=== PATIENT | female | born 1980 | race Caucasian/White ===

== ENCOUNTER → 2018-01-15 09:23 | Outpatient (CLI) | payer MEDICAID, SELFPAY ==
--- NOTE | 2018-01-15 09:27 | MM_ITS ---
MM Dig screening mamm BI w/CAD CAD Screening ORDERING PHYSICIAN : Silvio Cintron MD PATIENT AGE: 37 years GENDER: Female COMPARISON:. January 2017 previous mammogram INDICATION: Routine screening. No hormones. No new complaints.. Family history. Paternal aunt TECHNIQUE: Standard CC and MLO images were obtained. R2 CAD reviewed. FINDINGS: Low-density breast with generalized fatty replacement. Very minimal scant residual fibroglandular elements. No malignancy evident radiographically. No dominant mass nor suspicious calcifications. No new areas concern. Bilateral follow-up in one year recommended. . IMPRESSION: ...... Negative stable bilateral mammogram. Bilateral follow-up one year recommended. BI-RADS Category: 1 Negative RECOMMENDED FOLLOW-UP: 1YR - 1 YEAR FOLLOW-UP (A letter has been sent to the patient regarding results of the study.)
[2018-01-15 10:18] LABS: Basophils # 0.1 K/mm3 (0-0.2); Basophils % 1.1 % (0.1-2.0); Eosinophils # 0.2 K/mm3 (0.0-0.4); Eosinophils % 2.5 % (0.1-12.0); Hematocrit 42.4 % (37.0-47.0); Hemoglobin 13.2 g/dL (12.2-16.2); Lymphocytes % 28.1 K/mm3 (10-50); Mean Corpuscular HGB Conc 31.2 g/dL (31.8-35.4); Mean Corpuscular Hemoglobin 26.2 pg (27.0-31.2); Mean Platelet Volume 7.5 fl (7.4-10.4); Monocytes # 0.5 K/mm3 (0.1-1.0); Neutrophils # 4.4 K/mm3 (1.8-7.8); Neutrophils % 61.3 % (37.0-80.0); Platelet Count 309 K/mm3 (142-424); Red Blood Count 5.05 M/mm3 (4.20-5.40); Red Cell Distribution Width 13.2 % (11.5-17.5); White Blood Count 7.2 K/mm3 (4.8-10.8)
[2018-01-15 10:22] LABS: Urine Pregnancy, HCG Qual. Negative (Negative)
[2018-01-15 11:10] LABS: Anion Gap 12.4 mEq/L (5-15); Blood Urea Nitrogen 11 mg/dL (7-18); Carbon Dioxide 27 mmol/L (21.0-32.0); Chloride 108 mmol/L (98-107); Creatinine,Serum 0.69 mg/dL (0.55-1.02); Estimated Glomerular Filt Rate 96 ml/min (>60); GFR (African American) 116 ML/MIN (>60); Glucose 94 mg/dL (74-106); Potassium 4.4 mmoL/L (3.5-5.1); Sodium 143 mmol/L (136-145)
== END ==
PROVIDERS: Family Provider Nurse Practitioner Obstetrics & Gynecology; PCP Nurse Practitioner Family; Visit Provider Nurse Practitioner Obstetrics & Gynecology
DX: Z12.31 Encounter for screening mammogram for malignant neoplasm of breast (principal)
CPT/HCPCS: 36415; 77067; 80048; 81025; 85025

== ENCOUNTER → 2018-01-21 09:58 | Outpatient (CLI) | payer MEDICAID, SELFPAY ==
--- NOTE | 2018-01-21 09:59 | US_ITS ---
US transvaginal HISTORY: ITS.REASON: US T/V- Heavy Bleeding ORDERING PHYSICIAN: Silvio Cintron MD PATIENT AGE: 37 years Comparison: None FINDINGS: The uterus measures 12 x 5 x 7.3 cm. Combined and medial thickness is 1 cm. There are nabothian cysts present measuring up to 17 mm. The right ovary measures 4.5 x 3.4 cm and contains a bilocular cyst at 3.4 x 2.4 cm. The left ovary is 2 x 1.5 cm with an unremarkable appearance. No cul-de-sac fluid is evident. IMPRESSION: 1. Enlarged uterus with nabothian cyst. Endometrial thickness upper limits of normal 2. Bilocular right ovarian cyst at 3.4 x 2.4 cm
== END ==
PROVIDERS: Family Provider Nurse Practitioner Obstetrics & Gynecology; PCP Nurse Practitioner Family; Visit Provider Nurse Practitioner Obstetrics & Gynecology
DX: N92.0 Excessive and frequent menstruation with regular cycle (principal)
CPT/HCPCS: 76830

== ENCOUNTER → 2018-03-08 09:52 | Outpatient (CLI) | payer MEDICAID, SELFPAY ==
[2018-03-08 10:26] LABS: Basophils # 0.1 K/mm3 (0-0.2); Basophils % 0.7 % (0.1-2.0); Eosinophils # 0.3 K/mm3 (0.0-0.4); Hematocrit 39.3 % (37.0-47.0); Hemoglobin 12.9 g/dL (12.2-16.2); Lymphocytes # 1.8 K/mm3 (0.7-4.5); Lymphocytes % 26.5 K/mm3 (10-50); Mean Corpuscular HGB Conc 32.8 g/dL (31.8-35.4); Mean Corpuscular Hemoglobin 26.6 pg (27.0-31.2); Mean Corpuscular Volume 81.2 fl (81-99); Mean Platelet Volume 7.4 fl (7.4-10.4); Monocytes # 0.3 K/mm3 (0.1-1.0); Monocytes % 3.9 % (1.7-9.3); Neutrophils # 4.4 K/mm3 (1.8-7.8); Neutrophils % 64.9 % (37.0-80.0); Platelet Count 301 K/mm3 (142-424); Red Blood Count 4.84 M/mm3 (4.20-5.40); Red Cell Distribution Width 13.4 % (11.5-17.5); White Blood Count 6.8 K/mm3 (4.8-10.8)
[2018-03-08 10:53] LABS: HCG Qualitative, Serum Negative (Negative)
[2018-03-08 11:14] LABS: Anion Gap 10.9 mEq/L (5-15); Blood Urea Nitrogen 11 mg/dL (7-18); Calcium 8.6 mg/dL (8.5-10.1); Carbon Dioxide 24 mmol/L (21.0-32.0); Chloride 108 mmol/L (98-107); Creatinine,Serum 0.63 mg/dL (0.55-1.02); Estimated Glomerular Filt Rate 107 ml/min (>60); GFR (African American) 129 ML/MIN (>60); Glucose 121 mg/dL (74-106); Potassium 3.9 mmoL/L (3.5-5.1); Sodium 139 mmol/L (136-145)
== END ==
PROVIDERS: Visit Provider Nurse Practitioner Obstetrics & Gynecology
DX: Z01.818 Encounter for other preprocedural examination (principal)
CPT/HCPCS: 36415; 80048; 84703; 85025

== ENCOUNTER → 2018-03-26 11:13 | Outpatient (CLI) | payer MEDICAID, SELFPAY ==
[2018-03-27 11:00] LABS: FSH 3.9 mIU/mL (.); LH 5.5 mIU/mL (.)
== END ==
PROVIDERS: Visit Provider Nurse Practitioner Obstetrics & Gynecology
DX: N95.1 Menopausal and female climacteric states (principal)
CPT/HCPCS: 36415; 83001; 83002

== ENCOUNTER → 2019-01-21 09:25 | Outpatient (CLI) | payer MEDICAID, SELFPAY ==
--- NOTE | 2019-01-21 09:27 | MM_ITS ---
MM Dig screening mamm BI w/CAD CAD Screening COMPARISON: Digital mammograms with CAD 01/15/2018 and 01/12/2017 INDICATION: There is a history of breast cancer in patient's paternal aunt TECHNIQUE: Standard CC and MLO images were obtained. R2 CAD reviewed. FINDINGS: Scattered fibroglandular densities are seen throughout both breast in a background of fatty breast parenchyma. There are couple benign-appearing microcalcifications in each breast. There is no suspicious lesion and no suspicious microcalcifications. IMPRESSION: Fibrofatty parenchyma no suspicious lesion seen BI-RADS Category: 2 Benign Finding(s) RECOMMENDED FOLLOW-UP: 1YR - 1 YEAR FOLLOW-UP (A letter has been sent to the patient regarding results of the study.)
== END ==
PROVIDERS: PCP Nurse Practitioner Family; Visit Provider Nurse Practitioner Obstetrics & Gynecology
DX: Z12.31 Encounter for screening mammogram for malignant neoplasm of breast (principal)
CPT/HCPCS: 77067

== ENCOUNTER → 2020-05-12 09:13 | Outpatient (CLI) | payer MEDICAID, SELFPAY ==
--- NOTE | 2020-05-12 09:59 | MM_ITS ---
PROCEDURE: MM DIG SCREENING MAMM BI W/CAD Digital Breast Tomosynthesis Included CLINICAL INDICATION: SCREENING There is a history of breast cancer patient's paternal aunt. COMPARISON: MG DMSB DIG MAMM-SCREEN [facility] W/CAD from 01/12/2017 MG [facility] MM Dig screening mamm BI w/CAD from 01/15/2018 MG DIG MAMM-SCREEN [facility] from 01/21/2019 TECHNIQUE: Standard CC and MLO images and 3D Tomosynthesis was obtained. R2 CAD reviewed. FINDINGS: Scattered diffuse fibroglandular densities are seen throughout both breasts. There are slightly asymmetric glandular elements central portion right breast. However sylvia images are most helpful in decreasing concern of the asymmetric glandular elements. There is no suspicious lesion and no suspicious microcalcifications. IMPRESSION: BI-RAD Category: 1 Negative Fibrofatty parenchyma with no suspicious lesions seen FOLLOW-UP: 1YR 1 Year Follow-up (A letter has been sent to the patient regarding results of the study.) Dictated by: Dr. Shawn Adler MD 05/17/2020 11:53 Dr. Shawn Adler MD in [place] 05/17/2020 11:53
== END ==
PROVIDERS: PCP Nurse Practitioner Family; Visit Provider Nurse Practitioner Obstetrics & Gynecology
DX: Z12.31 Encounter for screening mammogram for malignant neoplasm of breast (principal)
CPT/HCPCS: 77063; 77067

== ENCOUNTER → 2021-06-13 13:53 | Outpatient (CLI) | payer MEDICAID, SELFPAY ==
--- NOTE | 2021-06-13 13:54 | MM_ITS ---
PROCEDURE: MM DIG SCREENING MAMM BI W/CAD Digital Breast Tomosynthesis Included CLINICAL INDICATION: Routine Screening Mammogram There is a history of breast cancer in the patient's paternal aunt. COMPARISON: MG [facility]BI MM Dig screening mamm BI w/CAD from 01/15/2018 MG DIG MAMM-SCREEN [facility] from 01/21/2019 MG MM DIG SCREENING MAMM BI W/CAD from 05/12/2020 TECHNIQUE: Standard CC and MLO images and 3D Tomosynthesis was obtained. R2 CAD reviewed. FINDINGS: Moderate diffuse fibroglandular densities are seen throughout both breast and the findings are bilateral and symmetrical. There are stable asymmetric glandular elements upper-outer quadrant right breast. There is no suspicious lesion and no suspicious microcalcifications. IMPRESSION: Moderate breast density with no suspicious lesions seen BI-RAD Category: 1 Negative FOLLOW-UP: 1YR 1 Year Follow-up (A letter has been sent to the patient regarding results of the study.) Dictated by: Dr. Shawn Adler MD 06/17/2021 08:36 Dr. Shawn Adler MD in [place] 06/17/2021 08:36
== END ==
PROVIDERS: PCP Nurse Practitioner; Visit Provider Nurse Practitioner Obstetrics & Gynecology
DX: Z12.31 Encounter for screening mammogram for malignant neoplasm of breast (principal)
CPT/HCPCS: 77063; 77067

== ENCOUNTER → 2022-06-16 10:56 | Outpatient (CLI) | payer MEDICAID, SELFPAY ==
--- NOTE | 2022-06-16 10:57 | MM_ITS ---
PROCEDURE INFORMATION: Exam: MG Bilateral Screening 3D Mammography Exam date and time: 06/16/2022 10:55 AM Age: 41 years old Clinical indication: Screening. A paternal aunt had breast cancer. TECHNIQUE: Imaging protocol: Bilateral Screening tomosynthesis and 2D mammography including computer-aided detection (CAD) when performed. COMPARISON: 1. MG MM DIG SCREENING MAMM BI W/CAD 06/13/2021 1:56 PM 2. MG MM DIG SCREENING MAMM BI W/CAD 05/12/2020 10:02 AM 3. MG DIG MAMM-SCREEN [facility] 01/21/2019 9:47 AM 4. MG [facility] MM Dig screening mamm BI w/CAD 01/15/2018 9:37 AM FINDINGS: MAMMOGRAPHY: Breast composition: The breasts are almost entirely fatty. Mass: None. Architectural distortion: None. Calcifications: No suspicious calcifications. Asymmetric density: None. Skin thickening: None. Axillary adenopathy: None. IMPRESSION: No mammographic evidence of malignancy. Annual screening is recommended unless otherwise clinically indicated. ASSESSMENT: BI-RADS Category 1: Negative
== END ==
PROVIDERS: PCP Nurse Practitioner Family; Visit Provider Nurse Practitioner Obstetrics & Gynecology
DX: Z12.31 Encounter for screening mammogram for malignant neoplasm of breast (principal)
CPT/HCPCS: 77063; 77067

== ENCOUNTER → 2023-06-26 12:46 | Outpatient (CLI) | payer MEDICAID, SELFPAY ==
--- NOTE | 2023-06-26 12:46 | MM_ITS ---
PROCEDURE INFORMATION: Exam: MG Bilateral Screening 3D Mammography Exam date and time: 06/26/2023 1:00 PM Age: 42 years old Clinical indication: Screening examination TECHNIQUE: Imaging protocol: Bilateral Screening tomosynthesis and 2D mammography including computer-aided detection (CAD) when performed. COMPARISON: 1. MG MM DIG SCREENING MAMM BI W/CAD 06/16/2022 10:55 AM 2. MG MM DIG SCREENING MAMM BI W/CAD 06/13/2021 1:56 PM FINDINGS: MAMMOGRAPHY: Breast composition: The breasts are almost entirely fatty. Mass: None. Architectural distortion: None. Calcifications: No suspicious calcifications. Asymmetric density: None. Skin thickening: None. Axillary adenopathy: None. IMPRESSION: No mammographic evidence of malignancy. Annual screening is recommended unless otherwise clinically indicated. ASSESSMENT: BI-RADS Category 1: Negative
== END ==
PROVIDERS: PCP Nurse Practitioner; Visit Provider Nurse Practitioner Obstetrics & Gynecology
DX: Z12.31 Encounter for screening mammogram for malignant neoplasm of breast (principal)
CPT/HCPCS: 77063; 77067

== ENCOUNTER 2024-02-21 10:41 | Emergency (ER) | payer MEDICAID, SELFPAY ==
[2024-02-21] VITALS (9 sets, daily range): BP systolic 105–146; BP diastolic 64–88; PULSE 50–70; RESP 16–18; TEMP 36.8; O2SAT 94–100; BMI 39.9
--- NOTE | 2024-02-21 10:43 | HMH.EDGENADL ---
Discharge Plan Disposition Patient Disposition: Home, Self-Care Condition: Good Prescriptions Prescriptions: New ketorolac 10 mg tablet 10 mg PO Q8H PRN (Reason: pain) 5 Days Qty: 14 0RF tamsulosin 0.4 mg capsule 0.4 mg PO DAILY 30 Days Qty: 30 0RF No Action multivitamin capsule 1 cap PO DAILY gabapentin 600 mg tablet 600 mg PO TID duloxetine [Cymbalta] 60 mg capsule,delayed release(DR/EC) 60 mg PO DAILY meloxicam 15 mg tablet 15 mg PO DAILY topiramate 50 mg tablet 50 mg PO Patient Comments: TAKE 1 TABLET BY MOUTH TWICE DAILY. zinc sulfate 50 mg zinc (220 mg) capsule 100 mg PO DAILY esomeprazole magnesium 20 mg capsule,delayed release(DR/EC) 20 mg PO DAILY cholecalciferol (vitamin D3) [Vitamin D3] 50 mcg (2,000 unit) tablet 50 mcg PO DAILY albuterol sulfate [Ventolin HFA] 90 mcg/actuation HFA aerosol inhaler 2 puff inhalation PRN omega 8-yfh-was-fish oil [Fish Oil] 300-1,000 mg capsule,delayed release(DR/EC) PO Vraylar 3 mg capsule 3 mg PO DAILY fluconazole 100 mg tablet 100 mg PO DAILY docusate sodium 100 mg capsule PO fluticasone propionate 50 mcg/actuation spray,suspension intranasal Referrals Follow up/Referrals: Nat Riley APRN [Primary Care Provider] - See instructions Activity Restrictions/Add. Instructions Additional Instructions/Restrictions: As we discussed, you have a 4 mm kidney stone on the right side. It is causing some backup in your kidney of urine. Given that your pain is under control, albeit that your urinalysis is difficult to interpret with multiple squamous cells, you are stable for discharge. I have prescribed pain medication and a medication called tamsulosin or Flomax which can help potentially pass a stone. Please follow-up with a urology doctor. Please return with any new or worsening symptoms. Clinical Impressions Clinical Impression: Urolithiasis, Hydronephrosis Instructions Patient Instructions: DI for Low Back Pain Discharge ED Provider: Rohan Bustamante General Adult HPI General Chief complaint: Back Pain/Injury Stated complaint: lower right back pain Time Seen by Provider: 02/21/24 10:43 History of Present Illness HPI narrative: The patient presents with a chief complaint of lower sides and back pain. The pain began when the patient fell ill and has been persistent since then. The patient denies any radiation of the pain and reports no pain during urination. She denies any pain elsewhere. Symptoms were acute in onset, intermittent, stable in course. No fevers or chills. No pain elsewhere. No nausea or vomiting. No sick contacts. No previous therapies. The patient has a medical history of migraines and is currently taking topiramate for migraine management, along with several vitamins. The patient has had a previous surgery. The patient reports normal bowel movements. During a recent urinalysis, blood was detected in the patient's urine. Please note that above description of symptoms, in this electronic medical record under categorization of recalled from ER triage doctor by RN are reflective of an initial nursing assessment, however, is not reflective of my full history and physical exam that was personally taken and clarified. Consequentially, this preceding description of symptoms, which may include the patient's categorized chief complaint in the EMR, do not reflect my personal clinical impression, and the ultimate description of history of present illness and patient stated complaints should be deferred to this section of the note. Unless stated otherwise or congruent with this section of the note, additional signs, symptoms, or incongruence should be interpreted as inaccurate with my clinical impression. Related Data Home Medications Medication Instructions Recorded Confirmed multivitamin 1 cap PO DAILY 03/26/18 02/14/24 gabapentin 600 mg tablet 600 mg PO TID 01/21/19 02/14/24 duloxetine 60 mg capsule,delayed 60 mg PO DAILY 05/12/20 02/14/24 release (Cymbalta) meloxicam 15 mg tablet 15 mg PO DAILY 05/12/20 02/14/24 topiramate 50 mg tablet 50 mg PO 06/13/21 02/14/24 cholecalciferol (vitamin D3) 50 50 mcg PO DAILY 01/04/23 02/14/24 mcg (2,000 unit) tablet (Vitamin D3) esomeprazole magnesium 20 mg 20 mg PO DAILY 01/04/23 02/14/24 capsule,delayed release zinc sulfate 50 mg zinc (220 mg) 100 mg PO DAILY 01/04/23 02/14/24 capsule albuterol sulfate 90 mcg/actuation 2 puff inhalation PRN 08/16/23 02/14/24 aerosol inhaler (Ventolin HFA) cariprazine 3 mg capsule (Vraylar) 3 mg PO DAILY 08/16/23 02/14/24 omega 5-qxx-qiq-fish oil 300 cap PO 08/16/23 02/14/24 mg-1,000 mg capsule,delayed release (Fish Oil) docusate sodium 100 mg capsule mg PO 02/14/24 02/14/24 fluconazole 100 mg tablet 100 mg PO DAILY 02/14/24 02/14/24 fluticasone propionate 50 intranasal 02/14/24 02/14/24 mcg/actuation nasal spray,suspension Previous Rx's Medication Instructions Recorded ketorolac 10 mg tablet 10 mg PO Q8H PRN pain 5 days #14 02/21/24 tabs tamsulosin 0.4 mg capsule 0.4 mg PO DAILY 30 days #30 caps 02/21/24 Allergies Allergy/AdvReac Type Severity Reaction Status Date / Time penicillin G Allergy Mild Hives Verified 02/21/24 11:16 [facility] Disclaimer: The information contained in this section may have been updated after the patient was seen, as this information can be updated by other users. Medical History Bipolar 2 disorder GERD (gastroesophageal reflux disease) Surgical History History of salpingectomy History of endometrial ablation History of gastric surgery History of delivery History of arthroplasty of left knee History of tonsillectomy Family History Other Diabetes Hypertension Social History Smoking Status: Never smoker alcohol intake: never substance use type: denies use current occupational status: employed Travel in the last 8 weeks: None household members: spouse and children housing: house current occupational exposures/hazards: No caffeine: No ROS Obtained: Yes other As per HPI Physical Exam General General appearance: alert and in no apparent distress Head Head exam: atraumatic and normocephalic Eye Eye exam: Present normal appearance Neck Neck exam: Present normal inspection Chest Chest inspection: Present normal inspection and symmetric chest wall rise Respiratory Respiratory exam: Present normal lung sounds bilaterally; Absent respiratory distress Cardiovascular Cardiovascular exam: Present regular rate and normal rhythm Abdominal Exam Abdominal exam: Present soft Neurological Exam Neurological exam: Present alert and oriented X3 Psychiatric Psychiatric exam: Present normal affect and normal mood Skin Skin exam: Present warm and dry Other Other exam information: Right-sided CVA tenderness to percussion Medical Decision Making Medical Records Medical records reviewed: Yes I reviewed the patient's medical records. Jamie Inquiry Pt receiving controlled substance: No Vital Signs: 02/21/24 11:00 02/21/24 11:08 02/21/24 12:35 Temperature 98.2 F Temperature Source Oral Pulse Rate 66 70 Pulse Rate [Left] 57 L Respiratory Rate 16 18 Blood Pressure 126/88 105/64 L Blood Pressure [Right Arm] 146/81 H Blood Pressure Mean 95 77 Blood Pressure Mean [Right Arm] 102 Blood Pressure Source Blood Pressure Source [Right Arm] Automatic Cuff Blood Pressure Position Blood Pressure Position [Right Arm] Sitting 02 Sat by Pulse Oximetry 97 99 100 Oxygen Delivery Method Room Air Room Air 02/21/24 13:00 02/21/24 13:30 02/21/24 14:01 Temperature Temperature Source Pulse Rate 52 L 55 L 50 L Pulse Rate [Left] Respiratory Rate Blood Pressure 119/64 116/68 113/64 Blood Pressure [Right Arm] Blood Pressure Mean 76 84 87 Blood Pressure Mean [Right Arm] Blood Pressure Source Blood Pressure Source [Right Arm] Blood Pressure Position Blood Pressure Position [Right Arm] 02 Sat by Pulse Oximetry 95 95 96 Oxygen Delivery Method 02/21/24 14:31 02/21/24 15:01 02/21/24 15:10 Temperature 98.2 F Temperature Source Oral Pulse Rate 51 L 54 L 60 Pulse Rate [Left] Respiratory Rate 18 Blood Pressure 122/68 105/65 L 115/66 Blood Pressure [Right Arm] Blood Pressure Mean 97 78 Blood Pressure Mean [Right Arm] Blood Pressure Source Automatic Cuff Blood Pressure Source [Right Arm] Blood Pressure Position Sitting Blood Pressure Position [Right Arm] 02 Sat by Pulse Oximetry 95 94 L Oxygen Delivery Method Room Air Lab Data Lab Results 02/21/24 10:46: Urine Color Yellow, Urine Appearance Cloudy, Urine pH 7.0, Ur Specific [place] 1.020, Urine Protein Negative, Urine Glucose (UA) Trace, Urine Ketones Negative, Urine Blood 1+, Urine Nitrate Negative, Urine Bilirubin Negative, Urine Urobilinogen >=8.0, Ur Leukocyte Esterase Negative, Urine RBC 3-5, Urine WBC 5-10, Ur Squamous Epith Cells 20-50, Amorphous Sediment 3+, Urine Bacteria 1+ 02/21/24 11:07: WBC 11.0 H, RBC 4.49, Hgb 13.1, Hct 39.8, MCV 88.8, MCH 29.2, MCHC 32.8, RDW 13.9, Plt Count 250, MPV 7.7, Neut % (Auto) 78.5, Lymph % (Auto) 12.6, [place] % (Auto) 7.1, Eos % (Auto) 1.2, Baso % (Auto) 0.6, Neut # (Auto) 8.6 H, Lymph # (Auto) 1.4, [place] # (Auto) 0.8, Eos # (Auto) 0.1, Baso # (Auto) 0.1, Sodium 139, Potassium 3.5, Chloride 113 H, Carbon Dioxide 23, Anion Gap 6.5, BUN 16, Creatinine 1.00, Estimated Creat Clear 142, Estimated GFR 61, Est GFR ( Amer) 74, Glucose 100, Calcium 8.8, Total Bilirubin 1.1, AST 26, ALT 18, Alkaline Phosphatase 68, Total Protein 6.7, Albumin 3.7, Globulin 3.0, Albumin/Globulin Ratio 1.2, Serum HCG, Qual Negative 02/21/24 11:07 02/21/24 11:07 Orders (Tests/Meds): ED MEDICATIONS Discontinued Medications Generic Name Dose Route Start Last Admin Trade Name Freq PRN Reason Stop Dose Admin Lactated Ringer's 1,000 mls @ 999 mls/hr 02/21/24 11:09 02/21/24 11:17 Lactated Ringer's 1000 Ml Bag IV 02/21/24 12:09 999 mls/hr .Q1H1M ONE Administration Ketorolac Tromethamine 15 mg 02/21/24 11:09 02/21/24 11:17 Ketorolac 30mg/Ml Vial IV 02/21/24 11:10 15 mg ONCE ONE Administration ORDERS Category Date Time Status CT abdomen pelvis wo con Stat Cat Scan 02/21/24 11:09 Completed CBC w/Auto Diff [Complete Blood Count Auto Diff] Stat Lab 02/21/24 11:07 Completed CMP [Comprehensive Metabolic Panel] Stat Lab 02/21/24 11:07 Completed HCG Qualitative, Serum Stat Lab 02/21/24 11:07 Completed Urinalysis and Microscopic Stat Lab 02/21/24 10:46 Completed Urine Culture Stat Micro 02/21/24 10:46 Received Medical Decision Narrative: Patient with history and exam per above presenting for evaluation of right-sided flank pain and abdominal pain Diagnoses considered include , urolithiasis, cystitis, pyelonephritis, hydronephrosis, diverticulitis, among others ED workup and treatment included: ED MEDICATIONS Discontinued Medications Generic Name Dose Route Start Last Admin Trade Name Freq PRN Reason Stop Dose Admin Lactated Ringer's 1,000 mls @ 999 mls/hr 02/21/24 11:09 02/21/24 11:17 Lactated Ringer's 1000 Ml Bag IV 02/21/24 12:09 999 mls/hr .Q1H1M ONE Administration Ketorolac Tromethamine 15 mg 02/21/24 11:09 02/21/24 11:17 Ketorolac 30mg/Ml Vial IV 02/21/24 11:10 15 mg ONCE ONE Administration ORDERS Category Date Time Status CT abdomen pelvis wo con Stat Cat Scan 02/21/24 11:09 Completed CBC w/Auto Diff [Complete Blood Count Auto Diff] Stat Lab 02/21/24 11:07 Completed CMP [Comprehensive Metabolic Panel] Stat Lab 02/21/24 11:07 Completed HCG Qualitative, Serum Stat Lab 02/21/24 11:07 Completed Urinalysis and Microscopic Stat Lab 02/21/24 10:46 Completed Urine Culture Stat Micro 02/21/24 10:46 Received Labs were independently interpreted by me, significant for white blood cell count 11.0, urinalysis with 20 to 50 squamous cells, one plus bacteria, microscopic pyuria, microscopic hematuria Imaging was independently visualized and interpreted by me, significant for 4 millimeter stone on right side with associated hydronephrosis Please refer to radiology report for full details. My clinical impression at this time is most consistent with obstructing urolithiasis. Patient reports improvement of symptoms upon repeat evaluation. She is not in any discomfort. She is able to tolerate PO intake. She is comfortable with discharge at this time with follow-up with urology. Return precautions given. I discussed my clinical impression with patient and answered all questions. At this time, the evidence for any other entities in the differential is insufficient to warrant any further testing or ED observation. This was explained to the patient. The patient was advised that persistent or worsening symptoms require further evaluation. I confirmed the patient's understanding of this discussion. Critical Care Critical Care Time Critical Care Time: No
--- NOTE | 2024-02-21 11:09 | CT_ITS ---
FINAL REPORT TECHNIQUE: Axial images through the abdomen and pelvis were performed without contrast. This study was performed with techniques to keep radiation doses as low as reasonably achievable, (ALARA). Individualized dose reduction techniques using automated exposure control or adjustment of mA and/or kV according to the patient's size were employed. CLINICAL HISTORY: R flank pain, hematuria FINDINGS: ABDOMEN: The lung bases are clear. The heart size is normal. Limited images of the liver are unremarkable. The gallbladder is normal. 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 The spleen is normal. No adrenal mass is identified. The aorta is normal in caliber. There is no significant free fluid or adenopathy. There is right hydronephrosis and hydroureter at the level of an obstructing stone measuring 4 mm in the distal right ureter. There is a nonobstructing tiny left renal stone. Fluid collection is seen in the anterior abdominal wall measuring 8.1 x 8.0 cm, could be seroma or hematoma, abscess is felt unlikely. No small bowel obstruction is identified. PELVIS: The appendix is not identified but there are no secondary signs to suggest appendicitis. The uterus and ovaries are unremarkable for age. The urinary bladder is unremarkable. There is no significant free fluid or adenopathy. There is no acute osseous abnormality. IMPRESSION: Right hydronephrosis and hydroureter secondary to an obstructing 4 mm distal ureteral stone. Fluid collection in the anterior abdominal wall, could be seroma or hematoma. Reviewed, Interpreted and Dictated by Kelly Fagan MD Transcribed by Danielle Carbone Authenticated and [facility]
[2024-02-21] MEDS: LACTATED RINGERS 1000ML 1,000 ML 999 ML IV (11:17)
[2024-02-21] MEDS: KETOROLAC 30MG/ML VIAL 15 MG IV (11:17)
[2024-02-21 11:18] LABS: Basophils # 0.1 K/mm3 (0-0.2); Basophils % 0.6 % (0.1-2.0); Eosinophils # 0.1 K/mm3 (0.0-0.4); Eosinophils % 1.2 % (0.1-12.0); Hematocrit 39.8 % (37.0-47.0); Hemoglobin 13.1 g/dL (12.2-16.2); Lymphocytes # 1.4 K/mm3 (0.7-4.5); Lymphocytes % 12.6 % (10-50); Mean Corpuscular HGB Conc 32.8 g/dL (31.8-35.4); Mean Corpuscular Hemoglobin 29.2 pg (27.0-31.2); Mean Corpuscular Volume 88.8 fl (81-99); Mean Platelet Volume 7.7 fl (7.4-10.4); Monocytes # 0.8 K/mm3 (0.1-1.0); Monocytes % 7.1 % (1.7-9.3); Neutrophils # 8.6 K/mm3 (1.8-7.8); Neutrophils % 78.5 % (37.0-80.0); Platelet Count 250 K/mm3 (142-424); Red Blood Count 4.49 M/mm3 (4.20-5.40); Red Cell Distribution Width 13.9 % (11.5-17.5)
[2024-02-21 11:30] LABS: Chloride 113 mmol/L (98-107); Sodium 139 mmol/L (136-145)
[2024-02-21 11:31] LABS: HCG Qualitative, Serum Negative (Negative); Potassium 3.5 mmoL/L (3.5-5.1)
[2024-02-21 11:33] LABS: Alanine Aminotransferase 18 U/L (12-78); Albumin Level 3.7 g/dl (3.5-5.0); Albumin/Globulin Ratio 1.2 (1.1-1.8); Alkaline Phosphatase 68 U/L (38-126); Anion Gap 6.5 mEq/L (5-15); Aspartate Amino Transferase 26 U/L (14-36); Bilirubin,Total 1.1 mg/dl (0.2-1.3); Blood Urea Nitrogen 16 mg/dl (7-17); Carbon Dioxide 23 mmol/L (22.0-30.0); Creatinine Clearance Estimated 142 mL/min (50-200); Estimated Glomerular Filt Rate 61 ml/min (>60); GFR (African American) 74 ML/MIN (>60); Total Protein,Serum 6.7 g/dl (6.3-8.2)
[2024-02-21 11:34] LABS: Calcium 8.8 mg/dl (8.4-10.2); Glucose 100 mg/dl (74-100)
[2024-02-21 12:01] LABS: Microscopic, Urine URINE MICROSCOPIC (MICROSCOPIC)
[2024-02-21 12:29] LABS: Appearance,Urine CLOUDY (Clear); Bilirubin,Urine Negative (Negative); Blood, Urine 1+ (Negative); Color,Urine YELLOW (Yellow); Glucose,Urine (UA) TRACE (Negative); Ketones,Urine Negative (Negative); Leukocyte Esterase,Urine Negative (Negative); Nitrate,Urine Negative (Negative); Protein,Urine Negative (Negative); Urobilinogen,Urine >=8.0 EU/dl (0.2)
--- NOTE | 2024-02-21 12:33 | PC.NURSE ---
ROUNDED ON PT, UPDATED ON POC. AWAITING CT READS. CALL LIGHT WITHIN REACH. NO NEEDS AT THIS TIME
[2024-02-21 12:53] LABS: Bacteria,Urine 1+ /lpf; Squamous Epithelial Cell,Urine 20-50 #/hpf (0-5)
[2024-02-21 12:54] LABS: Amorphous Sediment,Urine 3+ /lpf
--- NOTE | 2024-02-21 13:02 | PC.NURSE ---
CONTACTED RADIOLOGY TO CHECK ON CT READS
--- NOTE | 2024-02-26 23:39 | PC.NURSE ---
urine culture completed- multiple organisms, suggest contamination. ntd
== END 2024-02-21 15:15 | disposition home or self-care (01) ==
PROVIDERS: Emergency Provider Emergency Medicine; PCP Nurse Practitioner Family
DX: N13.0 Hydronephrosis with ureteropelvic junction obstruction (principal); N13.4 Hydroureter; B96.89 Other specified bacterial agents as the cause of diseases classified elsewhere; R10.30 Lower abdominal pain, unspecified; M54.59 Other low back pain; K21.9 Gastro-esophageal reflux disease without esophagitis
CPT/HCPCS: 74176; 80053; 81001; 84703; 85025; 87086; 96361; 96374; 99284; J1885; J7120

== ENCOUNTER 2024-07-07 09:53 | Outpatient (CLI) | payer MEDICAID, SELFPAY ==
--- OUTSIDE RECORDS SUMMARY | 2024-07-07 09:54 | XMS_ITS | Encounter Summary ---
Author Organization Healthcare Address [address] [place] [address] Care Team Providers Care Partner Manager Name Role Phone Bjorn Salazar MD Primary Care Provider [phone] Encounter Details Date Type Department Care Team (Late st Contact Info) Description 06/02/2022 9:00 AM EDT Office Visit [facility] Plastic Surgery [address] [place] [address] Alexandr Nugent MD [address] [phone] Excessive skin and subcutaneous tissue (Primary Dx) Social History Tobacco Use Types Packs/Day Years Used Date Smoking Tobacco: Never Smokeless Tobacco: Never Tobacco Cessation:Counseling Given: Not Answered Alcohol Use Standard Drinks/Week Comments Yes 0 (1 standard drink = 0.6 oz pur e alcohol) on social occasions Comments No Sex and Gender Information Value Date Recorded Sex Assigned at Not on file Legal Sex Female 7:59 PM EDT Gender Identity Not on file Sexual Orientation Not on file COVID-19 Exposure Response Date Recorded In the last 10 days, have yo u been in contact with someone who was confirmed or suspected to have Coronavirus/COVID-19? No / Unsure 06/02/2022 8:58 AM EDT documented as of this encounter Last Filed Vital Signs Vital Sign Reading Time Taken Comments Blood Pressure 110/73 06/02/2022 9:24 AM EDT Pulse 100 06/02/2022 9:24 AM EDT Temperature 36.7 ??C (98.1 ??F) 06/02/2022 9:24 AM ED T Respiratory Rate - - Oxygen Saturation - - Inhaled Oxygen Concentration - - Weight 103 kg (227 lb 4.7 oz) 06/02/2022 9:24 AM EDT Height 175.3 cm (5' 9 ) 06/02/2022 9:24 AM EDT Body Mass Index 33.57 06/02/2022 9:24 AM EDT documented in this encounter Miscellaneous Notes * Progress Notes - Michelle Mckenzie MD - 06/02/2022 9:00 AM EDT PLASTIC SURGERY CONSULT NOTE Chief Complaint: Excess skin and subcutaneous tissue bilateral upper arms/breasts History of Presenting Illness: Cris Galdamez is a 41 y.o. female with PmHx of massive weight loss s/p gastric sleeve 06/20 who presents today for discussion of removal of excess skin and subcutaneous tissue of the bilateral upper arms. Of note, patient is s/p [id number] abdominoplasty 03/26. Patient healed well following surgeryand is now interested in addressing the excess tissue along her bilateral upper arms. She reports frequent skin breakdown and rashes associated with the increased tissue around her upper arms. She has tried Nystatin creams without improvement. Patient reports her weight has remained stable and she continues with an exercise program. Patient also states that she also experiences skin breakdown and rashes along the inferior aspect of her breasts since her weight loss. Patient reports family history of breast cancer. Patient's lastmammogram was within the year and was benign. Updated mammogram due in June of this year. Review of Systems: Review of Systems Constitutional: Negative. HENT: Negative. Eyes: Negative. Respiratory: Negative. Cardiovascular: Negative. Gastrointestinal: Negative. Endocrine: Negative. Genitourinary: Negative. Musculoskeletal: Negative. Skin: Negative. Allergic/Immunologic: Negative. Neurological: Negative. Hematological: Negative. Psychiatric/Behavioral: Negative. Past Medical History: Past Medical History: Diagnosis Date Arthritis knees Asthma no problems at present Neuropathy Seasonal allergies Surgical History: Past Surgical History: Procedure Laterality Date BARIATRIC SURGERY N/A Bariatric surgery from [facility] SECTION, LOW TRANSVERSE N/A section from [facility] ENDOMETRIAL ABLATION N/A Endometrial ablation from [facility] KNEE SURGERY N/A Knee Surgery from [facility] TONSILLECTOMY N/A Tonsillectomy from [facility] TUBAL LIGATION N/A Tubal Ligation from [facility] Allergy: Allergies Allergen Reactions Penicillins Unknown Latex Unknown Social History: Tobacco: Denies Alcohol: Denies Illicits: Denies Family History: Reviewed and non-contributory Objective: Vitals: 06/02/22 0924 BP: 110/73 Pulse: 100 Temp: 36.7 ??C (98.1 ??F) Physical Examination: Physical Exam Constitutional: Appearance: She is obese. HENT: Mouth/Throat: Mouth: Mucous membranes are moist. Pulmonary: Effort: Pulmonary effort is normal. Abdominal: Palpations: Abdomen is soft. Comments: Fqjmz-oh-jph incision well-healed, small dog-ear along right lateral abdominal incision Musculoskeletal: General: Normal range of motion. Skin: General: Skin is warm. Capillary Refill: Capillary refill takes less than 2 seconds. Comments: Bilateral breasts with grade III ptosis, striae present RIGHT: SN-N-36 cm, N-IMF 11 cm LEFT: SN-N 37 cm, N-IMF 11 cm Bilateral upper arms with excess skin and subcutaneous tissue; skin breakdown along axilla present with rash Neurological: Mental Status: She is alert and oriented to person, place, and time. Psychiatric: Mood and Affect: Mood normal. Imaging: No new imaging accompanies this visit Assessment/Plan: Cris Galdamez is a 41 y.o. female who presents today in consultation for excess skin and subcutaneous tissue of the bilateral upper arms and breast. Patient wishes to proceed with excision of excess tissue from her arms first as this is currently most bothersome. -Plan for brachioplasty bilateral upper extremities -Post-operative expectations including drains, lifting restrictions were discussed with the patient -Surgery scheduling initiated -Plan to address breasts following full recovery from brachioplasty Gato Mckenzie MD Plastic and Reconstructive Surgery Cosigned by Alexandr Nugent MD at 06/02/2022 11:43 AM EDT Associated attestation - Alexandr Nugent MD - 06/02/2022 11:43 AM EDT I saw and evaluated the patient with the resident/fellow. I discussed the case with the resident/fellow and agree with the findings and plan as documented. documented in this encounter Plan of Treatment Not on file documented as of this encounter Visit Diagnoses Diagnosis Excessive skin and subcutaneous tissue- Primary documented in this encounter Additional Health Concerns Assessment Noted Time A fall risk assessment has been complete d for the patient 06/02/2022 9:27 AM EDT documented as of this encounter Care Teams Partner Manager Relationship Specialty Start Date End Date Bjorn Salazar MD [address] [place] [address] PCP - General 03/07/21 documented as of this encounter
--- OUTSIDE RECORDS SUMMARY | 2024-07-07 09:54 | XMS_ITS | Clinical Summary ---
Author Organization [facility] Address [address] [place] [address] Care Team Providers Care Lump Room Supervisor Name Role Phone Bjorn Salazar MD Primary Care Provider [phone] Allergies Active Allergy Reactions Criticality Noted Date Comments Latex Unknown - Patient st ates they do not know rxn details Low 11/19/2020 Penicillins Unknown - Patient st ates they do not know rxn details Medium 11/19/2020 Medications gabapentin (Neurontin) 600 MG tablet Take 600 mg by mouth 3 (three) times a day. 01/18/2021 Active DULoxetine (Cymbalta) [address] capsule Take 60 mg by mouth 1 (one) time each day. 01/14/2021 Active meloxicam (Mobic) 15 MG tablet Take 15 mg by mouth 1 (one) time each day. 02/18/2021 Active topiramate (Topamax) 25 MG tablet Take 50 mg by mouth 2 (two) times a day. Active clonazePAM (KlonoPIN) 1 MG tablet Take by mouth 3 (three) times a day. Active Multiple Vitamins-Minera ls (multivitamin with minerals) tablet Take 1 tablet by mouth 1 (one) time each day. Active loratadine (Claritin) 10 MG tablet Take 10 mg by mouth 1 (one) time each day. Active cyanocobalamin (cyanocobalamin ) 500 MCG tablet Take 500 mcg by mouth 2 (two) times a day. Active methocarbamol (Robaxin) 500 MG tablet Take 500 mg by mouth 2 (two) times a day. Active diclofenac (Voltaren) 75 MG EC tablet Take 75 mg by mouth 2 (two) times a day. Do not crush, chew, or split. Active topiramate 50 MG tablet Take 1 tablet by mouth 2 (two) times a day. 12/29/2020 Active Vraylar 1.5 MG capsule TAKE 1 CAPSULE BY MOUTH AT BEDTIME DIRECTED 05/26/2022 Active esomeprazole (NexIUM) [address] capsule Take 20 mg by mouth 1 (one) time each day. 06/01/2022 Active nystatin (Mycostatin) 869474 UNIT/ML suspension TAKE 5 ML BY MOUTH 4 TIMES DAILY FOR 5 DAYS 06/01/2022 Active traZODone (Desyrel) 50 MG tablet TAKE 1-2 TABLET BY MOUTH AT BEDTIME NEEDED 05/16/2022 Active Active Problems Problem Noted Date Diagnosed Date Abdominal pannus 02/25/2021 Back pain 11/19/2020 Resolved Problems Problem Noted Date Diagnosed Date Resolved Date Excess skin of abdominal wall 03/09/2021 03/10/2021 Family History Medical History Relation Name Comments Cancer Maternal Grandfather Diabetes Maternal Grandmother Heart disease Maternal Grandmother Diabetes Mother Heart disease Mother Relation Name Status Comments Maternal Grandfather Maternal Grandmother Mother Social History Tobacco Use Types Packs/Day Years [...] on file Sexual Orientation Not on file Last Filed Vital Signs Vital Sign Reading Time Taken Comments Blood Pressure 110/73 06/02/2022 9:24 AM EDT Pulse 100 06/02/2022 9:24 AM EDT Temperature 36.7 ??C (98.1 ??F) 06/02/2022 9:24 AM ED T Respiratory Rate 17 03/10/2021 11:23 AM EDT Oxygen Saturation 98% 03/10/2021 11:23 AM EDT Inhaled Oxygen Concentration - - Weight 103 kg (227 lb 4.7 oz) 06/02/2022 9:24 AM EDT Height 175.3 cm (5' 9 ) 06/02/2022 9:24 AM EDT Body Mass Index 33.57 06/02/2022 9:24 AM EDT Plan of Treatment Health Maintenance Due Date Last Done Comments [facility]-Depression Screening 1981 [facility]-Infant/Child/Adol SDOH Screenings 1981 [facility]-Varicella Vaccines (1 of 2 - 13+ 2-dose series) 1994 [facility]- SDOH Screenings 1999 [facility]-Adult SDOH Screenings 1999 [facility]-Pap Smear 2002 [facility]-Cervical Cancer Screening 2011 [facility]-HPV/Cotest 2011 [facility]-Hepatitis B Vaccines (2 of 3 - 19+ 3-dose series) 06/21/2022 05/24/2022 [id number] Vaccine (1 - 2023- season) 2024 [facility]-Influenza Vaccine (#1) 04/06/202405/12, 05/09/2021, 07/08/2020, Additional history exists [facility]-DTaP,Tdap,and Td Vaccines (3 - Td or Tdap) 12/11/2029 12/12/2019, 07/23/2012 [facility]-Zoster Vaccines (1 of 2) 2031 [facility]-RSV Vaccine: 60+ Years or (1 - 1-dose 75+ series) 2056 [facility]-Hepatitis A Vaccines Aged Out 10/24/2018, 04/06 No longer eligible based on patient's age to complete this topic [facility]-HIV Screening Completed 03/09/2021 [facility]-Hepatitis C Screening Completed 03/09/2021 [facility]-Obesity Intervention Completed 06/02/2022 [facility]-HIB Vaccines Aged Out No longer e ligible based on patient's age to complete this topic [facility]-HPV Vaccines Aged Out No longer e ligible based on patient's age to complete this topic [facility]-IPV Vaccines Aged Out No longer e ligible based on patient's age to complete this topic [facility]-Pneumococcal Vaccine: Pediatrics (0 to 5 Years) and At-Risk Patients (6 to 64 Years) Aged Out No longer eligible based on patient's age to complete this topic [facility]-Rotavirus Vaccines Aged Out No lo nger eligible based on patient's age to complete this topic Medical Devices Implanted Type [employer] Supervisor Device Identifier Shelf Expiration Date Model / Serial / Lot Screw Screw Left: Knee Staple Staple N/A: Stomach Procedures Procedure Name Priority Date/Time Associated Diagnosis Comments HEPATITIS C ANTIBODY W/REFLEX TO HCV QUANT PCR Routine 03/09/2021 11:00 AM EDT Encounter for general adult medical examination without abnormal findings HIV 1/2 ANTIBODY/ANTIGEN SCREEN WITH REFLEX TO HIV I/II DIFFERENTIATION Routine 03/09/2021 11:00 AM EDT Encounter for general adult medical examination without abnormal findings from Last 3 Months or Most Recently Relevant to Health Maintenance Results * HIV 1 & 2 Antibody/Antigen Screen (03/09/2021 11:00 AM EDT) Pathologist [facility] HIV 1 & 2 Antibody/Anti gen Screen Nonreactive Nonreactive 03/09/2021 12:56 PM EDT [facility] Blood Venous blood specimen / Unknown 03/09/2021 11:00 AM EDT 03/09/2021 11:35 AM EDT Marciano Reilly MD LAB BLOOD ORDERABLES Rubi l Result Performing Organization Address City/[facility]/ZIP Co de Phone Number [facility]ALTHCARE [facility] [address] [place] [address] * Hepatitis C antibody (03/09/2021 11:00 AM EDT) Pathologist [facility] Hepatitis C Antibody Negative Negative 03/09/2021 12:56 PM EDT [facility] Blood Venous blood specimen / Unknown 03/09/2021 11:00 AM EDT 03/09/2021 11:35 AM EDT Marciano Reilly MD LAB BLOOD ORDERABLES Rubi l Result Performing Organization Address City/[facility] Co de Phone Number [facility] [address] [place] [address] from Last 3 Months or Most Recently Relevant to Health Maintenance Insurance [employer] Advance Directives * Full Code (Latest Code Status on File) Date Activated Date Inactivated Comments 03/09/2021 11:13 AM 03/10/2021 4:47 PM Question Answer Comments Patient has decision-making capacity? Yes Care Teams Lump Room Supervisor Relationship Specialty Start Date End Date Bjorn Salazar MD [address] [place] [address] PCP - General 03/07/21
--- OUTSIDE RECORDS SUMMARY | 2024-07-07 09:54 | XMS_ITS | Encounter Summary ---
Author Organization Healthcare Address [facility] [place] [address] Care Team Providers Care Behavior Clinician Name Role Phone Bjorn Salazar MD Primary Care Provider [phone] Encounter Details Date Type Department Care Team (Latest Contact Info) Description 06/02/2022 Travel Social History Tobacco Use Types Packs/Day Years Used Date Smoking Tobacco: Never Smokeless Tobacco: Never Alcohol Use Standard Drinks/Week Comments Yes 0 [...] AM EDT documented as of this encounter Plan of Treatment Not on file documented as of this encounter Visit Diagnoses Not on filedocumented in this encounter Additional Health Concerns Assessment Noted Time A fall risk assessment has been complete d for the patient 06/02/2022 9:27 AM EDT documented as of this encounter Care Teams Behavior Clinician Relationship Specialty Start Date End Date Bjorn Salazar MD [address] [place] [address] PCP - General 03/07/21 documented as of this encounter
--- OUTSIDE RECORDS SUMMARY | 2024-07-07 09:55 | XMS_ITS | Encounter Summary ---
Author Organization Healthcare Address [facility][note 3] [place] [address] Care Team Providers Care [employer] Supervisor Name Role Phone Unavailable Primary Care Provider Unavailabl e Encounter Details Date Type Department Care Team (Latest Contact Info) Description 02/28/2021 Travel Social History Tobacco Use Types Packs/Day Years Used Date Smoking Tobacco: Never Smokeless Tobacco: Never Alcohol Use Standard Drinks/Week Comments Never 0 (1 standard drink = 0.6 oz pur e alcohol) Comments Unknown Sex and Gender Information Value Date Recorded Sex Assigned at Not on file Legal Sex Female 7:59 PM EDT Gender Identity Not on file Sexual Orientation Not on file COVID-19 Exposure Response Date Recorded In the last month, have you been in contact with someone who was confirmed or suspected to have Coronavirus / COVID-19? No / Unsure 02/28/2021 1:12 PM EDT documented as of this encounter Plan of Treatment Not on file documented as of this encounter Visit Diagnoses Not on filedocumented in this encounter
--- OUTSIDE RECORDS SUMMARY | 2024-07-07 09:55 | XMS_ITS | Encounter Summary ---
Author Organization Healthcare Address [address] [place] [address] Care Team Providers Care Base Manager Name Role Phone Bjorn Salazar MD Primary Care Provider [phone] Encounter Details Date Type Department Care Team (Latest Contact Info) Description 03/08/2021 Travel Social History Tobacco Use Types Packs/Day [...] have Coronavirus / COVID-19? No / Unsure 03/08/2021 12:49 PM EDT documented as of this encounter Plan of Treatment Not on file documented as of this encounter Visit Diagnoses Not on filedocumented in this encounter Care Teams Base Manager Relationship Specialty Start Date End Date Bjorn Salazar MD [address] [place] [address] PCP - General 03/07/21 documented as of this encounter
--- OUTSIDE RECORDS SUMMARY | 2024-07-07 09:55 | XMS_ITS | Encounter Summary ---
Author Organization Healthcare Address [address] [place] [address] Care Team Providers Care Quality Assurance Lead Name Role Phone Bjorn Salazar MD Primary Care Provider [phone] Encounter Details Date Type Department Care Team (Latest Contact Info) Description 06/10/2021 Travel Social History Tobacco Use Types Packs/Day [...] have Coronavirus / COVID-19? No / Unsure 06/10/2021 10:20 AM EDT documented as of this encounter Plan of Treatment Not on file documented as of this encounter Visit Diagnoses Not on filedocumented in this encounter Care Teams Quality Assurance Lead Relationship Specialty Start Date End Date Bjorn Salazar MD [address] [place], [place] [phone] PCP - General 03/07/21 documented as of this encounter
--- OUTSIDE RECORDS SUMMARY | 2024-07-07 09:55 | XMS_ITS | Encounter Summary ---
Author Organization Healthcare Address [address] [place] [address] Care Team Providers Care Ice Handler Name Role Phone Bjorn Salazar MD Primary Care Provider [phone] Encounter Details Date Type Department Care Team (Late st Contact Info) Description 03/09/2021 Lab Requisition [facility] Lab [address] [place] [address] Marciano Reilly MD Encounter for general adult medical examination without abnormal findings Social History Tobacco Use Types Packs/Day Years [...] on file documented as of this encounter Procedures Procedure Name Priority Date/Time Associated Diagnosis Comments HIV 1/2 ANTIBODY/ANTIGEN SCREEN WITH REFLEX TO HIV I/II DIFFERENTIATION Routine 03/09/2021 11:00 AM EDT Encounter for general adult medical examination without abnormal findings HEPATITIS C ANTIBODY W/REFLEX TO HCV QUANT PCR Routine 03/09/2021 11:00 AM EDT Encounter for general adult medical examination without abnormal findings HEPATITIS B SURFACE ANTIGEN Routine 03/09/2021 11:00 AM EDT Encounter for general adult medical examination without abnormal findings documented in this encounter Results * Hepatitis C antibody (03/09/2021 11:00 AM EDT) Hepatitis C Antibody Negative Negative 03/09/2021 12:56 PM EDT [facility] Blood Venous blood specimen / Unknown 03/09/2021 11:00 AM EDT 03/09/2021 11:35 AM EDT us Marciano Reilly MD LAB BLOOD ORDERABLES Rubi l Result [facility] [address] [place] [address] * Hepatitis B surface antigen (03/09/2021 11:00 AM EDT) Pathologist [facility] Hepatitis B Surf Antigen Negative Negative 03/09/2021 12:56 PM EDT [facility] Blood Venous blood specimen / Unknown 03/09/2021 11:00 AM EDT 03/09/2021 11:35 AM EDT us Marciano Reilly MD LAB BLOOD ORDERABLES Rubi l Result Performing Organization Address City/[facility]/ZIP Co de Phone Number [facility]ALTHCARE [facility] [address] [place] [address] * HIV 1 & 2 Antibody/Antigen Screen (03/09/2021 11:00 AM EDT) Pathologist [facility] HIV 1 & 2 Antibody/Anti gen Screen Nonreactive Nonreactive 03/09/2021 12:56 PM EDT [facility] Blood Venous blood specimen / Unknown 03/09/2021 11:00 AM EDT 03/09/2021 11:35 AM EDT us Marciano Reilly MD LAB BLOOD ORDERABLES Rubi l Result [facility] [address] [place] [address] documented in this encounter Visit Diagnoses Diagnosis Encounter for general adult medical examination without abnormal findings documented in this encounter Care Teams Ice Handler Relationship Specialty Start Date End Date Bjorn Salazar MD [address] [place] [address] PCP - General 03/07/21 documented as of this encounter
--- OUTSIDE RECORDS SUMMARY | 2024-07-07 09:55 | XMS_ITS | Encounter Summary ---
Author Organization Healthcare Address [facility] [address] Care Team Providers Care Tissue Technician Name Role Phone Bjorn Salazar MD Primary Care Provider [phone] Encounter Details Date Type Department Care Team (Late st Contact Info) Description 04/14/2021 Orders Only [facility] [address] [place] [phone] Kelsey Niño, TECHNICAL ARTIST [address] [phone] Social History Tobacco Use Types Packs/Day Years [...] have Coronavirus / COVID-19? No / Unsure 03/25/2021 8:00 AM EDT documented as of this encounter Plan of Treatment Not on file documented as of this encounter Visit Diagnoses Not on filedocumented in this encounter Care Teams Tissue Technician Relationship Specialty Start Date End Date Bjorn Salazar MD [address] [place] [address] PCP - General 03/07/21 documented as of this encounter
--- OUTSIDE RECORDS SUMMARY | 2024-07-07 09:55 | XMS_ITS | Encounter Summary ---
Author Organization Healthcare Address [address] [place] [address] Care Team Providers Care Vp [employer] Name Role Phone Bjorn Salazar MD Primary Care Provider [phone] Encounter Details Date Type Department Care Team (Latest Contact Info) Description 04/22/2021 Travel Social History Tobacco Use Types Packs/Day [...] have Coronavirus / COVID-19? No / Unsure 04/22/2021 8:20 AM EDT documented as of this encounter Plan of Treatment Not on file documented as of this encounter Visit Diagnoses Not on filedocumented in this encounter Care Teams Vp [employer] Relationship Specialty Start Date End Date Bjorn Salazar MD [address] [place] [address] PCP - General 03/07/21 documented as of this encounter
--- OUTSIDE RECORDS SUMMARY | 2024-07-07 09:55 | XMS_ITS | Encounter Summary ---
Author Organization [facility] Address [facility] [place] [address] Care Team Providers Care Corrosion Control Technician Name Role Phone Bjorn Salazar MD Primary Care Provider [phone] Reason for Referral * Consultation (Routine) - Closed Specialty Diagnoses / Procedures Referred By Yamilet watts Referred To Contact Plastic Surgery Diagnoses Excess skin of abdominal wall Alexandr Nugent MD [address] [address] Phone: tel: fax: Referral ID Status Reason Start Date Expiration Date V isits Requested Visits Authorized [id number] Closed Specialty Services Required 03/10/2021 09/06/2021 1 1 Scheduling Instructions Follow-up with [facility] 03/14/21 for SARAH drain removal. If output not appropriate patient to cancel. Additional scheduling for follow-up needed with Alexandr Nugent on 03/18/21. This will be canceled if patient appropriate to be seen 03/14/21 Reason for Visit * Auth/Cert Specialty Diagnoses / Procedures Referred By Yamilet watts Referred To Contact Diagnoses Excess Skin Procedures DE EXCISE EXCESS SKIN TISSUE,ABDOMEN DE EXCISE EXCESS SKIN TISSUE,ABDOMEN, ADD-ON Kishore De Lis Panniculectomy with Umbilical Transposition Alexandr Nugent MD [address] [address] Phone: tel: fax: [facility] [address] [place] [phone] Phone: tel: Referral ID Status Reason Start Date Expiration Date Visits Re quested Visits Authorized [id number] 1 1 Encounter Details Date Type Department Care Team (Late st Contact Info) Description 03/09/2021 5:29 AM EDT - 03/10/2021 2:42 PM EDT Hospital Encounter [facility] [address] [place] [address] Alexandr Nugent MD [address] [id number] Excess skin of abdominal wall (Primary Dx); Excess skin Discharge Disposition: Home or Self Care Social History Tobacco Use Types Packs/Day Years [...] PM EDT documented as of this encounter Last Filed Vital Signs Vital Sign Reading Time Taken Comments Blood Pressure 114/72 03/10/2021 11:23 AM EDT Pulse 74 03/10/2021 11:23 AM EDT Temperature 36.8 ??C (98.2 ??F) 03/10/2021 11:23 AM E DT Respiratory Rate 17 03/10/2021 11:23 AM EDT Oxygen Saturation 98% 03/10/2021 11:23 AM EDT Inhaled Oxygen Concentration - - Weight 106 kg (233 lb 11 oz) 03/10/2021 6:12 AM EDT Height 175 cm (5' 8.9 ) 03/10/2021 12:05 AM EDT Body Mass Index 34.61 03/10/2021 12:05 AM EDT documented in this encounter Discharge Instructions * Attachments The following attachments cannot be sent through Care Everywhere. * Oxycodone tablets or capsules (Ghanaian) * Manohar Alcala Drainage Tube, Discharge Instructions (Ghanaian) * Cephalexin tablets or capsules (Ghanaian) * Ondansetron tablets (Ghanaian) * Senna tablets or capsules (Ghanaian) * Acetaminophen tablets or caplets (Ghanaian) * Ascorbic Acid/ docusate sodium/ folic acid/ iron carbonyl/ vitamin B 12 Oral Tablet 120 mg/ 50 mg/ 1 mg/ 90 mg/ 0.012 mg (Ghanaian) * A Closed Suction Drainage Tube, Caring for (Ghanaian) documented in this encounter Medications at Time of Discharge clonazePAM (KlonoPIN) 1 MG tablet Take by mouth 3 (three) times a day. cyanocobalamin (cyanocobalamin) 500 MCG tablet Take 500 mcg by mouth 2 (two) times a day. diclofenac (Voltaren) 75 MG EC tablet Take 75 mg by mouth 2 (two) times a day. Do not crush, chew, or split. DULoxetine (Cymbalta) [address] capsule Take 60 mg by mouth 1 (one) time each day. 01/14/2021 gabapentin (Neurontin) 600 MG tablet Take 600 mg by mouth 3 (three) times a day. 01/18/2021 loratadine (Claritin) 10 MG tablet Take 10 mg by mouth 1 (one) time each day. meloxicam (Mobic) 15 MG tablet Take 15 mg by mouth 1 (one) time each day. 02/18/2021 methocarbamol (Robaxin) 500 MG tablet Take 500 mg by mouth 2 (two) times a day. Multiple Vitamins-Minerals (multivitamin with minerals) tablet Take 1 tablet by mouth 1 (one) time each day. topiramate (Topamax) 25 MG tablet Take 50 mg by mouth 2 (two) times a day. topiramate 50 MG tablet Take 1 tablet by mouth 2 (two) times a day. 12/29/2020 acetaminophen (Tylenol) 500 MG tablet Take 2 tablets (1,000 mg total) by mouth every 8 (eight) hours for 10 days. 30 tablet 03/10/2021 1 cephalexin (Keflex) 500 MG capsule Take 1 capsule (500 mg total) by mouth 4 (four) times a day for 3 days. 12 capsule 03/10/2021 1 docusate sodium 100 MG capsule Take 100 mg by mouth 2 (two) times a day for 10 days. 20 capsule 03/10/2021 1 ondansetron ODT (Zofran-ODT) 4 MG disintegrating tablet Take 1 tablet (4 mg total) by mouth every 6 (six) hours if needed for nausea or vomiting for up to 7 days. 20 tablet 03/10/2021 1 oxyCODONE (Roxicodone) 5 MG immediate release tablet Take 1 tablet (5 mg total) by mouth every 6 (six) hours if needed for severe pain for up to 3 days. 12 tablet 03/10/2021 1 senna (Senokot) 8.6 MG tablet Take 2 tablets (17.2 mg total) by mouth every night. 60 tablet 11 03/10/2021 2 documented as of this encounter Miscellaneous Notes * Discharge Summary - Clementine Doe MD - 03/10/2021 6:38 AM EDT Hospitalization Admit Date/Time: 03/09/2021 5:29 AM Admitting Attending: Alexandr Nugent Discharge Date: 03/10/21 Discharge Attending Physician: Alexandr Nugent Md PCP name and Address: Bjorn Salazar MD [place] [address] Referring provider name and address: No referring provider defined for this encounter. Chief Concern, Brief History of Present Illness, and Hospital Course Patient presented to clinic on 11/19 with excess abdominal skin 2/2 250 lb weight loss s/p gastric sleeve surgery Jun 2015. The patient was medically optimized for surgery and on 03/09 was taken to the operating room for a Kishore de Lis abdominoplasty with umbilical transposition. The procedure was tolerated well, and the patient was subsequently extubated and taken to the PACU for immediate post-operative monitoring. Following the PACU stay, the patient was transferred to the floor. On the day of discharge the patient was afebrile, ambulating, tolerating PO pain medicine, voiding spontaneously and tolerating a regular diet. It was felt that the patient had reached maximal benefit from hospitali zation and was deemed ready for discharge. Surgeries and Procedures Kishore De Lis Panniculectomy with Umbilical Transposition (N/A) Medication List . clonazePAM 1 MG tablet Commonly known as: KlonoPIN cyanocobalamin 500 MCG tablet Commonly known as: Vitamin B-12 DULox[address] capsule Commonly known as: Cymbalta fluconazole 150 MG tablet Commonly known as: Diflucan gabapentin 600 MG tablet Commonly known as: Neurontin loratadine 10 MG tablet Commonly known as: Claritin meloxicam 15 MG tablet Commonly known as: Mobic methocarbamol 500 MG tablet Commonly known as: Robaxin multivitamin with minerals tablet topiramate 25 MG tablet Commonly known as: Topamax Discharge Diagnosis Medical Problems Active and Resolved Hospital Problems Hospital * (Principal) Excess skin of abdominal wall Post Discharge Instructions Wait until Sunday 03/11 to shower and remove the abdominal dressing Wear abdominal binder or compression hose covering the abdomen at all times Take Keflex 4 times a day for Three days total Empty your SARAH drains as needed throughout the day and record how much is coming out of each drain. Outpatient Follow-Up Follow up with Kelsey Niño at [facility] Wednesday 03/14 for possible drain removal Follow up with Dr. Nugent at [facility] Surgery Sunday 03/18 Pertinent Physical Exam At Time of Discharge GEN: Well-nourished, alert, in no acute distress SKIN: Normal color, texture; no rashes or lesions HEENT: Normocephalic, no signs of trauma, anicteric, neck with normal ROM PULM: Normal respiratory effort on room air, no audible stridor or wheeze CV: Regular rate and rhythm, palpable radial pulse ABDOMEN: abdominal binder in place with 2 SARAH drains, serosanguinous output PSYCH: Pleasant and normal affect NEURO: Alert and oriented x 3. Cranial nerves II-XII grossly intact Discharge Disposition/Condition Disposition: Home Condition: Stable Clementine Doe MD PGY-1 Pager [phone] Cosigned by Alexandr Nugent MD at 03/10/2021 10:05 AM EDT Associated attestation - Alexandr Nugent MD - 03/10/2021 10:05 AM EDT Signature Only. I agree with the discharge summary as written. * Care Plan - Lis Salgado RN - 03/10/2021 1:46 AM EDT Problem: Adult Inpatient Plan of Care Goal: Plan of Care Review Outcome: Ongoing, Progressing Flowsheets (Taken 03/10/2021 0146) Progress: improving Plan of Care Reviewed With: patient Goal: Patient-Specific Goal (Individualized) Outcome: Ongoing, Progressing Goal: Absence of Hospital-Acquired Illness or Injury Outcome: Ongoing, Progressing Goal: Optimal Comfort and Wellbeing Outcome: Ongoing, Progressing Goal: Readiness for Transition of Care Outcome: Ongoing, Progressing Problem: Pain Acute Goal: Acceptable Pain Control and Functional Ability Outcome: Ongoing, Progressing * Anesthesia PACU Signout - Gus Salmon MD - 03/09/2021 12:27 PM EDT Patient: Cris Galdamez Anesthesia Type: general Vitals Value Taken Time BP 110/58 03/09/21 1215 Temp 36.4 ??C (97.6 ??F) 03/09/21 1215 Pulse 74 03/09/21 1226 Resp 18 03/09/21 1226 SpO2 100 % 03/09/21 1226 Vitals shown include unvalidated device data. Anesthesia PACU Signout Patient location during evaluation: PACU Patient participation: complete - patient participated Level of consciousness: awake and baseline Pain management: adequate (pain score 0-3) Airway patency: natural airway Hydration status: acceptable PONV: mild Cardiovascular status: acceptable and hemodynamically stable Respiratory status: acceptable and room air Discharge Disposition: admit to inpatient unit Comments: Received zofran for nausea. Mild pain, will be staying overnight in hospital Cosigned by Reinaldo Goodman MD at 03/09/2021 1:41 PM EDT * Perioperative Nursing Note - John Sahu, RN - 03/09/2021 8:41 AM EDT Family updated at 0829 and 1003. No carr placed per Judy Hughes MD. * Op Note - Kenrick Joyce MD - 03/09/2021 8:29 AM EDT Operative Note: Kishore De Lis Panniculectomy with Umbilical Transposition Date: 03/09/21 Location: [facility] Name: Cris Galdamez, : 1980, Diagnoses: 1. Excess abdominal wall skin Procedure(s): PANNICULECTOMY DE EXCISE EXCESS SKIN TISSUE,ABDOMEN DE EXCISE EXCESS SKIN TISSUE,ABDOMEN, ADD-ON [id number]-[id number] abdominoplasty Attending Surgeon(s): * Alexandr Nugent - Primary Fish Warden(s): Isiah BLOOM, Kenrick Mckenzie MD, Michelle Wilkins MS3, Eben Anesthesia: General ASA: I Blood Administration: Blood Product Administration History None Estimated Blood Loss: 150 mL Drains: Closed/Suction Drain Lateral RLQ 19 Fr. (Active) Site Description Clean;Dry 03/09/21 1115 Dressing Status Clean;Dry;Intact 03/09/21 1115 Drainage Appearance Serosanguineous 03/09/21 111 Status To bulb suction 03/09/21 1115 Closed/Suction Drain Lateral LLQ 19 Fr. (Active) Site Description Clean;Dry 03/09/21 1115 Dressing Status Clean;Dry;Intact 03/09/21 1115 Drainage Appearance Serosanguineous 03/09/21 111 Status To bulb suction 03/09/21 111 Specimen: Specimens ID Source Type Tests Collected By Collected At Frozen? Priority Lab ID 1 Abdominal Wall Tissue ?? SURGICAL PATHOLOGY EXAM Alexandr Nugent MD 03/09/21 1014 No Description: Abdominal Pannus Indications: Cris Galdamez is a 40-year-old lady with a history of massive weight loss following gastric sleeve who presented to the Plastic surgery Clinic for evaluation of abdominoplasty to remove excess abdominal wall skin. She was symptomatic with multiple rashes in her abdominal skin folds. Shewas offered fluidly abdominal plasty with umbilical transposition to address the horizontal and vertical excess abdominal wall skin. The risks, benefits, alternatives to the procedure were explained to the patient in detail including pain, bleeding, infection, seroma, hematoma, poor or delayed wound healing, and the need for further surgery. She understood these risks and elects to proceed IProcedure: The patient was identified in preoperative holding area and the proposed surgical siteswere marked. Specifically, we marked the midline, as well the inferior extent of our transverse laceration. Informed consent was signed. Once in the supine position on the operating table with all prominences padded, bilateral lower extremity SCDs were placed. General anesthesia was initiated and antibiotics were administered. The patient was placed into a flexed position at the waist. The patient's abdomen was prepped and draped in the usual sterile fashion with ChloraPrep. A standardized time-out was performed in all parties present were in agreement. We began by initiating our inferior incision, which was located 6 cm above the introitus, with a 10blade. Using Bovie electrocautery, we then dissected down to the level of the anterior rectus fascia. Skin hooks were placed within the umbilicus and this was incised at the periphery with a 15 blade. The stalk was dissected circumferentially and the abdominal flap was then split in the midline with cautery. We then elevated the skin flap in the prefascial plane and ligated multiple vessels with 4-0 Vicryl sutures as we proceeded. Our dissection proceeded to the xiphoid with care taken to preserve lateral perforators. We then confirmed that the patient wound in fact require a vertical limb inorder to achieve a smooth contour. We initiated a midline incision from the epigastrium to the previously dissected umbilicus. We then proceeded with division of our skin flaps. By progressively splitting the excess overhanging tissue, we safely completed our superior horizontal incision. The dissection was completed with cautery and the horizontal aspect of our incision was tailor tacked with skin aparna. Using towel clamps, we then placed upward tension on the vertical limb and used a marking pen to indicate the excess vertical laxity in an elliptical fashion. This was incised with a 15 blade and completed with cautery, then tailor tacked with aparna. An excess ellipse of tissue was excised at the level of the umbilicus and this was tailor tacked into placed. The tacking aparna were then removed and the wound was irrigated with saline. Meticulous hemostasis was achieved under normotensive conditions. We then placed two 10 flat Manohar-Alcala drains and sutured these into place. We closed the horizontal and vertical incisions with deep dermal 3-0 Vicryl suture and a running 4-0 Vicryl subcuticular suture. The umbilicus was inset at the level of the iliac crests with deep dermal 3-0 Vicryl suture and a running 4-0 Vicryl subcuticular suture. The incisions were covered with Xeroform and Covaderm dressings. At the conclusion of the case all needle, lap, and instrument counts were correct. The patient was awakened, extubated, and transferred to the postoperative anesthesia care unit for recovery in stable condition. Dr. Nugent was present and scrubbed for the entire procedure. The patient will be monitored overnight for observation. Complications: None; patient tolerated the procedure well. Submitted by: Kenrick Joyce MD - 03/09/2021 - 11:30 AM Cosigned by Alexandr Nugent MD at 03/09/2021 4:10 PM EDT Associated attestation - Alexandr Nugent MD - 03/09/2021 4:10 PM EDT I was present for the entirety of the procedure(s). * Brief Op Note - Kenrick Joyce MD - 03/09/2021 8:29 AM EDT Date: 03/09/21 Location: [facility] Name: Cris Galdamez, : 1980, Diagnoses: * No Diagnosis Codes entered * * No Diagnosis Codes entered * Procedure(s): PANNICULECTOMY DE EXCISE EXCESS SKIN TISSUE,ABDOMEN DE EXCISE EXCESS SKIN TISSUE,ABDOMEN, ADD-ON 1. Moyqw-vc-ajs abdominoplasty Attending Surgeon(s): * Alexandr Nugent - Primary Fish Warden(s): Isiah BLOOM, Kenrick Mckenzie MD, Michelle Wilkins MS3, Eben Anesthesia: General ASA: I Blood Administration: Blood Product Administration History None Estimated Blood Loss: 150 mL Drains: Closed/Suction Drain Lateral RLQ 19 Fr. (Active) Site Description Clean;Dry 03/09/211114 Dressing Status Clean;Dry;Intact 03/09/21 111 Drainage Appearance Serosanguineous 03/09/21 111 Status To bulb suction 03/09/21 111 Closed/Suction Drain Lateral LLQ 19 Fr. (Active) Site Description Clean;Dry 03/09/211114 Dressing Status Clean;Dry;Intact 03/09/211114 Drainage Appearance Serosanguineous 03/09/21 111 Status To bulb suction 03/09/21 111 Specimen: Specimens ID Source Type Tests Collected By Collected At [facility]? Priority Lab ID 1 Abdominal Wall Tissue ?? SURGICAL PATHOLOGY EXAM Alexandr Nugent MD 03/09/21 1014 No Description: Abdominal Pannus Findings: See operative report Complications: None; patient tolerated the procedure well. Submitted by: Kenrick Joyce MD - 03/09/2021 - 11:29 AM Cosigned by Alexandr Nugent MD at 03/09/2021 4:10 PM EDT Associated attestation - Alexandr Nugent MD - 03/09/2021 4:10 PM EDT I was present for the entirety of the procedure(s). * Pharmacy note - Shankar Rodrigues PharmD - 03/09/2021 7:22 AM EDT 40 y/o F admitted for planned surgical procedure with plastics. Per chart patient has a reported penicillin allergy. In discussion with patient, reaction is rash. This occurred > 5 yrs ago ( as a teenager ). Patient received diphenhydramine. She denied sx of anaphylaxis or severe cutaneous reaction A multidisciplinary assessment of this patient's penicillin allergy was conducted using the PEN-FAST scoring tool. The goal of this assessment is to identify the actual risk of an allergic reaction following penicillin exposure. Furthermore, this scoring tool will assess the appropriateness of removing the penicillin allergy from the patients chart Reported reaction to penicillin per EMR: PENFAST Scoring Tool -Allergy identified < 5 years ago? = (0) -Anaphylaxis as reaction? = (0) -Severe cutaneous reaction (SJS, TEN, DRESS) = (0) -Required treatment = (1) TOTAL POINTS= 1 Based on the Pen-FAST scoring tool, patients total score =1 -A score of 0-1 points is associated with a very low risk of allergy, with a 0.6% incidence -A score of 2 points is associated with a low risk of allergy, with a 5% incidence -A score of 3 points is associated with a moderate risk of allergy, with a 20% incidence -A score of =4 points is associated with a high risk of allergy, with a 50% incidence ASSESSMENT / PLAN Based on an [place]sem[employer] indian tribe-approved evidence-based approach to this patient's reported allergy to penicillin, the following actions will be taken in accordance with their PENFAST score: 0-1 -De-label penicillin allergy from chart -Crimper Operator patient on low likelihood of penicillin allergy -Communicate with anesthesia provider regarding appropriate surgical ppx -Follow up with patient/anesthesia post-op to confirm no allergic reaction -Continue with first line agent (cephalosporin or penicillin agent) intraop and post op as indicated Thank you for the opportunity to participate in the care of this patient Shankar Rodrigues PharmD, BCCCP Available on secure chat Cosigned by Rufus Kennedy MD at 03/11/2021 4:24 PM EDT Associated attestation - Rufus Kennedy MD - 03/11/2021 4:24 PM EDT I have reviewed this documentation. * Interval H&P Note - Michelle Mckenzie MD - 03/09/2021 7:11 AM EDT H&P reviewed. The patient was examined and there are no changes to the H&P. Source Note - Ronit Ricketts MD - 02/25/2021 10:00 AM EDT Subjective Patient ID: Cris Galdamez is a 40 y.o. female. No chief complaint on file. HPI Ms. Susannah Galdamez is a 40 year old female presenting for preoperative follow up prior to kishore paz lispanniculectomy scheduled on 03/09/2021. Today, she says that she is excited for her upcoming surgery. Per Ms. Galdamez, she has her COVID test scheduled for 03/07/2021. She has had no changes in her health and medications. The following portions of the chart were reviewed this encounter and updated as appropriate: Tobacco Allergies Meds Problems Med Hx Surg Hx Review of Systems All other systems reviewed and are negative. Objective Physical Exam Vitals reviewed. Constitutional: Appearance: Normal appearance. She is obese. HENT: Head: Normocephalic and atraumatic. Nose: Nose normal. Mouth/Throat: Mouth: Mucous membranes are moist. Pharynx: Oropharynx is clear. Eyes: Extraocular Movements: Extraocular movements intact. Conjunctiva/sclera: Conjunctivae normal. Pupils: Pupils are equal, round, and reactive to light. Cardiovascular: Rate and Rhythm: Normal rate. Pulses: Normal pulses. Pulmonary: Effort: Pulmonary effort is normal. No respiratory distress. Abdominal: Comments: Abdominal pannus Musculoskeletal: General: Normal range of motion. Cervical back: Normal range of motion and neck supple. Skin: General: Skin is warm and dry. Capillary Refill: Capillary refill takes less than 2 seconds. Neurological: General: No focal deficit present. Mental Status: She is alert and oriented to person, place, and time. Psychiatric: Mood and Affect: Mood normal. Behavior: Behavior normal. Assessment/Plan Problem List Items Addressed This Visit Musculoskeletal Abdominal pannus - Primary Ms. Susannah Galdamez is a 40 year old female presenting for preoperative follow up prior to kishore de lispanniculectomy scheduled on 03/09/2021. Today, she is doing well and is excited for surgery. She was consented for surgery and was informed of all risks and benefits. The risks she was informed aboutwere hematoma, seroma, infections and prolonged wound healing. Benefits such as improved cosmesis and mobility were discussed. Informed consent was obtained. She will go for her COVID test on 03/07. Cosigned by Alexandr Nugent MD at 02/28/2021 9:01 AM EDT * Interval H&P Note - Kenrick Joyce MD - 03/09/2021 7:10 AM EDT H&P reviewed. The patient was examined and there are no changes to the H&P. Source Note - Ronit Ricketts MD - 02/25/2021 10:00 AM EDT Subjective Patient ID: Cris Galdamez is a 40 y.o. female. No chief complaint on file. HPI Ms. Susannah Galdamez is a 40 year old female presenting for preoperative follow up prior to kishore de lispanniculectomy scheduled on 03/09/2021. Today, she says that she is excited for her upcoming surgery. Per Ms. Galdamez, she has her COVID test scheduled for 03/07/2021. She has had no changes in her health and medications. The following portions of the chart were reviewed this encounter and updated as appropriate: Tobacco Allergies Meds Problems Med Hx Surg Hx Review of Systems All other systems reviewed and are negative. Objective Physical Exam Vitals reviewed. Constitutional: Appearance: Normal appearance. She is obese. HENT: Head: Normocephalic and atraumatic. Nose: Nose normal. Mouth/Throat: Mouth: Mucous membranes are moist. Pharynx: Oropharynx is clear. Eyes: Extraocular Movements: Extraocular movements intact. Conjunctiva/sclera: Conjunctivae normal. Pupils: Pupils are equal, round, and reactive to light. Cardiovascular: Rate and Rhythm: Normal rate. Pulses: Normal pulses. Pulmonary: Effort: Pulmonary effort is normal. No respiratory distress. Abdominal: Comments: Abdominal pannus Musculoskeletal: General: Normal range of motion. Cervical back: Normal range of motion and neck supple. Skin: General: Skin is warm and dry. Capillary Refill: Capillary refill takes less than 2 seconds. Neurological: General: No focal deficit present. Mental Status: She is alert and oriented to person, place, and time. Psychiatric: Mood and Affect: Mood normal. Behavior: Behavior normal. Assessment/Plan Problem List Items Addressed This Visit Musculoskeletal Abdominal pannus - Primary Ms. Susannah Galdamez is a 40 year old female presenting for preoperative follow up prior to kishore de lispanniculectomy scheduled on 03/09/2021. Today, she is doing well and is excited for surgery. She was consented for surgery and was informed of all risks and benefits. The risks she was informed aboutwere hematoma, seroma, infections and prolonged wound healing. Benefits such as improved cosmesis and mobility were discussed. Informed consent was obtained. She will go for her COVID test on 03/07. Cosigned by Alexandr Nugent MD at 02/28/2021 9:01 AM EDT * Preprocedure Instructions - Kailash Lamas - 02/28/2021 1:15 PM EDT Current Medications Medication Instructions ??? clonazePAM (KlonoPIN) 1 MG tablet Take as needed ??? DULoxetine (Cymbalta) [address] capsule Take morning of surgery ??? gabapentin (Neurontin) 600 MG tablet Take as needed ??? meloxicam (Mobic) 15 MG tablet Hold 3-5 days before surgery ??? methocarbamol (Robaxin) 500 MG tablet Take as needed ??? Multiple Vitamins-Minerals (multivitamin with minerals) tablet Hold day of surgery ??? topiramate (Topamax) 25 MG tablet Take morning of surgery General Preoperative Instructions You will be called the business day before surgery with your arrival time Do not eat or drink anything after midnight except water with your medications unless other instructions are given No alcohol or smoking prior to surgery Arrive on time to avoid delays Parking/Registration procedure explained You MUST have a responsible adult available for transport to and from hospital Visitation policy for the day of surgery reviewed Bring insurance card, photo ID, along with power of senior marketing associate, guardianship or advanced directives if applicable Do not bring money, jewelry or other valuables Hibiclens bathing instructions reviewed if applicable Notify surgeon of fever, illness, any changes or if you decide not to have surgery Pediatric patients under 12 years of age (If applicable) No solid food or milk after midnight Formula 6 hours prior to arrival for surgery Breast milk 4 hours prior to arrival surgery Clear liquids 2 hours prior to arrival for surgery Diabetes Instructions (If applicable) Take diabetes medication as instructed You may have up to 4 ounces of apple juice 2 hours prior to arrival for surgery for low glucose documented in this encounter Plan of Treatment Scheduled Referrals Name Type Priority Associated Diagnoses Order Schedule Discharge Ambulatory Referral to Plastic Surgery Outpatient Referral Routine Excess skin of abdominal wall Expected: 03/14/2021, Expires: 09/10/2021 documented as of this encounter Procedures Procedure Name Priority Date/Time Associated Diagnosis Comments EXTRA TUBE GOLD TOP Routine 03/09/2021 1 1:00 AM EDT EXTRA TUBES Routine 03/09/2021 11:00 AM EDT OXYGEN THERAPY Routine 03/09/2021 10:23 AM EDT SURGICAL PATHOLOGY EXAM Routine 03/09/2021 10:14 AM EDT Excess skin DE EXCISE EXCESS SKIN TISSUE,ABDOMEN 03/09/2021 7:46 AM EDT Excess Skin documented in this encounter Results * Gold Top (03/09/2021 11:00 AM EDT) Extra Hold for add-ons. 03/09/2021 4:01 PM EDT [facility] Comment:Auto resulted. Blood Venous blood specimen / Unknown Venipuncture / Unknown 03/09/2021 11:00 AM EDT 03/09/2021 1:30 PM EDT us Alexandr Nugent MD LAB BLOOD ORDERABLES Final Resu lt [facility] [address] [place] [address] * Surgical Pathology Exam (03/09/2021 10:14 AM EDT) Case Report Surgical Pathology ?Case: [id number] ? Authorizing Provider: ??Alexandr Nugent MD ?Collected: ? 03/09/2021 1014 ? Ordering Location: ? [facility] ? Received: ?03/09/2021 1132 ? Pathologist: ? Camille Mckeon MD ? Specimen: ?Abdominal Wall, Abdominal panniculus ? 03/09/2021 4:15 PM EDT [facility] Final Diagnosis Abdominal panniculus, panniculectomy: Skin and subcutaneous tissue (gross) 03/09/2021 4:15 PM EDT [facility] Clinical Information Pre-op diagnosis: Excess Skin 03/09/2021 4:15 PM EDT [facility] Gross Description A. ABDOMINAL PANNICULUS The specimen was received fresh labeled abdominal panniculus and consists of multiple fragments of pink-do, grossly unremarkable excised skin with underlying adipose tissue measuring 35.0 x 24.5 x 10.5 cm in aggregate with a total overall weight of 4573.02 g. The specimen was submitted for gross diagnosis only. Peggy Mensah 03/09/2021 4:15 PM EDT [facility] Note: A resident was involved in the service. I attest I examined the relevant preparations for the specimens and confirmed the diagnosis or interpretation. 03/09/2021 4:15 PM EDT [facility] Tissue Abdominal wall / Unknown 03/09/2021 10:14 AM EDT 03/09/2021 11:32 AM EDT Comment:Pre-op diagnosis: Excess Skin Alexandr Nugent MD LAB PATHOLOGY ORDERABLES Final [facility] [address] [place] [address] documented in this encounter Visit Diagnoses Diagnosis Excess skin of abdominal wall- Primary Excess skin Excess skin of abdominal wall documented in this encounter Admitting Diagnoses Diagnosis Excess skin of abdominal wall documented in this encounter Administered Medications Inactive Administered Medications - up to 3 most recent administrations Medication Order MAR Action Action Date Dose Rate Site acetaminophen (Tylenol) tablet 1,000 mg 1,000 mg, Oral, Every 8 hours, First dose on Sun03/09/21 at 1130, Until Discontinued, Routine, Recovery (Phase I only) Given 03/09/2021 11:31 AM EDT 1,000 mg acetaminophen (Tylenol) tablet 1,000 mg 1,000 mg, Oral, Every 8 hours, First dose (after last modification) on Sun03/09/21 at 1930, Until Discontinued, Routine Given 03/10/2021 11:40 AM EDT 1,000 mg Given 03/10/2021 3:50 AM EDT 1,000 mg Given 03/09/2021 7:43 PM EDT 1,000 mg cetirizine (ZyrTEC) tablet 5 mg 5 mg, Oral, Daily, First dose on Sun03/09/21 at 1130, Until Discontinued, Recovery (Phase I only) Given 03/09/2021 12:34 PM EDT 5 mg cetirizine (ZyrTEC) tablet 5 mg 5 mg, Oral, Daily, First dose (after last modification) on Sun03/10/21 at 0900, Until Discontinued Given 03/10/2021 8:35 AM EDT 5 mg clonazePAM (KlonoPIN) tablet 0.25 mg 0.25 mg, Oral, 3 times daily, First dose on Sun03/09/21 at 1130, Until Discontinued, Routine, Recovery (Phase I only) Given 03/09/2021 12:33 PM EDT 0.25 mg clonazePAM (KlonoPIN) tablet 0.25 mg 0.25 mg, Oral, 3 times daily, First dose (after last modification) on Sun03/09/21 at 1600, Until Discontinued, Routine Given 03/10/2021 11:40 AM EDT 0.25 mg Given 03/10/2021 3:50 AM EDT 0.25 mg Given 03/09/2021 7:43 PM EDT 0.25 mg cyanocobalamin (Vitamin B-12) tablet 500 mcg 500 mcg, Oral, 2 times daily, First dose (after last modification) on Sun03/09/21 at 2100, Until Discontinued, Routine Given 03/10/2021 8:35 AM EDT 500 mcg Given 03/09/2021 10:02 PM EDT 500 mcg docusate sodium (Colace) capsule 100 mg 100 mg, Oral, 2 times daily, First dose on Sun03/09/21 at 1130, Until Discontinued, Routine, Recovery (Phase I only) Given 03/09/2021 12:34 PM EDT 100 mg docusate sodium (Colace) capsule 100 mg 100 mg, Oral, 2 times daily, First dose (after last modification) on Sun03/09/21 at 2100, Until Discontinued, Routine Given 03/10/2021 8:35 AM EDT 100 mg Given 03/09/2021 10:02 PM EDT 100 mg DULoxetine (Cymbalta) DR capsule 60 mg 60 mg, Oral, Nightly, First dose (after last modification) on Sun03/09/21 at 2100, Until Discontinued, Routine Given 03/09/2021 10:02 PM EDT 60 mg fentaNYL (Sublimaze) injection 25 mcg 25 mcg, Intravenous, Every 5 min PRN, 2 doses, Starting on Sun03/09/21 at 1023, Until Sun03/09/21 at 1250, Routine, Recovery (Phase I only), severe pain, pain score of 3 to 4 out of 10 Given 03/09/2021 12:00 PM EDT 25 mcg fentaNYL (Sublimaze) injection 50 mcg 50 mcg, Intravenous, Once as needed, 2 doses, Starting on Sun03/09/21 at 1023, Until Sun03/09/21 at 1250, Routine, Recovery (Phase I only), severe pain, pain score of 5 to 8 out of 10 Given 03/09/2021 11:31 AM EDT 50 mcg gabapentin (Neurontin) capsule 300 mg 300 mg, Oral, 3 times daily, First dose on Sun03/09/21 at 1130, Until Discontinued, Recovery (Phase I only) Given 03/09/2021 12:34 PM EDT 300 mg gabapentin (Neurontin) capsule 300 mg 300 mg, Oral, 3 times daily, First dose (after last modification) on Sun03/09/21 at 1600, Until Discontinued Given 03/10/2021 11:40 AM EDT 300 mg Given 03/10/2021 3:50 AM EDT 300 mg Given 03/09/2021 7:43 PM EDT 300 mg HYDROmorphone PF (Dilaudid) injection 0.5 mg 0.5 mg, Intravenous, Every 10 min PRN, 2 doses, Starting on Sun03/09/21 at 1023, Until Sun03/09/21 at 1151, Routine, Recovery (Phase I only), severe pain, pain score of 9 to 10 out of 10 Given 03/09/2021 11:51 AM EDT 0.5 mg Given 03/09/2021 11:41 AM EDT 0.5 mg lactated Ringer's infusion 100 mL/hr, Intravenous, Continuous, Starting on Sun03/09/21 at 1045, Until Krystal 03/10/21 at 1642, Routine New Bag 03/09/2021 7:58 PM EDT 100 mL/hr 100 mL/hr Continued from OR 03/09/2021 10:45 AM EDT 100 mL/hr 100 m L/hr lidocaine (Xylocaine) 1 % injection - Pyxis Override Pull 1 dose, Starting on Sun03/09/21 at 0658, Until Sun03/09/21 at 0705 Given 03/09/2021 7:05 AM EDT 0.3 mL Left Upper Arm (Back ) meloxicam (Mobic) tablet 15 mg 15 mg, Oral, Daily, First dose (after last modification) on Sun03/10/21 at 0900, Until Discontinued, Routine methocarbamol (Robaxin) tablet 500 mg 500 mg, Oral, 3 times daily PRN, Starting on Sun03/09/21 at 1235, Until Sun03/10/21 at 1642, Routine, muscle spasms Given 03/09/2021 1:58 PM EDT 500 mg ondansetron (Zofran) injection 4 mg 4 mg, Intravenous, Once as needed, 1 dose, Starting on Sun03/09/21 at 1023, Until Sun03/09/21 at 1155, Routine, Recovery (Phase I only), nausea, vomiting Given 03/09/2021 11:55 AM EDT 4 mg ondansetron ODT (Zofran-ODT) disintegrating tablet 4 mg 4 mg, Oral, Every 6 hours PRN, Starting on Sun03/09/21 at 1235, Until Sun03/10/21 at 1642, Routine, nausea, vomiting oxyCODONE (Roxicodone) immediate release tablet 5 mg 5 mg, Oral, Every 6 hours PRN, Starting on Sun03/09/21 at 1110, Until Sun03/09/21 at 1237, Routine, Recovery (Phase I only), severe pain Given 03/09/2021 12:33 PM EDT 5 mg oxyCODONE (Roxicodone) immediate release tablet 5 mg 5 mg, Oral, Every 6 hours PRN, Starting on Sun03/09/21 at 1236, Until Sun03/10/21 at 1642, Routine, severe pain Given 03/10/2021 11:40 AM EDT 5 mg Given 03/09/2021 7:48 PM EDT 5 mg senna (Senokot) tablet 17.2 mg 17.2 mg (2 tablet), Oral, Nightly, First dose (after last modification) on Sun03/09/21 at 2100, Until Discontinued, Routine Given 03/09/2021 10:02 PM EDT 17.2 mg topiramate (Topamax) tablet 50 mg 50 mg, Oral, 2 times daily, First dose (after last modification) on Sun03/09/21 at 2100, Until Discontinued, Routine Given 03/10/2021 8:34 AM EDT 50 mg Given 03/09/2021 10:02 PM EDT 50 mg documented in this encounter Active and Recently Administered Medications Times are shown in EDT. Scheduled Medication Order 03/08/2021 03/09/2021 03/10/2021 acetaminophen (Tylenol) tablet 1,000 mg (CANCELED) 1,000 mg, Oral, Every 8 hours, First dose on Sun03/09/21 at 1130, Until Discontinued, Routine, Recovery (Phase I only) 1131 (Given - Provider: Clementine Brooks RN) acetaminophen (Tylenol) tablet 1,000 mg 1,000 mg, Oral, Every 8 hours, First dose (after last modification) on Sun03/09/21 at 1930, Until Discontinued, Routine 1943 (Given - Provider: Lis Salgado RN) 0350 (Given - Provider: Lis Salgado RN)1140 (Given - Provider: Carly Knutson RN) cetirizine (ZyrTEC) tablet 5 mg (CANCELED) 5 mg, Oral, Daily, First dose on Sun03/09/21 at 1130, Until Discontinued, Recovery (Phase I only) 1234 (Given - Provider: Kia Zhao RN) cetirizine (ZyrTEC) tablet 5 mg 5 mg, Oral, Daily, First dose (after last modification) on Sun03/10/21 at 0900, Until Discontinued 0835 (Given - Provid er: Carly Knutson RN) clonazePAM (KlonoPIN) tablet 0.25 mg (CANCELED) 0.25 mg, Oral, 3 times daily, First dose on Sun03/09/21 at 1130, Until Discontinued, Routine, Recovery (Phase I only) 1233 (Given - Provider: Kia Zhao RN) clonazePAM (KlonoPIN) tablet 0.25 mg 0.25 mg, Oral, 3 times daily, First dose (after last modification) on Sun03/09/21 at 1600, Until Discontinued, Routine 1942 (Given - Provider: Lis Salgado RN) 0000 (Not Given - Provider: Lis Salgado RN - Reason: Other - Comment: rescheduled)0350 (Given - Provider: Lis Salgado RN)1140 (Given - Provider: Carly Knutson RN) cyanocobalamin (Vitamin B-12) tablet 500 mcg 500 mcg, Oral, 2 times daily, First dose (after last modification) on Sun03/09/21 at 2100, Until Discontinued, Routine 2201 (Given - Provider: Lis Salagdo RN) 0835 (Given - Provider: Carly Knutson RN) docusate sodium (Colace) capsule 100 mg (CANCELED) 100 mg, Oral, 2 times daily, First dose on Sun03/09/21 at 1130, Until Discontinued, Routine, Recovery (Phase I only) 1234 (Given - Provider: Kia Zhao RN) docusate sodium (Colace) capsule 100 mg 100 mg, Oral, 2 times daily, First dose (after last modification) on Sun03/09/21 at 2100, Until Discontinued, Routine 2201 (Given - Provider: Lis Salgado RN) 0835 (Given - Provider: Carly Knutson RN) DULoxetine (Cymbalta) DR capsule 60 mg 60 mg, Oral, Nightly, First dose (after last modification) on Sun03/09/21 at 2100, Until Discontinued, Routine 2201 (Given - Provider: Lis Salgado RN) gabapentin (Neurontin) capsule 300 mg (CANCELED) 300 mg, Oral, 3 times daily, First dose on Sun03/09/21 at 1130, Until Discontinued, Recovery (Phase I only) 1234 (Given - Provider: Kia Zhao RN) gabapentin (Neurontin) capsule 300 mg 300 mg, Oral, 3 times daily, First dose (after last modification) on Sun03/09/21 at 1600, Until Discontinued 1942 (Given - Provider: Lis Salgado RN) 0000 (Not Given - Provider: Lis Salgado RN - Reason: Other - Comment: rescheduled)0350 (Given - Provider: Lis Salgado RN)1140 (Given - Provider: Carly Knutson RN) meloxicam (Mobic) tablet 15 mg 15 mg, Oral, Daily, First dose (after last modification) on Krystal 03/10/21 at 0900, Until Discontinued, Routine 0900 (Not Given - Provider: Carly Knutson RN - Reason: Medication not available) senna (Senokot) tablet 17.2 mg 17.2 mg (2 tablet), Oral, Nightly, First dose (after last modification) on Sun03/09/21 at 2100, Until Discontinued, Routine 220 (Given - Provider: Lis Salgado RN) topiramate (Topamax) tablet 50 mg 50 mg, Oral, 2 times daily, First dose (after last modification) on Sun03/09/21 at 2100, Until Discontinued, Routine 220 (Given - Provider: Lis Salgado RN) 0834 (Given - Provider: Carly Knutson RN) Continuous Medication Order 03/08/2021 03/09/2021 03/10/2021 lactated Ringer's infusion 100 mL/hr, Intravenous, Continuous, Starting on Sun03/09/21 at 1045, Until Krystal 03/10/21 at 1642, Routine 1045 (Continued from OR - Provider: Kia Zaho RN)1958 (New Bag - Provider: Lis Salgado RN) 0600 (Stopped - Provider: Lis Salgado RN) PRN Medication Order 03/08/2021 03/09/2021 03/10/2021 fentaNYL (Sublimaze) injection 25 mcg (CANCELED) 25 mcg, Intravenous, Every 5 min PRN, 2 doses, Starting on Sun03/09/21 at 1023, Until Sun03/09/21 at 1250, Routine, Recovery (Phase I only), severe pain, pain score of 3 to 4 out of 10 1200 (Given - Provider: Kia Zhao RN) fentaNYL (Sublimaze) injection 50 mcg (CANCELED) 50 mcg, Intravenous, Once as needed, 2 doses, Starting on Sun03/09/21 at 1023, Until Sun03/09/21 at 1250, Routine, Recovery (Phase I only), severe pain, pain score of 5 to 8 out of 10 1131 (Given - Provider: Clementine Brooks RN) HYDROmorphone PF (Dilaudid) injection 0.5 mg (COMPLETED) 0.5 mg, Intravenous, Every 10 min PRN, 2 doses, Starting on Sun03/09/21 at 1023, Until Sun03/09/21 at 1151, Routine, Recovery (Phase I only), severe pain, pain score of 9 to 10 out of 10 1141 (Given - Provider: Kia Zhao RN)1151 (Given - Provider: Kia Zhao RN) methocarbamol (Robaxin) tablet 500 mg 500 mg, Oral, 3 times daily PRN, Starting on Sun03/09/21 at 1235, Until Krystal 03/10/21 at 1642, Routine, muscle spasms 1358 (Given - Provider: Radha Jimenez RN) ondansetron (Zofran) injection 4 mg (COMPLETED) 4 mg, Intravenous, Once as needed, 1 dose, Starting on Sun03/09/21 at 1023, Until Sun03/09/21 at 1155, Routine, Recovery (Phase I only), nausea, vomiting 1155 (Given - Provider: Kia Zhao RN) ondansetron ODT (Zofran-ODT) disintegrating tablet 4 mg 4 mg, Oral, Every 6 hours PRN, Starting on Sun03/09/21 at 1235, Until Krystal 03/10/21 at 1642, Routine, nausea, vomiting oxyCODONE (Roxicodone) immediate release tablet 5 mg (CANCELED) 5 mg, Oral, Every 6 hours PRN, Starting on Sun03/09/21 at 1110, Until Sun03/09/21 at 1237, Routine, Recovery (Phase I only), severe pain 1233 (Given - Provider: Kia Zhao RN) oxyCODONE (Roxicodone) immediate release tablet 5 mg 5 mg, Oral, Every 6 hours PRN, Starting on Sun03/09/21 at 1236, Until Krystal 03/10/21 at 1642, Routine, severe pain 1948 (Given - Provider: Lis Salgado RN) 1140 (Given - Provider: Carly Knutson, RN) No Frequency Medication Order 03/08/2021 03/09/2021 03/10/2021 lidocaine (Xylocaine) 1 % injection - Pyxis Override Pull (COMPLETED) 1 dose, Starting on Sun03/09/21 at 0658, Until Sun03/09/21 at 0705 0705 (Given - Provider: Liz Dejesus RN - Comment: Left wrist) documented in this encounter Care Teams Corrosion Control Technician Relationship Specialty Start Date End Date Bjorn Salazar MD [address] [place] [address] PCP - General 03/07/21 documented as of this encounter
--- OUTSIDE RECORDS SUMMARY | 2024-07-07 09:55 | XMS_ITS | Encounter Summary ---
Author Organization Healthcare Address [address] [place] [id number] Care Team Providers Care Cryptozoologist Name Role Phone Unavailable Primary Care Provider Unavailabl e Encounter Details Date Type Department Care Team (Late st Contact Info) Description 02/25/2021 10:00 AM EDT Office Visit [facility] Plastic Surgery [address] [place] [id number] Alexandr Nugent MD [address] [phone] Abdominal pannus (Primary Dx) Social History Tobacco Use Types [...] have Coronavirus / COVID-19? No / Unsure 02/25/2021 9:39 AM EDT documented as of this encounter Last Filed Vital Signs Vital Sign Reading Time Taken Comments Blood Pressure 100/60 02/25/2021 10:04 AM EDT Pulse 56 02/25/2021 10:04 AM EDT Temperature 36.8 ??C (98.3 ??F) 02/25/2021 10:04 AM E DT Respiratory Rate - - Oxygen Saturation - - Inhaled Oxygen Concentration - - Weight 111 kg (244 lb 1.6 oz) 02/25/2021 10:04 A M EDT Height 175.3 cm (5' 9 ) 02/25/2021 10:04 AM EDT Body Mass Index 36.05 02/25/2021 10:04 AM EDT documented in this encounter Miscellaneous Notes * Progress Notes - Ronit Ricketts MD - 02/25/2021 10:00 [...] Nugent MD at 02/28/2021 9:01 AM EDT Associated attestation - Alexandr Nugent MD - 02/28/2021 9:01 AM EDT I saw and evaluated the patient with the resident/fellow. I discussed the case with the resident/fellow and agree with the findings and plan as documented. documented in this encounter Plan of Treatment Not on file documented as of this encounter Visit Diagnoses Diagnosis Abdominal pannus- Primary documented in this encounter
--- OUTSIDE RECORDS SUMMARY | 2024-07-07 09:55 | XMS_ITS | Encounter Summary ---
Author Organization Healthcare Address [address] [place] [address] Care Team Providers Care Payroll Officer Name Role Phone Bjorn Salazar MD Primary Care Provider [phone] Encounter Details Date Type Department Care Team (Latest Contact Info) Description 03/18/2021 Travel Social History Tobacco Use Types Packs/Day [...] have Coronavirus / COVID-19? No / Unsure 03/18/2021 7:59 AM EDT documented as of this encounter Plan of Treatment Not on file documented as of this encounter Visit Diagnoses Not on filedocumented in this encounter Care Teams Payroll Officer Relationship Specialty Start Date End Date Bjorn Salazar MD [address] [place] [address] PCP - General 03/07/21 documented as of this encounter
--- OUTSIDE RECORDS SUMMARY | 2024-07-07 09:55 | XMS_ITS | Encounter Summary ---
Author Organization Healthcare Address [address] [place] [address] Care Team Providers Care Public Safety Officer Name Role Phone Bjorn Salazar MD Primary Care Provider [phone] Reason for Visit * Reason Comments Post-op Encounter Details Date Type Department Care Team (Late st Contact Info) Description 06/10/2021 10:45 AM EDT Office Visit [facility] [address] [place] [address] Alexandr Nugent MD [address] [facility] [address] [place] [address] History of weight loss (Primary Dx) Social History Tobacco Use Types [...] Sign Reading Time Taken Comments Blood Pressure 119/75 06/10/2021 10:36 AM EDT Pulse 60 06/10/2021 10:36 AM EDT Temperature 36.7 ??C (98.1 ??F) 06/10/2021 10:36 AM E DT Respiratory Rate - - Oxygen Saturation - - Inhaled Oxygen Concentration - - Weight 109 kg (239 lb 6.4 oz) 06/10/2021 10:36 A M EDT Height 175.3 cm (5' 9 ) 06/10/2021 10:36 AM EDT Body Mass Index 35.35 06/10/2021 10:36 AM EDT documented in this encounter Miscellaneous Notes * Progress Notes - Reinaldo Gould MD - 06/10/2021 10:45 AM EDT Subjective Patient ID: Cris Galdamez is a 40 y.o. female. Chief Complaint Patient presents with ??? Post-op HPI 40-year-old female who presents approximately 3 months status post abdominal plasty. She is completely healed at this time. She is overall pleased with the contour of her abdomen. She presents today to discuss further body contouring surgery. Review of Systems Constitutional: Negative. HENT: Negative. Eyes: Negative. Respiratory: Negative. Cardiovascular: Negative. Gastrointestinal: Negative. Endocrine: Negative. Genitourinary: Negative. Musculoskeletal: Negative. Skin: Negative. Allergic/Immunologic: Negative. Neurological: Negative. Hematological: Negative. Psychiatric/Behavioral: Negative. Objective Physical Exam Constitutional: Appearance: Normal appearance. HENT: Head: Normocephalic and atraumatic. Mouth/Throat: Mouth: Mucous membranes are moist. Eyes: Extraocular Movements: Extraocular movements intact. Pupils: Pupils are equal, round, and reactive to light. Cardiovascular: Rate and Rhythm: Normal rate and regular rhythm. Pulmonary: Effort: Pulmonary effort is normal. Abdominal: General: There is no distension. Palpations: Abdomen is soft. Tenderness: There is no abdominal tenderness. There is no guarding or rebound. Musculoskeletal: General: No swelling or deformity. Normal range of motion. Cervical back: Normal range of motion. Skin: General: Skin is warm. Findings: No rash. Neurological: General: No focal deficit present. Mental Status: She is alert and oriented to person, place, and time. Psychiatric: Mood and Affect: Mood normal. Behavior: Behavior normal. Abdomen: Vertical and horizontal scars along abdomen well-healed, redundant skin of the bilateral medial thighs Arms: Redundant skin of the bilateral arms. Assessment/Plan 40-year-old female status post [id number] abdominoplasty approximately 3 months ago. She is completely healed at this time she is pleased with her result. She is interested in further body contouring surgery. We will have her return to clinic in approximately 3 months time to discuss further surgery whether it would be a medial thigh lift versus a brachioplasty. Problem List Items Addressed This Visit None Visit Diagnoses History of weight loss - Primary Cosigned by Alexandr Nugent MD at 06/13/2021 8:55 AM EST Associated attestation - Alexandr Nugent MD - 06/13/2021 8:55 AM EST I saw and evaluated the patient with the resident/fellow. I discussed the case with the resident/fellow and agree with the findings and plan as documented. documented in this encounter Plan of Treatment Not on file documented as of this encounter Visit Diagnoses Diagnosis History of weight loss- Primary documented in this encounter Care Teams Public Safety Officer Relationship Specialty Start Date End Date Bjorn Salazar MD [address] [place] [address] PCP - General 03/07/21 documented as of this encounter
--- OUTSIDE RECORDS SUMMARY | 2024-07-07 09:55 | XMS_ITS | Encounter Summary ---
Author Organization Healthcare Address [address] [place] [address] Care Team Providers Care Kalsominer Name Role Phone Bjorn Salazar MD Primary Care Provider [phone] Encounter Details Date Type Department Care Team (Latest Contact Info) Description 03/07/2021 Travel Social History Tobacco Use Types Packs/Day [...] have Coronavirus / COVID-19? No / Unsure 03/07/2021 8:35 AM EDT documented as of this encounter Plan of Treatment Not on file documented as of this encounter Visit Diagnoses Not on filedocumented in this encounter Care Teams Kalsominer Relationship Specialty Start Date End Date Bjorn Salazar MD [address] [place], [place] [phone] PCP - General 03/07/21 documented as of this encounter
--- OUTSIDE RECORDS SUMMARY | 2024-07-07 09:55 | XMS_ITS | Encounter Summary ---
Author Organization Healthcare Address [facility] [place] [address] Care Team Providers Care Applications Manager Name Role Phone Unavailable Primary Care Provider Unavailabl e Encounter Details Date Type Department Care Team (Latest Contact Info) Description 02/25/2021 Travel Social History Tobacco Use Types Packs/Day [...]
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
--- OUTSIDE RECORDS SUMMARY | 2024-07-07 09:55 | XMS_ITS | Encounter Summary ---
Author Organization [facility] Address [address] [place], [place] [id number] Care Team Providers Care Dairy Products Maker Name Role Phone Bjorn Salazar MD Primary Care Provider [phone] Reason for Visit * Auth/Cert Specialty Diagnoses / Procedures Referred By Yamilet watts Referred To Contact Diagnoses Excess Skin Procedures LA EXCISE EXCESS SKIN TISSUE,ABDOMEN LA EXCISE EXCESS SKIN TISSUE,ABDOMEN, ADD-ON Kishore De Lis Panniculectomy with Umbilical Transposition Alexandr Nugent MD [address] [place] [phone] Phone: tel: fax: [facility] [address] [place] [address] Phone: tel: Referral ID Status Reason Start Date Expiration Date Visits Re quested Visits Authorized [id number] 1 1 Encounter Details Date Type Department Care Team (Late st Contact Info) Description 03/09/2021 8:00 AM EDT - 03/09/2021 11:30 AM EDT Surgery [facility] [address] [place] [phone] Alexandr Nugent MD [address] [place] [phone] Kishore De Lis Panniculectomy with Umbilical Transposition [12511 (CPT??)] Surgery Details Date/Time Status Location OR Service Patient Class Case Class Case Type Trauma Case? 03/09/2021 8:00 AM Posted [facility] Outpatient Surgery E-Electi ve Panel 1 Procedure LRB Anes Op Region Wound Class Comments Kishore De Lis Panniculectomy with Umbilical Transposition N/A General Surgeon Surgeon Role Service Panel Alexandr Nugent MD Primary Plastic Surgery 1 Kenrick Joyce MD Resident - Assisting 1 Michelle Mckenzie MD Resident - Assisting 1 documented in this encounter Social History Tobacco Use Types Packs/Day Years [...] Sign Reading Time Taken Comments Blood Pressure 125/73 03/09/2021 11:30 AM EDT Pulse 65 03/09/2021 11:30 AM EDT Temperature 36.5 ??C (97.7 ??F) 03/09/2021 11:15 AM E DT Respiratory Rate 15 03/09/2021 11:30 AM EDT Oxygen Saturation 100% 03/09/2021 11:30 AM EDT Inhaled Oxygen Concentration - - Weight 111 kg (244 lb) 03/09/2021 6:34 AM EDT Height - - Body Mass Index 34.61 03/10/2021 12:05 AM EDT documented in this encounter Discharge Instructions * Attachments The following attachments cannot be sent through Care Everywhere. * Oxycodone tablets or capsules (Lithuanian) * Manohar Alcala Drainage Tube, Discharge Instructions (Lithuanian) * Cephalexin tablets or capsules (Lithuanian) * Ondansetron tablets (Lithuanian) * Senna tablets or capsules (Lithuanian) * Acetaminophen tablets or caplets (Lithuanian) * Ascorbic Acid/ docusate sodium/ folic acid/ iron carbonyl/ vitamin B 12 Oral Tablet 120 mg/ 50 mg/ 1 mg/ 90 mg/ 0.012 mg (Lithuanian) * A Closed Suction Drainage Tube, Caring for (Lithuanian) documented in this encounter Medications at Time [...] PCP name and Address: Bjorn Salazar MD [place] [address] Referring provider name and address: No referring [...] Follow-Up Follow up with Kelsey Niño at [facility] Wednesday 03/14 for possible drain removal Follow up with Dr. Nugent at [facility] Sunday 03/18 Pertinent Physical Exam [...] Condition: Stable Clementine Doe MD PGY-1 Pager [phone] Cosigned by Alexandr Nugent MD at 03/10/2021 [...] EDT * Perioperative Nursing Note - John Sahu RN - 03/09/2021 8:41 AM EDT Family updated at 0829 and 1003. No carr placed per Ruddy. MD Ellen. * Op Note - Kenrick Joyce MD - 03/09/2021 8:29 AM EDT Operative Note: Kishore De Isi Panniculectomy with Umbilical Transposition Date: 03/09/21 Location: [facility] OR Name: Cris Galdamez, : 1980, Diagnoses: 1. Excess abdominal wall skin Procedure(s): PANNICULECTOMY LA EXCISE EXCESS SKIN TISSUE,ABDOMEN LA EXCISE EXCESS SKIN TISSUE,ABDOMEN, ADD-ON Oqjjp-az-dbb abdominoplasty Attending Surgeon(s): * Alexandr Nugent - Primary Baseball Inspector And Repairer(s): Isiah BLOOM, Kenrick Mckenzie MD, Michelle Wilkins [...] 03/09/2021 8:29 AM EDT Date: 03/09/21 Location: [facility] OR Name: Cris Galdamez, : 1980, Diagnoses: * No Diagnosis Codes entered * * No Diagnosis Codes entered * Procedure(s): PANNICULECTOMY LA EXCISE EXCESS SKIN TISSUE,ABDOMEN LA EXCISE EXCESS SKIN TISSUE,ABDOMEN, ADD-ON 1. Apamd-nv-gut abdominoplasty Attending Surgeon(s): * Alexandr Nugent - Primary Baseball Inspector And Repairer(s): Isiah BLOOM, Kenrick Mckenzie MD, Michelle Wilkins [...] incidence ASSESSMENT / PLAN Based on an [place]-approved evidence-based approach to this patient's reported allergy to penicillin, the following actions will be taken in accordance with their PENFAST score: 0-1 -De-label penicillin allergy from chart -Returned Goods Repairer patient on low likelihood of penicillin allergy [...] card, photo ID, along with power of contracts attorney, guardianship or advanced directives if applicable Do [...] Routine 03/09/2021 10:14 AM EDT Excess skin LA EXCISE EXCESS SKIN TISSUE,ABDOMEN 03/09/2021 7:46 AM EDT Excess Skin documented in this encounter Results * Gold Top (03/09/2021 11:00 AM EDT) Extra Hold for add-ons. 03/09/2021 4:01 PM EDT [facility] Comment:Auto resulted. Blood Venous blood specimen / Unknown Venipuncture / Unknown 03/09/2021 11:00 AM EDT 03/09/2021 1:30 PM EDT us Alexandr Nugent MD LAB BLOOD ORDERABLES Final Resu lt [facility] [address] [place] [address] * Surgical Pathology Exam (03/09/2021 10:14 AM EDT) Case Report Surgical Pathology ?Case: [id number] ? Authorizing Provider: ??Alexandr Nugent MD ?Collected: [...] diagnosis: Excess Skin 03/09/2021 4:15 PM EDT [facility] Gross Description A. ABDOMINAL PANNICULUS The specimen was received fresh labeled abdominal panniculus and consists of multiple fragments of pink-do, grossly unremarkable excised skin with underlying adipose tissue measuring 35.0 x 24.5 x 10.5 cm in aggregate with a total overall weight of 4573.02 g. The specimen was submitted for gross diagnosis only. Peggy Mensah 03/09/2021 4:15 PM EDT [facility] Note: A resident was involved in the service. I attest I examined the relevant preparations for the specimens and confirmed the diagnosis or interpretation. 03/09/2021 4:15 PM EDT [facility] Tissue Abdominal wall / Unknown 03/09/2021 10:14 AM EDT 03/09/2021 11:32 AM EDT Comment:Pre-op diagnosis: Excess Skin Alexandr Nugent MD LAB PATHOLOGY ORDERABLES Final Result [facility] [address] [place] [phone] documented in this encounter Visit Diagnoses Not on filedocumented in this encounter Admitting Diagnoses Diagnosis Excess [...] Continuous, Starting on Sun03/09/21 at 1045, Until Sun03/10/21 at 1642, Routine New Bag 03/09/2021 7:58 [...] Krystal 03/10/21 at 1642, Routine, muscle spasms Given 03/09/2021 [...] on Sun03/09/21 at 1600, Until Discontinued, Routine 194 (Given - Provider: Lis Salgado RN) 0000 [...] modification) on Sun03/09/21 at 1600, Until Discontinued 1943 (Given - Provider: Lis Salgado RN) 0000 (Not Given - Provider: Lis Salgado RN - Reason: Other - Comment: rescheduled)0350 (Given - Provider: Lis Salgado RN)1140 (Given - Provider: Carly Knutson RN) meloxicam (Mobic) tablet 15 mg 15 mg, Oral, Daily, First dose (after last modification) on Sun03/10/21 at 0900, Until Discontinued, Routine 0900 (Not Given - Provider: Carly Knutson RN - Reason: Medication not available) senna (Senokot) tablet 17.2 mg 17.2 mg (2 tablet), Oral, Nightly, First dose (after last modification) on Sun03/09/21 at 2100, Until Discontinued, Routine 2201 (Given - Provider: Lis Salgado RN) topiramate (Topamax) tablet 50 mg 50 mg, Oral, 2 times daily, First dose (after last modification) on Sun03/09/21 at 2100, Until Discontinued, Routine 2201 (Given - Provider: Lis Salgado RN) 0834 (Given - Provider: Carly Knutson RN) Continuous Medication Order 03/08/2021 03/09/2021 03/10/2021 lactated Ringer's infusion 100 mL/hr, Intravenous, Continuous, Starting on Sun03/09/21 at 1045, Until Krystal 03/10/21 at 1642, Routine 1045 (Continued from OR - Provider: Kia Zhao RN)1958 (New Bag - Provider: Lis Salgado [...] Salgado RN) 1140 (Given - Provider: Carly Knutson RN) No Frequency Medication Order 03/08/2021 03/09/2021 03/10/2021 lidocaine (Xylocaine) 1 % injection - Pyxis Override Pull (COMPLETED) 1 dose, Starting on Sun03/09/21 at 0658, Until Sun03/09/21 at 0705 0705 (Given - Provider: Liz Dejesus RN - Comment: Left wrist) documented in this encounter Care Teams Dairy Products Maker Relationship Specialty Start Date End Date Bjorn Salazar MD [address] [place] [address] PCP - General 03/07/21 documented as of this encounter
--- OUTSIDE RECORDS SUMMARY | 2024-07-07 09:55 | XMS_ITS | Encounter Summary ---
Author Organization Healthcare Address [address] [place] [address] Care Team Providers Care Rn Internship Name Role Phone Bjorn Salazar MD Primary Care Provider [phone] Encounter Details Date Type Department Care Team (Latest Contact Info) Description 03/09/2021 Travel Social History Tobacco Use Types Packs/Day [...] on filedocumented in this encounter Care Teams Rn Internship Relationship Specialty Start Date End Date Bjorn Salazar MD [address] [place] [address] PCP - General 03/07/21 documented as of this encounter
--- OUTSIDE RECORDS SUMMARY | 2024-07-07 09:55 | XMS_ITS | Encounter Summary ---
Author Organization Healthcare Address [address] [place] [address] Care Team Providers Care Dietary Worker Name Role Phone Bjorn Salazar MD Primary Care Provider [phone] Encounter Details Date Type Department Care Team (Latest Contact Info) Description 03/25/2021 Travel Social History Tobacco Use Types Packs/Day [...] on filedocumented in this encounter Care Teams Dietary Worker Relationship Specialty Start Date End Date Bjorn Salazar MD [address] [place], [place] [phone] PCP - General 03/07/21 documented as of this encounter
--- OUTSIDE RECORDS SUMMARY | 2024-07-07 09:55 | XMS_ITS | Encounter Summary ---
Author Organization [facility] Address [facility] [place] [address] Care Team Providers Care Plater Apprentice Name Role Phone Bjorn Salazar MD Primary Care Provider [phone] Reason for Visit * Auth/Cert Specialty Diagnoses / Procedures Referred By Yamilet watts Referred To Contact Diagnoses Excess Skin Procedures NH EXCISE EXCESS SKIN TISSUE,ABDOMEN NH EXCISE EXCESS SKIN TISSUE,ABDOMEN, ADD-ON Leslie De Lis Panniculectomy with Umbilical Transposition Alexandr Nugent MD [address] [place] [phone] Phone: tel: fax: [facility] [address] [place] [phone] Phone: tel: Referral ID Status Reason Start Date Expiration Date Visits Re quested Visits Authorized [id number] 1 1 Encounter Details Date Type Department Care Team (Late st Contact Info) Description 03/09/2021 8:03 AM EDT Anesthesia Event [facility] [address] [place] [address] Marciano Reilly MD Caracci, Blake A, DO [address] [place] [id number] Anesthesia Record Procedure Summary Procedure Name Responsible Anesthesiologist Anesthesia Start Time Anesthesia Stop Time Leslie De Isi Panniculectomy with Umbilical Transposition Marciano Reilly MD 03/09/21 0803 03/09/21 11 20 Events Date Time Event Comment 03/09/2021 0755 0801 In Room 0803 An Start 0803 An Start Data 0808 An Induction The patient was reevaluated immediately before moderate or deep sedation use and before anesthesia induction. 0810 An Intubation 0815 Anesthesia Ready 0829 Min Patient stated in preop she does not want to receive anti-emetics during the case 0829 Proc Start 1057 Proc Fin 1109 An Extubation 1110 an stop data 1110 Out of Room 1120 Handoff to Receiving I compl eted my handoff to the receiving clinician during which we: 1. Identified the patient 2. Identified the responsible provider 3. Reviewed the pertinent medical history 4. Discussed the surgical course 5. Reviewed intra-op anesthesia management and issues during anesthesia 6. Set expectations for post-procedure period 7. Allowed opportunity for questions and acknowledgement of understanding. 1120 An Stop Meds Name Total propofol (Diprivan) injection 10 mg/mL 2 00 mg rocuronium (ZeMuron) injection 10 mg/mL 90 mg sugammadex (Bridion) injection 100 mg/mL 300 mg fentaNYL (Sublimaze) injection 50 mcg/mL 200 mcg ePHEDrine injection prefilled syringe 5 mg/mL 10 mg lidocaine PF (Xylocaine-MPF) 2% 2 mL ceFAZolin (Ancef) vial 1 g 2 g lactated Ringer's infusion 1,600 mL * Agents Name O2 N2O Air Desflurane Inspired Desflurane N2O Inspired N2O * Blood No blood administrations on file. Lines, Drains, and Airways Type Details Placement Removal Wound 03/09/21; 08; N; Y es; Abdomen; Lower; Surgical incision. xeroform, burn dressing, and covaderms for surgical dressing. 03/09/21 0829 by John Sahu RN Closed/Suction Drain 03/09/21; 1056; No; Yes; Lateral; RLQ; 19 Fr. 03/09/21 1056 by John Sahu RN Closed/Suction Drain 03/09/21; 1057; Yes ; Yes; Lateral; LLQ; 19 Fr. 03/09/21 1057 by John Sahu RN Peripheral IV Placement Date: 11/24; Placement Time: 704; Catheter Size: 20 G; Orientation: Anterior, Left; Location: Wrist; Site Prep: Chlorhexidine ; Local Anesth: Injectable; Inserted by: Yanira Cintron; Insertion Attempts: 3; Patient Tolerance: Tolerated well; Removal Date: 03/10/21; Removal Time: 1335 04/21 0705 by Liz Dejesus RN 03/10/21 133 by Carly Knutson RN ETT Placement Date: 11/24; Placement Time: 809 (created via procedure documentation); Mask Ventilation: 1; Technique: Direct laryngoscopy; Type: ETT - single; Single Lumen Tube Size: 7 mm; Cuffed: Yes; Laryngoscope: Eleazar; Blade Size: 3; Location: Oral; Grade View: Grade I; Insertion Attempts: 1; Placement Verification: Auscultation, Capnometry; Placed by: Resident ; Removal Date: 03/09/21; Removal Time: 11003/09/21 08 by Litzy Bailey DO 03/09/21 110 by Litzy Bailey DO documented in this encounter Social History Tobacco [...] PM EDT documented as of this encounter Miscellaneous Notes * Anesthesia Postprocedure Evaluation - Marciano Reilly MD - 03/09/2021 11:20 AM EDT Patient: Cris Galdamez Anesthesia Type: general Vitals Value Taken Time BP 137/65 03/09/21 1117 Temp 36.5 03/09/21 1120 Pulse 62 03/09/21 1119 Resp 18 03/09/21 1119 SpO2 100 % 03/09/21 1119 Vitals shown include unvalidated device data. Anesthesia Post Evaluation Patient location during evaluation: PACU Level of consciousness: sedated Pain management: adequate (pain score 0-3) Airway patency: natural airway Cardiovascular status: acceptable Respiratory status: acceptable, face mask and spontaneous ventilation Hydration status: acceptable There were no known complications for this encounter. * Anesthesia Procedure Notes - Litzy Bailey DO - 03/09/2021 8:29 AM EDT Associated Order(s): Airway Airway Date/Time: 03/09/2021 8:10 AM Urgency: elective Airway not difficult General Information and Staff Patient location during procedure: OR Anesthesiologist: Marciano Reilly MD Resident: Litzy Bailey DO Performed: Resident Indications and Patient Condition Indications for airway management: anesthesia Spontaneous Ventilation: absent Preoxygenated: yes Patient position: sniffing Mask difficulty assessment: 1 - vent by mask Final Airway Details Final airway type: endotracheal airway Successful airway: ETT Cuffed: yes Successful intubation technique: direct laryngoscopy Facilitating devices/methods: intubating stylet Endotracheal tube insertion site: oral Blade: Eleazar Blade size: #3 ETT size (mm): 7.0 Cormack-Lehane Classification: grade I - full view of glottis Placement verified by: chest auscultation and capnometry Measured from: teeth ETT to teeth (cm): 21 Number of attempts at approach: 1 * Anesthesia Preprocedure Evaluation - Marciano Reilly MD - 03/09/2021 7:24 AM EDT Patient: Cris Galdamez Procedure Information Date/Time: 03/09/21 0800 Procedure: Leslie De Lis Panniculectomy with Umbilical Transposition (N/A ) Location: [address] [place] [address] OR Surgeons: Alexandr Nugent MD Relevant Problems No relevant active problems Clinical information reviewed: Med Hx Tobacco Allergies Surg Hx Fam Hx Soc Hx OB Status NPO Status Date of Last Liquid: 03/08/21 Time of Last Liquid: 2330 Date of Last Solid: 03/08/21 Time of Last Solid: 2300 Time of Last Void: 0300 Physical Exam Airway Mallampati: I Mouth opening: normal Neck ROM: full Cardiovascular - normal exam Dental - normal exam Pulmonary - normal exam Neurological Skin Musculoskeletal Extremities Anesthesia Plan ASA 1 Anesthesia technique(s) discussed with the patient/family: General Anesthesia plan agreed upon was: general Anesthetic plan and risks discussed with patient. Plan discussed with resident. Additional Equipment Requests documented in this encounter Plan of Treatment Not on file documented as of this encounter Procedures Procedure Name Priority Date/Time Associated Diagnosis Comments PB ANESTHESIA PLACEHOLDER Routine 03/09/2021 8:10 AM EDT NH AN ELECTIVE ENDOTRACHEAL AIRWAY Routine 03/09/2021 8:10 AM EDT documented in this encounter Results * NH AN ELECTIVE ENDOTRACHEAL AIRWAY, PB ANESTHESIA PLACEHOLDER (03/09/2021 8:10 AM EDT) Narrative Litzy Bailey DO - 03/09/2021 8:10 AM EDT Litzy Bailey DO ? 03/09/2021 ??8:29 AM Airway Date/Time: 03/09/2021 8:10 AM Urgency: elective Airway not difficult General Information and Staff Patient location during procedure: OR Anesthesiologist: Marciano Reilly MD Resident: Litzy Bailey DO Performed: Resident Indications and Patient Condition Indications for airway management: anesthesia Spontaneous Ventilation: absent Preoxygenated: yes Patient position: sniffing Mask difficulty assessment: 1 - vent by mask Final Airway Details Final airway type: endotracheal airway Successful airway: ETT Cuffed: yes Successful intubation technique: direct laryngoscopy Facilitating devices/methods: intubating stylet Endotracheal tube insertion site: oral Blade: Eleazar Blade size: #3 ETT size (mm): 7.0 Cormack-Lehane Classification: grade I - full view of glottis Placement verified by: chest auscultation and capnometry Measured from: teeth ETT to teeth (cm): 21 Number of attempts at approach: 1 us Marciano Reilly MD ANESTHESIA ORDERABLES Fin al Result documented in this encounter Visit Diagnoses Not on filedocumented in this encounter Administered Medications Inactive Administered Medications - up to 3 most recent administrations Medication Order MAR Action Action Date Dose Rate Site ceFAZolin (Ancef) injection Intravenous, As needed, Starting on Sun03/09/21 at 0815, Until Sun03/09/21 at 1120, Routine, Anesthesia Intraprocedure Given 03/09/2021 8:15 AM EDT 2 g ePHEDrine Sulfate prefilled syringe Intravenous, As needed, Starting on Sun03/09/21 at 0951, Until Sun03/09/21 at 1120, Routine, Anesthesia Intraprocedure Given 03/09/2021 10:35 AM EDT 5 mg Given 03/09/2021 9:51 AM EDT 5 mg fentaNYL (Sublimaze) injection Intravenous, As needed, Starting on Sun03/09/21 at 0808, Until Sun03/09/21 at 1120, Routine, Anesthesia Intraprocedure Given 03/09/2021 11:19 AM EDT 50 mcg Given 03/09/2021 8:08 AM EDT 150 mcg lactated Ringer's infusion Intravenous, Continuous PRN, Starting on Sun03/09/21 at 0801, Until Sun03/09/21 at 1120, Routine New Bag 03/09/2021 9:55 AM EDT New Bag 03/09/2021 8:01 AM EDT lidocaine PF (Xylocaine) 2 % injection Intravenous, As needed, Starting on Sun03/09/21 at 0808, Until Sun03/09/21 at 1120, Routine, Anesthesia Intraprocedure Given 03/09/2021 8:08 AM EDT 2 mL propofol (Diprivan) injection Intravenous, As needed, Starting on Sun03/09/21 at 0808, Until Sun03/09/21 at 1120, Routine, Anesthesia Intraprocedure Given 03/09/2021 8:08 AM EDT 200 mg rocuronium (ZeMuron) injection Intravenous, As needed, Starting on Sun03/09/21 at 0808, Until Sun03/09/21 at 1120, Routine, Anesthesia Intraprocedure Given 03/09/2021 8:58 AM EDT 20 mg Given 03/09/2021 8:08 AM EDT 70 mg sugammadex (Bridion) 200 MG/2ML injection Intravenous, As needed, Starting on Sun03/09/21 at 1028, Until Sun03/09/21 at 1120, Routine, Anesthesia Intraprocedure Given 03/09/2021 10:28 AM EDT 300 mg documented in this encounter Care Teams Plater Apprentice Relationship Specialty Start Date End Date Bjorn Salazar MD [address] [place] [address] PCP - General 03/07/21 documented as of this encounter
--- OUTSIDE RECORDS SUMMARY | 2024-07-07 09:55 | XMS_ITS | Encounter Summary ---
Author Organization [facility] Address [address] [place] [address] Care Team Providers Care Tangled Yarn Worker Name Role Phone Bjorn Salazar MD Primary Care Provider [phone] Reason for Visit * Reason Comments Follow-up * Pre-determination (Routine) - Closed Specialty Diagnoses / Procedures Referred By Contnatalie t Referred To Contact Plastic Surgery Diagnoses Excessive and redundant skin and subcutaneous tissue Dorsalgia, unspecified Rash and other nonspecific skin eruption Procedures IN EXCISE EXCESS SKIN TISSUE,ABDOMEN IN EXCISE EXCESS SKIN TISSUE,ABDOMEN, ADD-ON PRE D SURGERY SCHEDULED FOR 03/09/2021 kishore de lis panniculectomy with umbical transposition out patient [facility] [address] [place] [address] Phone: tel: fax: [facility] Plastic Surgery [address] [place] [address] Phone: tel: fax: Referral ID Status Reason Start Date Expiration Date Visits Re quested Visits Authorized [id number] Closed 01/16/2021 07/15/2021 1 1 Encounter Details Date Type Department Care Team (Late st Contact Info) Description 03/18/2021 8:15 AM EDT Office Visit [facility] Plastic Surgery [address] [place] [address] Alexandr Nugent MD [address] [phone] Postoperative examination (Primary Dx); Excess skin of abdominal wall Social History Tobacco Use Types Packs/Day Years [...] Sign Reading Time Taken Comments Blood Pressure 111/66 03/18/2021 8:13 AM EDT Pulse 91 03/18/2021 8:13 AM EDT Temperature 37.1 ??C (98.7 ??F) 03/18/2021 8:13 AM ED T Respiratory Rate - - Oxygen Saturation - - Inhaled Oxygen Concentration - - Weight 106 kg (234 lb) 03/18/2021 8:13 AM EDT Height 175.3 cm (5' 9 ) 03/18/2021 8:13 AM EDT Body Mass Index 34.56 03/18/2021 8:13 AM EDT documented in this encounter Miscellaneous Notes * Progress Notes - Kelsey Niño, LOLA - 03/18/2021 8:15 AM EDT Subjective Patient ID: Cris Galdamez is a 40 y.o. female. HPI Cris Galdamez is a 40 y o female who presents to clinic for postoperative follow- up. Patient is status post [id number] abdominal plasty on March 09, 2021. Patient has not been wearing abdominal binder because it rubs her SARAH drains. Bilateral SARAH drains with serosanguineous fluid greater than 30 cc last several days. yReview of Systems All other systems reviewed and are negative. Objective Physical Exam Abdomen: Incision clean dry intact no erythema abdomen soft non tender, bilateral SARAH drains with serosanguineous output. Assessment/Plan Diagnoses and all orders for this visit: Postoperative examination 40-year-old female status post floor delete the abdominoplasty on March 09, 2021. Patient to continue to record SARAH drain output. Patient encouraged to wear compression 247. Patient to return to clinic in 1 week for possible SARAH drain removal. documented in this encounter Plan of Treatment Not on file documented as of this encounter Visit Diagnoses Diagnosis Postoperative examination- Primary Follow-up examination, following unspecified surgery Excess skin of abdominal wall documented in this encounter Care Teams Tangled Yarn Worker Relationship Specialty Start Date End Date Bjorn Salazar MD [address] [place] [address] PCP - General 03/07/21 documented as of this encounter
--- OUTSIDE RECORDS SUMMARY | 2024-07-07 09:55 | XMS_ITS | Encounter Summary ---
Author Organization [facility] Address [address] [place] [address] Care Team Providers Care Certified Court/Medical Interpreter Name Role Phone Bjorn Salazar MD Primary Care Provider [phone] Encounter Details Date Type Department Care Team (Late st Contact Info) Description 03/25/2021 8:45 AM EDT Office Visit [facility] Plastic Surgery [address] [place] [address] Alexandr Nugent MD [address] [phone] Postoperative examination (Primary Dx) Social History Tobacco Use Types [...] Sign Reading Time Taken Comments Blood Pressure 108/73 03/25/2021 8:12 AM EDT Pulse 61 03/25/2021 8:12 AM EDT Temperature 36.4 ??C (97.5 ??F) 03/25/2021 8:12 AM ED T Respiratory Rate - - Oxygen Saturation - - Inhaled Oxygen Concentration - - Weight 108 kg (238 lb 1.6 oz) 03/25/2021 8:12 AM EDT Height 175.3 cm (5' 9 ) 03/25/2021 8:12 AM EDT Body Mass Index 35.16 03/25/2021 8:12 AM EDT documented in this encounter Miscellaneous Notes * Progress Notes - Kelsey Niño NP - 03/25/2021 8:45 AM EDT Subjective Patient ID: Cris Galdamez is a 40 y.o. female. HPI Cris Galdamez is a 40 y o female who presents to clinic for postoperative follow- up. Patient is status post [id number] abdominal plasty on March 09, 2021. Patient reports she is doing well left drain has had 0 output for the last few days. Right drain is putting out 30 mL per day all week long. Patient is wearing abdominal binder and spanx. Review of Systems All other systems reviewed and are negative. Objective Physical Exam Physical Exam Abdomen: Incision clean dry intact no erythema abdomen soft non tender, bilateral SARAH drains with serosanguineous output. Assessment/Plan Diagnoses and all orders for this visit: Postoperative examination 40 y o female is status post [id number] abdominal plasty on March 09, 2021. Bilateral SARAH drains removed today. Patient to discontinue use of the abdominal binder but she will need to continue to wear her Spanx. Patient may return to work on 03/30/2021 and return to clinic in 6 weeks. documented in this encounter Plan of Treatment Not on file documented as of this encounter Visit Diagnoses Diagnosis Postoperative examination- Primary Follow-up examination, following unspecified surgery documented in this encounter Care Teams Certified Court/Medical Interpreter Relationship Specialty Start Date End Date Bjorn Salazar MD [address] [place] [address] PCP - General 03/07/21 documented as of this encounter
--- OUTSIDE RECORDS SUMMARY | 2024-07-07 09:55 | XMS_ITS | Encounter Summary ---
Author Organization [facility] Address [address] [place] [address] Care Team Providers Care Steward/Stewardess Third Class Name Role Phone Bjorn Salazar MD Primary Care Provider [phone] Reason for Visit * Reason Onset Date Comments HCN - Patient Message 04/13/2021 Encounter Details Date Type Department Care Team (Late st Contact Info) Description 04/13/2021 Telephone [facility] Plastic Surgery [address] [place] [address] Alexandr Nugent MD [address] [phone] HCN - Patient Message Social History Tobacco Use Types Packs/Day Years [...] AM EDT documented as of this encounter Miscellaneous Notes * Telephone Encounter - Kori Bhatti MA - 04/14/2021 9:24 AM EDT Kelsey sent pt in antibiotics and we will see her tomorrow in clinic. * Telephone Encounter - Kori Bhatti MA - 04/14/2021 9:13 AM EDT Forwarded images to Dr. Nugent, Dr. Joyce, and Kelsey Niño * Telephone Encounter - Bjorn Woodward - 04/13/2021 4:14 PM EDT Patient Phone Message Reason for Call: Patient returned call to ask if we received pictures she emailed in regarding this Best contact number and optimal time of day to reach caller: [phone] Note: Please do not reply to this message. Follow-up communication and further actions as a result of this message need to be communicated with the patient directly, if the patient is not active onMyChart. If the patient is active on MyChart, they will receive notification of the communication/outcome via xTurion. * Telephone Encounter - Kori Bhatti MA - 04/13/2021 11:43 AM EDT Contacted patient and she stated the drainage started yesterday afternoon right next to her scar I informed her to submit photos of her surgical site so I can forward them to Dr. Nugent and Dr. Joyce. She stated she couldn't send them until she got off at 4PM today and she reassured me she was controlling it with antibiotic ointment, bandages, and gauze. She denies fever and chills. * Telephone Encounter - Misty Samayoa - 04/13/2021 9:54 AM EDT Patient Phone Message Reason for Call: patient of Dr. Nugent is requesting a call back regarding her having yellowish drainage. Best contact number and optimal time of day to reach caller: [phone] Note: Please do not reply to this message. Follow-up communication and further actions as a result of this message need to be communicated with the patient directly, if the patient is not active onMyChart. If the patient is active on MyChart, they will receive notification of the communication/outcome via MyChart. documented in this encounter Plan of Treatment Not on file documented as of this encounter Visit Diagnoses Not on filedocumented in this encounter Care Teams Steward/Stewardess Third Class Relationship Specialty Start Date End Date Bjorn Salazar MD [address] [place] [address] PCP - General 03/07/21 documented as of this encounter
--- NOTE | 2024-07-07 09:57 | MM_ITS ---
PROCEDURE INFORMATION: Exam: MG Bilateral Screening 3D Mammography Exam date and time: 07/07/2024 9:49 AM Age: 43 years old Clinical indication: Screening examination TECHNIQUE: Imaging protocol: Bilateral Screening tomosynthesis and 2D mammography including computer-aided detection (CAD) when performed. COMPARISON: 1. MG MM DIG SCREENING MAMM BI W/CAD 06/26/2023 1:00 PM 2. MG MM DIG SCREENING MAMM BI W/CAD 06/16/2022 10:55 AM FINDINGS: MAMMOGRAPHY: Breast composition: There are scattered areas of fibroglandular density. Mass: None. Architectural distortion: None. Calcifications: No suspicious calcifications. Asymmetric density: None. Skin thickening: None. Axillary adenopathy: None. IMPRESSION: No mammographic evidence of malignancy. Annual screening is recommended unless otherwise clinically indicated. ASSESSMENT: BI-RADS Category 1: Negative.
== END 2024-07-07 23:59 | disposition home or self-care (01) ==
LOC: RAD 09:53
PROVIDERS: PCP Nurse Practitioner Family; Visit Provider Nurse Practitioner Obstetrics & Gynecology
DX: Z12.31 Encounter for screening mammogram for malignant neoplasm of breast (principal)
CPT/HCPCS: 77063; 77067

== ENCOUNTER 2024-12-08 09:01 | Outpatient (CLI) | payer MEDICAID, SELFPAY ==
--- NOTE | 2024-12-08 | XR_ITS ---
FINAL REPORT CLINICAL HISTORY: RT ANKLE PAIN, NKI FINDINGS: 2 views of the right ankle were obtained. There is no acute osseous abnormality. Calcification distal to the tips of the medial and lateral malleoli are likely chronic avulsion fragments. Mild lateral soft tissue edema is noted. IMPRESSION: Mild lateral soft tissue edema without acute osseous abnormality. Likely chronic avulsion fragments. Reviewed, Interpreted and Dictated by Kelly Fagan MD Transcribed by Maile Castro Authenticated and [facility]
--- NOTE | 2024-12-08 | XR_ITS ---
FINAL REPORT CLINICAL HISTORY: RT KNEE PAIN, NKI FINDINGS: AP, lateral and oblique views of the right knee were obtained. There is no prior exam for comparison. There is no acute osseous abnormality of the right knee. Tricompartmental degenerative joint disease is noted, most pronounced at the medial compartment. The soft tissues are normal. There is no joint effusion. IMPRESSION: Degenerative changes without acute osseous abnormality of the right knee. Reviewed, Interpreted and Dictated by Kelly Fagan MD Transcribed by Maile Castro Authenticated and [facility]
--- NOTE | 2024-12-08 | XR_ITS ---
FINAL REPORT CLINICAL HISTORY: RT LOWER LEG PAIN, MCGREGOR SPLINTS, NKI FINDINGS: AP and lateral views of the right tibia and fibula were obtained. There is no prior exam for comparison. There is no acute fracture of the right tibia or fibula. The knee and ankle appear intact. The soft tissues are normal. IMPRESSION: No acute osseous abnormality of the right tibia or fibula. Reviewed, Interpreted and Dictated by Kelly Fagan MD Transcribed by Maile Castro Authenticated and [facility]
--- NOTE | 2024-12-08 | XR_ITS ---
FINAL REPORT CLINICAL HISTORY: LT KNEE PAIN, NKI, HX OF SURGERY FINDINGS: AP, lateral and oblique views of the left knee were obtained. There is no prior exam for comparison. There is no acute osseous abnormality of the left knee. There are postoperative changes from prior ACL reconstruction. The tibial screw extends 5 mm outside of the tibial cortex. Lucency surrounds the screw. There is advanced degenerative joint disease. The soft tissues are normal. There is no joint effusion. IMPRESSION: No acute osseous abnormality of the left knee. Postoperative changes, loosening of the tibial screw not excluded. Reviewed, Interpreted and Dictated by Kelly Fagan MD Transcribed by Maile Castro Authenticated and [facility]
[2024-12-09 12:21] LABS: FSH 4.2 mIU/mL (.); LH 4.6 mIU/mL (.)
== END 2024-12-08 23:59 | disposition home or self-care (01) ==
LOC: LAB 09:02
PROVIDERS: PCP Nurse Practitioner Family; Visit Provider Nurse Practitioner Obstetrics & Gynecology
DX: N95.1 Menopausal and female climacteric states (principal)
CPT/HCPCS: 36415; 73562; 73590; 73600; 82670; 83001; 83002

== ENCOUNTER 2024-12-12 08:57 | Outpatient (CLI) | payer MEDICAID, SELFPAY ==
--- NOTE | 2024-12-12 09:00 | US_ITS ---
PROCEDURE: US TRANSVAGINAL CLINICAL INDICATION: abnirmal perimenopausal bleeding COMPARISON: US TRANVAG US transvaginal from 01/21/[address] ABDOMEN PELVIS WO CON from 02/21/2024 FINDINGS: Transvaginal sonographic images of the pelvis were obtained. UTERUS: 7.9 cm x 5.9 cmx 4.6 cm anteverted with a combined endometrial thickness of 3.2mm. There are post ablation changes in the endometrium. There are several small nabothian cysts in the cervix. A is seen in the anterior lower uterine segment. LEFT OVARY: 2.8 cmx2.2cmx2.9cm with a volume of 9.5ml. Left ovary contains a follicle measuring 2.0 cm x 1.3 cm x 1.7 cm RIGHT OVARY: 3.9 cmx 2.9 cmx2.6 cm with a volume of 15.8ml. The right ovary contains a follicle measuring 3.0 cm x 2.6 cm x 2.1 cm Both ovaries are seen and appear normal. Doppler flow to both ovaries are seen. There is no fluid in the cul-de-sac. IMPRESSION: 1. Anteverted uterus normal in shape and size. The endometrium is thin and there are post ablation changes. The uterus is heterogenous in appearance. 2. Both ovaries are seen and appear normal. The right ovary contains a 3 cm follicle and the left ovary contains a 2 cm follicle. 3. No fluid in the cul-de-sac. Dictated by: Silvio Cintron MD 12/12/2024 11:15 Silvio Cintron MD in [place] 12/12/2024 11:15
== END 2024-12-12 23:59 | disposition home or self-care (01) ==
LOC: RAD 08:57
PROVIDERS: PCP Nurse Practitioner Family; Visit Provider Nurse Practitioner Obstetrics & Gynecology
DX: N88.8 Other specified noninflammatory disorders of cervix uteri (principal)
CPT/HCPCS: 76830

== ENCOUNTER 2024-12-18 09:30 | Outpatient (CLI) | payer MEDICAID, SELFPAY ==
--- NOTE | 2024-12-18 09:34 | XR_ITS ---
FINAL REPORT CLINICAL HISTORY: Left ankle pain COMPARISON: None FINDINGS: LEFT ANKLE Three views demonstrate no acute fracture or dislocation. The visualized joint spaces are normally aligned. The soft tissues are unremarkable. A moderate plantar calcaneal spur is present. IMPRESSION: No acute bony abnormality. Reviewed, Interpreted and Dictated by Enzo Carvajal MD Transcribed by Laurence Larry Authenticated and [facility]
== END 2024-12-18 23:59 | disposition home or self-care (01) ==
PROVIDERS: PCP Nurse Practitioner Family; Visit Provider Physician Assistant Surgical
DX: M77.32 Calcaneal spur, left foot (principal)
CPT/HCPCS: 73610

== ENCOUNTER 2025-02-14 21:29 | Emergency (ER) | payer MEDICAID, SELFPAY ==
--- OUTSIDE RECORDS SUMMARY | 2025-02-14 21:36 | XMS_ITS | Clinical Summary ---
Author Organization [facility] Address [address] [place] [address] Care Team Providers Care Cdl Truck Driver Name Role Phone Bjorn Salazar MD Primary Care Provider [phone] Allergies Active Allergy Reactions Criticality Noted Date [...] time each day. 06/01/2022 Active nystatin (Mycostatin) 683625 UNIT/ML suspension TAKE 5 ML BY MOUTH [...] 100 06/02/2022 9:24 AM EDT Temperature 36.7 C (98.1 F) 06/02/2022 9:24 AM EDT Respiratory Rate 17 03/10/2021 11:23 AM EDT Oxygen Saturation 98% 03/10/2021 11:23 AM EDT Inhaled Oxygen Concentration - - Weight 103 kg (227 lb 4.7 oz) 06/02/2022 9:24 AM EDT Height 175.3 cm (5' 9 ) 06/02/2022 9:24 AM EDT Body Mass Index 33.57 06/02/2022 9:24 AM EDT Plan of Treatment Health Maintenance Due Date Last Done Comments [facility]-Depression Screening 1981 [facility]-/Child/Adol SDOH Screenings 1981 [facility]-Varicella Vaccines (1 of 2 - 13+ 2-dose series) 1994 HPV Vaccines (1 - 3-dose series) 1996 [facility]- SDOH Screenings 1999 [facility]-Adult SDOH Screenings 1999 [facility]-Pap Smear 2002 [facility]-Cervical Cancer Screening 2011 [facility]-HPV/Cotest 2011 [facility]-Hepatitis B Vaccines (2 of 3 - 19+ 3-dose series) 06/21/2022 05/24/2022 [id number] Vaccine (1 - 2023- season) 2024 [facility]-Influenza Vaccine (#1) 04/06/202505/12, 05/09/2021, 07/08/2020, Additional history exists [facility]-DTaP,Tdap,and Td Vaccines (3 - Td or Tdap) 12/11/2029 12/12/2019, 07/23/2012 [facility]-Zoster Vaccines (1 of 2) 2031 [facility]-Hepatitis A Vaccines Aged Out 10/24/2018, 04/06 [...] 5 Years) and At-Risk Patients (6 to 49 Years) Aged Out No longer eligible based on patient's age to complete this topic [facility]-Rotavirus Vaccines Aged Out No lo nger eligible based on patient's age to complete this topic Medical Devices Implanted Type Area Environmental Director Device Identifier Shelf Expiration Date Model / [...] 2 Antibody/Antigen Screen (03/09/2021 11:00 AM EDT) HIV 1 & 2 Antibody/Anti gen Screen Nonreactive Nonreactive 03/09/2021 12:56 PM EDT [facility] Blood Venous blood specimen / Unknown 03/09/2021 11:00 AM EDT 03/09/2021 11:35 AM EDT Marciano Reilly MD LAB BLOOD ORDERABLES Rubi l Result Performing Organization Address City/[facility] [[email or web address]] Co de Phone Number [facility] [address] [place] [address] * Hepatitis C antibody (03/09/2021 11:00 AM EDT) Hepatitis C Antibody Negative Negative 03/09/2021 12:56 PM EDT [facility]ARE [facility] Blood Venous blood specimen / Unknown 03/09/2021 11:00 AM EDT 03/09/2021 11:35 AM EDT Marciano Reilly MD LAB BLOOD ORDERABLES Rubi l Result Performing Organization Address [facility] [[email or web address]] Co de Phone Number [facility] [address] [place] [address] from Last 3 Months or Most Recently Relevant to Health Maintenance Insurance [facility] MEDICAID Advance Directives * Full Code (Latest Code Status on File) Date Activated Date Inactivated Comments 03/09/2021 11:13 AM 03/10/2021 4:47 PM Question Answer Comments Patient has decision-making capacity? Yes Care Teams Cdl Truck Driver Relationship Specialty Start Date End Date Bjorn Salazar MD [address] [place] [address] PCP - General 03/07/21
--- OUTSIDE RECORDS SUMMARY | 2025-02-14 21:36 | XMS_ITS | Continuity of Care Document ---
Author Organization [place] Michelle Riddle [facility] Address [address] [place] [id number] Care Team Providers Care Division Road Supervisor Name Role Phone WILLTWYLA Family [facility] ROLY IQBAL Secondary Spanish Teacher [phone] Assessment No assessment recorded. Plan of Treatment Reminders Order Date Submit Date Provider Last Modified By Organization Details Last Modified Time Details Appointments Follow Up 2024 09:00A Sharon Riley APRN Not available Not available Not available Lab None recorded. Referral None recorded. Procedures None recorded. Surgeries None recorded. Imaging None recorded. Medication Orders diclofena c sodium 75 mg tablet,de layed release 2024 025 [facility], [address] [place] [address], [id number], 12/23/2024 09:35:11 omeprazol e 20 mg capsule,d elayed release 2024 025 [facility], [address] [place] [address], [id number], 12/23/2024 09:35:09 Patient TargetsNo targets recorded. Patient InstructionsNo instructions recorded. Reason for Referral None Reported. Results Created Date Observation Date Name Description Value Unit Range Abnormal Flag Note LastModifiedBy Organization Detail LastModifiedTime 12/09/19 25 12/08/2024 XR, knee, 3 view No observ ation record ed. [facility] [address], [place], [id number], 12/11/2024 13:52:03 12/09/19 25 12/08/2024 XR, knee, 3 view No observ ation record ed. [facility] [address], [place], [id number], 12/11/2024 13:52:03 12/09/19 25 12/08/2024 XR, tibia + fibul a, 2 view No observ ation record ed. [facility] [address], [place], [place], [id number], 12/11/2024 13:52:04 12/09/19 25 12/08/2024 XR, ankle , 2 view No observ ation record ed. [place] [id number], [place], [id number], 12/11/2024 13:52:04 12/13/19 25 12/12/2024 US, trans vagin al No observ ation record ed. [place] [id number], [place], [place], [id number], 12/15/2024 09:26:08 12/19/19 25 12/18/2024 XR, ankle , 2 view No observ ation record ed. [place] [id number], [place], [id number], 12/18/2024 10:41:32 Result Notes None recorded. Problems Name Problem SNOMED Code Status Onset Date Resolution Date Notes Provider Name and Address Organization Details Recorded Time Asthma [id number] Active 2019 Nat Riley, SHAINA [address], [place], [address], [place] - [facility] 3 10:07:07 Degeneration of intervertebral disc 31928427 Active 2019 Nat Riley, [employer]ODUCE [employer]ER [address], [place], [address], [place] - [facility] 3 10:07:10 Neuropathy 349310450 Active 2019 Nat Riley, [employer]ODU[employer]ER [address], [place], [address], [place] - [facility] 3 10:07:22 Depressive disorder 71229909 Active 2019 Nat Riley, [employer]ODU[employer]ER [address], [place], [address], [place] [facility] 3 10:07:12 Arthritis 5907044 Active 2019 Nat Riley, [employer]ODU[employer] [address], [place], [address], [place] [facility] 3 10:07:05 Anxiety 16682857 Active 2019 Nat Riley, [employer]ODU[employer] BU[employer]ER [address], [place], [address], [place] [facility] 3 10:07:02 Migraine 17523956 Active 2021 Nat Riley, [employer]ODU[employer] BU[employer]ER [address], [place], [address], [place] [facility] 3 10:07:25 Insomnia 825091201 Active 2021 Nat Riley, [employer]ODUCE [employer]ER [address], [place], [address], [place] [facility] 3 10:07:16 Iron deficiency anemia 78351557 Active 2021 Nat Riley, [employer]ER [address], [place], [address], [place] [facility] 3 10:07:18 Candidiasis of mouth 39778457 Active 2021 Lisa Salazar, [employer]ER [address], [place], [address], [place] [facility] 2 09:37:18 Contact dermatitis 05300521 Active 2023 Luther Walters, DO [address], [place], [address], [place] [facility] 4 09:35:34 Vitamin D deficiency 60069004 Active 2024 Josie Owen null, [place] - [facility] 5 08:42:26 Gastroesophage al reflux disease without esophagitis 055897848 Active 2024 Josie Lexie jeannette, [place] - [facility] 5 08:42:58 Problem Notes None recorded. Procedures Surgical History Date Name Laterality Status Provider Name and Address Organization Details Recorded Time 07/07/20 24 Date of Last Mammogram completed Josie Owen [place] - [facility] 07/10/2024 11:36:49 04/18/20 21 Medication Reconcilliation completed Karuna Mills [place] - [facility] 04/18/2021 16:46:35 09/27/19 21 Systolic B/P less than 130 mm Hg completed Daniela Acosta [place] - [facility] 09/27/2020 14:44:44 09/27/19 21 Diastolic B/P 80-89 mm Hg completed Daniela Acosta [place] [facility] 09/27/2020 14:44:49 03/04/20 20 Shave Biopsy trunk, arms, or legs completed Twyla Owens APRN [address], [place], [address], [place] - [facility] 03/04/2020 17:13:58 03/04/20 20 Skin Tag Removal completed Twyla Owens APRN [address], [place], [address], [place] - [facility] 03/04/2020 17:14:20 12/18/19 20 Systolic B/P less than 130 mm Hg completed Daniela Acosta [place] [facility] 12/18/2019 09:18:13 12/18/19 20 Diastolic B/P 80-89 mm Hg completed Daniela Acosta [place] [facility] 12/18/2019 09:18:21 10/23/19 20 Systolic B/P less than 130 mm Hg completed Marti Carter [place] [facility] 10/23/2019 08:39:31 10/23/19 20 Diastolic B/P 80-89 mm Hg completed Marti Carter [place] [facility] 10/23/2019 08:39:34 05/08/20 19 Systolic B/P less than 130 mm Hg completed Marti Carter [place] [facility] 05/08/2019 09:40:47 05/08/20 19 Diastolic B/P 80-89 mm Hg completed Marti Carter [place] [facility] 05/08/2019 09:40:49 05/08/20 19 Medication Reconcilliation completed Marti [facility] 05/08/2019 09:32:29 02/08/20 19 Systolic B/P less than 130 mm Hg completed [facility] 02/07/2019 15:31:13 02/08/20 19 Diastolic B[facility]P less [facility] 80 [facility] 15:31:16 10/25/19 19 Systolic B/P less than 130 mm Hg completed Daniela Acosta [facility] 10/24/2018 12:59:01 10/25/19 19 Diastolic B/P less than 80 mm Hg completed Daniela Acosta [facility] 10/24/2018 12:59:03 09/26/19 19 Systolic B/P less than 130 mm Hg completed Daniela Acosta [facility] 09/26/2018 10:51:30 09/26/19 19 Diastolic B/P less than 80 mm Hg completed Daniela Acosta [facility] 09/26/2018 10:51:32 08/23/19 19 Systolic B/P less than 130 mm Hg completed Danielajeffry Acosta [facility] 08/23/2018 13:32:22 08/23/19 19 Diastolic B/P 80-89 mm Hg completed Daniela Acosta [facility] 08/23/2018 13:34:24 excision of excessive skin and subcutaneous tissue completed Danielajeffry Acosta [facility] 03/18/2021 11:46:[address] [facility] 05/08/2019 09:36:32 Knee arthroscopy/surgery completed Marti [facility] 05/08/2019 09:36:[address] [facility] 05/08/2019 09:36:50 gastric sleeve completed Matri [facility] 05/08/2019 09:37:10 Endometrial Ablation completed [facility] 05/08/2019 09:37:28 Tubal Ligation completed Marti [facility] 05/08/2019 09:37:40 Imaging Results None recorded. Procedure Notes None recorded. Medical Equipment None Reported. Allergies Allergen ID Allergen Name Allergen Category Reaction Reaction Severity Criticality Documentation Date Start Date Code Code System Note Provider Name and Address Organization Details Recorded Time 53118 latex environme nt,medica tion Not available Not available Not available 05/12/20162013 12744 91 RxNorm Not Available [facility] 6 08:49:01 33966 Product containin g penicilli n (product) medicatio n hives Not available Not available 05/12/20162012 11069 8001 SNOMED React ion: HIVES ; Not Available [facility] 6 09:23:58 Medications Name Sig Start Date Stop Date Status Note LastModified by Organization Details LastModified Time vitamin d3 50,000 units cap TAKE 1 CAPSULE ONCE WEEKLY 03/02 completed Not Available Not Available Not Available vitamin d3 (mahesh) 50mcg cap TAKE 1 CAPSULE BY MOUTH ONCE DAILY DIRECTED 02/20 completed Not Available Not Available Not Available fluconazo le 100 mg tablet Take 1 tablet every day by oral route. 10/02 completed Not Available Not Available Not Available methocarb kian 500 mg tablet TAKE 1 TABLET BY MOUTH TWICE A DAY NEEDED 05/12 completed Not Available Not Available Not Available promethaz ine-DM 6.25 mg-15 mg/5 mL oral syrup Take 5 mL every 6 hours by oral route. 02/07 completed Not Available Not Available Not Available neomycin- polymyxin -hydrocor t 3.5 mg/mL-10, 000 unit/mL-1 % ear solution 02/07 completed Not Available Not Available Not Available nystatin 100,000 unit/mL oral suspensio n TAKE 5 ML BY MOUTH 4 TIMES DAILY FOR 5 DAYS 11/03 completed Not Available Not Available Not Available prednison e 10 mg tablet take 3 tablets daily for 2 days, take 2 tablets daily for 2 days, take 1 tablets daily for 2 days, take 0.5 tablets daily for 4 days. 04/22 completed Not Available Not Available Not Available gabapenti n 600 mg tablet TAKE 1 TABLET BY MOUTH THREE TIMES DAILY active Not Available Not Available No t Available doxycycli ne hyclate 100 mg capsule TAKE 1 CAPSULE TWICE DAILY FOR 7 DAYS 08/10 completed Not Available Not Available Not Available clindamyc in HCl 300 mg capsule Take 1 capsule every 8 hours by oral route for 7 days. active taking for a dental infectio n Not Available Not Available Not Available trazodone 50 mg tablet TAKE 1-2 TABLET BY MOUTH AT BEDTIME NEEDED 05/22 completed Not Available Not Available Not Available azithromy matty 250 mg tablet Take 2 tablets the first day (500 mg) followed by 1 tablet (250 mg) days 2-5. for 5 days 11/21 completed Not Available Not Available Not Available ibuprofen 800 mg tablet 09/02 completed Not Available Not Available Not Available valacyclo vir 1 gram tablet 10/24 completed Not Available Not Available Not Available hydrocodo ne 5 mg-acetam inophen 325 mg tablet Take 1 tablet twice a day by oral route as needed for 3 days. 11/26 completed Not Available Not Available Not Available Nystop 100,000 unit/gram topical powder APPLY TO THE AFFECTED AREA(S) BY TOPICAL ROUTE 2 TIMES PER DAY 06/07 completed Not Available Not Available Not Available prazosin 1 mg capsule TAKE 1 CAPSULE BY MOUTH EVERY DAY AT BEDTIME FOR NIGHTMAR ES 02/20 completed Not Available Not Available Not Available senna 8.6 mg tablet Take 2 tablets every day by oral route. 11/21 completed Not Available Not Available Not Available meloxicam 15 mg tablet TAKE 1 TABLET BY MOUTH ONCE DAILY. 2024 active Not Available Not Available Not Avai lable clonazepa m 0.5 mg tablet Take 1 tablet 3 times a day by oral route as needed for 30 days. 10/01 completed Not Available Not Available Not Available clonazepa m 1 mg tablet TAKE 1 TABLET BY MOUTH THREE TIMES DAILY NEEDED 11/03 completed Not Available Not Available Not Available clindamyc in HCl 150 mg capsule TAKE 2 CAPSULES NOW THEN 1 CAPSULE 4 TIMES DAILY TILL GONE 01/20 completed Not Available Not Available Not Available Diflucan 150 mg tablet take 1 tablet (150 mg) by oral route once, may repeat in 3 days if needed 2024 active Not Available Not Available Not Avai lable topiramat e 25 mg tablet TAKE ONE (1) TABLET(S ) TWICE A DAY BY ORAL ROUTE FOR 30 DAYS. 10/01 completed Not Available Not Available Not Available metronida zole 500 mg tablet TAKE 1 TABLET BY MOUTH TWICE DAILY FOR 7 DAYS 11/03 completed Not Available Not Available Not Available ciproflox acin 500 mg tablet TAKE 1 TABLET EVERY 12 HOURS 11/24 completed Not Available Not Available Not Available sulfameth oxazole 800 mg-trimet hoprim 160 mg tablet TAKE 1 TABLET BY MOUTH TWICE DAILY. 11/24 completed Not Available Not Available Not Available doxycycli ne monohydra te 100 mg tablet 09/26 completed Not Available Not Available Not Available acetamino phen 500 mg tablet Take 1 tablet every 4-6 hours by oral route as needed for 5 days. 04/18 completed Not Available Not Available Not Available triamcino lone acetonide 0.1 % topical cream APPLY A THIN LAYER TO THE AFFECTED AREA(S) BY TOPICAL ROUTE 2 TIMES PER DAY 10/18 completed Not Available Not Available Not Available Vitamin B-6 250 mg tablet 1 tablets twice a day 05/22 completed Not Available Not Available Not Available ketorolac 10 mg tablet 03/06 completed Not Available Not Available Not Available meloxicam 7.5 mg tablet 09/02 completed Not Available Not Available Not Available ceftriaxo ne 1 gram solution for injection Take 1 g as needed by injectio n route. 09/11 completed Not Available Not Available Not Available potassium 99 mg tablet 10/18 completed corneliou m 99 mg oral tablet;R ecorded Status: Recorded on: 08/10/19 16 10:02AM; User: [email or web address] henry Not Available Not Available Not Available hydromorp pablo 2 mg tablet 10/18 completed Not Available Not Available Not Available tamsulosi n 0.4 mg capsule Take 1 capsule every day by oral route for 30 days. 10/02 completed Not Available Not Available Not Available sulfaceta mide sodium 10 % eye drops INSTILL 1 DROP INTO AFFECTED EYE(S) BY OPHTHALM IC ROUTE EVERY 2-3 HOURS DURING THE DAY AND LESS FREQUENT LY AT NIGHT 02/02 completed Not Available Not Available Not Available benzonata te 100 mg capsule Take 1 capsule 3 times a day by oral route. 09/26 completed Not Available Not Available Not Available doxycycli ne monohydra te 100 mg capsule 06/07 completed Not Available Not Available Not Available Lasix 20 mg tablet Take 1 tablet every day by oral route. 2024 active Not Available Not Available Not Avai lable cephalexi n 500 mg capsule take 1 capsule (500 mg) by oral route every 12 hours for 10 days 10/02 completed Not Available Not Available Not Available pantopraz ole 40 mg tablet,de layed release TAKE 1 TABLET BY MOUTH ONCE DAILY 09/26 completed Not Available Not Available Not Available oseltamiv ir 75 mg capsule Take 1 capsule twice a day by oral route for 5 days. 10/02 completed Not Available Not Available Not Available ferrous sulfate 325 mg (65 mg iron) tablet TAKE 1 TABLET BY MOUTH TWICE DAILY DIRECTED . 05/12 completed Not Available Not Available Not Available triamcino lone acetonide 0.1 % topical ointment APPLY TO THE AFFECTED AREA TWICE DAILY DIRECTED . 05/12 completed Not Available Not Available Not Available nystatin 100,000 unit/gram topical cream apply to the affected area(s) by topical route 2 times per day 09/03 completed Not Available Not Available Not Available Lincocin 300 mg/mL injection solution 300 mg IM x 1 dose now 05/08 completed Not Available Not Available Not Available ursodiol 300 mg capsule 10/18 completed Not Available Not Available Not Available docusate sodium 100 mg capsule Take 1 capsule by mouth every day as needed, for constipa tion. active Not Available Not Available No t Available gabapenti n 300 mg capsule Take 1 capsule 3 times a day by oral route. 02/07 completed Not Available Not Available Not Available sertralin e 25 mg tablet TAKE 1 TABLET BY MOUTH EVERY NIGHT AT BEDTIME 11/03 completed Not Available Not Available Not Available omeprazol e 20 mg capsule,d elayed release Take 1 capsule every day by oral route. active Not Available Not Available No t Available diclofena c sodium 75 mg tablet,de layed release TAKE 1 TABLET BY MOUTH TWICE DAILY as needed. active Not Available Not Available No t Available mupirocin 2 % topical ointment apply a small amount to the affected area by topical route 3 times per day 02/25 completed Not Available Not Available Not Available Vistaril 25 mg capsule take 1 capsule (25 mg) by oral route 3 times per day prn 08/10 completed Vistaril 25 mg oral capsule; Recorded Status: Recorded on: 05/14/20 15 11:28AM; Disconti nued Status: Disconti nued on: 08/10/19 16 10:01AM; User: [email or web address];Erich rinted: 05/14/20 15 Not Available Not Available Not Available gabapenti n 100 mg capsule Take 1 capsule 3 times a day by oral route. 05/14 completed Not Available Not Available Not Available dexametha sone sodium phosphate 4 mg/mL injection solution 4mg x 1 dose now 11/21 completed Not Available Not Available Not Available methylpre dnisolone 4 mg tablets in a dose pack take as directed 09/03 completed Not Available Not Available Not Available Vitamin D2 1,250 mcg (50,000 unit) capsule TAKE 1 CAPSULE BY MOUTH WEEKLY. 2024 active Not Available Not Available Not Avai lable hydroxyzi ne HCl 10 mg tablet TAKE 2 TABLETS BY MOUTH THREE TIMES DAILY NEEDED, TAKE 1-2 TABLETS FOR ANXIETY OR SLEEP, CAN TAKE 1/2 TABLET IF WHOLE TABLET IS TO SEDATING . 11/03 completed Not Available Not Available Not Available ondansetr on 4 mg disintegr ating tablet TAKE 1 TABLET ON TONGUE AND ALLOW TO DISSOLVE EVERY 8 HOURS NEEDED. 09/26 completed Not Available Not Available Not Available cefdinir 300 mg capsule Take 1 capsule every 12 hours by oral route for 10 days. 09/11 completed Not Available Not Available Not Available dexametha sone sodium phosphate 10 mg/mL injection solution 8 mg x 1 dose now 09/02 completed Not Available Not Available Not Available fluticaso ne propionat e 50 mcg/actua tion nasal spray,ruth pension INHALE 1 SPRAY INTO EACH NOSTRIL ONCE DAILY. active Not Available Not Available No t Available doxycycli ne hyclate 100 mg tablet Take 1 tablet twice a day by oral route for 7 days. 08/10 completed Not Available Not Available Not Available loratadin e 10 mg tablet TAKE 1 TABLET BY MOUTH ONCE DAILY. 06/08 completed Not Available Not Available Not Available Ventolin HFA 90 mcg/actua tion aerosol inhaler Inhale 2 puffs every 4 hours by inhalati on route. active Not Available Not Available No t Available esomepraz ole magnesium 20 mg capsule,d elayed release TAKE 1 CAPSULE BY MOUTH DAILY. 2024 active Not Available Not Available Not Avai lable neomycin- polymyxin -hydrocor t 3.5 mg-10,000 unit/mL-1 % ear drops,ruth p INSTILL 4 DROPS INTO AFFECTED EAR(S) BY OTIC ROUTE 3 TIMES PER DAY 08/18 completed Not Available Not Available Not Available nystatin (bulk) 1 billion unit powder apply bid 04/08 completed Not Available Not Available Not Available enoxapari n 40 mg/0.4 mL subcutane ous syringe 10/18 completed Not Available Not Available Not Available Mucinex 600 mg tablet, extended release Take 1 tablet every 12 hours by oral route for 7 days. 05/14 completed Not Available Not Available Not Available azithromy matty 500 mg tablet TAKE 2 TABLETS BY MOUTH ONCE DAILY FOR 1 DAY. START ON DAY 2 OF THERAPY 11/03 completed Not Available Not Available Not Available Ciprodex 0.3 %-0.1 % ear drops,ruth pension instill 4 drops into right ear by otic route every 12 hours for 7 days 12/19 completed Ciprodex 0.3-0.1 % otic drops,bynum spension ;Recorde d Status: Recorded on: 12/13/19 16 10:27AM; User: [email or web address] Damian on: 12/20/19 16;Print ed: 12/13/19 16 Not Available Not Available Not Available topiramat e 50 mg tablet TAKE 1 TABLET BY MOUTH 2 TIMES DAILY. 2024 active Not Available Not Available Not Avai lable Ginkoba M-E 60 mg-100 mg capsule Take 2 capsules every day by oral route. 11/21 completed Not Available Not Available Not Available Prenate Elite 90 mg-1 mg-50 mg tablet 1 po qd 08/27 completed Prenate Elite 90-1-50 mg oral tablet;R ecorded Status: Recorded on: 05/09/20 08 10:03PM; Disconti nued Status: Disconti nued on: 08/27/19 13 1:53PM;U ser: [email or web address] Not Available Not Available Not Available nitrofura ntoin monohydra te/macroc rystals 100 mg capsule TAKE ONE (1) CAPSULE EVERY 12 HOURS BY ORAL ROUTE FOR 7 DAYS. 03/18 completed Not Available Not Available Not Available duloxetin e 30 mg capsule,d elayed release Take 1 capsule every day by oral route. 05/22 completed Not Available Not Available Not Available duloxetin e 60 mg capsule,d elayed release TAKE 1 CAPSULE BY MOUTH DAILY. 2024 active Not Available Not Available Not Avai lable ginkgo biloba leaf extract 60 mg capsule 11/21 completed Not Available Not Available Not Available omega-3 acid ethyl esters 1 gram capsule TAKE 1 CAPSULE BY MOUTH TWICE A DAY INCREASE 1,000MG WEEKLY TOLERATE D active Not Available Not Available No t Available Lice Treatment 1 % topical liquid use as directed 05/14 completed Not Available Not Available Not Available Repliva 21/7 151 mg-200 mg-1 mg tablet 1 po qd 08/27 completed Repliva 21/7 151-200- 1 mg oral tablet;R ecorded Status: Recorded on: 05/09/20 08 10:05PM; Disconti nued Status: Disconti nued on: 08/27/19 13 1:53PM;U ser: [email or web address] Not Available Not Available Not Available Vistaril 1 po tid prn anxiety 08/10 completed vistaril 25 mg;Recor ded Status: Recorded on: 05/14/20 15 2:28PM;D iscontin ued Status: Disconti nued on: 08/10/19 16 10:01AM; User: Jaye [email or web address] n: - (-5) Not Available Not Available Not Available cyanocoba nicole (vitamin B-12) daily 10/18 completed b 12;Recor ded Status: Recorded on: 08/27/19 13 1:53PM;U ser: [email or web address]; Indicati on: - (-5) Not Available Not Available Not Available Pepcid 10/18 completed Pepcid oral;Rec orded Status: Recorded on: 08/10/19 16 10:01AM; User: [email or web address] henry Not Available Not Available Not Available Multi-Vit reyes q day 10/18 completed multi-vi tamin;Re corded Status: Recorded on: 08/27/19 13 1:53PM;U ser: [email or web address]; Indicati on: - (-5) Not Available Not Available Not Available Citracal 11 q day 11/26 completed Citracal oral;Rec orded Status: Recorded on: 11/25/19 14 2:04PM;D iscontin ued Status: Disconti nued on: 11/27/19 15 8:36AM;U ser: [email or web address]; Indicati on: - (-5) Not Available Not Available Not Available cholecalc iferol (vitamin D3) 1,250 mcg (50,000 unit) capsule Take 1 capsule every week by oral route. 05/12 completed Not Available Not Available Not Available diclofena c 1 % topical gel APPLY 2 GRAMS TO THE AFFECTED AREA(S) BY TOPICAL ROUTE 4 TIMES PER DAY active Not Available Not Available No t Available cholecalc iferol (vitamin D3) 50 mcg (2,000 unit) tablet TAKE 1 TABLET BY MOUTH ONCE DAILY DIRECTED active Not Available Not Available No t Available Solu-Medr ol (PF) 125 mg/2 mL solution for injection Take 125 mg by injectio n route. 05/30 completed Not Available Not Available Not Available Vitamin D3 50 mcg (2,000 unit) capsule TAKE 1 CAPSULE BY MOUTH ONCE DAILY DIRECTED active Not Available Not Available No t Available Fish Oil 300 mg-1,000 mg capsule,d elayed release 02/20 completed Not Available Not Available Not Available OneTouch Verio test strips Take 1 strip twice a day by miscell. route as needed, for hypoglyc emia. 2023 active Not Available Not Available Not Avai lable Pennsaid 20 mg/gram/a ctuation (2 %) topical soln in metered-d ose pump 07/06 completed Not Available Not Available Not Available Fluvirin [id number] (PF) 45 mcg (15 mcg x 3)/0.5 mL IM syringe 10/18 completed Not Available Not Available Not Available Vraylar 1.5 mg capsule TAKE 1 CAPSULE BY MOUTH ONCE DAILY active Not Available Not Available No t Available Vraylar 3 mg capsule TAKE 1 CAPSULE BY MOUTH ONCE DAILY 11/21 completed Not Available Not Available Not Available Vitals Date Recorded Body height Body mass index (BMI) Body weight Heart rate Oxygen saturation Oxygen saturation in Arterial blood by Pulse oximetry Respiratory rate Systolic And Diastolic Provider Name and Address Organization Details Last Updated DateTime 5 167.64 cm 47.5 kg/m2 798508. 96 g 63 /min 99 % 99 % 18 /min 110/70 mm[Hg] Selin Mcke[place] - [facility] 5 09:09:03 Social History Question Answer Notes LastModified by Organizat ion Details LastModified Time Tobacco Smoking Status Never Smoker Marti Carter [facility], [place] - [facility] 05/08/2019 09:35:10 Able To Swim? Yes [email or web address] Information not available 05/08/2019 Do You Have An Advance Directive? No [email or web address] Information not available 05/08/2019 Do You Wear A Helmet When Biking? No [email or web address] Information not available 05/08/2019 Are You Blind Or Do You Have Difficulty Seeing? No [email or web address] Information not available 05/08/2019 What Is Your Level Of Caffeine Consumption? Moderate [email or web address] Information not available 05/08/2019 How Much Tobacco Do You Chew? None [email or web address] Information not available 05/08/2019 Are You Deaf Or Do You Have Serious Difficulty Hearing? No [email or web address] Information not available 05/08/2019 What Type Of Diet Are You Following? REGULAR [email or web address] Information not available 05/08/2019 Which Illicit Or Recreational Drugs Have You Used? Denies [email or web address] Information not available 05/08/2019 What Is The Highest Grade Or Level Of School You Have Completed Or The Highest Degree You Have Received? [id number] Information not available 11/03/2022 How Many Days Of Moderate To Strenuous Exercise, Like A Brisk Walk, Did You Do In The Last 7 Days? 1 [email or web address] Information not available 05/08/2019 On Those Days That You Engage In Moderate To Strenuous Exercise, How Many Minutes, On Average, Do You Exercise? 1 [email or web address] Information not available 05/08/2019 Swimming/diving Yes [email or web address] Informati on not available 05/08/2019 Have There Been Any Changes To Your Family Or Social Situation? No Information no t available 11/03/2022 How Hard Is It For You To Pay For The Very Basics Like Food, Housing, Medical Care, And Heating? 1 [email or web address] Information not available 05/08/2019 Hard Of Hearing Or Deaf In One Or Both Ears? No Information not available 05/08/2019 Legally Blind In One Or Both Eyes? No [email or web address] Information no t available 05/08/2019 Live Alone Or With Others? With Others Information not available 02/03/2020 Do You Have A Medical Power Of Women'S Studies Professor? No Information not available 11/03/2022 What Was The Date Of Your Most Recent Tobacco Screening? 12/05/2024 [email or web address] Information not available 12/05/2024 Do You Use Protection During Sex? Usually [email or web address] Information not available 05/08/2019 What Is Your Relationship Status? Information not available 11/03/2022 Seat Belts Used Routinely Yes Information not available 02/03/2020 Are You Sexually Active? Yes [email or web address] Information not available 05/08/2019 Smoke Alarm In Home Yes [email or web address] Information not available 05/08/2019 Do You Have Smoke And Carbon Monoxide Detectors In Your Home? Yes Information not available 11/03/2022 Are You Passively Exposed To Smoke? Yes [email or web address] Information no t available 05/08/2019 How Much Tobacco Do You Smoke? No [email or web address] Information not available 05/08/2019 General Stress Level Low Information not available 02/03/2020 Do You Use Sunscreen Routinely? Yes Information not available 05/08/2019 Has Tobacco Cessation Counseling Been Provided? No Information not available 12/04/2022 How Many Years Have You Smoked Tobacco? 0 [email or web address] Information not available 05/08/2019 Do You Have Difficulty Walking Or Climbing Stairs? No [email or web address] Information not available 05/08/2019 Sex: Female Functional Status Question Answer Note LastModified by Organizat ion Details LastModified Time Do you use any illicit or recreational drugs? No Information not available 11/03/2022 Do you or have you ever used any other forms of tobacco or nicotine? No Information not available 11/03/2022 What is your level of alcohol consumption? None [email or web address] Information not available 05/08/2019 Do you or have you ever used smokeless tobacco? Never used [email or web address] tobacco Information not available 05/08/2019 Are you currently employed? Yes Information not available 11/03/2022 Do you have transportation difficulties? No Information not available 11/03/2022 Are you able to walk? YESWOREST [email or web address] Information not available 05/08/2019 Do you have difficulty doing errands alone? No [email or web address] Information not available 05/08/2019 Are you able to care for yourself? Yes Information n ot available 05/08/2019 Do you have difficulty dressing or bathing? No [email or web address] Information not available 05/08/2019 Do you or have you ever used e-cigarettes or vape? Never used electronic cigarettes [email or web address] Information not available 05/08/2019 What is your exercise level? None Information not available 02/03/2020 Mental Status Question Answer Note LastModified by Organization D etails LastModified Time Do you feel stressed (tense, restless, nervous, or anxious, or unable to sleep at night)? 1 Information not available 05/08/2019 Do you have difficulty concentrating, remembering or making decisions? No [email or web address] Information no t available 05/08/2019 Family History Nothing Reported. Medical History Condition Response Hospitalizations N Chicken Pox Y Gynecological History Statement/Question Response Menses Monthly Y Abnormal Pap N Date of Last Mammogram 07/07/2024 LMP Approximate Date of LMP 09/17/2024 Obstetrics History GPAL:G 3 P 2 0 1 2 Type Value Multiple Births 0 Full Term 2 Induced 0 Spontaneous 1 Premature 0 Living 2 Ectopics 0 Total 3 Immunizations Vaccine Type Date Status Note Provider Bill house and Address Organization Details Recorded Time Tdap 0 completed Karuna machado, [place] - [facility] 12/12/2019 16:41:48 Influenza, split virus, quadrivalent, preservative 6 completed Not Available [facility] 08/23/2019 03:54:17 Influenza, split virus, quadrivalent, preservative 0 completed Karuna Mills null, [place] - [facility] 07/08/2020 16:55:30 Influenza, split virus, quadrivalent, preservative 1 completed Bjorn Salazar MD [address], [place], [address], [place] - [facility] 05/23/2021 11:39:53 Influenza, split virus, quadrivalent, preservative 7 completed Not Available [facility] 08/23/2019 03:54:42 Hep B, adult 2 completed Lisa Salazar APRN [address], [place], [address], [place] - [facility] 05/24/2022 09:36:02 Hep B, adult 2 completed Lisa Salazar APRN [address], [place], [address], [place] - [facility] 07/24/2022 09:44:07 Pneumococcal conjugate PCV 13 2 completed Selin Mckeon null, [place] - [facility] 08/23/2023 08:22:59 influenza, unspecified formulation 2 completed Selin [place]ke[place] [facility] 08/23/2023 08:22:59 influenza, unspecified formulation 4 completed Selin Mcke[place], [place] [facility] 08/23/2023 08:22:59 Tdap 2 completed Not Available [facility] 05/16/2016 00:49:27 Influenza, split virus, quadrivalent, preservative 3 completed Josie Owen [place], [place] [facility] 05/17/2023 14:48:02 Influenza, split virus, trivalent, preservative 4 completed Nat Riley APRN [address], [place], [address], [place] - [facility] 05/23/2024 09:05:47 Pneumococcal conjugate PCV20, polysaccharide [id number] conjugate, adjuvant, PF 4 completed Nat Riley APRN [address], [place], [address], [place] - [facility] 05/23/2024 09:05:47 Hep A, adult 8 completed Not Available [facility] 08/23/2019 03:55:12 Influenza, split virus, quadrivalent, preservative 8 completed Not Available [facility] 08/23/2019 03:55:25 Hep A, adult 9 completed Not Available [facility] 08/23/2019 03:55:39 influenza, split (incl. purified surface antigen) 2 completed Josie Owen null, [facility] 11/03/2022 13:08:15 Influenza, split virus, quadrivalent, PF 2 completed Selin Mckeon null, [facility] 02/19/2023 16:13:30 Influenza, split virus, quadrivalent, PF 4 completed Selin Mckeon null, [facility] 11/17/2022 16:25:17 Influenza, split virus, quadrivalent, PF 9 completed Not Available [facility] 08/23/2019 03:56:06 Past Encounters Encounter ID Performer Location Encounter Start Date Encounter Closed Date Diagnosis/Indication Diagnosis SNOMED-CT Code Diagnosis ICD10 Code Diagnosis Note [id number] Nat Riley APRN [address] [address] 12/05/2024 16:46:12 12/08/2024 08:21:21 Anterior tibial stress syndrome 990509378 S86.899A xraycreami f no improvment will refer to pt Pain of knee region 1003 [id number] M25.561 M25.993 [id number] Nat Riley APRN [address] [address] 12/23/2024 08:55:47 12/23/2024 09:30:59 Pain of knee region [id number] M25.562 G89.29 discussed risk of med with ptmake sure to take omeprazole if taking diclofenac Health Concerns Section Related Observation LastModified by Organization Detai ls LastModified Time None Recorded Concern Status LastModified by Organization Details LastModified Time None Recorded Payers Encounter Date Sequence Insurance Name Policy Number Policy Aranda Covered Member ID Aranda Member ID Guarantor Name 12/23/2024 1 [facility] (MEDICAID HMO) Cris Galdamez [id number] Cris Galdamez Notes Date Note Type Note Provider Name and Address Organization Details Recorded Time 12/23/2024 text/html 44 yr old female presents for a follow up on bilateral knee/lower leg pain. She seen ortho on 12/18 and got a steroid injection in right knee. Ortho discussed a switch from meloxicam to celebrex to see if it is more effective. Nat Riley, [employer] [address], [place], [address], [facility] - [facility] 12/23/2024 09:33:30 OBGyn Episode No OBEpisode recorded.
--- OUTSIDE RECORDS SUMMARY | 2025-02-14 21:37 | XMS_ITS | Continuity of Care Document ---
[facility] Organization [facility] Address [address] [place] [address] Care Team Providers Care Credit Underwriter Name Role Phone TWYLA OWENS [facility] ROLY IQBAL Homoeopath Assessment No assessment recorded. Plan of Treatment Reminders Order Date Submit Date Provider Last Modified By Organization Details Last Modified Time Details Appointments Follow Up 20 2024 09:00A Sharon Riley APRN Not available Not available Not available Lab urinalysi s, dipstick 2024 025 [facility], [address] [place] [address], [phone], 02/02/2025 13:56:24 test, urine 2024 025 [facility], [address] [place] [address], [phone], 02/02/2025 13:56:24 culture, urine 2024 025 [facility], [address], [address] [address], [place], [address], 02/04/2025 05:06:31 Referral None recorded. Procedures None recorded. Surgeries None recorded. Imaging US, echocardi ogram 2024 025 [facility] (Scheduling), [address], [place], [address], 02/13/2025 08:11:56 Medication Orders Lasix 20 mg tablet [address] [facility] [address] [place] [address], [id number], 02/02/2025 13:57:03 Patient TargetsNo targets recorded. Patient InstructionsNo instructions recorded. Reason for Referral None Reported. Results Created Date Observation Date Name Description Value Unit Range Abnormal Flag Note LastModifiedBy Organization Detail LastModifiedTime 02/03/20 25 02/02/2025 urina lysis , dipst ick Leukocytes Negati ve Not Available [address], [address], 02/02/2025 13:36:24 02/03/20 25 02/02/2025 urina lysis , dipst ick Nitrite negati ve Not Available [address], [address], 02/02/2025 13:36:24 02/03/20 25 02/02/2025 urina lysis , dipst ick Urobilinogen 1 Not Available James [address], [address], 02/02/2025 13:36:24 02/03/20 25 02/02/2025 urina lysis , dipst ick Protein 30 Not Available [address], [address], 02/02/2025 13:36:24 02/03/20 25 02/02/2025 urina lysis , dipst ick pH 7.0 Not Available [address], [address], 02/02/2025 13:36:24 02/03/20 25 02/02/2025 urina lysis , dipst ick Blood Negati ve Not Available [address], [address], 02/02/2025 13:36:24 02/03/20 25 02/02/2025 urina lysis , dipst ick Specific [place] 1.025 Not Available [address], [address], 02/02/2025 13:36:24 02/03/20 25 02/02/2025 urina lysis , dipst ick Ketone Negati ve Not Available [address], [address], 02/02/2025 13:36:24 02/03/20 25 02/02/2025 urina lysis , dipst ick Bilirubin Negati ve Not Available [address], [address], 02/02/2025 13:36:24 02/03/20 25 02/02/2025 urina lysis , dipst ick Glucose Negati ve Not Available [address], [address], 02/02/2025 13:36:24 02/03/20 25 02/02/2025 urina lysis , dipst ick Appearance Slight ly Cloudy Not Available [address], [address], 02/02/2025 13:36:24 02/03/20 25 02/02/2025 urina lysis , dipst ick Color Dark Yellow Not Available [address], [address], 02/02/2025 13:36:24 02/03/20 25 02/02/2025 pregn ollie test, urine HCG negati ve Not Available [address], [place], [address], 02/02/2025 13:50:20 Result Notes None recorded. Problems Name Problem SNOMED Code Status Onset Date Resolution Date Notes Provider Name and Address Organization Details Recorded Time Asthma 254558542 Active 2019 Nat Riley, SHEET [employer]TER [address], [place], [address], [place] - [facility] 10:07:07 Degeneration of intervertebral disc 14554715 Active 2019 Nat Riley, SHE[employer] [address], [place], [address], [place] [facility] 3 10:07:10 Neuropathy 568473562 Active 2019 Nat Riley, SHE[employer] [address], [place], [address], [place] [facility] 3 10:07:22 Depressive disorder 21549962 Active 2019 Nat Riley, [employer] [address], [place], [address], [place] [facility] 3 10:07:12 Arthritis 5700002 Active 2019 Nat Riley, SHE[employer] [address], [place], [address], [place] [facility] 3 10:07:05 Anxiety 93043015 Active 2019 Nat Riley, SHE[employer] [address], [place], [address], [place] [facility] 3 10:07:02 Migraine 24717272 Active 2021 Nat Riley, [employer] [address], [place], [address], [place] [facility] 3 10:07:25 Insomnia 596070599 Active 2021 Nat Riley [employer] [address], [place], [address], [place] [facility] 3 10:07:16 Iron deficiency anemia 94690792 Active 2021 Nat Riley, SHE[employer]TER [address], [place], [address], [place] - [facility] 3 10:07:18 Candidiasis of mouth 96966352 Active 2021 Lisa Salazar, [employer] [address], [place], [address], [place] - [facility] 2 09:37:18 Contact dermatitis 73734082 Active 2023 Luther Walters, DO [address], [place], [address], [place] - [facility] 4 09:35:34 Vitamin D deficiency 78401068 Active 2024 Josie Lexie null, [place] - [facility] 5 08:42:26 Gastroesophage al reflux disease without esophagitis 778562378 Active 2024 Josie Renees null, [place] - [facility] 5 08:42:58 Problem Notes None recorded. Procedures Surgical History Date Name Laterality Status Provider Name and Address Organization Details Recorded Time 07/07/20 24 Date of Last Mammogram completed Josie Owen [place] - [facility] 07/10/2024 11:36:49 04/18/20 21 Medication Reconcilliation completed Karuna Mills [place] - [facility] 04/18/2021 16:46:35 09/27/19 21 Systolic B/P less than 130 mm Hg completed Daniela Acosta [place] - [facility] 09/27/2020 14:44:44 09/27/19 21 Diastolic B/P 80-89 mm Hg completed Daniela Acosta [place] - [facility] 09/27/2020 14:44:49 03/04/20 20 Shave Biopsy trunk, arms, or legs completed Twyla Owens, [employer] [address], [place], [address], [facility] - [facility] 03/04/2020 17:13:58 03/04/20 20 Skin Tag Removal completed Twyla Owens, SHE[employer] [address], [place], [address], [facility] - [facility] 03/04/2020 17:14:20 12/18/19 20 Systolic B/P less than 130 mm Hg completed Danielajeffry Acosta [place] [facility] 12/18/2019 09:18:13 12/18/19 20 Diastolic B/P 80-89 mm Hg completed Danielaharsh Acosta [facility] 12/18/2019 09:18:21 10/23/19 20 Systolic B/P less than 130 mm Hg completed [facility] - [facility] 10/23/2019 08:39:31 10/23/19 20 Diastolic B/P 80-89 mm Hg completed [facility] - [facility] 10/23/2019 08:39:34 05/08/20 19 Systolic B/P less than 130 mm Hg completed [facility] 05/08/2019 09:40:47 05/08/20 19 Diastolic B/P 80-89 mm Hg completed [facility] 05/08/2019 09:40:49 05/08/20 19 Medication Reconcilliation completed [facility] 05/08/2019 09:32:29 02/08/20 19 Systolic B/P less than 130 mm Hg completed [facility] 02/07/2019 15:31:13 02/08/20 19 Diastolic B/P less than 80 mm Hg completed [facility] 02/07/2019 15:31:16 10/25/19 19 Systolic B/P less than 130 mm Hg completed Danielajeffry Acosta [facility] 10/24/2018 12:59:01 10/25/19 19 Diastolic B/P less than 80 mm Hg completed Danielajeffry Acosta [facility] 10/24/2018 12:59:03 09/26/19 19 Systolic B/P less than 130 mm Hg completed Daniela Dave [facility] 09/26/2018 10:51:30 09/26/19 19 Diastolic B/P less than 80 mm Hg completed Danielajeffry Acosta [facility] 09/26/2018 10:51:32 08/23/19 19 Systolic B/P less than 130 mm Hg completed Danielajeffry Acosta [facility] 08/23/2018 13:32:22 08/23/19 19 Diastolic B/P 80-89 mm Hg completed Daniela Aocsta [place] - [facility] 08/23/2018 13:34:24 excision of excessive skin and subcutaneous tissue completed Daniela Acosta [facility] 03/18/2021 11:46:20 Tonsillectomy completed Marti ESCALANTE [facility] 05/08/2019 09:36:32 Knee arthroscopy/surgery completed Marti ESCALANTE [facility] 05/08/2019 09:36:43 delivery completed Marti ESCALANTE [facility] 05/08/2019 09:36:50 gastric sleeve completed Marti ESCALANTE [facility] 05/08/2019 09:37:10 Endometrial Ablation completed Marti ESCALANTE [facility] 05/08/2019 09:37:28 Tubal Ligation completed Marti ESCALANTE [facility] 05/08/2019 09:37:40 Imaging Results None recorded. Procedure Notes None recorded. Medical Equipment None Reported. Allergies Allergen ID Allergen Name Allergen Category Reaction Reaction Severity Criticality Documentation Date Start Date Code Code System Note Provider Name and Address Organization Details Recorded Time 04427 latex environme nt,medica tion Not available Not available Not available 05/12/20162013 47295 91 RxNorm Not Available [facility] 6 08:49:01 70279 Product containin g penicilli n (product) medicatio n hives Not available Not available 05/12/20162012 83405 8001 SNOMED React ion: HIVES ; Not Available [facility] 6 09:23:58 Medications Name Sig Start Date [...] Available potassium 99 mg tablet 10/18 completed potassiu m 99 mg oral tablet;R ecorded Status: [...] Disconti nued on: 08/10/19 16 10:01AM; User: Kenna rinted: 05/14/20 15 Not Available Not Available [...] active Not Available Not Available Not [facility] Ginkoba M-E 60 mg-100 mg capsule Take [...] active Not Available Not Available Not [facility] ginkgo biloba leaf extract 60 mg capsule [...] Not Available Not Available Not Available Fluvirin 8646-7773 (PF) 45 mcg (15 mcg x 3)/0.5 [...] Details Last Updated DateTime 5 167.64 cm 49 kg/m2 492403. 29 g 82 /min 98 % 98 % 18 /min 112/78 mm[Hg] Selin Mckeon [place] - [facility] 5 13:35:39 Social History Question Answer Notes LastModified by Organizat ion Details LastModified Time Tobacco Smoking Status Never Smoker Marti machado [place] - [facility] 05/08/2019 09:35:10 Able To Swim? Yes [email or web address] Information not available 05/08/2019 Do You Have An Advance Directive? No [email or web address] Information not available 05/08/2019 Do You Wear A Helmet When Biking? No [email or web address] Information not available 05/08/2019 Are You Blind Or Do You Have Difficulty Seeing? No [email or web address] Information not available 05/08/2019 What Is Your Level Of Caffeine Consumption? Moderate Information not available 05/08/2019 How Much Tobacco Do You Chew? None [email or web address] Information not available 05/08/2019 Are You Deaf Or Do You Have Serious Difficulty Hearing? No [email or web address] Information not available 05/08/2019 What Type Of Diet Are You Following? REGULAR [email or web address] Information not available 05/08/2019 Which Illicit Or Recreational Drugs Have You Used? Denies [email or web address] Information not available 05/08/2019 What Is The Highest Grade Or Level Of School You Have Completed Or The Highest Degree You Have Received? [id number] Information not available 11/03/2022 How Many Days Of Moderate To Strenuous Exercise, Like A Brisk Walk, Did You Do In The Last 7 Days? 1 [email or web address] Information not available 05/08/2019 On Those Days That You Engage In Moderate To Strenuous Exercise, How Many Minutes, On Average, Do You Exercise? 1 [email or web address] Information not available 05/08/2019 Swimming/diving Yes [email or web address] Informati on not available 05/08/2019 Have There Been Any Changes To Your Family Or Social Situation? No Information no t available 11/03/2022 How Hard Is It For You To Pay For The Very Basics Like Food, Housing, Medical Care, And Heating? 1 [email or web address] Information not available 05/08/2019 Hard Of Hearing Or Deaf In One Or Both Ears? No [email or web address] Information not available 05/08/2019 Legally Blind In One Or Both Eyes? No [email or web address] Information no t available 05/08/2019 Live Alone Or With Others? With Others Information not available 02/03/2020 Do You Have A Medical Power Of Cytology Supervisor? No Information not available 11/03/2022 What Was The Date Of Your Most Recent Tobacco Screening? 12/05/2024 [email or web address] Information not available 12/05/2024 Do You Use Protection During Sex? Usually [email or web address] Information not available 05/08/2019 What Is Your Relationship Status? Information not available 11/03/2022 Seat Belts Used Routinely Yes Information not available 02/03/2020 Are You Sexually Active? Yes [email or web address] Information not available 05/08/2019 Smoke Alarm In Home Yes [email or web address] Information not available 05/08/2019 Do You Have Smoke And Carbon Monoxide Detectors In Your Home? Yes Information not available 11/03/2022 Are You Passively Exposed To Smoke? Yes Information no t available 05/08/2019 How Much Tobacco Do You Smoke? No [email or web address] Information not available 05/08/2019 General Stress Level Low Information not available 02/03/2020 Do You Use Sunscreen Routinely? Yes Information not available 05/08/2019 Has Tobacco Cessation Counseling Been Provided? No Information not available 12/04/2022 How Many Years Have You Smoked Tobacco? 0 [email or web address] Information not available 05/08/2019 Do You Have Difficulty Walking Or Climbing Stairs? No [email or web address] Information not available 05/08/2019 Sex: Female Functional Status Question Answer Note LastModified by Organizat ion Details LastModified Time Do you use any illicit or recreational drugs? No Information not available 11/03/2022 Do you or have you ever used any other forms of tobacco or nicotine? No Information not available 11/03/2022 What is your level of alcohol consumption? None [email or web address] Information not available 05/08/2019 Do you or have you ever used smokeless tobacco? Never used smokeless tobacco [email or web address] Information not available 05/08/2019 Are you currently employed? Yes Information not available 11/03/2022 Do you have transportation difficulties? No Information not available 11/03/2022 Are you able to walk? YESWOREST [email or web address] Information not available 05/08/2019 Do you have difficulty doing errands alone? No [email or web address] Information not available 05/08/2019 Are you able to care for yourself? Yes [email or web address] Information n ot available 05/08/2019 Do you have difficulty dressing or bathing? No [email or web address] Information not available 05/08/2019 Do you or have you ever used e-cigarettes or vape? Never used electronic cigarettes [email or web address] Information not available 05/08/2019 What is your exercise level? None Information not available 02/03/2020 Mental Status Question Answer Note LastModified by Organization D etails LastModified Time Do you feel stressed (tense, restless, nervous, or anxious, or unable to sleep at night)? 1 [email or web address] Information not available 05/08/2019 Do you have difficulty concentrating, remembering or making decisions? No [email or web address] Information no t available 05/08/2019 Family History [...] Immunizations Vaccine Type Date Status Note Provider Nam e and Address Organization Details Recorded Time Tdap 0 completed Karuna Mills null, [place] - [facility] 12/12/2019 16:41:48 Influenza, split virus, quadrivalent, preservative 6 completed Not Available [facility] 08/23/2019 03:54:17 Influenza, split virus, quadrivalent, preservative 0 completed Karuna Mills null, [place] - [facility] 07/08/2020 16:55:30 Influenza, split virus, quadrivalent, preservative 1 completed Bjorn Salazar MD [address], [place], [address], [place] - [facility] 05/23/2021 11:39:53 Influenza, split virus, quadrivalent, preservative 7 completed Not Available [facility] 08/23/2019 03:54:42 Hep B, adult 2 completed Lisa Salazar APRN [address], [place], [address], [place] [facility] 05/24/2022 09:36:02 Hep B, adult 2 completed Lisa Salazar APRN [address], [place], [address], [place] [facility] 07/24/2022 09:44:07 Pneumococcal conjugate PCV 13 2 completed Selin Mckeon null, [place] - [facility] 08/23/2023 08:22:59 influenza, unspecified formulation 2 completed Selin Mcke[place] null[place] [facility] 08/23/2023 08:22:59 influenza, unspecified formulation 4 completed Selin Mcke[place] null[place] [facility] 08/23/2023 08:22:59 Tdap 2 completed Not Available [facility] 05/16/2016 00:49:27 Influenza, split virus, quadrivalent, preservative 3 completed Josie Owen null, [place] - [facility] 05/17/2023 14:48:02 Influenza, split virus, trivalent, preservative 4 completed Nat Riley, SHAIAN [address], [place], [address], [place] [facility] 05/23/2024 09:05:47 Pneumococcal conjugate PCV20, polysaccharide [id number] conjugate, adjuvant, PF 4 completed Nat Riley, SHAINA [address], [place], [address], [place] [facility] 05/23/2024 09:05:47 Hep A, adult 8 completed Not Available [facility] 08/23/2019 03:55:12 Influenza, split virus, quadrivalent, preservative 8 completed Not Available [facility] 08/23/2019 03:55:25 Hep A, adult 9 completed Not Available [facility] 08/23/2019 03:55:39 influenza, split (incl. purified surface antigen) 2 completed Josie Owen null, [place] - [facility] 11/03/2022 13:08:15 Influenza, split virus, quadrivalent, PF 2 completed Selin Mcke[place] null[place] [facility] 02/19/2023 16:13:30 Influenza, split virus, quadrivalent, PF 4 completed Selin Mcke[place] null[place] [facility] 11/17/2022 16:25:17 Influenza, split virus, quadrivalent, PF 9 completed Not Available [facility] 08/23/2019 03:56:06 Past Encounters Encounter ID Performer Location Encounter Start Date Encounter Closed Date Diagnosis/Indication Diagnosis SNOMED-CT Code Diagnosis ICD10 Code Diagnosis Note [id number] Nat Riley APRN [address] [address] 01/06/2025 08:27:07 01/06/2025 09:18:01 Bacterial conjunctivitis 392136612 H10.9 drops as orderedcoo l wash clothif worsen or no improvemen t return or see eye [id number] Nat Riley APRN [address] [address] 02/02/2025 13:20:52 02/02/2025 13:54:52 Increased frequency of urination 755601446 R35.0 Edema of l ower extremity 547955626 R60.0 ECHOrecent ly had labs- wnlwill give 2 days of lasix - pt states she is off for 2 dayscompre ssion hoseif worsen or no improvemen t return Health Concerns Section Related Observation LastModified by Organization Detai ls LastModified Time None Recorded Concern Status LastModified by Organization Details LastModified Time None Recorded Payers Encounter Date Sequence Insurance Name Policy Number Policy Aranda Covered Member ID Aranda Member ID Guarantor Name 02/02/2025 1 [facility] (MEDICAID HMO) Cris Galdamez [id number] Cris Galdamez Notes Date Note Type Note Provider Name and Address Organization Details Recorded Time 02/02/2025 text/html 44 yr old female presents for edema to bilateral lower extremities. She has has worked several shifts at work on her feet lately. She also has urinary frequency. Nat Riley APRN [address], [place], [address], [facility] - [facility] 02/02/2025 13:58:03 OBGyn Episode No OBEpisode recorded.
--- OUTSIDE RECORDS SUMMARY | 2025-02-14 21:37 | XMS_ITS | Data Portability ---
Author Organization [facility]ly [facility], later [facility] Address [address] [place] [address] Care Team Providers Care Television News Reporter Name Role Phone LILLIANA OWENS [facility] ROLY [employer] Operator Assessment No assessment recorded. Plan of Treatment Reminders Order Date Submit Date Provider Last Modified By Organization Details Last Modified Time Details Appointments Follow Up 2024 09:00A Sharon Riley APRN Not available Not available Not available Lab urinalysi s, dipstick 2024 025 [facility], [address] [place] [address], [phone], 02/02/2025 13:56:24 test, urine 2024 025 [facility], [address] [place] [address], [id number], 02/02/2025 13:56:24 culture, urine 2024 025 [facility], [address], [place], [address], 02/04/2025 05:06:31 HCG, intact + beta subunit, quant, serum or plasma 2024 025 [facility], [address], [place], [address], 11/22/2024 17:07:26 test, urine 2024 025 [facility], [address] [facility], [place], [address], 11/21/2024 10:20:37 insulin, serum 2024 025 DOREEN [facility], [address], [address], [place], [address], 11/22/2024 17:07:27 CBC w/ auto diff 2024 025 DOREEN [facility]gett, [address], [address], [place], [address], 11/22/2024 17:07:24 drug screen, 14 drugs (detectim ed), urine 2024 025 DOREEN Padgett, [address], [address], [place], [address], 11/29/2024 13:09:08 TSH + free T4, serum 2024 025 DOREEN [facility]gett, [address], [address] [address], [place], [address], 11/22/2024 17:07:24 vitamin D, 25-hydrox y, total, serum 2024 025 DOREEN [facility]gett, [address], [address], [place], [address], 11/22/2024 17:07:26 iron + total iron-bind ing capacity (TIBC), serum 2024 025 [facility], [address], [address], [place], [address], 11/22/2024 17:07:25 cobalamin and folate panel, serum 2024 025 DOREEN Padgett, [address], [address], [place], [address], 11/22/2024 17:07:26 CMP, serum or plasma 2024 025 [facility], [address], [address], [place], [address], 11/22/2024 17:07:25 Referral None recorded. Procedures None recorded. Surgeries None recorded. Imaging US, echocardi ogram 2024 025 [facility] (Scheduling), [address], [place], [address], 02/13/2025 08:11:56 XR, knee, 3 view - left knee 2024 025 [facility] (X-Ray), [address], [place], [address], 02/13/2025 14:01:37 XR, knee, 3 view - rt knee 2024 025 [facility] (X-Ray), [address], [place], [address], 12/08/2024 10:30:32 XR, tibia + fibula, 2 view 2024 025 [facility] (X-Ray), [address], [place], [address], 12/08/2024 10:10:03 XR, ankle, 2 view 2024 025 [facility] (X-Ray), [address], [place], [address], 12/08/2024 10:10:59 Medication Orders Lasix 20 mg tablet 2024 025 [facility], [address] [place] [address], [address], 02/02/2025 13:57:03 sulfaceta mide sodium 10 % eye drops 2024 025 [facility], [address] [place] [address], [address], 02/02/2025 13:38:53 diclofena c sodium 75 mg tablet,de layed release 2024 025 [facility], [address] [place] [address], [id number], 12/23/2024 09:35:11 omeprazol e 20 mg capsule,d elayed release [address] [facility], [address] [place] [address], [id number], 12/23/2024 09:35:09 diclofena c 1 % topical gel 2024 025 [facility], [address] [place] [address], [id number], 12/08/2024 08:09:35 meloxicam 15 mg tablet 2024 [facility] [address] [place] [address], [address], 02/02/2025 13:37:49 duloxetin e 60 mg capsule,d elayed release 2024 025 [facility], [address] [place] [address], [address], 11/21/2024 14:23:09 docusate sodium 100 mg capsule 2024 025 [facility], [address] [place] [address], [address], 11/21/2024 14:23:02 ergocalci ferol (vitamin D2) 1,250 mcg (50,000 unit) capsule [address] [facility], [address] [place] [address], [address], 11/21/2024 14:23:04 topiramat e 50 mg tablet 2024 025 [facility], [address] [place] [address], [id number], 11/21/2024 14:22:59 esomepraz ole magnesium 20 mg capsule,d elayed release 2024 025 [facility], [address] [place] [address], [address], 02/02/2025 13:38:58 gabapenti n 600 mg tablet 2024 025 [facility], [address] [place] [address], [address], 11/21/2024 14:23:15 Patient TargetsNo targets recorded. Patient Instructions Encounter Date Encounter Id Patient Instructions Last Modified By Organization Details Last Modified Time 11/21/2024 [id number] body mass index: care instructions efryman Not available 11/21/2024 09:14:43 learning about healthy weight efryman Not available 11/21/2024 09:14:43 12/05/2024 [id number] doan splints: care instructions efryman Not available 12/05/2024 17:04:22 Reason for Referral None Reported. Results Created Date Observation Date Name Description Value Unit Range Abnormal Flag Note LastModifiedBy Organization Detail LastModifiedTime 11/08/1911/07/2024 rapid flu (A+B) Flu negati ve Not Available [address], [address], 11/07/2024 13:12:50 11/08/19 25 11/07/2024 rapid flu (A+B) Type Both A & B Not Available [address], [address], 11/07/2024 13:12:50 11/08/19 25 11/07/2024 rapid strep group A, throa t Strep negati ve Not Available [address], [address], 11/07/2024 13:12:33 11/08/19 25 11/07/2024 rapid strep group A, throa t Culture No Not Available [address], [address], 11/07/2024 13:12:33 11/22/19 25 11/22/2024 TSH+F REE T4 TSH 2.870 uIU/m L 0.450- 4.500 normal Not Available [facility] ([facility]) [address] [place], [address], 11/22/2024 17:07:24 11/22/19 25 11/22/2024 TSH+F REE T4 T4,free(dire ct) 1.01 NG/dL 0.82-1 .77 normal Not Available [facility] ([facility]) [address] [place], [address], 11/22/2024 17:07:24 11/22/19 25 11/22/2024 CBC WITH DIFFE RENTI AL/PL ATELE T WBC 6.4 x10e3 /uL 3.4-10 .8 normal Not Available [facility] ([facility]) [address] [place], [address], 11/22/2024 17:07:24 11/22/19 25 11/22/2024 CBC WITH DIFFE RENTI AL/PL ATELE T RBC 4.52 x10e6 /uL 3.77-5 .28 normal Not Available [facility] ([facility]) [address] [place], [address], 11/22/2024 17:07:24 11/22/19 25 11/22/2024 CBC WITH DIFFE RENTI AL/PL ATELE T hemoglobin 12.8 g/dL 11.1-1 5.9 normal Not Available [facility] ([facility]) [address] [place], [address], 11/22/2024 17:07:24 11/22/19 25 11/22/2024 CBC WITH DIFFE RENTI AL/PL ATELE T hematocrit 39.1 % 34.0-4 6.6 normal Not Available [facility] ([facility]) [address] [place], [address], 11/22/2024 17:07:24 11/22/19 25 11/22/2024 CBC WITH DIFFE RENTI AL/PL ATELE T MCV 87 fL 79-97 normal Not Available [facility] ([facility]) [address] [place], [address], 11/22/2024 17:07:24 11/22/19 25 11/22/2024 CBC WITH DIFFE RENTI AL/PL ATELE T MCH 28.3 pg 26.6-3 3.0 normal Not Available [facility] ([facility]) [address] [place], [address], 11/22/2024 17:07:24 11/22/19 25 11/22/2024 CBC WITH DIFFE RENTI AL/PL ATELE T MCHC 32.7 g/dL 31.5-3 5.7 normal Not Available [facility] ([facility]) [address] [place], [address], 11/22/2024 17:07:24 11/22/19 25 11/22/2024 CBC WITH DIFFE RENTI AL/PL ATELE T RDW 12.8 % 11.7-1 5.4 Not Available [facility] ([facility]) [address] [place], [address], 11/22/2024 17:07:24 11/22/19 25 11/22/2024 CBC WITH DIFFE RENTI AL/PL ATELE T platelets 315 x10e3 /uL 150-45 0 normal Not Available [facility] ([facility]) [address] [facility], [place], [address], 11/22/2024 17:07:24 11/22/19 25 11/22/2024 CBC WITH DIFFE RENTI AL/PL ATELE T neutrophils 60 % not estab. normal Not Available [facility] ([facility]) [address] [facility], [place], [address], 11/22/2024 17:07:24 11/22/19 25 11/22/2024 CBC WITH DIFFE RENTI AL/PL ATELE T lymphs 28 % not estab. normal Not Available [facility] ([facility]) [address] [facility], [place], [address], 11/22/2024 17:07:24 11/22/19 25 11/22/2024 CBC WITH DIFFE RENTI AL/PL ATELE T monocytes 8 % not estab. normal Not Available [facility] ([facility]) [address] [place], [address], 11/22/2024 17:07:24 11/22/19 25 11/22/2024 CBC WITH DIFFE RENTI AL/PL ATELE T eos 3 % not estab. normal Not Available [facility] ([facility]) [address] [facility], [place], [address], 11/22/2024 17:07:24 11/22/19 25 11/22/2024 CBC WITH DIFFE RENTI AL/PL ATELE T basos 1 % not estab. normal Not Available [facility] ([facility]) [address] [facility], [place], [address], 11/22/2024 17:07:24 11/22/19 25 11/22/2024 CBC WITH DIFFE RENTI AL/PL ATELE T immature cells HEMATOLOGY ONCOLOGY CONSULTANT Not Available [facility] ([facility]) [address] [facility], [place], [address], 11/22/2024 17:07:24 11/22/19 25 11/22/2024 CBC WITH DIFFE RENTI AL/PL ATELE T neutrophils (absolute) 3.8 x10e3 /uL 1.4-7. 0 normal Not Available [facility] ([facility]) [address] [facility], [place], [address], 11/22/2024 17:07:24 11/22/19 25 11/22/2024 CBC WITH DIFFE RENTI AL/PL ATELE T lymphs (absolute) 1.8 x10e3 /uL 0.7-3. 1 normal Not Available [facility] ([facility]) [address] [facility], [place], [address], 11/22/2024 17:07:24 11/22/19 25 11/22/2024 CBC WITH DIFFE RENTI AL/PL ATELE T monocytes(ab solute) 0.5 x10e3 /uL 0.1-0. 9 normal Not Available [facility] ([facility]) [address] [place], [address], 11/22/2024 17:07:24 11/22/19 25 11/22/2024 CBC WITH DIFFE RENTI AL/PL ATELE T eos (absolute) 0.2 x10e3 /uL 0.0-0. 4 normal Not Available [facility] ([facility]) [address] [place], [address], 11/22/2024 17:07:24 11/22/19 25 11/22/2024 CBC WITH DIFFE RENTI AL/PL ATELE T baso (absolute) 0.1 x10e3 /uL 0.0-0. 2 normal Not Available [facility] ([facility]) [address] [facility], [place], [address], 11/22/2024 17:07:24 11/22/19 25 11/22/2024 CBC WITH DIFFE RENTI AL/PL ATELE T immature granulocytes 0 % not estab. Not Available [facility] ([facility]) [address] [facility], [place], [address], 11/22/2024 17:07:24 11/22/19 25 11/22/2024 CBC WITH DIFFE RENTI AL/PL ATELE T immature grans (abs) 0.0 x10e3 /uL 0.0-0. 1 Not Available [facility] ([facility]) [address] [facility], [place], [address], 11/22/2024 17:07:24 11/22/19 25 11/22/2024 CBC WITH DIFFE RENTI AL/PL ATELE T NRBC HEMATOLOGY ONCOLOGY CONSULTANT Not Available [facility] ([facility]) [address] [facility], [place], [address], 11/22/2024 17:07:24 11/22/19 25 11/22/2024 CBC WITH DIFFE RENTI AL/PL ATELE T hematology comments: HEMATOLOGY ONCOLOGY CONSULTANT Not Available [facility] ([facility]) [address] [facility], [place], [address], 11/22/2024 17:07:24 11/22/19 25 11/22/2024 COMP. METAB OLIC PANEL (14) glucose 87 mg/dL 70-99 normal Not Available [facility] ([facility]) [address] [facility], [place], [address], 11/22/2024 17:07:25 11/22/19 25 11/22/2024 COMP. METAB OLIC PANEL (14) BUN 20 mg/dL 6-24 normal Not Available [facility] ([facility]) [address] [facility], [place], [address], 11/22/2024 17:07:25 11/22/19 25 11/22/2024 COMP. METAB OLIC PANEL (14) creatinine 0.69 mg/dL 0.57-1 .00 normal Not Available [facility] ([facility]) [address] [facility] [place], [address], 11/22/2024 17:07:25 11/22/19 25 11/22/2024 COMP. METAB OLIC PANEL (14) eGFR 110 mL/mi n/1.7 3 >59 normal Not Available [facility] ([facility]) [address] [facility] [place], [address], 11/22/2024 17:07:25 11/22/19 25 11/22/2024 COMP. METAB OLIC PANEL (14) BUN/creatini ne ratio 29 9-23 above high normal Not Available [facility] ([facility]) [address] [facility] [place], [address], 11/22/2024 17:07:25 11/22/19 25 11/22/2024 COMP. METAB OLIC PANEL (14) sodium 140 mmol/ L 134-14 4 normal Not Available [facility] ([facility]) [address] [facility] [place], [address], 11/22/2024 17:07:25 11/22/19 25 11/22/2024 COMP. METAB OLIC PANEL (14) potassium 4.1 mmol/ L 3.5-5. 2 normal Not Available [facility] ([facility]) [address] [facility] [place], [address], 11/22/2024 17:07:25 11/22/19 25 11/22/2024 COMP. METAB OLIC PANEL (14) chloride 107 mmol/ L 96-106 above high normal Not Available [facility] ([facility]) [address] [facility] [place], [address], 11/22/2024 17:07:25 11/22/19 25 11/22/2024 COMP. METAB OLIC PANEL (14) carbon dioxide, total 20 mmol/ L 20-29 normal Not Available [facility] ([facility]) [address] [place], [address], 11/22/2024 17:07:25 11/22/19 25 11/22/2024 COMP. METAB OLIC PANEL (14) calcium 8.9 mg/dL 8.7-10 .2 normal Not Available [facility] ([facility]) [address] [facility], [place], [address], 11/22/2024 17:07:25 11/22/19 25 11/22/2024 COMP. METAB OLIC PANEL (14) protein, total 6.3 g/dL 6.0-8. 5 normal Not Available [facility] ([facility]) [address] [facility] [place], [address], 11/22/2024 17:07:25 11/22/19 25 11/22/2024 COMP. METAB OLIC PANEL (14) albumin 4.0 g/dL 3.9-4. 9 normal Not Available [facility] ([facility]) [address] [facility] [place], [address], 11/22/2024 17:07:25 11/22/19 25 11/22/2024 COMP. METAB OLIC PANEL (14) globulin, total 2.3 g/dL 1.5-4. 5 Not Available [facility] ([facility]) [address] [facility] [place], [address], 11/22/2024 17:07:25 11/22/19 25 11/22/2024 COMP. METAB OLIC PANEL (14) bilirubin, total 0.8 mg/dL 0.0-1. 2 normal Not Available [facility] ([facility]) [address] [facility] [place], [address], 11/22/2024 17:07:25 11/22/19 25 11/22/2024 COMP. METAB OLIC PANEL (14) alkaline phosphatase 89 IU/L 44-121 normal Not Available [facility] ([facility]) [address] [facility] [place], [address], 11/22/2024 17:07:25 11/22/19 25 11/22/2024 COMP. METAB OLIC PANEL (14) AST (SGOT) 19 IU/L 0-40 normal Not Available [facility] ([facility]) [address] [place], [address], 11/22/2024 17:07:25 11/22/19 25 11/22/2024 COMP. METAB OLIC PANEL (14) ALT (SGPT) 17 IU/L 0-32 normal Not Available [facility] ([facility]) [address] [place], [address], 11/22/2024 17:07:25 11/22/19 25 11/22/2024 IRON AND TIBC iron bind.cap.(TI BC) 352 ug/dL 250-45 0 normal Not Available [facility] ([facility]) [address] [place], [address], 11/22/2024 17:07:25 11/22/19 25 11/22/2024 IRON AND TIBC UIBC 258 ug/dL 131-42 5 normal Not Available [facility] ([facility]) [address] [place], [address], 11/22/2024 17:07:25 11/22/19 25 11/22/2024 IRON AND TIBC iron 94 ug/dL 27-159 normal Not Available [facility] ([facility]) [address] [place], [address], 11/22/2024 17:07:25 11/22/19 25 11/22/2024 IRON AND TIBC iron saturation 27 % 15-55 normal Not Available [facility] ([facility]) [address] [place], [address], 11/22/2024 17:07:25 11/22/19 25 11/22/2024 VITAM IN B12 AND FOLAT E vitamin B12 392 pg/mL 232-12 45 normal Not Available [facility] ([facility]) [address] [facility], [place], [address], 11/22/2024 17:07:26 11/22/1911/22/2024 VITAM IN B12 AND FOLAT E folate (folic acid), serum 18.9 NG/mL >3.0 normal A serum folat e luis angel ntrat ion of less than 3.1 ng/mL is consi dered to repre sent clini tres defic iency . Not Available [facility] ([facility]) [address] [facility], [place], [address], 11/22/2024 17:07:26 11/22/1911/22/2024 HCG,B ETA SUBUN IT, QNT HCG,beta subunit,qnt, serum <1 mIU/m L Femal e (Non- pregn ant) 0 - 5 (Post menop ausal ) 0 - 8 Femal e (Preg nant) Weeks of Gesta tion 3 6 - 71 4 10 - 750 5 217 - 0638 6 158 - 83451 7 8017 -0335 63 8 38136 -7654 71 9 93229 -3459 10 10 00059 -2014 77 12 37775 -9486 12 14 23263 - 87108 15 81343 - 94299 16 8495 - 63203 17 4751 - 48437 18 8677 - 52617 Ria ECLIA metho dolog y Not Available [facility] ([facility]) [address] [facility], [place], [address], 11/22/2024 17:07:26 11/22/1911/22/2024 VITAM IN D, 25-HY DROXY vitamin D, 25-hydroxy 33.5 NG/mL 30.0-1 00.0 Vitam in D defic iency has been defin ed by the Insti tutharsh of Medic ine and an Endoc rine Socie ty pract ice guide line as a level of serum 25-OH vitam in D less than 20 ng/mL (1,2) . The Endoc rine Socie ty went on to furth er defin e vitam in D insuf ficie ncy as a level betwe en 21 and 29 ng/mL (2). 1. IOM (Inst itute of Medic ine). 2010. Rosa Maria ry refer ence rosas es for calci um and D. Ha [place]: [facility] . 2. Lisseth metzger [place], Sarah flores [place], Donny off-F errar i CARVALHO, et al. Evalu ation , treat ment, and preve ntion of vitam in D defic iency : an Endoc rine Socie ty clini tres pract ice guide line. JCEM. 2010; 96(7) :1911 -30. Not Available [facility] ([facility]) [address] [facility], [place], [address], 11/22/2024 17:07:26 11/22/19 25 11/22/2024 INSUL IN insulin 8.7 uIU/m L 2.6-24 .9 normal Not Available [facility] ([facility]) [address] [facility], [place], [address], 11/22/2024 17:07:27 11/22/19 25 11/29/2024 COMPL IANCE DRUG JORGE SIS, UR summary report (summary) FINAL ===== ===== ===== ===== ===== ===== ===== ===== ===== ===== ===== ===== ===== === TOXAS SURE COMP DRUG JORGE SIS,U R ===== ===== ===== ===== ===== ===== ===== ===== ===== ===== ===== ===== ===== === Test Resul t Flag Units Drug Prese nt Gabap entin PRESE NT Topir amate PRESE NT Dulox etine PRESE NT ===== ===== ===== ===== ===== ===== ===== ===== ===== ===== ===== ===== ===== === Test Resul t Flag Units Ref Range Creat inine 104 mg/dL >=20 ===== ===== ===== ===== ===== ===== ===== ===== ===== ===== ===== ===== ===== === Decla red Medic ation s: Medic ation list was not provi ded. ===== ===== ===== ===== ===== ===== ===== ===== ===== ===== ===== ===== ===== === For clini tres consu ltati on, pleas e call [phone]. ===== ===== ===== ===== ===== ===== ===== ===== ===== ===== ===== ===== ===== === Not Available [facility] ([facility]) [address] [facility], [place], [address], 11/29/2024 13:09:08 11/22/19 25 11/29/2024 COMPL IANCE DRUG JORGE SIS, UR pdf . Not Available [facility] ([facility]) [address] [facility], [place], [address], 11/29/2024 13:09:08 11/22/19 25 11/21/2024 pregn ollie test, urine HCG negati ve Not Available [address], [address], 11/21/2024 09:12:31 02/03/20 25 02/04/2025 URINE CULTU RE, ROUTI NE urine culture, routine Final report Not Available [facility] ([facility]) [address] [facility], [place], [address], 02/04/2025 05:06:31 02/03/20 25 02/04/2025 URINE CULTU REMAURO result 1 COMMEN T Mixed uroge nital sophie 10,00 0-25, 000 colon y formi ng units per mL Not Available [facility] ([facility]) [address] [facility], [place], [address], 02/04/2025 05:06:31 02/03/20 25 02/02/2025 urina lysis , dipst ick Leukocytes Negati ve Not Available [address], [address], 02/02/2025 13:36:24 02/03/20 25 02/02/2025 urina lysis , dipst ick Nitrite negati ve Not Available [address], [address], 02/02/2025 13:36:24 02/03/20 25 02/02/2025 urina lysis , dipst ick Urobilinogen 1 Not Available James [address], [address], 02/02/2025 13:36:24 02/03/20 25 02/02/2025 urina lysis , dipst ick Protein 30 Not Available [address], [address], 02/02/2025 13:36:24 02/03/20 25 02/02/2025 urina lysis , dipst ick pH 7.0 Not Available [address], [address], 02/02/2025 13:36:24 02/03/20 25 02/02/2025 urina lysis , dipst ick Blood Negati ve Not Available [address], [address], 02/02/2025 13:36:24 02/03/20 25 02/02/2025 urina lysis , dipst ick Specific [place] 1.025 Not Available [address], [address], 02/02/2025 13:36:24 02/03/20 25 02/02/2025 urina lysis , dipst ick Ketone Negati ve Not Available [address], [address], 02/02/2025 13:36:24 02/03/20 25 02/02/2025 urina lysis , dipst ick Bilirubin Negati ve Not Available [address], [address], 02/02/2025 13:36:24 02/03/20 25 02/02/2025 urina lysis , dipst ick Glucose Negati ve Not Available [address], [address], 02/02/2025 13:36:24 02/03/20 25 02/02/2025 urina lysis , dipst ick Appearance Slight ly Cloudy Not Available [address], [address], 02/02/2025 13:36:24 02/03/20 25 02/02/2025 urina lysis , dipst ick Color Dark Yellow Not Available [address], [address], 02/02/2025 13:36:24 02/03/20 25 02/02/2025 pregn ollie test, urine HCG negati ve Not Available [facility] [address] [facility], [place], [address], 02/02/2025 13:50:20 12/09/19 25 12/08/2024 XR, knee, 3 view No observ ation record ed. [place] [id number], [place], [address], 12/11/2024 13:52:03 12/09/19 25 12/08/2024 XR, knee, 3 view No observ ation record ed. [address], [place], [address], 12/11/2024 13:52:03 12/09/19 25 12/08/2024 XR, tibia + fibul a, 2 view No observ ation record ed. [address], [place], [address], 12/11/2024 13:52:04 12/09/19 25 12/08/2024 XR, ankle , 2 view No observ ation record ed. [address], [place], [address], 12/11/2024 13:52:04 12/13/19 25 12/12/2024 US, trans vagin al No observ ation record ed. [email or web address], [place], [address], 12/15/2024 09:26:08 12/19/1912/18/2024 XR, ankle , 2 view No observ ation record ed. [address], [place], [address], 12/18/2024 10:41:32 Result Notes None recorded. Problems Name Problem SNOMED Code Status Onset Date Resolution Date Notes Provider Name and Address Organization Details Recorded Time Asthma 957034221 Active 2019 Nat Riley APRN [address], [place], [address], [place] [facility] 10:07:07 Degeneration of intervertebral disc 85329970 Active 2019 Nat Riley PROBATION SUPERVISOR [address], [place], [address], [place] [facility] 10:07:10 Neuropathy 657270968 Active 2019 Nat Riley PROBATION SUPERVISOR [address], [place], [address], [place] [facility] 10:07:22 Depressive disorder 63478326 Active 2019 Nat Riley APRN [address], [place], [address], [place] [facility] 3 10:07:12 Arthritis 6053196 Active 2019 Nat Riley [employer] [address], [place], [address], [place] [facility] 3 10:07:05 Anxiety 58603607 Active 2019 Nat Riley APRN [address], [place], [address], [place] [facility] 3 10:07:02 Migraine 92160103 Active 2021 Nat Riley APRN [address], [place], [address], [place] [facility] 3 10:07:25 Insomnia 036881515 Active 2021 Nat Riley [employer] [address], [place], [address], [place] [facility] 3 10:07:16 Iron deficiency anemia 62132500 Active 2021 Nat Riley APRN [address], [place], [address], [place] [facility] 3 10:07:18 Candidiasis of mouth 54239275 Active 2021 Lisa Salazar, [employer] [address], [place], [address], [place] [facility] 2 09:37:18 Contact dermatitis 60818949 Active 2023 Luther Walters DO [address], [place], [address], [place] [facility] 4 09:35:34 Vitamin D deficiency 74153656 Active 2024 Josie Stears null, [place] - [facility] 5 08:42:26 Gastroesophage al reflux disease without esophagitis 335881767 Active 2024 Josie Stears [place] [facility] 5 08:42:58 Problem Notes [...] B/P 80-89 mm Hg completed Daniela Acosta [place] - [facility] 09/27/2020 14:44:49 03/04/20 20 Shave Biopsy trunk, arms, or legs completed Lilliana Owens APRN [address], [place], [address], [place] [facility] 03/04/2020 17:13:58 03/04/20 20 Skin Tag Removal completed Lilliana Owens [employer] [address], [place], [address], [place] [facility] 03/04/2020 17:14:20 12/18/19 20 Systolic B/P less than 130 mm Hg completed Daniela Acosta [place] - [facility] 12/18/2019 09:18:13 12/18/19 20 Diastolic B/P 80-89 mm Hg completed Daniela Acosta [place] - [facility] 12/18/2019 09:18:21 10/23/19 20 Systolic B/P less than 130 mm Hg completed [facility] 10/23/2019 08:39:31 10/23/19 20 Diastolic B/P 80-89 mm Hg completed [facility] 10/23/2019 08:39:34 05/08/20 19 Systolic B/P less than 130 mm Hg completed [facility] 05/08/2019 09:40:47 05/08/20 19 Diastolic B/P 80-89 mm Hg completed [facility] 05/08/2019 09:40:49 05/08/20 19 Medication Reconcilliation completed [facility] 05/08/2019 09:32:29 02/08/20 19 Systolic B/P less than 130 mm Hg completed [facility] 02/07/2019 15:31:13 02/08/20 19 Diastolic B/P less than 80 mm Hg completed [facility] 02/07/2019 15:31:16 10/25/19 19 Systolic B/P less than 130 mm Hg completed Danielajeffry Acosta [facility] 10/24/2018 12:59:01 10/25/19 19 Diastolic B/P less than 80 mm Hg completed Daniela Dave [facility] 10/24/2018 12:59:03 09/26/19 19 Systolic B/P less than 130 mm Hg completed Daniela Dave [facility] 09/26/2018 10:51:30 09/26/19 19 Diastolic B/P less than 80 mm Hg completed Danielajeffry Acosta [facility] 09/26/2018 10:51:32 08/23/19 19 Systolic B/P less than 130 mm Hg completed Danielajeffry Acosta [facility] 08/23/2018 13:32:22 08/23/19 19 Diastolic B/P 80-89 mm Hg completed Danielajeffry Acosta [facility] 08/23/2018 13:34:24 excision of excessive skin and subcutaneous tissue completed Danielajeffry Acosta [facility] 03/18/2021 11:46:20 Tonsillectomy completed [facility] 05/08/2019 09:36:32 Knee arthroscopy/surgery completed [facility] 05/08/2019 09:36:43 delivery completed Marti ESCALANTE - [facility] 05/08/2019 09:36:50 gastric sleeve completed Marti ESCALANTE - [facility] 05/08/2019 09:37:10 Endometrial Ablation completed Marti ESCALANTE - [facility] 05/08/2019 09:37:28 Tubal Ligation completed Marti ESCALANTE - [facility] 05/08/2019 09:37:40 Imaging Results None recorded. Procedure Notes None recorded. Medical Equipment None Reported. Allergies Allergen ID Allergen Name Allergen Category Reaction Reaction Severity Criticality Documentation Date Start Date Code Code System Note Provider Name and Address Organization Details Recorded Time 04916 latex environme nt,medica tion Not available Not available Not available 05/12/20162013 71173 91 RxNorm Not Available [facility] 6 08:49:01 73461 Product containin g penicilli n (product) medicatio n hives Not available Not available 05/12/20162012 02270 8001 SNOMED React ion: HIVES ; Not Available [facility] 6 09:23:58 Medications Name Sig Start Date [...] Available potassium 99 mg tablet 10/18 completed holly m 99 mg oral tablet;R ecorded Status: [...] Disconti nued on: 08/10/19 16 10:01AM; User: [email or web address];P rinted: 05/14/20 15 Not Available Not Available [...] spension ;Recorde d Status: Recorded on: 12/13/19 10:27AM; User: Nahomy Damian on: 12/20/19 16;Print ed: 12/13/19 16 Not Available Not Available Not Available topiramat e 50 mg tablet TAKE 1 TABLET BY MOUTH 2 TIMES DAILY. 2024 active Not Available Not Available Not Avai labrobin Ginkoba M-E 60 mg-100 mg capsule Take [...] Not Available Not Available Not Available Fluvirin 7187-9722 (PF) 45 mcg (15 mcg x 3)/0.5 [...] height Body mass index (BMI) Body weight Respiratory rate Oxygen saturation Oxygen saturation in Arterial blood by Pulse oximetry Heart rate Systolic And Diastolic Provider Name and Address Organization Details Last Updated DateTime 5 167.64 cm 47.1 kg/m2 843984. 97 g 18 /min 99 % 99 % 64 /min 132/76 mm[Hg] Josie Durans [place] - [facility] 5 08:35:13 Date Recorded Body height Body mass index (BMI) Body weight Oxygen saturation Oxygen saturation in Arterial blood by Pulse oximetry Respiratory rate Heart rate Systolic And Diastolic Provider Name and Address Organization Details Last Updated DateTime 5 167.64 cm 47.6 kg/m2 513205. 75 g 98 % 98 % 18 /min 70 /min 110/78 mm[Hg] Selin Mckeon [place] - [facility] 5 16:54:33 Date Recorded Body height Body mass index (BMI) Body weight Heart rate Oxygen saturation Oxygen saturation in Arterial blood by Pulse oximetry Respiratory rate Systolic And Diastolic Provider Name and Address Organization Details Last Updated DateTime 5 167.64 cm 47.5 kg/m2 852274. 96 g 63 /min 99 % 99 % 18 /min 110/70 mm[Hg] Selin Mckeon [place] - [facility] 5 09:09:03 Date Recorded Body height Body mass index (BMI) Body weight Heart rate Oxygen saturation Oxygen saturation in Arterial blood by Pulse oximetry Respiratory rate Systolic And Diastolic Provider Name and Address Organization Details Last Updated DateTime 5 167.64 cm 46.6 kg/m2 442260. 19 g 67 /min 97 % 97 % 18 /min 112/74 mm[Hg] Selin Mckeon [facility] 5 08:36:30 Date Recorded Body height Body mass index (BMI) Body weight Heart rate Oxygen saturation Oxygen saturation in Arterial blood by Pulse oximetry Respiratory rate Systolic And Diastolic Provider Name and Address Organization Details Last Updated DateTime 5 167.64 cm 49 kg/m2 251776. 29 g 82 /min 98 % 98 % 18 /min 112/78 mm[Hg] Selin Mckeon [place] - [facility] 5 13:35:39 Social History Question Answer Notes LastModified by Organizat ion Details LastModified Time Tobacco Smoking Status Never Smoker Marti Emma machado [facility] 05/08/2019 09:35:10 Able To Swim? Yes [email or web address] Information not available 05/08/2019 Do You Have An Advance Directive? No [email or web address] Information not available 05/08/2019 Do You Wear A Helmet When Biking? No [email or web address] Information not available 05/08/2019 Are You Blind Or Do You Have Difficulty Seeing? No [email or web address] Information not available 05/08/2019 What Is Your Level Of Caffeine Consumption? Moderate Information not available 05/08/2019 How Much Tobacco Do You Chew? None [email or web address] Information not available 05/08/2019 Are You Deaf Or Do You Have Serious Difficulty Hearing? No [email or web address] Information not available 05/08/2019 What Type Of Diet Are You Following? REGULAR [email or web address] Information not available 05/08/2019 Which Illicit Or Recreational Drugs Have You Used? Denies [email or web address] Information not available 05/08/2019 What Is The Highest Grade Or Level Of School You Have Completed Or The Highest Degree You Have Received? [id number] Information not available 11/03/2022 How Many Days Of Moderate To Strenuous Exercise, Like A Brisk Walk, Did You Do In The Last 7 Days? 1 [email or web address] Information not available 05/08/2019 On Those Days That You Engage In Moderate To Strenuous Exercise, How Many Minutes, On Average, Do You Exercise? 1 [email or web address] Information not available 05/08/2019 Swimming/diving Yes [email or web address] Informati on not available 05/08/2019 Have There Been Any Changes To Your Family Or Social Situation? No Information no t available 11/03/2022 How Hard Is It For You To Pay For The Very Basics Like Food, Housing, Medical Care, And Heating? 1 Information not available 05/08/2019 Hard Of Hearing Or Deaf In One Or Both Ears? No [email or web address] Information not available 05/08/2019 Legally Blind In One Or Both Eyes? No [email or web address] Information no t available 05/08/2019 Live Alone Or With Others? With Others Information not available 02/03/2020 Do You Have A Medical Power Of Agricultural Education Professor? No Information not available 11/03/2022 What Was The Date Of Your Most Recent Tobacco Screening? 12/05/2024 [email or web address] Information not available 12/05/2024 Do You Use Protection During Sex? Usually [email or web address] Information not available 05/08/2019 What Is Your Relationship Status? Information not available 11/03/2022 Seat Belts Used Routinely Yes Information not available 02/03/2020 Are You Sexually Active? Yes [email or web address] Information not available 05/08/2019 Smoke Alarm In Home Yes [email or web address] Information not available 05/08/2019 Do You Have Smoke And Carbon Monoxide Detectors In Your Home? Yes Information not available 11/03/2022 Are You Passively Exposed To Smoke? Yes [email or web address] Information no t available 05/08/2019 How Much Tobacco Do You Smoke? No [email or web address] Information not available 05/08/2019 General Stress Level Low Information not available 02/03/2020 Do You Use Sunscreen Routinely? Yes [email or web address] Information not available 05/08/2019 Has Tobacco Cessation Counseling Been Provided? No Information not available 12/04/2022 How Many Years Have You Smoked Tobacco? 0 [email or web address] Information not available 05/08/2019 Do You Have Difficulty Walking Or Climbing Stairs? No Information not available 05/08/2019 Sex: Female Functional Status Question Answer Note LastModified by Organizat ion Details LastModified Time Do you use any illicit or recreational drugs? No Information not available 11/03/2022 Do you or have you ever used any other forms of tobacco or nicotine? No Information not available 11/03/2022 What is your level of alcohol consumption? None Information not available 05/08/2019 Do you or have you ever used smokeless tobacco? Never used [email or web address] tobacco Information not available 05/08/2019 Are you currently employed? Yes Information not available 11/03/2022 Do you have transportation difficulties? No Information not available 11/03/2022 Are you able to walk? YESWOREST [email or web address] Information not available 05/08/2019 Do you have difficulty doing errands alone? No [email or web address] Information not available 05/08/2019 Are you able to care for yourself? Yes [email or web address] Information n ot available 05/08/2019 Do you have difficulty dressing or bathing? No [email or web address] Information not available 05/08/2019 Do you or have you ever used e-cigarettes or vape? Never used electronic cigarettes Information not available 05/08/2019 What is your exercise level? None Information not available 02/03/2020 Mental Status Question Answer Note LastModified by Organization D etails LastModified Time Do you feel stressed (tense, restless, nervous, or anxious, or unable to sleep at night)? 1 [email or web address] Information not available 05/08/2019 Do you have difficulty concentrating, remembering or making decisions? No [email or web address] Information no t available 05/08/2019 Family History [...] Organization Details Recorded Time Tdap 0 completed Lacy Gene null, [place] [facility] 12/12/2019 16:41:48 Influenza, split virus, quadrivalent, preservative 6 completed Not Available [facility] 08/23/2019 03:54:17 Influenza, split virus, quadrivalent, preservative 0 completed Karuna Mills [place] [facility] 07/08/2020 16:55:30 Influenza, split virus, quadrivalent, preservative 1 completed Bjorn Salazar MD [address], [place], [address], [place] [facility] 05/23/2021 11:39:53 Influenza, split virus, quadrivalent, preservative 7 completed Not Available [facility] 08/23/2019 03:54:42 Hep B, adult 2 completed Lisa Salazar, [employer] [address], [place], [address], [place] [facility] 05/24/2022 09:36:02 Hep B, adult 2 completed Lisa Salazar, [employer] [address], [place], [address], [place] [facility] 07/24/2022 09:44:07 Pneumococcal conjugate PCV 13 2 completed Selin [place] [facility] 08/23/2023 08:22:59 influenza, unspecified formulation 2 completed Selin [place] [facility] 08/23/2023 08:22:59 influenza, unspecified formulation 4 completed Selin [place] [facility] 08/23/2023 08:22:59 Tdap 2 completed Not Available [facility] 05/16/2016 00:49:27 Influenza, split virus, quadrivalent, preservative 3 completed Josie [place] [facility] 05/17/2023 14:48:02 Influenza, split virus, trivalent, preservative 4 completed Nat Riley, [employer] [address], [place], [address], [place] [facility] 05/23/2024 09:05:47 Pneumococcal conjugate PCV20, polysaccharide QLN159 conjugate, adjuvant, PF 4 completed Braydonhoang Riley, [employer] [address], [place], [address], [place] [facility] 05/23/2024 09:05:47 Hep A, adult 8 completed Not Available [facility] 08/23/2019 03:55:12 Influenza, split virus, quadrivalent, preservative 8 completed Not Available [facility] 08/23/2019 03:55:25 Hep A, adult 9 completed Not Available [facility] 08/23/2019 03:55:39 influenza, split (incl. purified surface antigen) 2 completed Josie Owen null, [facility] 11/03/2022 13:08:15 Influenza, split virus, quadrivalent, PF 2 completed Selin Mcke[place] null, [place] - [facility] 02/19/2023 16:13:30 Influenza, split virus, quadrivalent, PF 4 completed Selin Mckeon null, [facility] 11/17/2022 16:25:17 Influenza, split virus, quadrivalent, PF 9 completed Not Available [facility] 08/23/2019 03:56:06 Past Encounters Encounter ID Performer Location Encounter Start Date Encounter Closed Date Diagnosis/Indication Diagnosis SNOMED-CT Code Diagnosis ICD10 Code Diagnosis Note [id number] [facility] [address] [place] [address] 08/27/2014 00:00:00 [id number] [facility] [address] [facility] [address] 09/01/2014 00:00:00 [id number] [facility] [address] [place] [address] 09/28/2014 00:00:00 [id number] [facility] [address] [facility] [place] [address] 10/29/2014 00:00:00 [id number] [facility] [address] [facility] [place] [address] 11/26/2014 00:00:00 [id number] [facility] [address] [place] [address] 12/01/2014 00:00:00 [id number] [facility] [address] [place] [address] 12/25/2014 00:00:00 [id number] [facility] [address] [place] [address] 01/11/2015 00:00:00 [id number] [facility] [address] [place] [address] 02/12/2015 00:00:00 [id number] [facility] [address] [place] [address] 04/22/2015 00:00:00 [id number] [facility] [address] [place] [address] 01/04/2015 00:00:00 [id number] [facility] [address] [place] [address] 01/08/2015 00:00:00 [id number] [facility] [address] [place] [address] 05/14/2015 00:00:00 [id number] [facility] [address] [place] [address] 08/10/2015 00:00:00 [id number] [facility] [address] [place] [address] 08/23/2015 00:00:00 [id number] [facility] [address] [place] [address] 10/21/2015 00:00:00 [id number] [facility] [address] [place] [address] 12/02/2015 00:00:00 [id number] [facility] [address] [place] [address] 12/13/2015 00:00:00 [id number] [facility] [address] [place] [address] 12/31/2015 00:00:00 [id number] [facility] [address] [place] [address] 12/31/2015 00:00:00 [id number] [facility] [address] [place] [address] 12/05/2013 00:00:00 [id number] [facility] [address] [place] [address] 01/16/2014 00:00:00 [id number] [facility] [address] [place] [address] 05/01/2014 00:00:00 [id number] [facility] [address] [place] [address] 05/18/2014 00:00:00 [id number] [facility] [address] [place] [address] 06/11/2014 00:00:00 [id number] [facility] [address] [place] [address] 07/27/2014 00:00:00 [id number] [facility] [address] [place] [address] 08/27/2012 00:00:00 [id number] [facility] [address] [place] [address] 11/13/2013 00:00:00 [id number] [facility] [address] [place] [address] 11/24/2013 00:00:00 [id number] SHAINA García [facility] [address] [place] [address] 05/30/2016 07:57:11 05/30/2016 08:36:30 Administration of influenza vaccine 97156346 Z23 Candidiasis of skin 4988 3006 B37.2 [id number] SHAINA García [facility] [address] [place] [address] 07/07/2016 10:56:27 07/07/2016 11:34:26 Acute bronchitis 55885746 J20.9 [id number] Carmen Austin APRN [address] [place] [address] 07/13/2016 09:24:15 07/13/2016 10:19:57 Low back pain 949399841 M54.5 Lumbar radiculopathy 128 656008 M54.16 Pain of wrist region 566 36296 M25.531 Acute bronchitis 7836547 2 J20.9 [id number] Carmen RodaseyMICHELLN [address] [address] [place] [address] 08/31/2016 10:50:08 08/31/2016 11:27:04 Acute bronchitis 26666840 J20.9 [id number] Carmen RodaseyMICHELLN [address] [address] [facility] [place] [address] 03/26/2017 09:43:54 03/26/2017 10:08:13 Sinusitis 02897644 J32.9 [id number] Carmen RodaseyMICHELLN [address] [address] [place] [address] 05/10/2017 13:44:34 05/10/2017 14:26:01 Acute bronchitis 02597518 J20.9 Candidiasis of [facility] 72 883330 B37.3 [id number] Carmen SouthfieldMICHELLN [address] [address] [place] [address] 06/01/2017 11:59:08 06/01/2017 12:18:16 Administration of influenza vaccine 29344843 Z23 [id number] Carmen SouthfieldSHAINA flores [address] [address] [place] [address] 08/13/2017 11:21:24 08/13/2017 12:44:19 Influenza caused by Influenza A virus 748275854 J09.X2 [id number] Carmen Austin APRN [address] [address] [address] [place] [address] 10/18/2017 11:22:54 10/18/2017 11:56:13 Body mass index 40+ - severely obese 336258351 Z68.43 Sinusitis 63000333 J32.9 Chronic sinusitis 752073 00 J32.9 [id number] Carmen Austin APRN [address] [address] [address] [place] [address] 01/07/2018 10:53:20 01/07/2018 11:38:47 Fatigue 82855693 R53.83 Neuropathy 224592270 G62 .9 Long-term drug therapy 953297977 Z79.865 [id number] Carmen Austin APRN [address] [address] [address] SU[address] [facility] [place] [address] 03/11/2018 12:46:38 03/11/2018 14:12:39 Long-term drug therapy 303579528 Z79.899 Neuropathy 976033995 G62 .9 [id number] Carmen Austin APRN [address] [address] [address] [place] [facility] [place] [address] 04/01/2018 09:07:33 04/01/2018 09:41:47 Bronchitis 43386217 J40 [id number] Ariadne Drew APRN [address] [address] [address] [place] [facility] [place] [address] 04/24/2018 10:36:07 04/24/2018 11:05:02 Active or passive immunization 840424678 Z23 Herpes zoster 1444362 B0 2.9 [id number] Carmen Austin APRN [place] [address] [address] [place] [facility] [place] [address] 05/14/2018 10:34:31 05/14/2018 11:13:08 Herpes zoster 3937369 B02.9 [id number] Carmen Austin APRN [address] [address] [address] [place] [address] 05/21/2018 13:04:56 05/21/2018 13:39:32 Acute bronchitis 08529079 J20.9 [id number] Carmen Austin APRN [address] [address] [place] [address] 05/30/2018 10:41:54 05/30/2018 11:14:55 Acute bronchitis 02818168 J20.9 Otitis externa 0654985 H 60.93 Candidiasis of vagina 72 970657 B37.3 Excoriation of skin 2474 14298 T14.8XXA [id number] Carmen Austin APRN [address] [place] [address] 05/31/2018 11:09:00 05/31/2018 11:52:06 Bronchitis 80507594 J40 [id number] Carmen Austin APRN [address] [address] [place] [address] 07/02/2018 12:45:09 07/02/2018 13:33:25 Administration of influenza vaccine 15831780 Z23 [id number] Carmen Austin APRN [address] [place] [address] 07/04/2018 11:24:55 07/04/2018 12:00:00 Peripheral neuropathic pain 801018317 M79.2 [id number] Carmen Austin APRN [address] [place] [address] 07/16/2018 11:00:53 07/16/2018 11:57:25 Neuropathy 056136462 G62.9 dcbs paperwork completed pending disability determinat ion [id number] Carmen Austin APRN [address] [place] [address] 08/12/2018 12:40:34 08/12/2018 13:42:14 Cough 59054693 R05 Acute bronchitis 5349575 2 J20.9 [id number] Carmen Austin APRN [address] [address] [place] [address] 08/23/2018 13:14:34 08/23/2018 14:20:31 Bronchitis 13504853 J40 Acute bronchitis 9378807 2 J20.9 [id number] Carmen Austin APRN [address] [address] [place] [address] 09/26/2018 10:26:08 09/26/2018 11:10:19 Peripheral neuropathic pain 270445649 M79.2 [id number] Carmenrayne AustinMICHELLN [address] [address] [address] [facility] [place] [address] 10/24/2018 12:40:19 10/24/2018 13:46:23 Active or passive immunization 598006836 Z23 [id number] Carmen Austin APRN [address] [address] [address] [facility] [place] [address] 12/27/2018 11:03:42 12/27/2018 12:01:32 Neuropathy 054005333 G62.9 order written for no driving 24 hours after procedures [id number] Carmen Austin SHAINA [address] [address] [place] [address] 01/02/2019 11:26:41 01/02/2019 12:13:59 General examination of patient 736404648 Z00.00 Screening for cardiovascular system disease 852174647 Z13.6 Endocrine/ metabolic screening 063000746 Z13.228 Screening mammography 24 263497 Z12.31 Exercises education, guidance, and counseling 541975083 Z71.82 Dietary ma nagement surveillance 810551703 Z71.3 [id number] Carmen Austin APRN [address] [address] [place] [address] 01/16/2019 12:53:06 01/16/2019 13:58:41 Long-term drug therapy 172508735 Z79.899 Peripheral neuropathic pain 587572861 M79.2 [id number] Carmen Austin APRN [address] [address] [address] [place] [address] 02/07/2019 15:02:21 02/07/2019 15:42:48 Pruritic rash 34604664 L28.2 [id number] Carmen [place] SHAINA [address] [address] [place] [address] 03/07/2019 09:39:27 03/07/2019 10:13:57 Pruritic rash 73003180 L28.2 Otitis media 12525135 H6 6.91 [id number] Carmen RodaseyMICHELLN [address] [address] [facility] [place] [address] 04/08/2019 09:27:27 04/08/2019 10:03:52 Pruritic rash 88878180 L28.2 Upper resp iratory infection 47218603 J06.9 Bronchitis 45359820 J40 [id number] Carmen Austin SHAINA [address] [place] [address] [facility] [place] [address] 1 05/08/2019 09:22:16 05/08/2019 10:11:27 Administration of influenza vaccine 43778823 Z23 Abrasion a nd/or friction burn of skin 007879590 T14.8XXA Excessive skin and subcutaneous tissue 765775513 L98.7 Sprain of knee 50510495 S83.92XA resolving [id number] Carmen Austin APRN [address] [place] [address] [facility] [place] [address] 1 05/22/2019 08:46:24 05/22/2019 09:50:59 Anxiety 66285775 F41.9 paper work filled out for comfort dog to have at her apartment [id number] Carmen Austin APRN [address] [place] [address] [facility] [place] [address] 06/09/2019 09:33:44 06/09/2019 10:51:57 Pruritic rash 84417577 L28.2 [id number] Ariadne Drew APRN [address] [address] 07/02/2019 16:06:02 07/02/2019 16:35:14 Otitis media 81479172 H66.92 [id number] Carmen Austin APRN [address] [place] [address] [place] [address] 1 07/17/2019 08:05:51 07/17/2019 08:49:31 Excessive skin and subcutaneous tissue 906622589 L98.7 Ganglion c yst of right wrist 4829343962 92114 M67.431 Fatigue 28223368 R53.83 [id number] Carmen Austin SHAINA [address] [place] [address] [place] [address] 1 07/22/2019 10:04:21 07/22/2019 10:41:36 Otalgia 37611763 H92.02 [id number] Carmen GeovannaMICHELLN [address] [address] [place] [address] 1 08/04/2019 17:46:37 08/04/2019 18:10:01 Pharyngitis 710393626 J02.9 Sinusitis 81160495 J32.9 rtc as needed [id number] Carmen Austin APRN [address] [place] [address] [place] [address] 1 08/18/2019 07:45:22 08/18/2019 08:32:52 Candidiasis of vagina 63578525 B37.3 Excessive skin and subcutaneous tissue 661475613 L98.7 Upper resp iratory infection 90303426 J06.9 [id number] Carmen Austin SHAINA [address] [address] [place] [address] 1 09/02/2019 07:48:41 09/02/2019 09:50:00 Body mass index 40+ - severely obese 629252822 Z68.43 Long-term drug therapy 911816784 Z79.899 Neuropathy 411685832 G62 .9 [id number] Carmen Austin APRN [address] [address] [place] [address] 1 09/23/2019 07:57:36 09/23/2019 08:43:23 Candidiasis of skin 54539511 B37.2 [id number] Carmenrayne Austin SHAINA [place] [address] [place] [address] 10/17/2019 08:13:30 10/17/2019 08:59:34 Anxiety 41010565 F41.9 paper work filled out for comfort dog to have at her apartment [id number] Carmenrayne Austin APRN [address] [address] [address] Andres SUPRIYA [facility] [place] [address] 1 10/23/2019 08:33:59 10/23/2019 09:22:09 Depressive disorder 17139466 F32.9 continue medication as prescribed [id number] Ariadne Drew APRN [address] [address] [address] Andres SUPRIYA [facility] [place] [address] 1 11/06/2019 08:28:00 11/06/2019 08:54:16 Depressive disorder 65037077 F32.9 Anxiety 25977077 F41.9 Vaginitis 13820893 N76.0 [id number] Carmen Austin APRN [address] [address] [address] [place] [address] 1 11/27/2019 16:03:18 11/27/2019 16:47:59 Neuropathy 423556782 G62.9 Knee pain 88206876 M25.5 69 [id number] Carmen Austin SHAINA Supriya [facility] [address] Andres SUPRIYA [facility] [place] [address] 1 12/12/2019 16:19:29 12/12/2019 16:43:19 Administration of diphtheria, pertussis, and tetanus vaccine 889677988 Z23 [id number] Carmen Austin APRN [place] [address] [address] Andres SUPRIYA [facility] [place] [address] 1 12/18/2019 08:50:43 12/18/2019 09:36:55 Candidiasis of skin 06991696 B37.2 Multiple skin tags 16145 7009 L91.8 [id number] Carmen Austin APRN [place] [address] [address] [place] [address] 1 01/06/2020 08:01:24 01/06/2020 08:41:08 Arthritis 9427689 M19.90 [id number] Carmen Austin APRN [place] [address] [address] Andres SUPRIYA [facility] [place] [address] 1 01/22/2020 07:56:57 01/22/2020 08:47:45 Pain of multiple joints 79075214 M25.50 Neuropathy 853523558 G62 .9 Candidiasis of skin 4988 3006 B37.2 Renewal of prescription 302440420 Z76.0 [id number] Carmen Austin APRN [place] [address] [place] [address] 1 01/26/2020 08:27:37 01/26/2020 09:04:11 Nail bed infection 36199462 L60.8 [id number] Lilliana Owens APRN [address] [place] [address] 02/03/2020 11:44:45 02/03/2020 12:37:08 Skin tag 827138506 L91.8 return for removal right upper back - acrochordo nleft flank - pedunculat ed tag [id number] SHAINA Garcíayolyjackie [place] [address] [address] [place] [address] 1 02/26/2020 08:01:03 02/26/2020 08:51:45 Candidiasis of skin 52633008 B37.2 [id number] Carmen Austin APRN [place] [address] [address] [place] [address] 1 03/04/2020 13:27:01 03/04/2020 13:41:38 Anxiety 61562430 F41.9 [id number] Lilliana Owens APRN [address] [place] [address] 03/04/2020 15:47:52 03/04/2020 17:13:27 Skin tag 282976115 L91.8 right upper back - acrochordo n , removed todayleft flank - pedunculat ed tag, removed today [id number] SHAINA García [place] [address] [address] Andres HARPERCyrilJackie [facility] [place] [address] 1 04/15/2020 17:21:44 04/15/2020 18:06:01 Generalized anxiety disorder 41129896 F41.1 Candidiasis of skin 4988 3006 B37.2 [id number] SHAINA García [place] [address] [place] HARPERCyrilJackie [facility] [place] [address] 1 06/07/2020 10:41:37 06/07/2020 11:38:25 Neuropathy 881016764 G62.9 Generalize d anxiety disorder 03451507 F41.1 Candidiasis of skin 4988 3006 B37.2 Migraine 57478110 G43.90 9 Anxiety 22008139 F41.9 Long-term drug therapy 662862332 Z79.899 Otitis media 36712505 H6 6.91 [facility] of medication side effect 841339487 Z91.89 [id number] SHAINA García [place] [address] [place] [place] [facility] [place] [address] 07/06/2020 08:38:34 07/06/2020 09:28:53 Candidiasis of vagina 20712983 B37.3 Generalize d anxiety disorder 81479412 F41.1 Pain of mu ltiple joints 05729623 M25.50 Migraine 88372112 G43.90 9 Neuropathy 163244884 G62 .9 Renewal of prescription 590061312 Z76.0 Anxiety 39135318 F41.9 Arthritis 8138755 M19.90 Depressive disorder 3548 9007 F32.9 continue medication as prescribed [id number] SHAINA García [place] [address] [address] [place] [address] 07/08/2020 16:30:48 07/08/2020 16:43:07 Administration of influenza vaccine 43150869 Z23 [id number] SHAINA García [facility] [address] [place] [address] 1 07/23/2020 08:28:27 07/23/2020 09:35:30 Pain of right shoulder joint 6637878967 1878519 M25.511 [facility] risk of medication side effect 147696149 Z91.89 Migraine 55843634 G43.90 9 Acute sinusitis 68450050 J01.90 [id number] SHAINA García [place] [address] [address] [place] [address] 1 08/05/2020 08:26:48 08/05/2020 08:57:11 Generalized anxiety disorder 80011628 F41.1 Sinusitis 38830108 J32.9 rtc as needed [id number] SHAINA García [place] [address] [address] [place] [address] 1 08/10/2020 10:34:12 08/10/2020 11:45:47 Sinusitis 70653084 J32.9 rtc as needed [id number] SHAINA Vigil [facility] [address] [place] [address] 1 09/03/2020 08:47:42 09/03/2020 09:08:48 Generalized anxiety disorder 58445769 F41.1 Pain of sh oulder region 77638872 M25.379 [id number] SHAINA García [facility] [address] [place] [address] 1 09/27/2020 14:26:10 09/27/2020 15:45:03 Bilateral knee pain 3327144538 6023064 M25.561 Neck pain 83735957 M54.2 Pain of ri ght shoulder joint 9019434488 3704112 M25.511 Pain in right hand 93036 70216 00423 M79.465 [id number] SHAINA García [place] [address] [place] [address] 10/01/2020 08:02:47 10/01/2020 08:53:44 Anxiety 26889500 F41.9 [id number] SHAINA Garcíayolyjackie [facility] [address] [place] [address] 11/01/2020 11:41:59 11/01/2020 12:03:47 Anxiety 66520221 F41.9 stable Excessive skin and subcutaneous tissue 867599426 L98.7 chronic/ worsening [id number] Carmen Austin APRN Way[place] [facility] [address] [place] [address] 11/26/2020 08:55:42 11/26/2020 09:55:44 Upper respiratory infection 11210632 J06.9 finish medication as ordered [facility] of medication side effect 313398642 Z91.89 Anxiety 35581916 F41.9 stable Neuropathy 801344164 G62 .9 stable [id number] Carmen Austin APRN [place] [address] [address] [place] [address] 12/10/2020 11:02:02 12/10/2020 11:52:44 Neuropathy 320962444 G62.9 controlled with medication Peripheral neuropathic pain 306959767 M79.2 controlled with medication [id number] SHAINA Garcíacyriljackie [place] [address] [place] [address] 01/14/2021 10:08:46 01/14/2021 10:42:19 Anxiety 72883187 F41.9 stable Arthritis 4198569 M19.90 stable [id number] SHAINA García [place] [address] [place] [address] 01/20/2021 09:03:10 01/20/2021 09:37:29 Dysuria 09597592 R30.9 increase water intake, avoid caffeine, call office tomorrow for update/con dition, may need cmp [id number] SHAINA Garcíamingsb [facility] [address] [place] [address] 02/14/2021 08:38:24 02/14/2021 09:29:18 Anxiety 53099332 F41.9 stable Pain of le ft ankle joint 3965577298 7700958 M25.572 will call with results. advised to stay off as much as possible [id number] Carmen Austin APRN Supriya [facility] [address] [place] [address] 03/18/2021 11:24:39 03/18/2021 12:03:58 Neuropathy 963143514 G62.9 controlled with medication Anxiety 53129484 F41.9 stable [id number] Carmenclarita Austin [employer] SUPER[employer] [address] [place] [address] [place] [address] 04/18/2021 16:07:59 04/18/2021 17:28:57 Superficial injury of finger 645549018 S60.941A [id number] Bjorn Salazar MD Ler[place] [address] [address] Andres SUPRIYA [facility] [place] [address] 05/09/2021 16:11:20 05/09/2021 16:34:13 Administration of influenza vaccine 52659953 Z23 [id number] Ariadne Drew APRN Way[place] [facility] [address] nAdres SUPRIYA [facility] [place] [address] 1 06/01/2021 17:05:36 06/01/2021 17:42:04 Neuropathy 149685325 G62.9 chronic stable Anxiety 67657896 F41.9 chronic stable Insomnia 055029610 G47.0 0 Depressive disorder 3548 9007 F32.9 chronic stable Rash of groin 2338953575 2735861 R21 heat rash, continue meds at home [id number] Lisa Salazar APRN [place] [address] [address] Andres SUPRIYA [facility] [place] [address] 1 09/26/2021 08:17:47 09/26/2021 09:38:29 Arthritis 6309166 M19.90 Chronic Neuropathy 660429770 G62 .9 Chronic-st able Anxiety 39176533 F41.9 Chronic-st ableDiscus sed PRN nature of this medication and provided education on the addiction potential for this medication .AKBARLORY appropriat harsh Migraine 10426637 G43.90 9 Chronic Spasm of back muscles 20 1585349 M62.830 Chronic-in termittent Patient reports that she has intermitte nt back spasms and she utilizes this medication PRN. Insomnia 032075861 G47.0 0 ChronicPat ient reports that she utilizes Trazadone 2-3 times per week PRN for insomnia Endocrine/ metabolic screening 892407817 Z13.228 Hyperlipid emia screening 540878383 Z13.220 Long-term current use of drug therapy 703052789 Z79.919 [id number] SHAINA Titus [facility] [address] [place] [address] 09/30/2021 13:43:39 09/30/2021 14:21:44 Anemia 787820907 D64.9 Patient's H&H on 09/26/21: 10.7/35 MCV: 24.2 MCHC: 30.6Checki ng iron levels and will prescribe treatment as appropriat e based off those results. [id number] SHAINA Titus [facility] [address] [place] [address] 10/24/2021 09:20:04 10/24/2021 10:04:14 Anxiety 81243423 F41.9 Chronic-st ableDiscus sed PRN nature of this medication and provided education on the addiction potential for this medication .SKINNY Fontana is currently seeing a therapist. Discussed the need for psychiatri st referral to discuss medication adjustment s due to patients reported increased need for her PRN anxiety meds. Dysuria 73319055 R30.9 Advised patient to increase oral non-caffei nated fluid intake as tolerated. Will prescribe antibiotic s as needed per culture results. [id number] SHAINA Titus [facility] [address] [place] [address] 11/24/2021 14:25:17 11/24/2021 14:44:01 Spasm of back muscles 403576856 M62.830 Chronic-in termittent Patient reports that she has intermitte nt back spasms and she utilizes this medication PRN. Anxiety 82072256 F41.9 Chronic-st ableDiscus sed PRN nature of this medication and provided education on the addiction potential for this medication .SKINNY Fontana is currently seeing a therapist. Patient has scheduled appointmen t with psychiatry this week. Neuropathy 186178105 G62 .9 Chronic-st able Iron defic iency anemia 28558510 D50.9 ChronicFol low up blood work in 1 month Insomnia 776962344 G47.0 0 ChronicPat ient reports that she utilizes Trazadone 2-3 times per week PRN for insomnia [id number] SHAINA [employer] [facility] [address] [place] [address] 12/22/2021 12:46:24 12/22/2021 13:35:17 Neuropathy 429261396 G62.9 Chronic-st able Anxiety 97218880 F41.9 Chronic-st ableDiscus sed PRN nature of this medication and provided education on the addiction potential for this medication .SKINNY Fontana is currently seeing a therapist. Patient is also seeing psychiatry . Injury of lower leg 1256 05939 S89.91XA Patient fell 3 weeks ago and landed on her right leg. Patient reportsPat iemila is unable to bear full weight on her right leg due to pain.Patie nt reports knee instabilit y.Right knee and ankle are tender to palpation. Arthritis 8059762 M19.90 Chronic [id number] Lisa Salazar APRN [employer] [facility] [address] [place] [address] 01/20/2022 10:55:16 01/20/2022 11:22:53 Anxiety 66977545 F41.9 Chronic-st ableDiscus sed PRN nature of this medication and provided education on the addiction potential for this medication .SKINNY Fontana is currently seeing a therapist. Patient is also seeing psychiatry . Advised patient that her psychiatri st will need to take over her clonazepam in the future. Choking sensation 456454 009 R09.89 Patient reports that she feels like she is choking on saliva every morning when she wakes up and requests a referral to ENT. Patient also reports that she has a chronic need clear her throat.Eli reinoso denies any reflux or heartburn. 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 [id number] SHAINA Titusjackie [facility] [address] [place] [address] 03/09/2022 12:57:20 03/09/2022 13:50:36 Anxiety 83818401 F41.9 Chronic-st ableDiscus sed PRN nature of this medication and provided education on the addiction potential for this medication .EKASPER appropriat eControlle d substance agreement signed 09/26/21UDS obtained today: awaiting resultsPat kemar is currently seeing a therapist. Patient is also seeing psychiatry . Advised patient that her psychiatri will need to take over her clonazepam in the future. Long-term drug therapy 284742803 Z79.177 [id number] [facility] [address] [place] [address] 04/18/2022 15:50:54 04/18/2022 16:42:03 Acute maxillary sinusitis 93941485 J01.00 [id number] SHAINA Titus [facility] [address] [place] [facility] [place] [address] 05/12/2022 13:48:15 05/12/2022 14:26:38 Neuropathy 021126840 G62.9 Chronic-st ableEKASPE R appropriat e 05/12/22Con trolled substance agreement signed 09/26/21UDS 05/12/22 Influenza vaccine needed 4398744301 106 Z23 Exposure t o Hepatitis B virus 216873524 Z20.5 Patient exposed 1 month agoPatient would like to be vaccinated once she is confirmed negative for Hep B.Follow up based on results. Long-term drug therapy 979891907 Z79.621 [id number] Lisa [facility] [address] Andres SUPRIYA [facility] [place] [address] 05/24/2022 09:07:32 05/24/2022 09:33:36 Active or passive immunization 532801316 Z23 Patient tolerated well Candidiasis of mouth 797 61041 B37.0 Patient reports knowing the source of infectionF ollow up as needed [id number] SHAINA Titusjackie [facility] [address] Andres SUPRIYA [facility] [place] [address] 06/08/2022 13:01:31 06/08/2022 14:08:03 Degeneration of intervertebral disc 59428468 M51.9 Chronic-st able Migraine 32913722 G43.90 9 Chronic-st able Anxiety 39332393 F41.9 Chronic-st ablePatien t is currently seeing a therapist. Patient is also seeing psychiatry . Patient was getting clonazepam refilled through this office but this provider confirmed with patient's psychiatri st that they are able to write controlled substances now and should be taking over prescribin g this medication if deemed warranted. [id number] [facility] [address] [place] SUPRIYA [facility] [place] [address] 1 07/24/2022 09:27:34 07/24/2022 09:39:55 Active or passive immunization 370505381 Z23 Patient tolerated well [id number] Nat Riley APRN [address] [place] [address] 11/03/2022 12:52:58 11/03/2022 13:55:02 Pharyngitis 494113756 J02.9 Acute maxi llary sinusitis 28386401 J01.00 Wheezing 76332889 R06.2 [id number] Nat Jonesverito [address] [address] 11/17/2022 16:14:30 11/17/2022 16:38:35 Arthritis 9745639 M19.90 Degenerati on of intervertebral disc 40353347 M51.9 Neuropathy 606734333 G62 .9 Pt compliant with plan of careKasper reviewed and appropriat emedicatio n compliance discussedL ast uds: 3Control substance agreement on filechart reviewed and meds sentgabape ntin order with 5 refills was cancelled and new order for 2 refills sent Migraine 38239011 G43.90 9 [id number] [facility] areaclarita Riley[address] [address] 12/04/2022 09:29:13 12/04/2022 10:48:22 Body mass index 30+ - obesity 968988346 Z68.39 39.5 Obesity 370292636 E66.9 Abdominal pain 76751843 R10.9 stop mobic risk explained Iron defic iency anemia 70988720 D50.9 Neuropathy 674747422 G62 .9 [id number] [facility] areaclarita Jonesverito [address] [address] 02/19/2023 16:09:08 02/19/2023 16:33:52 Neuropathy 807305130 G62.9 Pt compliant with plan of careKasper reviewed and appropriat emedicatio n compliance discussedL ast uds: 3Control substance agreement on file Acute righ t otitis media 439893903 H66.91 [id number] Nat [address] [address] 05/17/2023 13:51:30 05/17/2023 16:54:35 Influenza vaccine needed 2456320977 106 Z23 [id number] Nat Riley [address] [address] 05/22/2023 08:04:41 05/22/2023 09:06:01 Arthritis 4292936 M19.90 Asthma 708555344 J45.90 9 Depressive disorder 3548 9007 F32.9 Neuropathy 055061067 G62 .9 [facility] and appropriat emedicatio n compliance discussed/ Last uds:/Contr ol substance agreement on file Degenerati on of intervertebral disc 42393013 M51.9 Migraine 60050908 G43.90 9 Gastroesop hageal reflux disease without esophagitis 670324938 K21.9 Allergic rhinitis 748120 04 J30.9 Long-term drug therapy 635191756 Z79.899 Insomnia 895533804 G47.0 0 Iron defic iency anemia 16503146 D50.9 Anxiety 98369271 F41.9 [id number] Nat Riley [address] [address] 06/19/2023 14:00:56 06/19/2023 15:00:36 COVID-19 932117576 U07.1 no sign of a bacterial infection. likely viral. viruses can take 7-14 days to run their course. nasal saline and bulb syringe to remove nasal drainage to help with congestion . monitor temp. Tylenol or Motrin as needed for pain or fever. encourage fluids, water, Gatorade, power aide, Pedialyte if infant/tod dler/child warm salt water gargles warm fluids sore throat lozenges sleep elevated humidifier /vaporizer follow up immediatel y for new or worsening symptoms or no noticeable improvemen t over the next 48-72 hours [id number] Nat Riley [address] [address] 08/23/2023 08:13:05 08/23/2023 08:33:06 Neuropathy 382463126 G62.9 Pt compliant with plan of careKasper reviewed and appropriat emedicatio n compliance discussed/ Last uds: 4Control substance agreement on file Long-term drug therapy 487436046 Z79.899 Constipation 84108273 K5 9.00 encouraged high fiber foods and fluids [id number] Nat Riley [address] [address] 11/22/2023 08:20:06 11/22/2023 08:51:43 Arthritis 7100850 M19.90 Depressive disorder 3548 9007 F32.9 Asthma 292863125 J45.90 9 Insomnia 245526188 G47.0 0 Gastroesop hageal reflux disease without esophagitis 001968790 K21.9 Allergic rhinitis 992325 04 J30.9 Neuropathy 121006366 G62 .9 Pt compliant with plan of careKasper reviewed and appropriat emedicatio n compliance discussed/ Last uds: 4Control substance agreement on file Degenerati on of intervertebral disc 38617252 M51.9 Migraine 26333305 G43.90 9 Body mass index 40+ - severely obese 296710976 Z68.41 43.6 Morbid obesity 308758999 E66.01 [id number] Nat Riley [address] [address] 02/21/2024 08:57:43 02/21/2024 09:45:20 Neuropathy 707037049 G62.9 Pt compliant with plan of careKasper reviewed and appropriat emedicatio n compliance discussed/ Last uds: 4Control substance agreement on file Gastroesop hageal reflux disease without esophagitis 610638667 K21.9 Right flank pain 5098011 09 R10.9 sent to ed for eval to r/o kidney stone [id number] Luther Walters DO [facility] [address] [address] 03/06/2024 09:03:48 03/06/2024 09:41:38 Body mass index 40+ - severely obese 495677744 Z68.41 Morbid obesity 601441518 E66.01 Contact dermatitis 73360 004 L25.9 Contact dermatitis , secondary to poison thom. Patient will be given a prednisone taper to take over the next 10 days. Patient will reappoint herself if symptoms or not controlled over the course. [id number] Nat Riley APRN [address] [address] 04/22/2024 08:18:55 04/22/2024 08:59:43 Influenza caused by Influenza B virus 73367305 J10.1 Acute maxi llary sinusitis 79914108 J01.00 [id number] Nat Riley [address] [address] 05/23/2024 08:07:16 05/23/2024 09:15:03 Neuropathy 086248736 G62.9 Pt compliant with plan of careKasper reviewed and appropriat emedicatio n compliance discussed/ Last uds: 4Control substance agreement on file Constipation 54866654 K5 9.00 encouraged high fiber foods and fluids Depressive disorder 3548 9007 F32.9 Gastroesop hageal reflux disease without esophagitis 180039721 K21.9 Degenerati on of intervertebral disc 97345662 M51.9 Migraine 63314912 G43.90 9 Arthritis 9465222 M19.90 Anxiety 13949988 F41.9 Hepatitis C screening 41 1334499 Z11.59 HIV screening 276917587 Z11.4 Influenza vaccine needed 6321079709 106 Z23 Active or passive immunization 030300285 Z23 Allergic rhinitis 217643 04 J30.9 Asthma 873635422 J45.90 9 Iron defic iency anemia 58468116 D50.9 Insomnia 806655227 G47.0 0 [id number] Nat Riley [address] [address] 06/09/2024 09:10:17 06/09/2024 09:36:02 Hypoglycemia 109835002 E16.2 continue to keep log-discus sed hypoglycem ia s/sreturn for any concernsla bs in 2 weeks to check cmp/insuli n level [id number] Nat Riley APRN [address] [address] 06/23/2024 07:56:44 06/23/2024 08:30:09 Hypoglycemia 163330025 E16.2 continue to keep log-discus sed hypoglycem ia s/s teaching sheet given of s/s of hypoglycem iareturn for any concerns [id number] Nat Riley APRN [address] [address] 07/21/2024 09:01:59 07/21/2024 10:04:51 Acute maxillary sinusitis 34430789 J01.00 if symptoms worsen or no improvemen t return Acute righ t otitis media 726434236 H66.91 pt states she can take rocephin and cefdinir [id number] Nat Riley APR[address] [address] 09/11/2024 14:39:26 09/11/2024 15:12:19 Influenza-like illness 09561623 B34.9 no sign of a bacterial infection. likely viral. viruses can take 7-14 days to run their course. nasal saline and bulb syringe to remove nasal drainage to help with congestion . monitor temp. Tylenol or Motrin as needed for pain or fever. encourage fluids, water, Gatorade, power aide, Pedialyte if /tod dler/child warm salt water gargles warm fluids sore throat lozenges sleep elevated humidifier /vaporizer follow up immediatel y for new or worsening symptoms or no noticeable improvemen t over the next 48-72 hours [id number] Nat Riley APRN [address] [address] 10/02/2024 09:15:51 10/02/2024 11:21:53 Iron deficiency anemia 02784765 D50.9 labsif no improvment or worsening return or be seen in er Fatigue 26490896 R53.83 History of bariatric surgical procedure 026449217 Z98.84 [id number] Eughoang Riley [address] [address] 11/07/2024 12:57:42 11/07/2024 13:48:40 Acute maxillary sinusitis 07672018 J01.00 if symptoms worsen or no improvemen t return [id number] Nat Jonesverito [address] [address] 11/21/2024 08:30:32 11/21/2024 09:55:21 Depressive disorder 58370964 F32.9 Gastroesop hageal reflux disease without esophagitis 311484778 K21.9 Neuropathy 255249219 G62 .9 Pt compliant with plan of careJamie reviewed and appropriat emedicatio n compliance discussed/ Last uds: 5Control substance agreement on file Degenerati on of intervertebral disc 10834558 M51.9 Migraine 79322855 G43.90 9 Vitamin D deficiency 347 25185 E55.9 Constipation 41654785 K5 9.00 encouraged high fiber foods and fluids Arthritis 1950822 M19.90 Anxiety 58840910 F41.9 Morbid obesity 764036383 E66.01 Long-term current use of drug therapy 496248637 Z79.899 Missed period 03279551 N 92.6 Iron defic iency anemia 60809843 D50.9 labsif no improvment or worsening return or be seen in er [id number] Nat Jonesverito [address] [address] 12/05/2024 16:46:12 12/08/2024 08:21:21 Anterior tibial stress syndrome 447088692 S86.899A xraycreami f no improvment will refer to pt Pain of knee region 1003 500059 M25.561 M25.522 [id number] Nat Jonesverito [address] [address] 12/23/2024 08:55:47 12/23/2024 09:30:59 Pain of knee region 5760605233 M25.562 G89.29 discussed risk of med with ptmake sure to take omeprazole if taking diclofenac [id number] Nat Riley APRN [address] [address] 01/06/2025 08:27:07 01/06/2025 09:18:01 Bacterial conjunctivitis 090444543 H10.9 drops as orderedcoo l wash clothif worsen or no improvemen t return or see eye [id number] Nat Riley APRN [address] [address] 02/02/2025 13:20:52 02/02/2025 13:54:52 Increased frequency of urination 633727899 R35.0 Edema of l ower extremity 620246484 R60.0 ECHOrecent ly had labs- wnlwill give 2 days of lasix - pt states she is off for 2 dayscompre ssion hoseif worsen or no improvemen t return Health Concerns Section Related Observation LastModified by Organization Detai ls LastModified Time None Recorded Concern Status LastModified by Organization Details LastModified Time None Recorded Advance Directives Directive N: Payers Insurance Date Sequence Insurance Name Policy Number Policy Aranda Covered Member ID Aranda Member ID Guarantor Name 05/12/2022 STATE [employer]ARM [employer]ialie Galdamez 05/12/2022 1 PASSPORT BY [employer]. (MEDICAID REPLACEMENT - HMO) MEDICAID Cris Galdamez [id number] Cris Galdamez 09/30/2016 1 UNSPECIFIED REMIT PAYOR Cris Galdamez 02/02/2025 1 [employer] (MEDICAID HMO) Cris Galdamez [id number] Cris Galdamez 01/06/2025 [place] (MEDICAID) Cris Galdamez [id number] Cris Galdamez 05/12/2022 1 [employer] (MEDICAID REPLACEMENT - HMO) [id number] Cris Galdamez [id number] Cris Galdamez Notes Date Note Type Note Provider Name and Address Organization Details Recorded Time 11/21/2024 text/html 44 year old femclarita kelly who presents to the office today for a follow up onanxiety, arthritis, neuropathy, gerd, depressive disorder,needs medication refillshas not had a period in 2 months- had tubes tied 13 yrs ago Nat SanchezSHAINA beavers [address], [place], [address], [place] - [facility] 11/21/2024 09:44:39 12/05/2024 text/html 44 yr old female presents for lower leg pain bilaterally x 2-3 weeks. Noticed it starting when she went back to work but has been worse the last few weeks with walking and at night. Nat JonesSHAINA sellers [address], [place], [address], [facility] - [facility] 12/15/2024 09:38:29 12/23/2024 text/html 44 yr old female presents for a follow up on bilateral knee/lower leg pain. She seen ortho on 12/18 and got a steroid injection in right knee. Ortho discussed a switch from meloxicam to celebrex to see if it is more effective. Nat JonesSHAINA sellers [address], [place], [address], [facility] - [facility] 12/23/2024 09:33:30 01/06/2025 text/html 44 yr old female presents for left eye redness, pain and drainage since yesterday. Nat JonesSHAINA sellers [address], [place], [address], [place] - [facility] 01/06/2025 09:21:29 02/02/2025 text/html 44 yr old female presents for edema to bilateral lower extremities. She has has worked several shifts at work on her feet lately. She also has urinary frequency. Nat JonesSHAINA sellers [address], [place], [address], [place] - [facility] 02/02/2025 13:58:03 OBGyn Episode No OBEpisode recorded.
--- OUTSIDE RECORDS SUMMARY | 2025-02-14 21:37 | XMS_ITS | Continuity of Care Document ---
Author Organization Mcihelle Leyva [facility] Address [address] [place] [address] Care Team Providers Care Plate Former Name Role Phone WILLTWY[facility] ROLY IQBAL [employer] [phone] Assessment No assessment recorded. Plan of Treatment Reminders Order Date Submit Date Provider Last Modified By Organization Details Last Modified Time Details Appointments Follow Up 2024 09:00A Sharon Riley APRN Not available Not available Not available Lab None recorded. Referral None recorded. Procedures None recorded. Surgeries None recorded. Imaging None recorded. Medication Orders sulfaceta mide sodium 10 % eye drops 2024 025 [facility] [address] [place] [address], [address], 02/02/2025 13:38:53 Patient TargetsNo targets recorded. Patient InstructionsNo instructions recorded. Reason for Referral None Reported. Results Created Date Observation Date Name Description Value Unit Range Abnormal Flag Note LastModifiedBy Organization Detail LastModifiedTime 12/09/1912/08/2024 XR, knee, 3 view No observ ation record ed. [facility] [address], [place], [address], 12/11/2024 13:52:03 12/09/19 25 12/08/2024 XR, knee, 3 view No observ ation record ed. [facility] [address], [place], [address], 12/11/2024 13:52:03 12/09/19 25 12/08/2024 XR, tibia + fibul a, 2 view No observ ation record ed. [facility] [address], [place], [address], 12/11/2024 13:52:04 12/09/19 25 12/08/2024 XR, ankle , 2 view No observ ation record ed. [facility] [address], [place], [place], [address], 12/11/2024 13:52:04 12/13/19 25 12/12/2024 US, trans vagin al No observ ation record ed. [facility] [address], [place], [place], [address], 12/15/2024 09:26:08 12/19/19 25 12/18/2024 XR, ankle , 2 view No observ ation record ed. [facility] [address], [place], [address], 12/18/2024 10:41:32 Result Notes None recorded. Problems Name Problem SNOMED Code Status Onset Date Resolution Date Notes Provider Name and Address Organization Details Recorded Time Asthma 752674289 Active 2019 Nat Riley APRN [address], [place], [address], [place] - [facility] 3 10:07:07 Degeneration of intervertebral disc 25464117 Active 2019 Nat Riley [employer] [address], [place], [address], [place] [facility] 3 10:07:10 Neuropathy 050790205 Active 2019 Nat Riley APRN [address], [place], [address], [place] - [facility] 3 10:07:22 Depressive disorder 00227488 Active 2019 Eugonda Fryman, [employer] [address], [place], [address], [place] - [facility] 3 10:07:12 Arthritis 1195663 Active 2019 Nat Riley, [employer] [address], [place], [address], [place] [facility] 3 10:07:05 Anxiety 07803400 Active 2019 Nat Riley, [employer] [address], [place], [address], [place] [facility] 3 10:07:02 Migraine 86855830 Active 2021 Nat Riley, [employer] [address], [place], [address], [place] [facility] 3 10:07:25 Insomnia 371827262 Active 2021 Nat Riley, [employer] [address], [place], [address], [place] [facility] 3 10:07:16 Iron deficiency anemia 48354159 Active 2021 Nat Riley, [employer] [address], [place], [address], [place] [facility] 3 10:07:18 Candidiasis of mouth 78269693 Active 2021 Lisa Salazar, [employer] [address], [place], [address], [place] [facility] 2 09:37:18 Contact dermatitis 65293327 Active 2023 Luther Walters, DO [address], [place], [address], [place] [facility] 4 09:35:34 Vitamin D deficiency 01182137 Active 2024 Joise Stears null, [place] - [facility] 5 08:42:26 Gastroesophage al reflux disease without esophagitis 708411131 Active 2024 Josie Stears null, [place] - [...] completed Twyla Owens APRN [address], [place], [address], [place] - [facility] 03/04/2020 17:13:58 03/04/20 20 Skin Tag Removal completed Twyla Owens APRN [address], [place], [address], [place] - [facility] 03/04/2020 17:14:20 12/18/19 20 [...] 09:40:49 05/08/20 19 Medication Reconcilliation completed Marti Carter [place] - [facility] 05/08/2019 09:32:29 02/08/20 19 Systolic B/P less than 130 mm Hg completed Marti Carter [place] - [facility] 02/07/2019 15:31:13 02/08/20 19 Diastolic B/P less than 80 mm Hg completed Marti Carter [facility] 02/07/2019 15:31:16 10/25/19 19 Systolic B/P less than 130 mm Hg completed Daniela Acosta [facility] 10/24/2018 12:59:01 10/25/19 19 Diastolic B/P less than 80 mm Hg completed Daniela Acosta [facility] 10/24/2018 12:59:03 09/26/19 19 Systolic B/P less than 130 mm Hg completed Daniela Acosta [facility] 09/26/2018 10:51:30 09/26/19 19 Diastolic B/P less than 80 mm Hg completed Daniela Acosta [facility] 09/26/2018 10:51:32 08/23/19 19 Systolic B/P less than 130 mm Hg completed Daniela Acosta [facility] 08/23/2018 13:32:22 08/23/19 19 Diastolic B/P 80-89 mm Hg completed Daniela Acosta [facility] 08/23/2018 13:34:24 excision of excessive skin and subcutaneous tissue completed Daniela Acosta [facility] 03/18/2021 11:46:20 Tonsillectomy completed Marti Carter [facility] 05/08/2019 09:36:32 Knee arthroscopy/surgery completed Marti Carter [facility] 05/08/2019 09:36:43 delivery completed Marti Carter [facility] 05/08/2019 09:36:50 gastric sleeve completed Marti Carter [facility] 05/08/2019 09:37:10 Endometrial Ablation completed Marti Carter [facility] 05/08/2019 09:37:28 Tubal Ligation completed Marti Carter [facility] 05/08/2019 09:37:40 Imaging Results None recorded. Procedure Notes None recorded. Medical Equipment None Reported. Allergies Allergen ID Allergen Name Allergen Category Reaction Reaction Severity Criticality Documentation Date Start Date Code Code System Note Provider Name and Address Organization Details Recorded Time 31183 latex environme nt,medica tion Not available Not available Not available 05/12/20162013 47356 91 RxNorm Not Available [facility] 6 08:49:01 13037 Product containin g penicilli n (product) medicatio n hives Not available Not available 05/12/20162012 01979 8001 SNOMED React ion: HIVES ; Not Available [facility] 6 09:23:58 Medications Name Sig Start Date [...] Available Not Available pantopraz ole 40 mg tablet,jesused release TAKE 1 TABLET BY MOUTH ONCE [...] Disconti nued on: 08/10/19 16 10:01AM; User: [email or web address] rinted: 05/14/20 15 Not Available Not Available [...] Status: Recorded on: 08/27/19 13 1:53PM;U ser: diaz Zapien on: - (-5) Not Available Not Available [...] Not Available Not Available Not Available Fluvirin (PF) 45 mcg (15 mcg x 3)/0.5 [...] Updated DateTime 5 167.64 cm 46.6 kg/m2 787340. 19 g 67 /min 97 % 97 % 18 /min 112/74 mm[Hg] Selin Mckeon [place] - [facility] 5 08:36:30 Social History Question Answer Notes LastModified by Nuevolution ion Details LastModified Time Tobacco Smoking Status Never Smoker Marti Emma [place] - [facility] 05/08/2019 09:35:10 Able To Swim? Yes [email or web address] Information not available 05/08/2019 Do You Have An Advance Directive? No [email or web address] Information not available 05/08/2019 Do You Wear A Helmet When Biking? No [email or web address] Information not available 05/08/2019 Are You Blind Or Do You Have Difficulty Seeing? No Information not available 05/08/2019 What Is Your Level Of Caffeine Consumption? Moderate [email or web address] Information not available 05/08/2019 How Much Tobacco Do You Chew? None Information not available 05/08/2019 Are You Deaf Or Do You Have Serious Difficulty Hearing? No Information not available 05/08/2019 What Type Of Diet Are You Following? REGULAR [email or web address] Information not available 05/08/2019 Which Illicit Or Recreational Drugs Have You Used? Denies [email or web address] Information not available 05/08/2019 What Is The Highest Grade Or Level Of School You Have Completed Or The Highest Degree You Have Received? [id number] Information not available 11/03/2022 How Many Days Of Moderate To Strenuous Exercise, Like A Brisk Walk, Did You Do In The Last 7 Days? 1 Information not available 05/08/2019 On Those Days That You Engage In Moderate To Strenuous Exercise, How Many Minutes, On Average, Do You Exercise? 1 [email or web address] Information not available 05/08/2019 Swimming/diving Yes [email or web address] Informati on not available 05/08/2019 Have There Been Any Changes To Your Family Or Social Situation? No Information no t available 11/03/2022 How Hard Is It For You To Pay For The Very Basics Like Food, Housing, Medical Care, And Heating? 1 [email or web address] Information not available 05/08/2019 Hard Of Hearing Or Deaf In One Or Both Ears? No [email or web address] Information not available 05/08/2019 Legally Blind In One Or Both Eyes? No [email or web address] Information no t available 05/08/2019 Live Alone Or With Others? With Others Information not available 02/03/2020 Do You Have A Medical Power Of Television Anchor? No Information not available 11/03/2022 What Was The Date Of Your Most Recent Tobacco Screening? 12/05/2024 [email or web address] Information not available 12/05/2024 Do You Use Protection During Sex? Usually Information not available 05/08/2019 What Is Your Relationship Status? Information not available 11/03/2022 Seat Belts Used Routinely Yes Information not available 02/03/2020 Are You Sexually Active? Yes [email or web address] Information not available 05/08/2019 Smoke Alarm In Home Yes [email or web address] Information not available 05/08/2019 Do You Have Smoke And Carbon Monoxide Detectors In Your Home? Yes Information not available 11/03/2022 Are You Passively Exposed To Smoke? Yes [email or web address] Information no t available 05/08/2019 How Much Tobacco Do You Smoke? No [email or web address] Information not available 05/08/2019 General Stress Level Low Information not available 02/03/2020 Do You Use Sunscreen Routinely? Yes [email or web address] Information not available 05/08/2019 Has Tobacco Cessation Counseling Been Provided? No Information not available 12/04/2022 How Many Years Have You Smoked Tobacco? 0 [email or web address] Information not available 05/08/2019 Do You Have [...] used smokeless tobacco? Never used smokeless tobacco [email or web address] Information not available 05/08/2019 Are you currently employed? Yes Information not available 11/03/2022 Do you have transportation difficulties? No Information not available 11/03/2022 Are you able to walk? YESWOREST [email or web address] Information not available 05/08/2019 Do you have difficulty doing errands alone? No [email or web address] Information not available 05/08/2019 Are you able to care for yourself? Yes [email or web address] Information n ot available 05/08/2019 Do you have difficulty dressing or bathing? No [email or web address] Information not available 05/08/2019 Do you or have you ever used e-cigarettes or vape? Never used electronic cigarettes Information not available 05/08/2019 What is your exercise level? None Information not available 02/03/2020 Mental Status Question Answer Note LastModified by Organization D etails LastModified Time Do you feel stressed (tense, restless, nervous, or anxious, or unable to sleep at night)? 1 [email or web address] Information not available 05/08/2019 Do you have difficulty concentrating, remembering or making decisions? No [email or web address] Information no t available 05/08/2019 Family History [...] Recorded Time Tdap 0 completed Karuna [place], [place] - [facility] 12/12/2019 16:41:48 Influenza, split virus, quadrivalent, preservative 6 completed Not Available [facility] 08/23/2019 03:54:17 Influenza, split virus, quadrivalent, preservative 0 completed Karuna [place]ado, [place] - [facility] 07/08/2020 16:55:30 Influenza, split virus, quadrivalent, preservative 1 completed Bjorn Salazar MD [address], [place], [address], [place] [facility] 05/23/2021 11:39:53 Influenza, split virus, quadrivalent, preservative 7 completed Not Available [facility] 08/23/2019 03:54:42 Hep B, adult 2 completed Lisa Salazar APRN [address], [place], [address], [place] [facility] 05/24/2022 09:36:02 Hep B, adult 2 completed Lisa Salazar APRN [address], [place], [address], [place] [facility] 07/24/2022 09:44:07 Pneumococcal conjugate PCV 13 2 completed Selin Mckeon null, [place] [facility] 08/23/2023 08:22:59 influenza, unspecified formulation 2 completed Selin Mcke[place] null, [place] [facility] 08/23/2023 08:22:59 influenza, unspecified formulation 4 completed Selin machado, [place] [facility] 08/23/2023 08:22:59 Tdap 2 completed Not Available [facility] 05/16/2016 00:49:27 Influenza, split virus, quadrivalent, preservative 3 completed Josie Owen null, [place] [facility] 05/17/2023 14:48:02 Influenza, split virus, trivalent, preservative 4 completed Nat Riley APRN [address], [place], [address], [place] [facility] 05/23/2024 09:05:47 Pneumococcal conjugate PCV20, polysaccharide [id number] conjugate, adjuvant, PF 4 completed Nat Riley APRN [address], [place], [address], [place] [facility] 05/23/2024 09:05:47 Hep A, adult 8 completed Not Available [facility] 08/23/2019 03:55:12 Influenza, split virus, quadrivalent, preservative 8 completed Not Available [facility] 08/23/2019 03:55:25 Hep A, adult 9 completed Not Available [facility] 08/23/2019 03:55:39 influenza, split (incl. purified surface antigen) 2 completed Josie Owen null, [place] - [facility] 11/03/2022 13:08:15 Influenza, split virus, quadrivalent, PF 2 completed Selin Mckeon null, [place] - [facility] 02/19/2023 16:13:30 Influenza, split virus, quadrivalent, PF 4 completed Selin Mckeon null, [place] - [facility] 11/17/2022 16:25:17 Influenza, split virus, quadrivalent, PF 9 completed Not Available [facility] 08/23/2019 03:56:06 Past Encounters Encounter ID Performer Location Encounter Start Date Encounter Closed Date Diagnosis/Indication Diagnosis SNOMED-CT Code Diagnosis ICD10 Code Diagnosis Note [id number] Nat Riley [address] [address] 12/23/2024 08:55:47 12/23/2024 09:30:59 Pain of knee region 5266467294 M25.562 G89.29 discussed risk of med with ptmake sure to take omeprazole if taking diclofenac [id number] Nat Riley [address] [address] 01/06/2025 08:27:07 01/06/2025 09:18:01 Bacterial conjunctivitis 918803301 H10.9 drops as orderedcoo l wash clothif worsen or no improvemen t return or see eye md Health Concerns Section Related Observation LastModified by Organization Detai ls LastModified Time None Recorded Concern Status LastModified by Organization Details LastModified Time None Recorded Payers Encounter Date Sequence Insurance Name Policy Number Policy Aranda Covered Member ID Aranda Member ID Guarantor Name 01/06/2025 1 [facility] (MEDICAID HMO) Cris Galdamez [id number] Cris Galdamez Notes Date Note Type Note Provider Name and Address Organization Details Recorded Time 01/06/2025 text/html 44 yr old female presents for left eye redness, pain and drainage since yesterday. Nat Riley, [employer] [address], [place], [address], [facility] - [facility] 01/06/2025 09:21:29 OBGyn Episode No OBEpisode recorded.
--- OUTSIDE RECORDS SUMMARY | 2025-02-14 21:37 | XMS_ITS | Encounter Summary ---
Author Organization Healthcare Address [address] [place] [address] Care Team Providers Care Surveyor Chain Helper Name Role Phone Bjorn Salazar MD Primary Care Provider [phone]- [phone] Encounter Details Date Type Department Care Team (Late st Contact Info) Description 03/09/2021 Lab Requisition [facility] [address] [place] [address] Marciano Reilly MD Encounter for general adult [...] PM EDT documented as of this encounter Functional Status * Calculated C-SSRS Risk Score (Lifetime/Recent) Answer Date of Assessment Author No Risk Indicated 03/09/2021 7:49 PM EDT Lis Salgado RN * Question Answer Date of Assessment Author 1. Wish to be (Past 1 Month) No 021 7:49 PM EDT Lis Salgado RN 2. Non-Specific Active Suici deepak Thoughts (Past 1 Month) No 03/09/2021 7:49 PM EDT Lis Salgado RN 6. Suicidal Behavior (Lifetime) No 7:49 PM EDT Lis Salgado RN documented as of this encounter Plan of [...] ORDERABLES Rubi l Result Performing Organization Address City/[facility] Co de Phone Number [facility]ALTHCARE [facility] [address] [place] [address] * Hepatitis B surface antigen (03/09/2021 11:00 AM EDT) Hepatitis B Surf Antigen Negative Negative 03/09/2021 12:56 PM EDT [facility] Blood Venous blood specimen / Unknown 03/09/2021 11:00 AM EDT 03/09/2021 11:35 AM EDT Marciano Reilly MD LAB BLOOD ORDERABLES Rubi l Result Performing Organization Address [facility] Co de Phone Number [facility]ARE [facility] [address] [place] [address] * HIV 1 & 2 Antibody/Antigen Screen (03/09/2021 11:00 AM EDT) HIV 1 & 2 Antibody/Anti gen Screen Nonreactive Nonreactive 03/09/2021 12:56 PM EDT [facility] Blood Venous blood specimen / Unknown 03/09/2021 11:00 AM EDT 03/09/2021 11:35 AM EDT us Marciano Reilly MD LAB BLOOD ORDERABLES Rubi ford Result Performing Organization Address City/State/[facility] Co de Phone Number [facility] [address] [place] [address] documented in this encounter Visit Diagnoses Diagnosis Encounter for general adult medical examination without abnormal findings documented in this encounter Care Teams Surveyor Chain Helper Relationship Specialty Start Date End Date Bjorn Salazar MD [address] [place] [address] PCP - General 03/07/21 documented as of this encounter
--- NOTE | 2025-02-14 21:38 | ECG_ITS ---
APPROVED REPORT Exam: Resting ECG HR:57 bpm ECG Measurements Heart Rate 57 AXES OH 199 P 45 QRSd 93 QRS 46 QT 409 T 62 QTc 404 Conclusion SINUS BRADYCARDIA LOW QRS VOLTAGE IN PRECORDIAL LEADS [QRS DEFLECTION < 1.0 mV IN CHEST LEADS] No STEMI Electronically signed by : PRITESH ESTRELLA, 02/15/2025 07:05:32
[2025-02-14 21:39] VITALS: BP 135/71; PULSE 59; RESP 18; TEMP 36.7; O2SAT 100; BMI 36.9
[2025-02-14 21:45] VITALS: BP 132/69; PULSE 60; RESP 14; O2SAT 100
--- NOTE | 2025-02-14 21:52 | ED_ITS ---
Discharge Plan Disposition Patient Disposition: Home, Self-Care Condition: Good Prescriptions Prescriptions: No Action multivitamin capsule 1 cap PO DAILY gabapentin 600 mg tablet 600 mg PO TID duloxetine [Cymbalta] 60 mg capsule,delayed release(DR/EC) 60 mg PO DAILY meloxicam 15 mg tablet 15 mg PO DAILY topiramate 50 mg tablet 50 mg PO Patient Comments: TAKE 1 TABLET BY MOUTH TWICE DAILY. zinc sulfate 50 mg zinc (220 mg) capsule 100 mg PO DAILY esomeprazole magnesium 20 mg capsule,delayed release(DR/EC) 20 mg PO DAILY cholecalciferol (vitamin D3) [Vitamin D3] 50 mcg (2,000 unit) tablet 50 mcg PO DAILY albuterol sulfate [Ventolin HFA] 90 mcg/actuation HFA aerosol inhaler 2 puff inhalation PRN omega 0-aml-lwp-fish oil [Fish Oil] 300-1,000 mg capsule,delayed release(DR/EC) PO docusate sodium 100 mg capsule PO fluticasone propionate 50 mcg/actuation spray,suspension intranasal ergocalciferol (vitamin D2) [Vitamin D2] 1,250 mcg (50,000 unit) capsule PO Vraylar 1.5 mg capsule 1.5 mg PO DAILY tamsulosin 0.4 mg capsule 0.4 mg PO DAILY 30 Days Qty: 30 0RF Referrals Follow up/Referrals: Nat Riley APRN [Primary Care Provider, Medical] - See instructions Activity Restrictions/Add. Instructions Additional Instructions/Restrictions: Your evaluated in the ER and are believed to be appropriate for discharge at this time. Continue any home medications as previously prescribed. Make an appointment with your primary care doctor for reevaluation on Sunday. Go to the 9 AM cardiology appointment on Sunday in the specialty clinic here. Return to the ER with any new, worsening, or otherwise concerning symptoms. Clinical Impressions Clinical Impression: Chest pain Print Language Print Language: Portuguese Discharge ED Provider: Danna Clement General Adult HPI <Danna Clement DO - Last Filed: 02/15/25 01:18> General Chief complaint: Chest Pain Stated complaint: pain in rt arm, tightness in chest Time Seen by Provider: 02/14/25 21:40 Mode of Arrival: Ambulatory Source of Information: Patient Description of Symptoms (Recalled from ER Triage Doc. by RN): pt presents to the Ed d/t complaints of chest pain. pt states chest tightness and right arm pain starting around 1700. pt states 7/10 pain. pt states she has had some swelling in legs and given diuretics and is supposed to get echo soon. History of Present Illness HPI narrative: Patient is a 44-year-old female with no significant past medical history who presented to the emergency department with right arm pain and chest tightness. Patient states that her symptoms started around 5 PM. Patient denies any shortness of breath. Patient denies any recent fever. Patient has not had any cough. Patient denies any recent travel, surgery in the last 6 weeks. Patient has not had any hemoptysis, not on any hormone medications. Patient denies any history of blood clots. Patient does state she has a family history of congestive heart failure is concerned about some swelling in her lower extremities. Patient states that her chest tightness is on the left side, is not worse or exacerbated by anything. Patient did not take any medications prior to arrival. Patient denies any abdominal pain, nausea vomiting or diarrhea. Patient denies any headache vision changes or other associated symptoms. Related Data Home Medications ?Medication ?Instructions ?Recorded ?Confirmed multivitamin 1 cap PO DAILY 03/26/1812/04 gabapentin 600 mg tablet 600 mg PO TID 01/21/1912/18 duloxetine 60 mg capsule,delayed 60 mg PO DAILY 12/18/24 release (Cymbalta) meloxicam 15 mg tablet 15 mg PO DAILY 05/12/2012/04 topiramate 50 mg tablet 50 mg PO 06/13/21 12/18/24 cholecalciferol (vitamin D3) 50 50 mcg PO DAILY 12/18/24 mcg (2,000 unit) tablet (Vitamin D3) esomeprazole magnesium 20 mg 20 mg PO DAILY 01/04/23 0 12/18/24 capsule,delayed release zinc sulfate 50 mg zinc (220 mg) 100 mg PO DAILY 01/0412/18/24 capsule albuterol sulfate 90 mcg/actuation 2 puff inhalation P RN 08/16/23 12/18/24 aerosol inhaler (Ventolin HFA) omega 6-ube-hhx-fish oil 300 cap PO 08/16/23 12/18/24 mg-1,000 mg capsule,delayed release (Fish Oil) docusate sodium 100 mg capsule mg PO 02/14/24 12/18/24 fluticasone propionate 50 intranasal 02/14/24 12/18/24 mcg/actuation nasal spray,suspension cariprazine 1.5 mg capsule 1.5 mg PO DAILY 12/08/24 (Vraylar) ergocalciferol (vitamin D2) 1,250 PO 12/08/24 12/18/24 mcg (50,000 unit) capsule (Vitamin D2) Previous Rx's ?Medication ?Instructions ?Recorded tamsulosin 0.4 mg capsule 0.4 mg PO DAILY 30 days #30 caps 02/21/24 Allergies Allergy/AdvReac Type Severity Reaction Status Date / Time penicillin G Allergy Mild Hives Verified 12/18/24 10:57 [facility] <Danna Clement DO - Last Filed: 02/15/25 01:18> [facility] Disclaimer: The information contained in this section may have been updated after the patient was seen, as this information can be updated by other users. Medical History Bipolar 2 disorder GERD (gastroesophageal reflux disease) Surgical History History of salpingectomy History of endometrial ablation History of gastric surgery History of delivery History of arthroplasty of left knee History of tonsillectomy Family History Other Diabetes Hypertension Social History Smoking Status: Never smoker alcohol intake: never substance use type: denies use current occupational status: employed Travel in the last 8 weeks?: None household members: spouse and children housing: house current occupational exposures/hazards: No caffeine: No Have you lived/traveled outside US in past 30 days?: No Contact w/someone who lives/traveled outside US past 30 days?: No Exposure to someone with infectious disease in past 14 days?: No Do you have a fever (greater than 100.4 F or 38 C)?: No Have you tested positive for COVID-19?: No Exposed to someone with COVID-19 in past 14 days?: No Do you have a sore throat?: No Do you have a cough?: No Do you have any weakness?: No Do you have any diarrhea?: No Are you experiencing any unusual bleeding?: No Do you have any muscle aches/pain?: No Do you have any abdominal pain?: No Are you experiencing loss of taste or smell?: No Other Medical History Have you received the Flu Vaccine for this season: No Have you received the Pneumonia Vaccine: No <Danna Clement DO - Last Filed: 02/15/25 01:18> ROS Obtained: Yes All systems reviewed & no additional complaints except as documented and Yes Systems reviewed as appropriate & no additional complaints except as documented Physical Exam <Danna Clement DO - Last Filed: 02/15/25 01:18> General General appearance: alert and in no apparent distress Head Head exam: atraumatic, normocephalic and normal inspection Eye Eye exam: Present normal appearance, PERRL and EOMI; Absent scleral icterus ENT ENT exam: Present normal exam and normal external ear exam Neck Neck exam: Present normal inspection and full ROM Chest Chest inspection: Present normal inspection and symmetric chest wall rise Respiratory Respiratory exam: Present normal lung sounds bilaterally; Absent respiratory distress or wheezes Cardiovascular Cardiovascular exam: Present regular rate, normal rhythm, normal heart sounds and other (No lower extremity edema) Abdominal Exam Abdominal exam: Present soft and distention; Absent tenderness, guarding or rebound Extremities Exam Extremities exam: Present normal inspection and full ROM Back Exam Back exam: Present normal inspection and full ROM Neurological Exam Neurological exam: Present alert and oriented X3 Psychiatric Psychiatric exam: Present normal affect and normal mood Skin Skin exam: Present warm and dry Medical Decision Making <Danna Clement DO - Last Filed: 02/15/25 01:18> Medical Records Screening: Per USPSTF and CDC recommendations, given the prevalence of disease in our region, it is our hospital?s policy to screen for HIV and viral Hepatitis for all patients aged 18 and over and those with ongoing risk factors. Jamie Inquiry Pt receiving controlled substance: No Vital Signs: 02/14/25 21:39 02/14/25 21:45 02/14/25 22:30 Temperature 98.1 F Temperature Source Oral Pulse Rate 60 68 Pulse Rate [Right Radial] 59 L Respiratory Rate 18 14 15 Blood Pressure 132/69 Blood Pressure [Right Arm] 135/71 Blood Pressure Mean [Right Arm] 92 Blood Pressure Source Blood Pressure Position Blood Pressure Position [Right Arm] Supine 02 Sat by Pulse Oximetry 100 100 100 Oxygen Delivery Method Room Air 02/15/25 00:30 02/15/25 00:57 02/15/25 02:05 Temperature 98.5 F Temperature Source Oral Pulse Rate 60 78 72 Pulse Rate [Right Radial] Respiratory Rate 17 18 Blood Pressure 126/78 Blood Pressure [Right Arm] Blood Pressure Mean [Right Arm] Blood Pressure Source Automatic Cuff Blood Pressure Position Supine Blood Pressure Position [Right Arm] 02 Sat by Pulse Oximetry 98 Oxygen Delivery Method Room Air Lab Data Lab results reviewed: Yes I reviewed the patient's lab results. Lab Results 02/14/25 21:48: WBC 7.7, RBC 4.46, Hgb 12.1 L, Hct 37.5, MCV 84.1, MCH 27.1, MCHC 32.3, RDW 13.4, Plt Count 309, MPV 9.8, Neut % (Auto) 56.0, Lymph % (Auto) 30.3, Garza % (Auto) 10.1 H, Eos % (Auto) 1.9, Baso % (Auto) 0.9, Neut # (Auto) 4.3, Lymph # (Auto) 2.3, Garza # (Auto) 0.8, Eos # (Auto) 0.2, Baso # (Auto) 0.1, Sodium 142, Potassium 3.8, Chloride 108 H, Carbon Dioxide 23, Anion Gap 14.8, B UN 22 H, Creatinine 0.80, Estimated Creat Clear 162, Estimated GFR 78, Est GFR ( Amer) 95, Glucose 77, Calcium 8.5, Total Bilirubin 0.5, AST 29, ALT 24, Alkaline Phosphatase 81, Troponin I < 0.01, NT-Pro-B Natriuret Pep 82.1, Total Protein 6.8, Albumin 3.9, Globulin 2.9, Albumin/Globulin Ratio 1.3 02/15/25 00:54: Troponin I < 0.01 02/14/25 21:48 02/14/25 21:48 Orders (Tests/Meds): ED MEDICATIONS Discontinued Medications Generic Name Dose Route Start Last Admin Trade Name Freq PRN Reason Stop Dose Admin Aspirin 325 mg 02/14/25 22:08 02/14/25 22:23 Aspirin 325mg Tablet PO 02/14/25 22:09 325 mg ONCE ONE Administration ORDERS Category Date Time Status CXR 2 view (NOT portable) [XR chest 2V] Stat Exams 02/14/25 22:14 Completed BNP [NT Pro Brain Natriuretic Pep.] Stat Lab 02/14/25 21:48 Completed CBC w/Auto Diff [Complete Blood Count Auto Diff] Stat Lab 02/14/25 21:48 Completed CMP [Comprehensive Metabolic Panel] Stat Lab 02/14/25 21:48 Completed Troponin I Q3H Lab 02/15/25 00:54 Completed Troponin I Stat Lab 02/14/25 21:48 Completed ECG Data Tracing #1: Sinus bradycardia at [address] or T wave changes concerning for ischemia Medical Decision Narrative: Patient is a 44-year-old female with no significant past medical history who presented to the emergency department with chest pain. Patient symptoms started around 5 PM. Patient does not have any other associated symptoms. Has never had this pain before. Patient on arrival was hemodynamically stable with unremarkable vital signs. Patient had an unremarkable cardiac and pulmonary exam exam was otherwise unremarkable. Differential includes but not limited to: ACS/OR, pneumothorax, pleural effusion, arrhythmia, pulmonary embolism. Patient's workup was reviewed and interpreted by myself. Patient's labs were reviewed and interpreted by myself, CBC showed no leukocytosis, hemoglobin was stable. Chemistry panel was unremarkable. Initial troponin less than 0.01. EKG bradycardia [address] or T wave changes concerning for ischemia. Patient was given aspirin in the emergency department. BNP was unremarkable. Chest x-ray was reviewed and interpreted by myself and showed no acute focal consolidation, pneumothorax, pleural effusion or other acute cardiopulmonary process. Patient was PERC negative therefore low concern for pulmonary embolism at this time. Patient was signed out to the oncoming provider pending second troponin. Patient low risk chest pain therefore likely discharge home, if second troponin unremarkable. <Kellie Cervanets MD - Last Filed: 02/15/25 04:21> Vital Signs: 02/14/25 21:39 02/14/25 21:45 02/14/25 22:30 Temperature 98.1 F Temperature Source Oral Pulse Rate 60 68 Pulse Rate [Right Radial] 59 L Respiratory Rate 18 14 15 Blood Pressure 132/69 Blood Pressure [Right Arm] 135/71 Blood Pressure Mean [Right Arm] 92 Blood Pressure Source Blood Pressure Position Blood Pressure Position [Right Arm] Supine 02 Sat by Pulse Oximetry 100 100 100 Oxygen Delivery Method Room Air 02/15/25 00:30 02/15/25 00:57 02/15/25 02:05 Temperature 98.5 F Temperature Source Oral Pulse Rate 60 78 72 Pulse Rate [Right Radial] Respiratory Rate 17 18 Blood Pressure 126/78 Blood Pressure [Right Arm] Blood Pressure Mean [Right Arm] Blood Pressure Source Automatic Cuff Blood Pressure Position Supine Blood Pressure Position [Right Arm] 02 Sat by Pulse Oximetry 98 Oxygen Delivery Method Room Air Lab Data Lab Results 02/14/25 21:48: WBC 7.7, RBC 4.46, Hgb 12.1 L, Hct 37.5, MCV 84.1, MCH 27.1, MCHC 32.3, RDW 13.4, Plt Count 309, MPV 9.8, Neut % (Auto) 56.0, Lymph % (Auto) 30.3, Garza % (Auto) 10.1 H, Eos % (Auto) 1.9, Baso % (Auto) 0.9, Neut # (Auto) 4.3, Lymph # (Auto) 2.3, Garza # (Auto) 0.8, Eos # (Auto) 0.2, Baso # (Auto) 0.1, Sodium 142, Potassium 3.8, Chloride 108 H, Carbon Dioxide 23, Anion Gap 14.8, B UN 22 H, Creatinine 0.80, Estimated Creat Clear 162, Estimated GFR 78, Est GFR ( Amer) 95, Glucose 77, Calcium 8.5, Total Bilirubin 0.5, AST 29, ALT 24, Alkaline Phosphatase 81, Troponin I < 0.01, NT-Pro-B Natriuret Pep 82.1, Total Protein 6.8, Albumin 3.9, Globulin 2.9, Albumin/Globulin Ratio 1.3 02/15/25 00:54: Troponin I < 0.01 Orders (Tests/Meds): ED MEDICATIONS Discontinued Medications Generic Name Dose Route Start Last Admin Trade Name Freq PRN Reason Stop Dose Admin Aspirin 325 mg 02/14/25 22:08 02/14/25 22:23 Aspirin 325mg Tablet PO 02/14/25 22:09 325 mg ONCE ONE Administration ORDERS Category Date Time Status CXR 2 view (NOT portable) [XR chest 2V] Stat Exams 02/14/25 22:14 Completed BNP [NT Pro Brain Natriuretic Pep.] Stat Lab 02/14/25 21:48 Completed CBC w/Auto Diff [Complete Blood Count Auto Diff] Stat Lab 02/14/25 21:48 Completed CMP [Comprehensive Metabolic Panel] Stat Lab 02/14/25 21:48 Completed Troponin I Q3H Lab 02/15/25 00:54 Completed Troponin I Stat Lab 02/14/25 21:48 Completed Medical Decision Narrative: Patient is a 44-year-old female with no significant past medical history who presented to the emergency department with chest pain. Patient symptoms started around 5 PM. Patient does not have any other associated symptoms. Has never had this pain before. Patient on arrival was hemodynamically stable with unremarkable vital signs. Patient had an unremarkable cardiac and pulmonary exam exam was otherwise unremarkable. Differential includes but not limited to: ACS/OR, pneumothorax, pleural effusion, arrhythmia, pulmonary embolism. Patient's workup was reviewed and interpreted by myself. Patient's labs were reviewed and interpreted by myself, CBC showed no leukocytosis, hemoglobin was stable. Chemistry panel was unremarkable. Initial troponin less than 0.01. EKG bradycardia [address] or T wave changes concerning for ischemia. Patient was given aspirin in the emergency department. BNP was unremarkable. Chest x-ray was reviewed and interpreted by myself and showed no acute focal consolidation, pneumothorax, pleural effusion or other acute cardiopulmonary process. Patient was PERC negative therefore low concern for pulmonary embolism at this time. Patient was signed out to the oncoming provider pending second troponin. Patient low risk chest pain therefore likely discharge home, if second troponin unremarkable. Cervantes: Upon my assumption of care patient is stable, she is not having any chest pain at this time. I agree with the assessment and plan from Dr. Clement. Second troponin was pending. Patient's repeat troponin was also undetectably low less than 0.01. She remains free of chest pain, resting comfortably. Vitals remained stable. I believe she is appropriate for discharge at this time. She would like cardiology follow-up which I believe is reasonable. She was placed in the new ER cardiology appointment book and given an appointment reminder card for follow-up Sunday morning at 9 AM. She was also given instructions for continued symptomatic monitoring and management, follow-up, and strict return precautions for the ER. She indicated understanding and the patient was discharged in stable condition. Critical Care <Danna Clement, DO - Last Filed: 02/15/25 01:18> Critical Care Time Critical Care Time: No
--- NOTE | 2025-02-14 22:14 | XR_ITS ---
PROCEDURE INFORMATION: Exam: XR Chest Exam date and time: 02/14/2025 10:31 PM Age: 44 years old Clinical indication: Other: Chest tightness TECHNIQUE: Imaging protocol: Radiologic exam of the chest. Views: 2 views. COMPARISON: CT ABDOMEN PELVIS WO CON 02/21/2024 11:41 AM FINDINGS: Lungs: Unremarkable. No consolidation. Pleural spaces: Unremarkable. No pleural effusion. No pneumothorax. Heart/Mediastinum: Unremarkable. No cardiomegaly. Bones/joints: Unremarkable. IMPRESSION: No acute findings.
[2025-02-14 22:17] LABS: Hematocrit 37.5 % (37.0-47.0); Hemoglobin 12.1 g/dL (12.2-16.2); Immature Granulocytes % 0.8 %; Mean Corpuscular HGB Conc 32.3 g/dL (31.8-35.4); Mean Corpuscular Hemoglobin 27.1 pg (27.0-31.2); Mean Corpuscular Volume 84.1 fl (81-99); Nucleated Red Blood Cells % 0 %; Platelet Count 309 K/mm3 (142-424); Red Blood Count 4.46 M/mm3 (4.20-5.40); Red Cell Distribution Width-SD 41.3 fL; White Blood Count 7.7 K/mm3 (4.8-10.8)
[2025-02-14 22:20] LABS: Alanine Aminotransferase 24 U/L (12-78); Albumin Level 3.9 g/dl (3.5-5.0); Albumin/Globulin Ratio 1.3 (1.1-1.8); Alkaline Phosphatase 81 U/L (38-126); Anion Gap 14.8 mEq/L (5-15); Aspartate Amino Transferase 29 U/L (14-36); Bilirubin,Total 0.5 mg/dl (0.2-1.3); Blood Urea Nitrogen 22 mg/dl (7-17); Calcium 8.5 mg/dl (8.4-10.2); Carbon Dioxide 23 mmol/L (22.0-30.0); Chloride 108 mmol/L (98-107); Creatinine Clearance Estimated 162 mL/min (50-200); Creatinine,Serum 0.80 mg/dl (0.52-1.04); Estimated Glomerular Filt Rate 78 ml/min (>60); GFR (African American) 95 ML/MIN (>60); Globulin 2.9 g/dL (1.3-3.2); Glucose 77 mg/dl (74-100); Potassium 3.8 mmoL/L (3.5-5.1); Sodium 142 mmol/L (136-145); Total Protein,Serum 6.8 g/dl (6.3-8.2)
[2025-02-14] MEDS: ASPIRIN 325MG TABLET 325 MG PO (22:23)
[2025-02-14 22:30] VITALS: PULSE 68; RESP 15; O2SAT 100
[2025-02-14 22:32] LABS: NT Pro Brain Natriuretic Pep. 82.1 pg/mL (0-125)
[2025-02-14 22:37] LABS: Troponin I < 0.01 ng/ml (0.00-0.034)
[2025-02-15 00:30] VITALS: PULSE 60; RESP 17; O2SAT 98
[2025-02-15 00:57] VITALS: PULSE 78
[2025-02-15 01:26] LABS: Troponin I < 0.01 ng/ml (0.00-0.034)
[2025-02-15 02:05] VITALS: BP 126/78; PULSE 72; RESP 18; TEMP 36.9; O2SAT 98
== END 2025-02-15 02:14 | disposition home or self-care (01) ==
PROVIDERS: Emergency Provider Student in an Organized Health Care Education/Training Program; PCP Nurse Practitioner Family
DX: R07.9 Chest pain, unspecified (principal); R00.1 Bradycardia, unspecified
CPT/HCPCS: 71046; 80053; 83880; 84484; 85025; 93005; 99284

== ENCOUNTER 2025-02-16 09:25 | Outpatient (CLI) | payer MEDICAID, SELFPAY ==
--- OUTSIDE RECORDS SUMMARY | 2025-02-16 09:31 | XMS_ITS | Clinical Summary ---
Author Organization [facility] Address [address] [place] [address] Care Team Providers Care Craft Manager Name Role Phone Bjorn Salazar MD Primary Care Provider +1- [phone] Allergies Active Allergy Reactions Criticality Noted Date [...] time each day. 06/01/2022 Active nystatin (Mycostatin) [id number] UNIT/ML suspension TAKE 5 ML BY MOUTH [...] 3 - 19+ 3-dose series) 06/21/2022 05/24/2022 [id number] Vaccine (1 - 2023- season) 2024 UKY-Influenza [...] this topic Medical Devices Implanted Type Area Runway Model Device Identifier Shelf Expiration Date Model / [...] ORDERABLES Rubi l Result Performing Organization Address City/[facility] Co de Phone Number [facility] [address] [place] [address] * Hepatitis C antibody (03/09/2021 11:00 AM EDT) Hepatitis C Antibody Negative Negative 03/09/2021 12:56 PM EDT HEALTH[facility]ARE [facility] Blood Venous blood specimen / Unknown 03/09/2021 11:00 AM EDT 03/09/2021 11:35 AM EDT Marciano Reilly MD LAB BLOOD ORDERABLES Rubi l Result Performing Organization Address [facility] Co de Phone Number HEALTHCARE [facility] [address] [place] [address] from Last 3 Months or Most Recently Relevant to Health Maintenance Insurance [facility] MEDICAID Advance Directives * Full Code (Latest Code Status on File) Date Activated Date Inactivated Comments 03/09/2021 11:13 AM 03/10/2021 4:47 PM Question Answer Comments Patient has decision-making capacity? Yes Care Teams Craft Manager Relationship Specialty Start Date End Date Bjorn Salazar MD [address] [place] [address] PCP - General 03/07/21
--- OUTSIDE RECORDS SUMMARY | 2025-02-16 09:31 | XMS_ITS | Encounter Summary ---
Author Organization Healthcare Address [address] [place] [address] Care Team Providers Care Heavy Line Technician Name Role Phone Bjorn Salazar MD Primary Care Provider [phone]- [phone] Encounter Details Date Type Department Care Team (Late st Contact Info) Description 03/09/2021 Lab Requisition [facility] [address] [place] [address] Marciano Reilly MD Encounter for general adult [...] Result Performing Organization Address City/[facility] Co de Phone Number HEALTHCARE [facility] [address] [place] [address] * Hepatitis B surface antigen (03/09/2021 11:00 AM EDT) Hepatitis B Surf Antigen Negative Negative 03/09/2021 12:56 PM EDT [facility] Blood Venous blood specimen / Unknown 03/09/2021 11:00 AM EDT 03/09/2021 11:35 AM EDT Marciano Reilly MD LAB BLOOD ORDERABLES Rubi l Result Performing Organization Address [facility] Co de Phone Number [facility]ARE [facility] [address] [place] [address] * HIV 1 & 2 Antibody/Antigen Screen (03/09/2021 11:00 AM EDT) HIV 1 & 2 Antibody/Anti gen Screen Nonreactive Nonreactive 03/09/2021 12:56 PM EDT [facility] Blood Venous blood specimen / Unknown 03/09/2021 11:00 AM EDT 03/09/2021 11:35 AM EDT us Marciano Reilly MD LAB BLOOD ORDERABLES Rubi ford Result Performing Organization Address City/State/[facility] Co de Phone Number HEALTHCARE [facility] [address] [place] [address] documented in this encounter Visit Diagnoses Diagnosis Encounter for general adult medical examination without abnormal findings documented in this encounter Care Teams Heavy Line Technician Relationship Specialty Start Date End Date Bjorn Salazar MD [address] [place] [address] PCP - General 03/07/21 documented as of this encounter
[2025-02-16 09:46] LABS: Hematocrit 35.5 % (37.0-47.0); Hemoglobin 11.7 g/dL (12.2-16.2); Immature Granulocytes % 0.2 %; Mean Corpuscular HGB Conc 33.0 g/dL (31.8-35.4); Mean Corpuscular Hemoglobin 27.4 pg (27.0-31.2); Mean Corpuscular Volume 83.1 fl (81-99); Nucleated Red Blood Cells % 0 %; Platelet Count 296 K/mm3 (142-424); Red Blood Count 4.27 M/mm3 (4.20-5.40); Red Cell Distribution Width-SD 40.4 fL; White Blood Count 5.6 K/mm3 (4.8-10.8)
[2025-02-16 10:10] LABS: Alanine Aminotransferase 20 U/L (12-78); Albumin Level 3.5 g/dl (3.5-5.0); Alkaline Phosphatase 69 U/L (38-126); Anion Gap 12.9 mEq/L (5-15); Aspartate Amino Transferase 23 U/L (14-36); Bilirubin,Direct 0.2 mg/dl (0.0-0.4); Bilirubin,Indirect 0.6 mg/dL (0.0-0.9); Bilirubin,Total 0.8 mg/dl (0.2-1.3); Bilirubin,Unconjugated 0.6 mg/dL (0.0-1.1); Blood Urea Nitrogen 17 mg/dl (7-17); Calcium 9.2 mg/dl (8.4-10.2); Carbon Dioxide 20 mmol/L (22.0-30.0); Chloride 109 mmol/L (98-107); Cholesterol 205 mg/dl (140-200); Creatinine,Serum 0.60 mg/dl (0.52-1.04); Estimated Glomerular Filt Rate 109 ml/min (>60); GFR (African American) 132 ML/MIN (>60); Glucose 97 mg/dl (74-100); HDL Cholesterol 60 mg/dl (40-60); Magnesium 1.7 mg/dl (1.6-2.3); Potassium 3.9 mmoL/L (3.5-5.1); Sodium 138 mmol/L (136-145); Total Protein,Serum 6.1 g/dl (6.3-8.2); Triglycerides 57 mg/dl (30-150)
[2025-02-16 10:27] LABS: Free T4 (Free Thyroxine) 1.15 ng/dl (0.78-2.19)
[2025-02-16 10:41] LABS: Thyroid Stimulating Hormone 1.27 uIU/mL (0.465-4.68)
== END 2025-02-16 23:59 | disposition home or self-care (01) ==
LOC: LAB 09:26
PROVIDERS: PCP Nurse Practitioner Family; Visit Provider Nurse Practitioner
DX: R53.83 Other fatigue (principal)
CPT/HCPCS: 36415; 80048; 80061; 80076; 83735; 84439; 84443; 85025

== ENCOUNTER 2025-03-05 07:13 | Outpatient (CLI) | payer MEDICAID, SELFPAY ==
--- OUTSIDE RECORDS SUMMARY | 2025-02-24 09:29 | XMS_ITS | Encounter Summary ---
Author Organization [employer] ([place], [place], [place], [place]) Address [address] [place] [address] Care Team Providers Care Mold Maker Apprentice Name Role Phone Unavailable Primary Care Provider Unavailabl e Reason for Referral * Diagnostic X-Ray (Routine) - Closed Specialty Diagnoses / Procedures Referred By Contac t Referred To Contact Radiology Diagnoses Bilateral knee pain Procedures X-ray knee bilateral PA and lateral Tye Goode PA-C [address] [place] [address] Phone: tel: fax: [facility] - [address] [place] [address] Phone: tel: fax: Referral ID Status Reason Start Date Expiration Date Visits Re quested Visits Authorized [id number] Closed 02/24/2025 02/24/2026 1 1 Reason for Visit * Diagnostic X-Ray (Routine) - Closed Specialty Diagnoses / Procedures Referred By Contac t Referred To Contact Radiology Diagnoses Bilateral knee pain Procedures X-ray knee bilateral PA and lateral Tye Goode PA-C [address] [place] [address] Phone: tel: fax: [facility] - [facility] [address] [facility] [address] [place] [address] Phone: tel: fax: Referral ID Status Reason Start Date Expiration Date Visits Re quested Visits Authorized [id number] Closed 02/24/2025 02/24/2026 1 1 Encounter Details Date Type Department Care Team (Late st Contact Info) Description 02/24/2025 9:29 AM EDT - 02/24/2025 11:59 PM EDT Hospital Encounter [facility] - [address] [place] [address] Tye Goode PA-C [address] [place] [address] Bilateral knee pain Discharge Disposition: Home or Self Care Social History Tobacco Use Types Packs/Day Years Used Date Smoking Tobacco: Never Smokeless Tobacco: Never Alcohol Use Standard Drinks/Week Comments Never 0 (1 standard drink = 0.6 oz pur e alcohol) Comments Unknown Sex and Gender Information Value Date Recorded Sex Assigned at Not on file Legal Sex Female 1:43 PM CDT Gender Identity Not on file Sexual Orientation Not on file documented as of this encounter Medications at Time of Discharge albuterol (Ventolin HFA) 90 mcg/actuation inhaler Inhale 2 puffs every 4 hours by inhalation route. cariprazine (Vraylar) 1.5 mg capsule Take 1 capsule (1.5 mg total) by mouth daily. cholecalciferol, vitamin D3, 50 mcg (2,000 unit) cap TAKE 1 CAPSULE BY MOUTH ONCE DAILY DIRECTED diclofenac sodium (VOLTAREN) 75 MG EC tablet Take 1 tablet (75 mg total) by mouth 2 (two) times daily as needed. diclofenac sodium 1 % gel APPLY 2 GRAMS TO THE AFFECTED AREA(S) BY TOPICAL ROUTE 4 TIMES PER DAY docusate sodium (COLACE) 100 MG capsule Take 1 capsule every day by oral route as needed, for constipation. DULoxetine (CYMBALTA) 60 MG capsule Take 1 capsule (60 mg total) by mouth daily. 02/20/2025 ergocalciferol (DRISDOL) 1,250 mcg (50,000 unit) capsule Take 1 capsule (50,000 Units total) by mouth once a week. 02/20/2025 fluticasone propionate (FLONASE) 50 mcg/actuation nasal spray Administer 1 spray into each nostril daily. furosemide (LASIX) 20 MG tablet Take 1 tablet every day by oral route. gabapentin (NEURONTIN) 600 MG tablet Take 1 tablet (600 mg total) by mouth 3 (three) times daily. Max Daily Amount: 1,800 mg omega-3 fatty acids (LOVAZA) 1 gram capsule TAKE 1 CAPSULE BY MOUTH TWICE A DAY INCREASE 1,000MG WEEKLY TOLERATED omeprazole (PriLOSEC) 20 MG capsule Take 1 capsule every day by oral route. 02/20/2025 topiramate (TOPAMAX) 50 MG tablet Take 1 tablet (50 mg total) by mouth 2 (two) times daily. 02/20/2025 documented as of this encounter Plan of Treatment Upcoming Encounters Date Type Department Care Team (Late st Contact Info) Description 03/17/2025 9:00 AM EDT Office Visit [facility] - [address] [place] [id number] Tye Goode PA-C [address] [place], [place] [phone] documented as of this encounter Procedures Procedure Name Priority Date/Time Associated Diagnosis Comments XR KNEE BILATERAL PA AND LATERAL Routine 02/24/2025 9:44 AM EDT Bilateral knee pain documented in this encounter Results * X-ray knee bilateral PA and lateral (02/24/2025 9:44 AM EDT) Anatomical Region Laterality Modality Thigh, Knee, Leg X-Ray 02/25/2025 3:48 PM EDT Impressions 02/25/2025 3:52 PM EDT Degenerative changes with no acute bony abnormality. LEFT KNEE HISTORY: Chronic left knee pain and limited range of motion. COMPARISON: None. FINDINGS: A two view exam demonstrates no acute fracture or dislocation. The joint spaces demonstrate severe 3 compartment degenerative change. Prior ACL repair is noted. No soft tissue abnormality is seen. IMPRESSION: Degenerative changes with no acute bony abnormality. Images reviewed, interpreted, and dictated by Dr. Peace Bobo. Transcribed by Kaela Elizalde Narrative 02/25/2025 3:52 PM EDT RIGHT KNEE HISTORY: Chronic right knee pain and limited range of motion. COMPARISON: None. FINDINGS: A two view exam demonstrates no acute fracture or dislocation. The joint spaces demonstrate severe 3 compartment degenerative change. No soft tissue abnormality is seen. Procedure Note Lisa Bobo MD - 02/25/2025 RIGHT KNEE HISTORY: Chronic right knee pain and limited range of motion. COMPARISON: None. FINDINGS: A two view exam demonstrates no acute fracture or dislocation. The joint spaces demonstrate severe 3 compartment degenerative change. No soft tissue abnormality is seen. IMPRESSION: Degenerative changes with no acute bony abnormality. LEFT KNEE HISTORY: Chronic left knee pain and limited range of motion. COMPARISON: None. FINDINGS: A two view exam demonstrates no acute fracture or dislocation. The joint spaces demonstrate severe 3 compartment degenerative change. Prior ACL repair is noted. No soft tissue abnormality is seen. IMPRESSION: Degenerative changes with no acute bony abnormality. Images reviewed, interpreted, and dictated by Dr. Peace Bobo. Transcribed by Kaela Elizalde Tye Goode PA-C [facility] Final Result documented in this encounter Visit Diagnoses Diagnosis Bilateral knee pain Pain in joint, lower leg documented in this encounter
--- OUTSIDE RECORDS SUMMARY | 2025-02-24 09:45 | XMS_ITS | Encounter Summary ---
Author Organization [employer] ([place], [place], [place], [place]) Address [address] [place] [address] Care Team Providers Care Manufacturing Development Engineer Name Role Phone Unavailable Primary Care Provider Unavailabl e Reason for Referral * Diagnostic X-Ray (Routine) - Closed Specialty Diagnoses / Procedures Referred By Yamilet t Referred To Contact Radiology Diagnoses Bilateral knee pain Procedures X-ray knee bilateral PA and lateral Tye Goode PA-C [address] [place] [address] Phone: tel: fax: [facility] Imaging - [address] [place] [address] Phone: tel: fax: Referral ID Status Reason Start Date Expiration Date Visits Re quested Visits Authorized [id number] Closed 02/24/2025 02/24/2026 1 1 Reason for Visit * Reason Comments New Patient: Bilateral knee pain Encounter Details Date Type Department Care Team (Late st Contact Info) Description 02/24/2025 9:45 AM EDT Office Visit [facility] - [facility] [address] [place] [address] Tye Goode PA-C [address] [place] [address] Bilateral knee pain (Primary Dx); Bilateral primary osteoarthritis of knee; History of repair of ACL, left; Neuritis of left lower extremity; Neuritis of right lower extremity Social History Tobacco Use Types Packs/Day Years [...] on file documented as of this encounter Last Filed Vital Signs Vital Sign Reading Time Taken Comments Blood Pressure 128/77 02/24/2025 10:34 AM EDT Pulse 78 02/24/2025 10:34 AM EDT Temperature - - Respiratory Rate - - Oxygen Saturation - - Inhaled Oxygen Concentration - - Weight 133.8 kg (295 lb) 02/24/2025 10:34 AM EDT Height 175.3 cm (5' 9 ) 02/24/2025 10:34 AM EDT Body Mass Index 43.56 02/24/2025 10:34 AM EDT documented in this encounter Progress Notes * Tye Goode PA-C - 02/24/2025 9:45 AM EDT Images from the original note were not included. NAME: Cris Galdamez CSN: [id number] : 1980 PCP: No primary care provider on file. REASON FOR VISIT New Patient: Bilateral knee pain HPI Cris Galdamez is a 44 y.o. female HPI New Patient Bilateral knee Onset: 2 months Mechanism of injury: Denies Location of pain: medial, lateral, anterior Quality of pain: aching and sharp/stabbing Mechanical Symptoms: Denies Radiation of pain: down into the lower extremity Severity of pain: 5/10 Worse with: any weight bearing, going up and down stairs, rising after sitting, standing, and walking Better with: Denies Oral treatments tried: acetaminophen and Ibuprofen Topical treatments tried: all creams Previous injections: around 3 months ago at [facility] How long did the most recent injection last: 1 months Previous trauma or knee surgery: left knee scope CURRENT MEDICATIONS Current Outpatient Medications Medication Instructions albuterol (Ventolin HFA) 90 mcg/actuation inhaler Inhale 2 puffs every 4 hours by inhalation route. cariprazine (Vraylar) 1.5 mg capsule 1 capsule, oral, Daily cholecalciferol, vitamin D3, 50 mcg (2,000 unit) cap TAKE 1 CAPSULE BY MOUTH ONCE DAILY DIRECTED diclofenac sodium (VOLTAREN) 75 MG EC tablet 1 tablet, oral, 2 times daily PRN diclofenac sodium 1 % gel APPLY 2 GRAMS TO THE AFFECTED AREA(S) BY TOPICAL ROUTE 4 TIMES PER DAY docusate sodium (COLACE) 100 MG capsule Take 1 capsule every day by oral route as needed, for constipation. DULoxetine (CYMBALTA) 60 MG capsule 1 capsule, Daily ergocalciferol (DRISDOL) 1,250 mcg (50,000 unit) capsule 1 capsule, Weekly fluticasone propionate (FLONASE) 50 mcg/actuation nasal spray 1 spray, each nostril, Daily furosemide (LASIX) 20 MG tablet Take 1 tablet every day by oral route. gabapentin (NEURONTIN) 600 MG tablet 1 tablet, oral, 3 times daily omega-3 fatty acids (LOVAZA) 1 gram capsule TAKE 1 CAPSULE BY MOUTH TWICE A DAY INCREASE 1,000MG WEEKLY TOLERATED omeprazole (PriLOSEC) 20 MG capsule Take 1 capsule every day by oral route. topiramate (TOPAMAX) 50 MG tablet 1 tablet, 2 times daily ALLERGIES Allergies Allergen Reactions Latex Penicillin Rash PAST MEDICAL/SURGICAL HISTORY Past Medical History: Diagnosis Date Arthritis Bipolar 1 disorder (HCC) GERD (gastroesophageal reflux disease) Migraines Neuropathy Past Surgical History: Procedure Laterality Date ABLATION,ENDOMETRIAL cessections gastric sleeve KNEE ARTHROSCOPY SOCIAL HISTORY Social History Substance and Sexual Activity Alcohol Use Never Social History Substance and Sexual Activity Drug Use Never Tobacco Use History and Evaluation: Cris Galdamez is a 44 y.o. female who is being counseled for smoking/tobacco cessation. Social History Tobacco Use Smoking Status Never Smokeless Tobacco Never FAMILY HISTORY Family History Family history unknown: Yes REVIEW OF SYSTEMS ROS Systemic: Not feeling tired. No fever and no chills. Head: No headache and no sinus pain. Otolaryngeal: No new hearing loss and no nasal passage blockage (stuffiness) within the last 24 hours. Cardiovascular: No chest pain or discomfort and no palpitations. Pulmonary: No dyspnea, wheezing or new cough within the last 24 hours. Gastrointestinal: No heartburn. No nausea. Genitourinary: No urinary loss of control. Endocrine: No temperature intolerance and no new muscle weakness. Musculoskeletal: Musculoskeletal symptoms See HPI. Neurological: No tremor. Psychological: No new anxiety and no recent insomnia. Skin: No localized skin discoloration and no rash. OBJECTIVE Vitals: 02/24/25 1034 BP: 128/77 Pulse: 78 Weight: 133.8 kg (295 lb) Height: 1.753 m (5' 9 ) Body mass index is 43.56 kg/m??. BMI Plan: High BMI-Exercise counseling provided Ortho Exam Constitutional: She appears well-developed and well-nourished. Head: Normocephalic and atraumatic. Eyes: No scleral icterus. Neck: No edema and normal range of motion present. Pulmonary/Chest: Effort normal. No accessory muscle usage. No respiratory distress. Neurological: She is alert and cooperative Skin: Skin is warm and dry. No rash noted. Psychiatric: She has a normal mood and affect. Her behavior is normal. Clinical phlebotomy lab assistant note and vitals reviewed Right knee Inspection: Normal muscular bulk, no asymmetry, no bony deformity, no overt effusion, no skin redness or rash. Palpation: point tenderness - Patella: tender - Quadriceps Tendon: Nontender - Patellar Tendon: tender - Tibial Tubercle: Nontender - Joint Line: Nontender - Pes Anserine bursa: tender - Adductor Tubercle: tender - Sartorius/Gracilis: tender - Posterior Knee: Nontender Range of motion: - Passive Knee: Extension 0 degrees - Passive Knee Flexion: 90 degrees - Active Knee Extension (L1-L3): 0 degrees - Active Knee Flexion (L4-S3): 90 degrees - Dorsiflexion (L4-Peroneal n): 5/5 - Plantarflexion (S1-Tibial n): 5/5 Sensation: - Genicular n sensation: Hyperesthesia - (L4-femoral n/saphenous n) Medial leg sensation: Hyperesthesia - (L5-peroneal n) Lateral leg sensation: Hyperesthesia - (S1-tibial nerve n) Proximal posterolateral leg sensation: normal - (Sural n) Distal posterolateral leg sensation: normal Standing: - Gait: Antalgic Sitting: - Crepitus + Supine: - Collaterals - good endpoints with valgus and varus stresses - Menisci: Bounce + / Lou - - Cruciate's: Luciano - / Drawer - - Patello-femoral: Matthew - Left knee Inspection: Normal muscular bulk, no asymmetry, no bony deformity, no overt effusion, no skin redness or rash. Palpation: point tenderness - Patella: Nontender - Quadriceps Tendon: Nontender - Patellar Tendon: Nontender - Tibial Tubercle: Nontender - Joint Line: Nontender - Pes Anserine bursa: tender - Adductor Tubercle: Nontender - Sartorius/Gracilis: tender - Posterior Knee: Nontender Range of motion: - Passive Knee: Extension 0 degrees - Passive Knee Flexion: 90 degrees - Active Knee Extension (L1-L3): 0 degrees - Active Knee Flexion (L4-S3): 90 degrees - Dorsiflexion (L4-Peroneal n): 5/5 - Plantarflexion (S1-Tibial n): 5/5 Sensation: - Genicular n sensation: Hyperesthesia - (L4-femoral n/saphenous n) Medial leg sensation: Hyperesthesia - (L5-peroneal n) Lateral leg sensation: Hyperesthesia - (S1-tibial nerve n) Proximal posterolateral leg sensation: normal - (Sural n) Distal posterolateral leg sensation: normal Standing: - Gait: Antalgic Sitting: - Crepitus + Supine: - Collaterals - good endpoints with valgus and varus stresses - Menisci: Bounce - / Lou - - Cruciate's: Luciano - / Drawer - - Patello-femoral: Matthew - IMAGING/OUTSIDE REPORTS 02/24/2025 XR Bilateral Knee 2 views Findings: Postsurgical changes to the left knee from previous ACL repair. Bilateral medial joint compartment narrowing, more prominent on the right knee with osteophyte formation at the medial femur and tibial plateau. Lateral joint compartment narrowing with osteophytes lateral tibial plateau and lateral femur. Bilateral patellofemoral joint compartment narrowing. No fracture or dislocation is identified. There is no soft tissue swelling or joint effusion. Impression: Kellgren-Shawn Grade 4 osteoarthritis, bilateral knee Personally read, reviewed and interpreted Tye Goode PA-C INTERVAL HISTORY Previous injections at [facility] 2 to 3 months ago ASSESSMENT Diagnoses and all orders for this visit: Bilateral knee pain - X-ray knee bilateral PA and lateral; Future DISCUSSION I discussed with patient in depth the options for treatment of osteoarthritis of the knee. Treatment options that include gentle, low-impact exercise, weight loss, physical therapy to promote quadriceps strengthening, the use of NSAIDs, intra-articular steroid injections, viscosupplementation, and genicular nerve blocks were all discussed. I also discussed that if all conservative measures fail to provide satisfactory relief of symptoms, we can discuss surgical options to include arthroplasty of the knee. Saphenous neuralgia is an under appreciated cause of anterior and medial knee pain. Irritation or entrapment of the saphenous nerve may mimic common conditions such as patellofemoral pain syndrome orpresent as a complication of surgical interventions at the knee. Early recognition and treatment ofsaphenous neuralgia is essential to prevent persistent disabling pain, which significantly affects patients quality of life. The saphenous nerve is most commonly entrapped at either the distal aspectof the adductor (Ernie's) canal or at the infrapatellar branch of the saphenous nerve. Based on your particular pain the nerve can be blocked at either or both of these sites. After the never block,the medial and inferior portion of the knee should be numb. You may be asked to perform provocativemaneuvers in an effort to ensure that the nerve block relieves your pain. The numbness should wane after several hours as the anesthetic wears off. Often, by temporarily blocking the nerve with this p rocedure we can reset the nerve which works to decrease knee pain usp. This procedure may need to be repeated to achieve desired long-term relief. If these blocks do not relieve pain more invasive and permanent solutions should be explored. PLAN Rest the extremity Heating pad for 20 minutes 2-3 times a day Discussed topical creams Discussed Bilateral SOG blocks; in basket message sent to November for scheduling Gel injections discussed Surgical treatment discussed if conservative treatment fails Continue oral diclofenac Explanation of plan: Based on patient's history, physical exam, review of radiology exams Cris has severe bilateral knee osteoarthritis, history of left ACL repair when she was 19 and bilateral lower extremity neuritis. She recently had knee injections approximately 2 to 3 months ago at [facility] and reports only 1 month of relief with injections. We discussed other options to include saphenous, obturator, inferomedial genicular nerve block and viscosupplementation and surgery. Patient is not interested in surgical correction at this time. Will submit to her insurance for bilateral knee nerve blocks. Follow-up pending approval with Dr. Machuca. Return to clinic if condition worsens or new symptoms arise Return in about 3 weeks (around 03/17/2025) for (DR. MACHUCA) Bilateral SOG blocks---- PENDING APPROVAL. I, Tye Goode PA-C, personally performed the services described in this documentation, as scribed by Carol Ann Wood CMA , in my presence, and is both accurate and complete. Electronically Signed, Tye Goode PA-C 02/24/2025 8:12 AM Parts of this document/medical record have been dictated via [employer] speech recognition software, which may cause errors in spelling or accurate dictation. Attempts have been madeto proofread and correct all errors. Please contact me with any questions. documented in this encounter Plan of Treatment Upcoming Encounters Date Type Department Care Team (Late st Contact Info) Description 03/17/2025 9:00 AM EDT Office Visit [facility] - [address] [place] [phone] Tye Goode PA-C [address] [place] [address] documented as of this encounter Results * X-ray knee bilateral [...] this encounter Visit Diagnoses Diagnosis Bilateral knee pain- Primary Pain in joint, lower leg Bilateral primary osteoarthritis of knee History of repair of ACL, left Neuritis of left lower extremity Neuritis of right lower extremity Bilateral knee pain Pain in joint, lower leg documented in this encounter
--- NOTE | 2025-03-05 | CA_ITS ---
APPROVED REPORT Exam: Pharmacologic Technologist: Abigail Abrams Ht: 5 ft 9 in Wt: 299 lbs BSA: 2.45 m2 HR: 51 bpm BP: 131/82 mmHg Medical History Medications: Albuterol, Vraylar, Diclofenac sodium, Gabapentin, Tamsulosin, Topiramate Allergies: Penicillins Stress Test Details Test: Lexiscan HR Resting HR: 51 bpm Max Heart Rate (APMHR): 177 bpm Target HR (85% APMHR): 150 bpm Recovery HR: 71 bpm BP Resting BP: 131.0/82.0 mmHg Max BP: 136.0/6.0 mmHg Recovery BP: 125.0/82.0 mmHg ECG Stress ECG Conclusion Pt had chest pain and dizziness EKG nondiagnostic - Bernadette Electronically signed by : Kalli Watkins MD 03/05/2025 12:27:31
--- OUTSIDE RECORDS SUMMARY | 2025-03-05 07:16 | XMS_ITS | Clinical Summary ---
Author Organization [facility] Address [address] [place] [address] Care Team Providers Care Air Sealing Technician Name Role Phone Bjorn Salazar MD Primary Care Provider [phone] Allergies Active Allergy Reactions Criticality Noted Date [...] time each day. 06/01/2022 Active nystatin (Mycostatin) 614147 UNIT/ML suspension TAKE 5 ML BY MOUTH [...] 3 - 19+ 3-dose series) 06/21/2022 05/24/2022 [id number] Vaccine (1 - 2023- season) 2024 UKY-Influenza [...] this topic Medical Devices Implanted Type Area It Service Delivery Manager Device Identifier Shelf Expiration Date Model / [...] ORDERABLES Rubi l Result Performing Organization Address City/[facility] Co de Phone Number [facility] [address] [place] [address] * Hepatitis C antibody (03/09/2021 11:00 AM EDT) Hepatitis C Antibody Negative Negative 03/09/2021 12:56 PM EDT HEALTHCARE LAB Blood Venous blood specimen / Unknown 03/09/2021 11:00 AM EDT 03/09/2021 11:35 AM EDT Marciano Reilly MD LAB BLOOD ORDERABLES Rubi l Result Performing Organization Address [facility] Co de Phone Number [facility] [address] [place] [address] from Last 3 Months or Most Recently Relevant to Health Maintenance Insurance [facility] MEDICAID Advance Directives * Full Code (Latest Code Status on File) Date Activated Date Inactivated Comments 03/09/2021 11:13 AM 03/10/2021 4:47 PM Question Answer Comments Patient has decision-making capacity? Yes Care Teams Air Sealing Technician Relationship Specialty Start Date End Date Bjorn Salazar MD [address] [place] [address] PCP - General 03/07/21
--- OUTSIDE RECORDS SUMMARY | 2025-03-05 07:16 | XMS_ITS | Clinical Summary ---
Author Organization [employer] ([place], [place], [place], [place]) Address [address] [place] [address] Care Team Providers Care Engraving Patternmaker Name Role Phone Unavailable Primary Care Provider Unavailabl e Allergies Active Allergy Reactions Criticality Noted Date Comments Latex 02/24/2025 Penicillin Rash Low 02/24/2025 Medications omeprazole (PriLOSEC) 20 MG capsule Take 1 capsule every day by oral route. 5 Active diclofenac sodium 1 % gel APPLY 2 GRAMS TO THE AFFECTED AREA(S) BY TOPICAL ROUTE 4 TIMES PER DAY Active topiramate (TOPAMAX) 50 MG tablet Take 1 tablet (50 mg total) by mouth 2 (two) times daily. 5 Active omega-3 fatty acids (LOVAZA) 1 gram capsule TAKE 1 CAPSULE BY MOUTH TWICE A DAY INCREASE 1,000MG WEEKLY TOLERATED Active furosemide (LASIX) 20 MG tablet Take 1 tablet every day by oral route. Active fluticasone propionate (FLONASE) 50 mcg/actuation nasal spray Administer 1 spray into each nostril daily. Active ergocalciferol (DRISDOL) 1,250 mcg (50,000 unit) capsule Take 1 capsule (50,000 Units total) by mouth once a week. 5 Active DULoxetine (CYMBALTA) 60 MG capsule Take 1 capsule (60 mg total) by mouth daily. 5 Active docusate sodium (COLACE) 100 MG capsule Take 1 capsule every day by oral route as needed, for constipation. Active diclofenac sodium (VOLTAREN) 75 MG EC tablet Take 1 tablet (75 mg total) by mouth 2 (two) times daily as needed. Active cholecalciferol , vitamin D3, 50 mcg (2,000 unit) cap TAKE 1 CAPSULE BY MOUTH ONCE DAILY DIRECTED Active cariprazine (Vraylar) 1.5 mg capsule Take 1 capsule (1.5 mg total) by mouth daily. Active albuterol (Ventolin HFA) 90 mcg/actuation inhaler Inhale 2 puffs every 4 hours by inhalation route. Active gabapentin (NEURONTIN) 600 MG tablet Take 1 tablet (600 mg total) by mouth 3 (three) times daily. Max Daily Amount: 1,800 mg Active Active Problems No known active problems Encounters Date Type Department Care Team Description 02/24/2025 9:45 AM EDT Office Visit [facility] Orthopedics - [facility] [address] [place] [address] Tye Goode PA-C Bilateral knee pain (Primary Dx); Bilateral primary osteoarthritis of knee; History of repair of ACL, left; Neuritis of left lower extremity; Neuritis of right lower extremity 02/24/2025 9:29 AM EDT - 02/24/2025 11:59 PM EDT Hospital Encounter [facility] Diagnostic Imaging - [facility] [address] [facility] [address] [place] [address] Tye Goode PA-C Bilateral knee pain Discharge Disposition: Home or Self Care from Last 3 Months Social History Tobacco Use Types Packs/Day Years [...] Mass Index 43.56 02/24/2025 10:34 AM EDT Plan of Treatment Upcoming Encounters Date Type Department Care Team (Late st Contact Info) Description 03/17/2025 9:00 AM EDT Office Visit [facility] Orthopedics - [address] [place] [address] Tye Goode PA-C [address] [place] [address] Health Maintenance Due Date Last Done Comments Depression Screening (12+) 1993 HIV Screening 1996 Hepatitis C Screening 1999 Lipid Panel 2001 Pap Smear 2002 Breast Cancer Screening 2021 COVID-19 VACCINE ( - 2023-2 5 season) 2024 Influenza Vaccine (#1) 2025 05/23/2012 Tobacco Cessation Counseling and Screening (12+) 02/24/2026 02/24/2025 DTAP/TDAP/TD VACCINES (3 - T d or Tdap) 12/11/2029 12/12/2019, 07/23/2012 Pneumococcal Vaccine: 0-49 Years Aged Out 05/23/2024, 05/23/2012 No longer eligible based on patient's age to complete this topic Procedures Procedure Name Priority Date/Time Associated Diagnosis Comments XR KNEE BILATERAL PA AND LATERAL Routine 02/24/2025 9:44 AM EDT Bilateral knee pain from Last 3 Months Results * X-ray knee bilateral PA and [...] by Dr. Peace Bobo. Transcribed by Kaela lEizalde Narrative 02/25/2025 3:52 PM EDT RIGHT KNEE [...] Transcribed by Kaela Elizalde Tye Goode PA-C IMG DIAGNOSTIC IMAGING ORDERA BLES Final Result from Last 3 Months Insurance [facility]
--- OUTSIDE RECORDS SUMMARY | 2025-03-05 07:16 | XMS_ITS | Encounter Summary ---
Author Organization Healthcare Address [address] [place] [address] Care Team Providers Care Chemistry Professor Name Role Phone Bjorn Salazar MD Primary Care Provider [phone]- [phone] Encounter Details Date Type Department Care Team (Late st Contact Info) Description 03/09/2021 Lab Requisition [facility] [address] [place] [address] Marciano Reilly MD Encounter for general adult [...] ORDERABLES Rubi l Result Performing Organization Address City/[facility] Co de Phone Number HEALTHCARE LAB [address] [place] [address] * Hepatitis B surface antigen (03/09/2021 11:00 AM EDT) Hepatitis B Surf Antigen Negative Negative 03/09/2021 12:56 PM EDT [facility] Blood Venous blood specimen / Unknown 03/09/2021 11:00 AM EDT 03/09/2021 11:35 AM EDT Marciano Reilly MD LAB BLOOD ORDERABLES Rubi l Result Performing Organization Address [facility] Co de Phone Number HEALTHCARE LAB [address] [place] [address] * HIV 1 & 2 Antibody/Antigen Screen [...] Co de Phone Number HEALTHCARE LAB [address] [place] [address] documented in this encounter Visit Diagnoses Diagnosis Encounter for general adult medical examination without abnormal findings documented in this encounter Care Teams Chemistry Professor Relationship Specialty Start Date End Date Bjorn Salazar MD [address] [place] [address] PCP - General 03/07/21 documented as of this encounter
--- OUTSIDE RECORDS SUMMARY | 2025-03-05 07:16 | XMS_ITS | Referral Summary ---
Author Organization [employer] ([place], [place], [place], [place]) Address [address] [place] [address] Care Team Providers Care Director Prospect Name Role Phone Unavailable Primary Care Provider Unavailabl e Encounters Date Type Department Care Team Description 02/24/2025 9:29 AM EDT - 02/24/2025 11:59 PM EDT Hospital Encounter [facility] Diagnostic Imaging - [facility] [address] [facility] [address] [place] [address] Tye Goode PA-C Bilateral knee pain Discharge Disposition: Home or Self Care 02/24/2025 9:45 AM EDT Office Visit [facility] Orthopedics - [facility] [address] [place] [address] Tye Goode PA-C Bilateral knee pain (Primary Dx); Bilateral primary osteoarthritis of knee; History of repair of ACL, left; Neuritis of left lower extremity; Neuritis of right lower extremity from Last 3 Months Allergies Active Allergy Reactions Criticality Noted Date Comments Latex 02/24/2025 Penicillin Rash Low 02/24/2025 Medications omeprazole (PriLOSEC) 20 MG capsule Take 1 capsule every day by oral route. Active diclofenac sodium 1 % gel APPLY 2 GRAMS TO THE AFFECTED AREA(S) BY TOPICAL ROUTE 4 TIMES PER DAY Active topiramate (TOPAMAX) 50 MG tablet Take 1 tablet (50 mg total) by mouth 2 (two) times daily. Active omega-3 fatty acids (LOVAZA) 1 gram [...] Units total) by mouth once a week. Active DULoxetine (CYMBALTA) 60 MG capsule Take 1 capsule (60 mg total) by mouth daily. Active docusate sodium (COLACE) 100 MG capsule [...] Active Active Problems No known active problems Social History Tobacco Use Types Packs/Day Years [...] Description 03/17/2025 9:00 AM EDT Office Visit [facility] Orthopedics - [address] [place] [id number] Tye Goode PA-C [address] [place] [address] Procedures Procedure Name Priority Date/Time Associated Diagnosis [...] Dr. Peace Bobo. Transcribed by Kaela Elizalde us Tye Goode PA-C IMG DIAGNOSTIC IMAGING ORDERA BLES Final Result from Last 3 Months Insurance [facility]
--- NOTE | 2025-03-05 07:30 | NM_ITS ---
APPROVED REPORT Exam: Nuclear Stress Test Indication: Chest pain, SOB, Family history Patient Location: Outpatient Stress Tech: Abigail Abrams NM Tech:Peggy Ashby, ARRT, RT (R)(N) Ht: 5 ft 9 in Wt: 390 lbs Bra Size: 42DD HR: 54 bpm BP: 131/82 mmHg BSA: 2.74 m2 TID: 1.33 BMI: 57.5 History: Chest pain, SOB, Family history Procedure: Patient received 0.4 mg of intravenous Lexiscan, resting heart rate 54 bpm, resting blood pressure 131/82 mmHg, with Lexiscan maximum heart rate achieved was 88 bpm which is % of the maximum predicted heart rate and blood pressure was 136/86 mmHg. With Lexiscan, patient denied any complaint of chest pain. Cardiac Stress and Resting SPECT Images: Cardiac Stress and Resting SPECT images were obtained using technetium 99m Myoview 29.3 mCi stress and 10.01 mCi at rest. Resting and stress imaging in supine and prone positions demonstrate a large sized, moderate, predominantly fixed perfusion defect in the anterior, anteroapical, and inferoseptal LV greene. There is a small region of reversibility towards the anterior LV wall. There is increase in transient ischemic dilatation ratio (TID 1.33), which may be suggestive of possible multivessel disease or balanced ischemia. Gated imaging demonstrates low-normal global LV systolic function. LVEF is calculated at 51%. Conclusion: Large sized, moderate, predominantly fixed perfusion defect in the anterior, anteroapical, and inferoseptal LV greene. There is a small region of reversibility towards the anterior LV wall. Findings are suggestive of partial reversible ischemia. There is increase in transient ischemic dilatation ratio (TID 1.33), which may be suggestive of possible multivessel disease or balanced ischemia. Gated imaging demonstrates low-normal global LV systolic function. LVEF is calculated at 51%. Electronically signed by : Kalli Watkins MD 03/05/2025 12:17:26
[2025-03-05] MEDS: ISOTOPE MYOVIEW (PER STUDY) 1 DOSE IV (09:34)
[2025-03-05] MEDS: SODIUM CHLORIDE 0.9% 10ML SYR (RAD ONLY) 10 ML IV ×2 (09:34)
== END 2025-03-05 23:59 | disposition home or self-care (01) ==
LOC: RAD 07:14
PROVIDERS: PCP Nurse Practitioner Family; Visit Provider Nurse Practitioner
DX: R94.39 Abnormal result of other cardiovascular function study (principal); R94.31 Abnormal electrocardiogram [ECG] [EKG]; R07.9 Chest pain, unspecified; R53.83 Other fatigue; R06.02 Shortness of breath
CPT/HCPCS: 78452; 93016; 93017; 93018; A9502; J2785

== ENCOUNTER 2025-03-24 07:28 | Day surgery (SDC) | payer MEDICAID, SELFPAY ==
[2025-03-24] VITALS (10 sets, daily range): BP systolic 120–150; BP diastolic 73–84; PULSE 50–57; RESP 14–20; O2SAT 95–99; BMI 44.3
--- NOTE | 2025-03-24 07:02 | IR_ITS ---
APPROVED REPORT Patient Location: Outpatient Cash Applications Associate: jBorn Pan, RT (R) PROCEDURES Left heart catheterization Left ventriculogram Selective coronary angiogram INDICATION Abnormal Myoview, Angina pectoris Informed consent was obtained prior to the procedure. COMPLICATIONS NONE Estimated Blood Loss: LESS THAN 10 ML TECHNIQUE One percent lidocaine used to anesthetize the right anterior aspect of the wrist. The right radial artery was accessed via the Seldinger technique. A 6 Slovenian sheath was placed in the right radial artery. 2.5 mg of Verapamil, 800 mcg of nitroglycerin, 1mg Lidocaine and 5000 U Heparin were given through the arterial sheath. The JL3 catheter was also used to perform left heart catheterization, left ventriculogram and selective coronary angiogram. At the end of the procedure the sheath was removed good hemostasis was achieved using Traclet band, patient was transferred to the postop holding area in stable condition. ANGIOGRAPHIC RESULTS The left main artery Normal The left anterior descending artery Normal The circumflex artery Dominant normal The right coronary artery Normal The ALLEN ventriculogram reveals 65% The left ventricular end-diastolic pressure 30 mmHg IMPRESSION Normal coronary arteries Normal ejection fraction Elevated LVEDP consistent with HFpEF PLAN 1. Treatment of HFpEF Electronically signed by : Marciano Hill MD 03/24/2025 09:55:14
[2025-03-24 08:12] LABS: Hematocrit 39.9 % (37.0-47.0); Hemoglobin 12.5 g/dL (12.2-16.2); Immature Granulocytes % 0.2 %; Mean Corpuscular HGB Conc 31.3 g/dL (31.8-35.4); Mean Corpuscular Hemoglobin 26.4 pg (27.0-31.2); Mean Corpuscular Volume 84.2 fl (81-99); Nucleated Red Blood Cells % 0 %; Platelet Count 277 K/mm3 (142-424); Red Blood Count 4.74 M/mm3 (4.20-5.40); Red Cell Distribution Width-SD 43.8 fL; White Blood Count 6.3 K/mm3 (4.8-10.8)
[2025-03-24 08:30] LABS: Anion Gap 10.7 mEq/L (5-15); Blood Urea Nitrogen 16 mg/dl (7-17); Calcium 8.9 mg/dl (8.4-10.2); Carbon Dioxide 25 mmol/L (22.0-30.0); Chloride 111 mmol/L (98-107); Creatinine Clearance Estimated 152 mL/min (50-200); Creatinine,Serum 0.50 mg/dl (0.52-1.04); Estimated Glomerular Filt Rate 135 ml/min (>60); GFR (African American) 163 ML/MIN (>60); Glucose 89 mg/dl (74-100); Potassium 4.7 mmoL/L (3.5-5.1); Sodium 142 mmol/L (136-145)
[2025-03-24] MEDS: LIDOCAINE 1% 10ML MDV 10 ML IJ (09:29)
[2025-03-24] MEDS: HEPARIN 1,000 UNITS/500ML NS (CATH LAB) 3000 UNIT IV (09:29)
[2025-03-24] MEDS: NITROGLYCERIN 800MCG/8ML SYR (CATH LAB) 800 MCG IA (09:29)
[2025-03-24] MEDS: 0.9 % SODIUM CHLORIDE 500 ML 25 ML IV (09:30)
[2025-03-24] MEDS: HEPARIN 1,000 UNITS/ML 10ML VIAL (CATH LAB) 5000 UNIT IV (09:30)
[2025-03-24] MEDS: VERAPAMIL 2.5MG/ML 2ML VIAL 2.5 MG IV (09:31)
[2025-03-24] MEDS: FENTANYL 100MCG/2ML VIAL 50 MCG IV (09:54)
[2025-03-24] MEDS: MIDAZOLAM HCL 1MG/ML 5ML VIAL 1 MG IV (09:54)
[2025-03-24] MEDS: IOPAMIDOL-370 (76%);100ML BOTTLE 50 ML IV (14:54)
== END 2025-03-24 11:56 | disposition home or self-care (01) ==
PROVIDERS: PCP Nurse Practitioner Family; Visit Provider Internal Medicine
PROC: 4A023N7 Measurement of Cardiac Sampling and Pressure, Left Heart, Percutaneous Approach (ICD-10-PCS; CPT 93452; principal; 2025-03-24 07:30)
DX: R93.1 Abnormal findings on diagnostic imaging of heart and coronary circulation (principal); R07.9 Chest pain, unspecified; E66.9 Obesity, unspecified; Z68.41 Body mass index [BMI] 40.0-44.9, adult; Z98.84 Bariatric surgery status; Z79.51 Long term (current) use of inhaled steroids; Z79.899 Other long term (current) drug therapy; Z88.0 Allergy status to penicillin; Z82.49 Family history of ischemic heart disease and other diseases of the circulatory system
CPT/HCPCS: 80048; 85025; 93458; 99152; C1725; C1760; C1769; J1200; J1644; J2003; J3010; J7040; Q9967

== ENCOUNTER 2025-04-17 09:36 | Outpatient (CLI) | payer MEDICAID, SELFPAY ==
--- OUTSIDE RECORDS SUMMARY | 2025-04-17 09:41 | XMS_ITS | Clinical Summary ---
Author Organization [facility] Address [address] [place] [address] Care Team Providers Care Laboratory Specialist Name Role Phone Bjorn Salazar MD Primary Care Provider +1- [phone] Allergies Active Allergy Reactions Criticality Noted Date [...] time each day. 06/01/2022 Active nystatin (Mycostatin) 346061 UNIT/ML suspension TAKE 5 ML BY MOUTH [...] [facility]-Depression Screening 1981 [facility]-/Child/Adol SDOH Screenings 1981 [id number] Vaccine (#1) 1986 [facility]-Varicella Vaccines (1 of 2 - 13+ 2-dose series) 1994 [facility]- SDOH Screenings 1999 [facility]-Adult SDOH Screenings 1999 [facility]-Pap Smear 2002 HPV Vaccines (1 - 3-dose SCDM series) 2008 [facility]-Cervical Cancer Screening 2011 [facility]-HPV/Cotest 2011 [facility]-Hepatitis B Vaccines (2 of 3 - 19+ 3-dose series) 06/21/2022 05/24/2022 [facility]-Influenza Vaccine (#1) 04/06/202505/12, 05/09/2021, 07/08/2020, Additional [...] this topic Medical Devices Implanted Type Area Cue Worker Device Identifier Shelf Expiration Date Model / [...] ORDERABLES Rubi l Result Performing Organization Address City/[facility] Co de Phone Number HEALTHCARE LAB [address] [place] [address] * Hepatitis C antibody (03/09/2021 11:00 AM EDT) Hepatitis C Antibody Negative Negative 03/09/2021 12:56 PM EDT [facility]ALTH[facility]ARE [facility] Blood Venous blood specimen / Unknown 03/09/2021 11:00 AM EDT 03/09/2021 11:35 AM EDT Marciano Reilly MD LAB BLOOD ORDERABLES Rubi l Result Performing Organization Address City/[facility] Co de Phone Number HEALTHCARE LAB [address] [place] [address] from Last 3 Months or Most Recently Relevant to Health Maintenance Insurance [facility] MEDICAID Advance Directives * Full Code (Latest Code Status on File) Date Activated Date Inactivated Comments 03/09/2021 11:13 AM 03/10/2021 4:47 PM Question Answer Comments Patient has decision-making capacity? Yes Care Teams Laboratory Specialist Relationship Specialty Start Date End Date Bjorn Salazar MD [address] [place] [id number] PCP - General 03/07/21
--- OUTSIDE RECORDS SUMMARY | 2025-04-17 09:41 | XMS_ITS | Encounter Summary ---
Author Organization Healthcare Address [address] [place] [address] Care Team Providers Care Corporate Banking Officer Name Role Phone Bjorn Salazar MD Primary Care Provider +1- [phone] Encounter Details Date Type Department Care Team (Late st Contact Info) Description 03/09/2021 Lab Requisition [facility] [address] [place] [address] Marciano Reilly MD Encounter for general adult [...] ORDERABLES Rubi l Result Performing Organization Address City/[facility] Co de Phone Number HEALTHCARE LAB [address] [place] [address] * Hepatitis B surface antigen (03/09/2021 11:00 AM EDT) Hepatitis B Surf Antigen Negative Negative 03/09/2021 12:56 PM EDT [facility] Blood Venous blood specimen / Unknown 03/09/2021 11:00 AM EDT 03/09/2021 11:35 AM EDT Marciano Reilly MD LAB BLOOD ORDERABLES Rubi l Result Performing Organization Address [facility] Co de Phone Number HEALTHCARE LAB [address] [place] [address] * HIV 1 & 2 Antibody/Antigen Screen (03/09/2021 11:00 AM EDT) HIV 1 & 2 Antibody/Anti gen Screen Nonreactive Nonreactive 03/09/2021 12:56 PM EDT HEALTHCARE LAB Blood Venous blood specimen / Unknown 03/09/2021 11:00 AM EDT 03/09/2021 11:35 AM EDT us Marciano Reilly MD LAB BLOOD ORDERABLES Rubi ford Result Performing Organization Address City/State/[facility] Co de Phone Number HEALTHCARE LAB [address] [place] [address] documented in this encounter Visit Diagnoses Diagnosis Encounter for general adult medical examination without abnormal findings documented in this encounter Care Teams Corporate Banking Officer Relationship Specialty Start Date End Date Bjorn Salazar MD [address] [place] [address] PCP - General 03/07/21 documented as of this encounter
[2025-04-17 09:57] LABS: Hematocrit 40.3 % (37.0-47.0); Hemoglobin 12.7 g/dL (12.2-16.2); Immature Granulocytes % 0.5 %; Mean Corpuscular HGB Conc 31.5 g/dL (31.8-35.4); Mean Corpuscular Hemoglobin 27.3 pg (27.0-31.2); Mean Corpuscular Volume 86.7 fl (81-99); Nucleated Red Blood Cells % 0 %; Platelet Count 290 K/mm3 (142-424); Red Blood Count 4.65 M/mm3 (4.20-5.40); Red Cell Distribution Width-SD 47.2 fL; White Blood Count 5.9 K/mm3 (4.8-10.8)
[2025-04-17 10:42] LABS: Free T4 (Free Thyroxine) 1.01 ng/dl (0.78-2.19)
[2025-04-17 11:29] LABS: Alanine Aminotransferase 25 U/L (12-78); Albumin Level 3.7 g/dl (3.5-5.0); Alkaline Phosphatase 67 U/L (38-126); Anion Gap 9.1 mEq/L (5-15); Aspartate Amino Transferase 26 U/L (14-36); Bilirubin,Direct 0.1 mg/dl (0.0-0.4); Bilirubin,Indirect 0.7 mg/dL (0.0-0.9); Bilirubin,Total 0.8 mg/dl (0.2-1.3); Bilirubin,Unconjugated 0.7 mg/dL (0.0-1.1); Blood Urea Nitrogen 17 mg/dl (7-17); Calcium 8.7 mg/dl (8.4-10.2); Carbon Dioxide 24 mmol/L (22.0-30.0); Chloride 109 mmol/L (98-107); Cholesterol 208 mg/dl (140-200); Creatinine,Serum 0.60 mg/dl (0.52-1.04); Estimated Glomerular Filt Rate 109 ml/min (>60); GFR (African American) 132 ML/MIN (>60); Glucose 90 mg/dl (74-100); HDL Cholesterol 51 mg/dl (40-60); Magnesium 1.7 mg/dl (1.6-2.3); Potassium 4.1 mmoL/L (3.5-5.1); Sodium 138 mmol/L (136-145); Total Protein,Serum 6.3 g/dl (6.3-8.2); Triglycerides 59 mg/dl (30-150)
[2025-04-17 12:00] LABS: Thyroid Stimulating Hormone 2.90 uIU/mL (0.465-4.68)
== END 2025-04-17 23:59 | disposition home or self-care (01) ==
LOC: LAB 09:37
PROVIDERS: PCP Nurse Practitioner Family; Visit Provider Nurse Practitioner
DX: I50.30 Unspecified diastolic (congestive) heart failure (principal); R07.89 Other chest pain; R93.1 Abnormal findings on diagnostic imaging of heart and coronary circulation; E78.5 Hyperlipidemia, unspecified
CPT/HCPCS: 36415; 80048; 80061; 80076; 83735; 84439; 84443; 85025

== ENCOUNTER 2025-05-16 01:07 | Emergency (ER) | payer MEDICAID, SELFPAY ==
--- OUTSIDE RECORDS SUMMARY | 2025-03-19 09:15 | XMS_ITS | Encounter Summary ---
Author Organization [employer] ([place], [place], [place], [place]) Address [address] [place] [address] Care Team Providers Care Grape Cutter Name Role Phone Unavailable Primary Care Provider Unavailabl e Reason for Visit * Reason Comments Follow-up Bilateral knee : IR Tye Goode PA-C Encounter Details Date Type Department Care Team (Late st Contact Info) Description 03/19/2025 9:15 AM EDT Office Visit [facility] Orthopedics - [address] [place] [id number] Tyshawn Darnell MD [address] [place] [address] Chronic pain of both knees (Primary Dx); Bilateral primary osteoarthritis of knee; Neuritis of left lower extremity; Neuritis of right lower extremity; History of repair of ACL, left Social History Tobacco Use Types Packs/Day Years Used Date Smoking Tobacco: Never Smokeless Tobacco: Never Tobacco Cessation:Counseling Given: Not Answered Alcohol Use Standard Drinks/Week Comments Never 0 [...] Sign Reading Time Taken Comments Blood Pressure 114/76 03/19/2025 9:37 AM EDT Pulse 59 03/19/2025 9:37 AM EDT Temperature - - Respiratory Rate - - Oxygen Saturation - - Inhaled Oxygen Concentration - - Weight 133.8 kg (295 lb) 03/19/2025 9:37 AM EDT Height 175.3 cm (5' 9 ) 03/19/2025 9:37 AM EDT Body Mass Index 43.56 03/19/2025 9:37 AM EDT documented in this encounter Progress Notes * Tyshawn Darnell MD - 03/19/2025 9:15 AM EDT Images from the original note were not included. NAME: Cris Galdamez CSN: [id number] : 1980 PCP: No primary care provider on file. ABRIDGE CONSENT The following consent language was reviewed verbally with the patient in full: Stephania, I am using a tool to help me do my notes. It is recording our conversation and creates my notes automatically and I can focus on our discussion instead of typing in the room. Is that okay with you? The patient demonstrated understanding and verbally agreed to the above consent language. All questions were addressed, and the patient provided informed consent to proceed. REASON FOR VISIT Follow-up (Bilateral knee : IR Tye Goode PA-C ) HPI History of Present Illness Cris Galdamez is a 44 year old female who presents for follow-up regarding bilateral knee pain. Occupation: [employer] Patient was last seen on 02/24/2025 with Tye Goode PA-C. Patient reported on 02/24/2025. Patient reports that her knees are sore in the office. Patient reports that she is on her feet all the time at work and moving. She is uncertain of the exact date of the prior injection but believes it occurred in December. The injection was administered by a nurse practitioner, possibly named Ayala, at [facility] and only lasted 1 month.Patient reports that she is taking OTC medication as needed. Patient reports that she had a left knee scope in 1999. No pain is reported. PREVIOUS PLAN FROM 02/24/2025 Explanation of plan: Based on patient's history, physical exam, review of radiology exams Cris has severe bilateral knee osteoarthritis, history of left ACL repair when she was 19 and bilateral lower extremity neuritis. She recently had knee injections approximately 2 to 3 months ago at [facility] and reports only 1 month of relief with injections. We discussed other options to include saphenous, obturator, inferomedial genicular nerve block and viscosupplementation and surgery. Patient is not interested in surgical correction at this time. Will submit to her insurance for bilateral knee nerve blocks. Follow-up pending approval with Dr. Darnell. Return to clinic if condition worsens or new symptoms arise CURRENT MEDICATIONS Current Outpatient Medications Medication Instructions [...] sleeve KNEE ARTHROSCOPY SOCIAL HISTORY Social History Tobacco Use Smoking status: Never Smokeless tobacco: Never Substance Use Topics Alcohol use: Never Drug use: Never FAMILY HISTORY Family History Family history [...] skin discoloration and no rash. OBJECTIVE Vitals: 03/19/25 0937 BP: 114/76 Pulse: 59 Weight: 133.8 kg (295 lb) Height: 1.753 m (5' 9 ) Body mass index is 43.56 kg/m??. Ortho Exam Constitutional: She appears well-developed and well-nourished. Head: Normocephalic and atraumatic. Eyes: No scleral icterus. Neck: No edema and normal range of motion present. Pulmonary/Chest: Effort normal. No accessory muscle usage. No respiratory distress. Neurological: She is alert and cooperative Skin: Skin is warm and dry. No rash noted. Psychiatric: She has a normal mood and affect. Her behavior is normal. Clinical golf course assistant note and vitals reviewed Right knee [...] - - Patello-femoral: Matthew - IMAGING/OUTSIDE REPORTS Personally reviewed Results for orders placed during the hospital encounter of 02/24/25 X-ray knee bilateral PA and lateral Narrative RIGHT KNEE HISTORY: Chronic right knee pain and limited range of motion. COMPARISON: None. FINDINGS: A two view exam demonstrates no acute fracture or dislocation. The joint spaces demonstrate severe 3 compartment degenerative change. No soft tissue abnormality is seen. Impression Degenerative changes with no acute bony abnormality. [...] Dr. Peace Bobo. Transcribed by Kaela Elizalde INTERVAL HISTORY Previous injections at [facility] December 18, 2024 ASSESSMENT Diagnoses and all orders for this visit: Chronic pain of both knees Bilateral primary osteoarthritis of knee Neuritis of left lower extremity Neuritis of right lower extremity History of repair of ACL, left DISCUSSION We discussed saphenous, obturator, inferomedial genicular nerve block/hydrodissection/neuroplasty which can help move scar tissue away from the nerves of the medial knee. Approximately 70% of the sensation provided to the knee comes from the medial/inner aspect of the knee. These nerves can be teased away from scar tissue. With the help of the US guided needle placement these nerves are surrounded with fluid that can calm them down and create lasting relief of knee pain. We can expect a 20 to 60% reduction in pain for up to 3 to 6 months. Risks of the procedure include but are not limited to nerve damage, skin discoloration, bruising, bleeding, infection, incomplete resolution of symptoms, CRPS. Please these risks are managed with sterile skin prep and advanced ultrasound technique. PLAN Explanation of plan: Based on patient's history, physical exam, review of radiology exams Susannah hasmoderate osteoarthritis of bilateral knees. She received an intra-articular injection with a provider at [facility] on December 18. Unfortunately she is too early for a repeat injection. We will follow back up with her when she is due for this. In the meantime we are working to get the saphenous and obturator nerve block approved. She has already been approved for the genicular portion. We willfollow back up and plan for this procedure and the appropriate procedure day Return to clinic if condition worsens or new symptoms arise Return in about 1 week (around 03/26/2025) for bilateral inta-articular knee injection . PA Attestation: Tye Parsons PA-C examined, discussed diagnosis and treatment options, acted as a scribe and transcribed components of the current encounter under the direction of the Attending Provider. Electronically SignedTye PA-C 03/19/2025 Tyshawn Parsons MD, personally performed the services described in this documentation, as scribedby Ernie Lester CMA , in my presence, and is both accurate and complete. Electronically Signed, Tyshawn Darnell MD 03/19/2025 9:30 AM documented in this encounter Plan of Treatment Not on file documented as of this encounter Visit Diagnoses Diagnosis Chronic pain of both knees- Primary Bilateral primary osteoarthritis of knee Neuritis of left lower extremity Neuritis of right lower extremity History of repair of ACL, left documented in this encounter
[2025-05-16 01:08] VITALS: BP 134/71; PULSE 60; RESP 16; TEMP 36.5; O2SAT 100; BMI 42.8
--- OUTSIDE RECORDS SUMMARY | 2025-05-16 01:16 | XMS_ITS | Clinical Summary ---
Author Organization [employer] ([place], [place], [place], [place]) Address [address] [place] [address] Care Team Providers Care Ampoule Inspector Name Role Phone Tyshawn Darnell MD Unavailable Allergies Active Allergy Reactions Criticality Noted Date [...] Encounters Date Type Department Care Team Description 03/19/2025 9:15 AM EDT Office Visit [facility] Orthopedics [address] [address] Tyshawn Darnell MD Chronic pain of both knees (Primary Dx); Bilateral primary osteoarthritis of knee; Neuritis of left lower extremity; Neuritis of right lower extremity; History of repair of ACL, left 02/24/2025 9:45 AM EDT Office Visit [facility] Orthopedics [facility] [address] [place] [address] Tye Goode PA-C Bilateral knee pain (Primary Dx); Bilateral primary osteoarthritis of knee; History of repair of ACL, left; Neuritis of left lower extremity; Neuritis of right lower extremity 02/24/2025 9:29 AM EDT - 02/24/2025 11:59 PM EDT Hospital Encounter [facility] Diagnostic Imaging - [address] [place] [address] Tye Goode PA-C Bilateral knee pain Discharge [...] Mass Index 43.56 03/19/2025 9:37 AM EDT Plan of Treatment Health Maintenance Due Date Last Done Comments Depression Screening (12+) 1993 HIV Screening 1996 Hepatitis C Screening 1999 Lipid Panel 2001 Pap Smear 2002 Breast Cancer Screening 2021 COVID-19 VACCINE (1 - 2023-2 5 season) 2025 Influenza Vaccine (#1) 2025 05/23/2012 Tobacco Cessation Counseling and Screening (12+) 03/19/2026 03/19/2025 DTAP/TDAP/TD VACCINES (3 - T d or [...] Final Result from Last 3 Months Insurance [facility] Care Teams Ampoule Inspector Relationship Specialty Start Date End Date Tyshawn Darnell MD [address] [place] [address] Sports Medicine 04/02/25
--- OUTSIDE RECORDS SUMMARY | 2025-05-16 01:16 | XMS_ITS | Referral Summary ---
Author Organization [employer] ([place], [place], [place], [place]) Address [address] [place] [address] Care Team Providers Care House Painter Name Role Phone Tyshawn Darnell MD Unavailable Encounters Date Type Department Care Team Description 03/19/2025 9:15 AM EDT Office Visit [facility] Orthopedics [address] [address] Tyshawn Darnell MD Chronic pain of both knees (Primary Dx); Bilateral primary osteoarthritis of knee; Neuritis of left lower extremity; Neuritis of right lower extremity; History of repair of ACL, left 02/24/2025 9:29 AM EDT - 02/24/2025 11:59 PM EDT Hospital Encounter [facility] Diagnostic Imaging - [address] [place] [address] Tye Goode PA-C Bilateral knee pain Discharge Disposition: Home or Self Care 02/24/2025 9:45 AM EDT Office Visit [facility] Orthopedics [address] [address] Tye Goode PA-C Bilateral knee pain [...] 03/19/2025 9:37 AM EDT Plan of Treatment Not on file Procedures Procedure Name Priority Date/Time Associated Diagnosis [...] Final Result from Last 3 Months Insurance [facility] Care Teams House Painter Relationship Specialty Start Date End Date Tyshawn Darnell MD [address] [place] [address] Sports Medicine 04/02/25
--- OUTSIDE RECORDS SUMMARY | 2025-05-16 01:16 | XMS_ITS | Clinical Summary ---
Author Organization [facility] Address [address] [place] [address] Care Team Providers Care Gallery Intern Name Role Phone Bjorn Salazar MD Primary Care Provider [phone] Allergies Active Allergy Reactions Criticality Noted Date [...] time each day. 06/01/2022 Active nystatin (Mycostatin) 765078 UNIT/ML suspension TAKE 5 ML BY MOUTH [...] [facility]-Depression Screening 1981 [facility]-/Child/Adol SDOH Screenings 1981 [facility]-JNAKG-90 Vaccine (#1) 1986 [facility]-Varicella Vaccines (1 of [...] this topic Medical Devices Implanted Type Area [employer]master Device Identifier Shelf Expiration Date Model / [...] ORDERABLES Rubi l Result Performing Organization Address City/[facility] Co de Phone Number HEALTHCARE [facility] [address] [place] [address] * Hepatitis C antibody (03/09/2021 11:00 AM EDT) Hepatitis C Antibody Negative Negative 03/09/2021 12:56 PM EDT HEALTHCARE [facility] Blood Venous blood specimen / Unknown 03/09/2021 11:00 AM EDT 03/09/2021 11:35 AM EDT Marciano Reilly MD LAB BLOOD ORDERABLES Rubi l Result Performing Organization Address City/[facility] Co de Phone Number HEALTHCARE [facility] [address] [place] [address] from Last 3 Months or Most Recently Relevant to Health Maintenance Insurance [facility] MEDICAID Advance Directives * Full Code (Latest Code Status on File) Date Activated Date Inactivated Comments 03/09/2021 11:13 AM 03/10/2021 4:47 PM Question Answer Comments Patient has decision-making capacity? Yes Care Teams Gallery Intern Relationship Specialty Start Date End Date Bjorn Salazar MD [address] [place] [address] PCP - General 03/07/21
--- OUTSIDE RECORDS SUMMARY | 2025-05-16 01:17 | XMS_ITS | Continuity of Care Document ---
Author Organization Pending sale to [facility] Address [address] [facility] [place] [address] Care Team Providers Care Shipping Receiving Manager Name Role Phone WILLTWYLA [facility] ROLY IQBAL Assurance Auditor Assessment No assessment recorded. Plan of Treatment Reminders Order Date Submit Date Provider Last Modified By Organization Details Last Modified Time Details Appointments Follow Up 2024 08:20A M Nat Riley APRN Not available Not available Not available Lab None recorded . Referral None recorded . Procedures None recorded . Surgeries None recorded . Imaging None recorded . Medication Orders None recorded . Patient TargetsNo targets recorded. Patient InstructionsNo instructions recorded. Reason for Referral None Reported. Results Created Date Observation Date Name Description Value Unit Range Abnormal Flag Note LastModifiedBy Organization Detail LastModifiedTime Result Notes None recorded. Problems Name Problem SNOMED Code Status Onset Date Resolution Date Notes Provider Name and Address Organization Details Recorded Time Asthma 070210083 Active 2019 Nat Riley APRN [address], [place], [address], [place] - [facility] 3 10:07:07 Degeneration of intervertebral disc 60105737 Active 2019 Nat Riley APRN [address], [place], [address], [facility] - [facility] 3 10:07:10 Neuropathy 423662039 Active 2019 Nat Riley APRN [address], [place], [address], [facility] - [facility] 3 10:07:22 Depressive disorder 03068651 Active 2019 Nat Riley, JEWEL STRINGER [address], [place], [address], [place] - [facility] 3 10:07:12 Arthritis 7685607 Active 2019 Nat Riley, JEWEL STRINGER [address], [place], [address], [place] [facility] 3 10:07:05 Anxiety 07558522 Active 2019 Nat Riley, JEWEL STRINGER [address], [place], [address], [place] [facility] 3 10:07:02 Migraine 84753326 Active 2021 Nat Riley, JEWEL STRINGER [address], [place], [address], [place] [facility] 3 10:07:25 Insomnia 880287645 Active 2021 Nat Riley, JEWEL STRINGER [address], [place], [address], [place] [facility] 3 10:07:16 Iron deficiency anemia 57898534 Active 2021 Nat Riley, JEWEL STRINGER [address], [place], [address], [place] [facility] 3 10:07:18 Candidiasis of mouth 03371813 Active 2021 Lisa Salazar, JEWEL STRINGER [address], [place], [address], [place] - [facility] 2 09:37:18 Contact dermatitis 76164086 Active 2023 Luther Walters, DO [address], [place], [address], [place] [facility] 4 09:35:34 Vitamin D deficiency 13038269 Active 2024 Josie Stears null, [place] - [facility] 5 08:42:26 Gastroesophage al reflux disease without esophagitis 490092580 Active 2024 Josie Stears null, [place] - [...] completed Twyla Owens APRN [address], [place], [address], [place] - [facility] 03/04/2020 17:13:58 03/04/20 20 Skin Tag Removal completed Twyla Owens APRN [address], [place], [address], [place] - [facility] 03/04/2020 17:14:20 12/18/19 20 Systolic B/P less than 130 mm Hg completed Daniela Acosta [place] - [facility] 12/18/2019 09:18:13 12/18/19 20 Diastolic B/P 80-89 mm Hg completed Daniela Acosta [place] - [facility] 12/18/2019 09:18:21 10/23/19 20 Systolic [...] than 130 mm Hg completed Marti Carter [facility] 02/07/2019 15:31:13 02/08/20 19 Diastolic B/P less than 80 mm Hg completed Marti Carter [facility] 02/07/2019 15:31:16 10/25/19 19 Systolic B/P less than 130 mm Hg completed Daniela Acosta [facility] 10/24/2018 12:59:01 10/25/19 19 Diastolic B/P less than 80 mm Hg completed Daniela Acosta [facility] 10/24/2018 12:59:03 09/26/19 19 Systolic B/P less than 130 mm Hg completed Daniela Acosta [facility] 09/26/2018 10:51:30 09/26/19 19 Diastolic B/P less than 80 mm Hg completed Daniela Acosta [facility] 09/26/2018 10:51:32 08/23/19 19 Systolic B/P less than 130 mm Hg completed Daniela Acosta [facility] 08/23/2018 13:32:22 08/23/19 19 Diastolic B/P 80-89 mm Hg completed Daniela Acosta [facility] 08/23/2018 13:34:24 excision of excessive skin and subcutaneous tissue completed Danielajeffry Acosta [facility] 03/18/2021 11:46:20 Tonsillectomy completed Marti [facility] 05/08/2019 09:36:32 Knee arthroscopy/surgery completed Marticlarita Carter [facility] 05/08/2019 09:36:43 delivery completed [facility] 05/08/2019 09:36:50 gastric sleeve completed Marti [facility] 05/08/2019 09:37:10 Endometrial Ablation completed [facility] 05/08/2019 09:37:28 Tubal Ligation completed [facility] 05/08/2019 09:37:40 Imaging Results None recorded. Procedure Notes None recorded. Medical Equipment None Reported. Allergies Allergen ID Allergen Name Allergen Category Reaction Reaction Severity Criticality Documentation Date Start Date Code Code System Note Provider Name and Address Organization Details Recorded Time 76536 latex environme nt,medica tion Not available Not available Not available 05/12/20162013 39329 91 RxNorm Not Available [facility] 6 08:49:01 25735 Product containin g penicilli n (product) medicatio n hives Not available Not available 05/12/20162012 41714 8001 SNOMED React ion: HIVES ; Not Available [facility] 6 09:23:58 Medications Name Sig Start Date [...] hours by oral route for 7 days. 2024 active Not Available Not Available Not Avai lable trazodone 50 mg tablet TAKE 1-2 TABLET [...] Available Not Available Not Available fluconazo le 150 mg tablet take 1 tablet (150 mg) by oral route once, may repeat in 3 days if needed 02/20 completed Not Available Not Available Not [...] TAKE 1 TABLET BY MOUTH ONCE DAILY. 04/13 completed changed to dilofena c 75mg twice daily as needed Not Available Not Available Not Available clonazepa m 0.5 mg tablet Take 1 [...] completed Not Available Not Available Not Available topiramat e 25 mg tablet TAKE ONE [...] completed Not Available Not Available Not Available cephalexi n 500 mg capsule take 1 [...] sodium 100 mg capsule Take 1 capsule every day by oral route as needed, for constipa tion. active Not [...] 1 capsule every day by oral route. 2024 active Not Available Not Available Not Avai lable diclofena c sodium 75 mg tablet,de layed release TAKE 1 TABLET BY MOUTH 2 TIMES DAILY NEEDED. 2024 active Not Available Not Available Not Avai lable mupirocin 2 % topical ointment apply a small amount to the affected area by topical route 3 times per day 02/25 completed Not Available Not Available Not Available Vistaril 25 mg capsule take 1 capsule (25 mg) by oral route 3 times per day prn 08/10 completed Vistaril 25 mg oral capsule; Recorded Status: Recorded on: 10/09/20 15 11:28AM; Disconti nued Status: Disconti nued on: 08/10/19 16 10:01AM; User: [email or web address] rinted: 05/14/20 15 Not Available Not Available Not Available furosemid e 20 mg tablet Take 1 tablet every day by oral route. active Not Available Not Available No t Available gabapenti n 100 mg capsule Take [...] TAKE 1 TABLET BY MOUTH TWICE DAILY. 2024 active Not Available Not Available [...] elayed release TAKE 1 CAPSULE BY MOUTH DAILY 2024 active Not Available Not Available Not [...] Not Available Not Available Not Available Repliva 217 151 mg-200 mg-1 mg tablet 1 po [...] Status: Recorded on: 08/27/19 13 1:53PM;U ser: [email or web address]; Bradenti on: - (-5) Not Available Not Available Not Available Pepcid 10/18 completed Pepcid oral;Rec orded Status: Recorded on: 08/10/19 16 10:01AM; User: [email or web address] carl Not Available Not Available Not Available Multi-Vit [...] Not Available Not Available Not Available Vitals None Recorded Social History Question Answer Notes LastModified by Organizat ion Details LastModified Time Tobacco Smoking Status Never Smoker [facility]A Gallo - [facility] 05/08/2019 09:35:10 Able To Swim? Yes [email or web address] Information not available 05/08/2019 Do You Have An Advance Directive? No [email or web address] Information not available 05/08/2019 Do You Wear A Helmet When Biking? No [email or web address] Information not available 05/08/2019 Are You Blind Or Do You Have Difficulty Seeing? No [email or web address] Information not available 05/08/2019 What Is Your Level Of Caffeine Consumption? Moderate [email or web address] Information not available 05/08/2019 How Much Tobacco Do You Chew? None [email or web address] Information not available 05/08/2019 Are You Deaf Or Do You Have Serious Difficulty Hearing? No [email or web address] Information not available 05/08/2019 What Type Of Diet Are You Following? REGULAR [email or web address] Information not available 05/08/2019 Which Illicit Or Recreational Drugs Have You Used? Denies [email or web address] Information not available 05/08/2019 What Is The Highest Grade Or Level Of School You Have Completed Or The Highest Degree You Have Received? [id number] Information not available 11/03/2022 How Many Days Of Moderate To Strenuous Exercise, Like A Brisk Walk, Did You Do In The Last 7 Days? 1 [email or web address] Information not available 05/08/2019 On Those Days That You Engage In Moderate To Strenuous Exercise, How Many Minutes, On Average, Do You Exercise? 1 [email or web address] Information not available 05/08/2019 Swimming/diving Yes Informati on not available 05/08/2019 Have There Been Any Changes To Your Family Or Social Situation? No Information no t available 11/03/2022 How Hard Is It For You To Pay For The Very Basics Like Food, Housing, Medical Care, And Heating? 1 [email or web address] Information not available 05/08/2019 Hard Of Hearing Or Deaf In One Or Both Ears? No [email or web address] Information not available 05/08/2019 Legally Blind In One Or Both Eyes? No [email or web address] Information no t available 05/08/2019 Live Alone Or With Others? With Others Information not available 02/03/2020 Do You Have A Medical Power Of National Sales? No Information not available 11/03/2022 What Was The Date Of Your Most Recent Tobacco Screening? 12/05/2024 [email or web address] Information not available 12/05/2024 Do You Use Protection During Sex? Usually [email or web address] Information not available 05/08/2019 What Is Your Relationship Status? Information not available 11/03/2022 Seat Belts Used Routinely Yes Information not available 02/03/2020 Are You Sexually Active? Yes [email or web address] Information not available 05/08/2019 Smoke Alarm In Home Yes Information not available 05/08/2019 Do You Have Smoke And Carbon Monoxide Detectors In Your Home? Yes Information not available 11/03/2022 Are You Passively Exposed To Smoke? Yes [email or web address] Information no t available 05/08/2019 How Much Tobacco Do You Smoke? No [email or web address] Information not available 05/08/2019 General Stress Level Low Information not available 02/03/2020 Do You Use Sunscreen Routinely? Yes [email or web address] Information not available 05/08/2019 Has Tobacco Cessation Counseling Been Provided? No Information not available 12/04/2022 How Many Years Have You Smoked Tobacco? 0 [email or web address] Information not available 05/08/2019 Do You Have Difficulty Walking Or Climbing Stairs? No [email or web address] Information not available 05/08/2019 Sex: Female Functional Status Question Answer Note LastModified by Organizat ion Details LastModified Time Do you use any illicit or recreational drugs? No Information not available 11/03/2022 Do you or have you ever used any other forms of tobacco or nicotine? No Information not available 11/03/2022 What is your level of alcohol consumption? None [email or web address] Information not available 05/08/2019 Do you or have you ever used smokeless tobacco? Never used smokeless tobacco [email or web address] Information not available 05/08/2019 Are you currently employed? Yes Information not available 11/03/2022 Do you have transportation difficulties? No Information not available 11/03/2022 Are you able to walk independently without assistance or assistive devices? YESWOREST [email or web address] Information not available 05/08/2019 Do you have difficulty doing errands alone? No [email or web address] Information not available 05/08/2019 Are you able to care for yourself independently? Yes [email or web address] Information not available 05/08/2019 Do you have difficulty dressing, bathing, grooming, or toileting? No [email or web address] Information not available 05/08/2019 Do you or have you ever used e-cigarettes or vape? Never used electronic cigarettes [email or web address] Information not available 05/08/2019 What is your exercise level? None Information not available 02/03/2020 Mental Status Question Answer Note LastModified by Organization D etails LastModified Time Do you feel stressed (tense, restless, nervous, or anxious, or unable to sleep at night)? 1 [email or web address] Information not available 05/08/2019 Do you have difficulty concentrating, remembering or making decisions? No [email or web address] Information no t available 05/08/2019 Family History [...] Organization Details Recorded Time Tdap 0 completed AVA Mcqueen - [facility] 12/12/2019 16:41:48 Influenza, split virus, quadrivalent, preservative 6 completed Not Available [facility] 08/23/2019 03:54:17 Influenza, split virus, quadrivalent, preservative 0 completed AVA Mcqueen - [facility] 07/08/2020 16:55:30 Influenza, split virus, quadrivalent, preservative 1 completed Bjorn Salazar MD [address], [place], [address], [place] - [facility] 05/23/2021 11:39:53 Influenza, split virus, quadrivalent, preservative 7 completed Not Available [facility] 08/23/2019 03:54:42 Hep B, adult 2 completed Lisa Salazar, JEWEL STRINGER [address], [place], [address], [place] - [facility] 05/24/2022 09:36:02 Hep B, adult 2 completed Lisa Salazar, JEWEL STRINGER [address], [place], [address], [place] - [facility] 07/24/2022 09:44:07 Pneumococcal conjugate PCV 13 2 completed Selin Mckeon null, [place] - [facility] 08/23/2023 08:22:59 influenza, unspecified formulation 2 completed Selin Mckeon null, [place] [facility] 08/23/2023 08:22:59 influenza, unspecified formulation 4 completed Selin Mcke[place] null, [place] [facility] 08/23/2023 08:22:59 Tdap 2 completed Not Available [facility] 05/16/2016 00:49:27 Influenza, split virus, quadrivalent, preservative 3 completed Josie Owen null, [place] - [facility] 05/17/2023 14:48:02 Influenza, split virus, trivalent, preservative 4 completed Nat Riley APRN [address], [place], [address], [place] [facility] 05/23/2024 09:05:47 Pneumococcal conjugate PCV20, polysaccharide [id number] conjugate, adjuvant, PF 4 completed Nat Riley, JEWEL STRINGER [address], [place], [address], [place] [facility] 05/23/2024 09:05:47 Influenza, split virus, trivalent, PF 5 completed Josie Owen null, [place] [facility] 05/11/2025 09:41:13 Hep A, adult 8 completed Not Available [facility] 08/23/2019 03:55:12 Influenza, split virus, quadrivalent, preservative 8 completed Not Available [facility] 08/23/2019 03:55:25 Hep A, adult 9 completed Not Available [facility] 08/23/2019 03:55:39 influenza, split (incl. purified surface antigen) 2 completed Josie Owen null, [place] - [facility] 11/03/2022 13:08:15 Influenza, split virus, quadrivalent, PF 2 completed Selin Mcke[place] null, [place] [facility] 02/19/2023 16:13:30 Influenza, split virus, quadrivalent, PF 4 completed Selin Mcke[place] null, [place] - [facility] 11/17/2022 16:25:17 Influenza, split virus, quadrivalent, PF 9 completed Not Available [facility] 08/23/2019 03:56:06 Past Encounters Encounter ID Performer Location Encounter Start Date Encounter Closed Date Diagnosis/Indication Diagnosis SNOMED-CT Code Diagnosis ICD10 Code Diagnosis IMO Codes Diagnosis Note [id number] Nat Riley APRN [address] [address] 05/11/2025 09:21:51 05/11/2025 09:56:43 Influenza vaccine needed [id number] 106 Z23 Health Concerns Section Related Observation LastModified by Organization Detai ls LastModified Time None Recorded Concern Status LastModified by Organization Details LastModified Time None Recorded Payers Encounter Date Sequence Insurance Name Policy Number Policy Aranda Covered Member ID Aranda Member ID Guarantor Name 05/11/2025 1 [employer] [place] ([place]MO[place] Cris Galdamez [id number] Cris Galdamez Notes Date Note Type Note Provider Name a nd Address Organization Details Recorded Time 05/11/2025 text/html flu shot Josie Lexie null, [place] - [facility] 05/11/2025 09:42:25 OBGyn Episode No OBEpisode recorded.
--- OUTSIDE RECORDS SUMMARY | 2025-05-16 01:18 | XMS_ITS | Encounter Summary ---
Author Organization Healthcare Address [address] [place] [address] Care Team Providers Care Ordnance Artificer Helper Name Role Phone Bjorn Salazar MD Primary Care Provider [phone] Encounter Details Date Type Department Care Team (Late st Contact Info) Description 03/09/2021 Lab Requisition [facility] [address] [place] [address] Marciano Reilly MD Encounter for general adult [...] ORDERABLES Rubi l Result Performing Organization Address City/[facility] Co de Phone Number HEALTHCARE LAB [address] [place] [address] * Hepatitis B surface antigen (03/09/2021 11:00 AM EDT) Hepatitis B Surf Antigen Negative Negative 03/09/2021 12:56 PM EDT [facility] Blood Venous blood specimen / Unknown 03/09/2021 11:00 AM EDT 03/09/2021 11:35 AM EDT Marciano Reilly MD LAB BLOOD ORDERABLES Rubi l Result Performing Organization Address [facility] Co de Phone Number HEALTHCARE [facility] [address] [place] [address] * HIV 1 & 2 Antibody/Antigen Screen (03/09/2021 11:00 AM EDT) HIV 1 & 2 Antibody/Anti gen Screen Nonreactive Nonreactive 03/09/2021 12:56 PM EDT [facility] Blood Venous blood specimen / Unknown 03/09/2021 11:00 AM EDT 03/09/2021 11:35 AM EDT us Marciano Reilly MD LAB BLOOD ORDERABLES Rubi ford Result Performing Organization Address City/State/[facility] Co de Phone Number HEALTHCARE LAB [address] [place] [address] documented in this encounter Visit Diagnoses Diagnosis Encounter for general adult medical examination without abnormal findings documented in this encounter Care Teams Ordnance Artificer Helper Relationship Specialty Start Date End Date Bjorn Salazar MD [address] [place] [address] PCP - General 03/07/21 documented as of this encounter
--- OUTSIDE RECORDS SUMMARY | 2025-05-16 01:18 | XMS_ITS | Data Portability ---
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 Plan of Treatment Reminders Order Date Submit Date Provider Last Modified By Organization Details Last Modified Time Details Appointments Follow Up 20 2024 08:20A Sharon Riley, SHAINA Not available Not available Not available Lab cobalamin and folate panel, serum 2024 025 [facility], [address], [address] [address], [place], [address], 02/23/2025 16:08:09 thiamine, QN, blood 2024 025 [facility], [address], [address], [place], [address], 02/23/2025 16:08:10 CBC w/ auto diff 2024 025 [facility], [address], [address] [address], [place], [address], 02/23/2025 16:08:07 CMP, serum or plasma 2024 025 [facility], [address], [place] [address], [place], [address], 02/23/2025 16:08:07 iron + total iron-bind ing capacity (TIBC), serum 2024 025 [facility], [address], [place] [address], [place], [address], 02/23/2025 16:08:08 vitamin D, 25-hydrox y, total, serum 2024 025 [facility], [address], [place] [address], [place], [address], 02/23/2025 16:08:09 TSH + free T4, serum 2024 025 [facility], [address], [place] [address], [place], [address], 02/23/2025 16:08:06 urinalysi s, dipstick 2024 025 [facility], [address] [place] [address], [address], 02/02/2025 13:56:24 test, urine 2024 025 [facility], [address] [place] [address], [address], 02/02/2025 13:56:24 culture, urine 2024 025 [facility], [address], [address], [place], [address], 02/04/2025 05:06:31 Referral None recorded. Procedures None recorded. Surgeries None recorded. Imaging None recorded. Medication Orders omeprazol e 20 mg capsule,d elayed release 2024 025 [facility], [address] [place] [address], [address], 02/20/2025 11:06:41 docusate sodium 100 mg capsule 2024 025 [facility], [address] [place] [address], [address], 02/20/2025 11:06:51 Lasix 20 mg tablet 2024 025 [facility], [address] [place] [address], [id number], 02/20/2025 11:06:53 Vitamin D2 1,250 mcg (50,000 unit) capsule 2024 025 [facility], [address] [place] [address], [id number], 02/20/2025 11:06:47 topiramat e 50 mg tablet 2024 025 [facility], [address] [place] [address], [address], 02/20/2025 11:06:39 duloxetin e 60 mg capsule,d elayed release 2024 025 [facility], [address] [place] [address], [id number], 02/20/2025 11:06:44 Lasix 20 mg tablet 2024 025 [facility], [address] [place] [address], [address], 02/02/2025 13:57:03 sulfaceta mide sodium 10 % eye drops 2024 025 [facility], [address] [place] [address], [id number], 02/02/2025 13:38:53 diclofena c sodium 75 mg tablet,de layed release 2024 025 [facility], [address] [place] [address], [address], 12/23/2024 09:35:11 omeprazol e 20 mg capsule,d elayed release 2024 025 [facility], [address] [place] [address], [id number], 12/23/2024 09:35:09 Patient TargetsNo targets recorded. Patient InstructionsNo instructions recorded. Reason for Referral None Reported. Results Created Date Observation Date Name Description Value Unit Range Abnormal Flag Note LastModifiedBy Organization Detail LastModifiedTime 02/03/20 25 02/04/2025 URINE CULTU RE, ROUTI NE urine culture, routine Final report Not Available [facility] ([facility]) [address] [facility], [place], [address], 02/04/2025 05:06:31 02/03/20 25 02/04/2025 URINE CULTU RE, ROUTI NE result 1 COMMEN T Mixed uroge nital sophie 10,00 0-25, 000 colon y formi ng units per mL Not Available [facility] ([facility]) [address] [facility], [place], [address], 02/04/2025 05:06:31 02/03/20 25 02/02/2025 urina lysis , dipst ick Leukocytes Negati ve Not Available [address], [address], 02/02/2025 13:36:24 02/03/20 25 02/02/2025 urina lysis , dipst ick Nitrite negati ve Not Available [address], [address], 02/02/2025 13:36:24 02/03/20 25 02/02/2025 urina lysis , dipst ick Urobilinogen 1 Not Available James [address], [address], 02/02/2025 13:36:24 02/03/20 25 02/02/2025 urina lysis , dipst ick Protein 30 Not Available [address], [address], 02/02/2025 13:36:24 02/03/20 25 02/02/2025 urina lysis , dipst ick pH 7.0 Not Available [address], [address], 02/02/2025 13:36:24 02/03/20 25 02/02/2025 urina lysis , dipst ick Blood Negati ve Not Available [address], [address], 02/02/2025 13:36:24 02/03/20 25 02/02/2025 urina lysis , dipst ick Specific Bouse 1.025 Not Available [address], [address], 02/02/2025 13:36:24 02/03/20 25 02/02/2025 urina lysis , dipst ick Ketone Negati ve Not Available [address], [address], 02/02/2025 13:36:24 02/03/20 25 02/02/2025 urina lysis , dipst ick Bilirubin Negati ve Not Available [address], [address], 02/02/2025 13:36:24 02/03/20 25 02/02/2025 urina lysis , dipst ick Glucose Negati ve Not Available [address], [address], 02/02/2025 13:36:24 02/03/20 25 02/02/2025 urina lysis , dipst ick Appearance Slight ly Cloudy Not Available [address], [address], 02/02/2025 13:36:24 02/03/20 25 02/02/2025 urina lysis , dipst ick Color Dark Yellow Not Available [address], [address], 02/02/2025 13:36:24 02/03/20 25 02/02/2025 pregn ollie test, urine HCG negati ve Not Available [address], [address], 02/02/2025 13:50:20 02/21/20 25 02/21/2025 TSH+F REE T4 TSH 4.250 uIU/m L 0.450- 4.500 normal Not Available [facility] ([facility]) [address] [place], [address], 02/23/2025 16:08:06 02/21/20 25 02/21/2025 TSH+F REE T4 T4,free(dire ct) 1.05 NG/dL 0.82-1 .77 normal Not Available [facility] ([facility]) [address] [place], [address], 02/23/2025 16:08:06 02/21/20 25 02/21/2025 CBC WITH DIFFE RENTI AL/PL ATELE T WBC 6.5 x10e3 /uL 3.4-10 .8 normal Not Available [facility] ([facility]) [address] [place], [address], 02/23/2025 16:08:06 02/21/20 25 02/21/2025 CBC WITH DIFFE RENTI AL/PL ATELE T RBC 4.81 x10e6 /uL 3.77-5 .28 normal Not Available [facility] ([facility]) [address] [place], [address], 02/23/2025 16:08:06 02/21/20 25 02/21/2025 CBC WITH DIFFE RENTI AL/PL ATELE T hemoglobin 13.0 g/dL 11.1-1 5.9 normal Not Available [facility] ([facility]) [address] [place], [address], 02/23/2025 16:08:06 02/21/20 25 02/21/2025 CBC WITH DIFFE RENTI AL/PL ATELE T hematocrit 41.4 % 34.0-4 6.6 normal Not Available [facility] ([facility]) [address] [place], [address], 02/23/2025 16:08:06 02/21/20 25 02/21/2025 CBC WITH DIFFE RENTI AL/PL ATELE T MCV 86 fL 79-97 normal Not Available [facility] ([facility]) [address] [place], [address], 02/23/2025 16:08:06 02/21/20 25 02/21/2025 CBC WITH DIFFE RENTI AL/PL ATELE T MCH 27.0 pg 26.6-3 3.0 normal Not Available [facility] ([facility]) [address] [place], [address], 02/23/2025 16:08:06 02/21/20 25 02/21/2025 CBC WITH DIFFE RENTI AL/PL ATELE T MCHC 31.4 g/dL 31.5-3 5.7 below low normal Not Available [facility] ([facility]) [address] [place], [address], 02/23/2025 16:08:06 02/21/20 25 02/21/2025 CBC WITH DIFFE RENTI AL/PL ATELE T RDW 12.8 % 11.7-1 5.4 Not Available [facility] ([facility]) [address] [place], [address], 02/23/2025 16:08:06 02/21/20 25 02/21/2025 CBC WITH DIFFE RENTI AL/PL ATELE T platelets 278 x10e3 /uL 150-45 0 normal Not Available [facility] ([facility]) [address] [facility], [place], [address], 02/23/2025 16:08:06 02/21/20 25 02/21/2025 CBC WITH DIFFE RENTI AL/PL ATELE T neutrophils 59 % not estab. normal Not Available [facility] ([facility]) [address] [facility], [place], [address], 02/23/2025 16:08:06 02/21/20 25 02/21/2025 CBC WITH DIFFE RENTI AL/PL ATELE T lymphs 29 % not estab. normal Not Available [facility] ([facility]) [address] [facility], [place], [address], 02/23/2025 16:08:06 02/21/20 25 02/21/2025 CBC WITH DIFFE RENTI AL/PL ATELE T monocytes 8 % not estab. normal Not Available [facility] ([facility]) [address] [facility], [place], [address], 02/23/2025 16:08:06 02/21/20 25 02/21/2025 CBC WITH DIFFE RENTI AL/PL ATELE T eos 3 % not estab. normal Not Available [facility] ([facility]) [address] [facility], [place], [address], 02/23/2025 16:08:06 02/21/20 25 02/21/2025 CBC WITH DIFFE RENTI AL/PL ATELE T basos 1 % not estab. normal Not Available [facility] ([facility]) [address] [facility], [place], [address], 02/23/2025 16:08:06 02/21/20 25 02/21/2025 CBC WITH DIFFE RENTI AL/PL ATELE T immature cells BOARD LAYER Not Available [facility] ([facility]) [address] [place], [address], 02/23/2025 16:08:06 02/21/20 25 02/21/2025 CBC WITH DIFFE RENTI AL/PL ATELE T neutrophils (absolute) 3.9 x10e3 /uL 1.4-7. 0 normal Not Available [facility] ([facility]) [address] [place], [address], 02/23/2025 16:08:06 02/21/20 25 02/21/2025 CBC WITH DIFFE RENTI AL/PL ATELE T lymphs (absolute) 1.9 x10e3 /uL 0.7-3. 1 normal Not Available [facility] ([facility]) [address] [place], [address], 02/23/2025 16:08:06 02/21/20 25 02/21/2025 CBC WITH DIFFE RENTI AL/PL ATELE T monocytes(ab solute) 0.5 x10e3 /uL 0.1-0. 9 normal Not Available [facility] ([facility]) [address] [place], [address], 02/23/2025 16:08:06 02/21/20 25 02/21/2025 CBC WITH DIFFE RENTI AL/PL ATELE T eos (absolute) 0.2 x10e3 /uL 0.0-0. 4 normal Not Available [facility] ([facility]) [address] [place], [address], 02/23/2025 16:08:06 02/21/20 25 02/21/2025 CBC WITH DIFFE RENTI AL/PL ATELE T baso (absolute) 0.1 x10e3 /uL 0.0-0. 2 normal Not Available [facility] ([facility]) [address] [place], [address], 02/23/2025 16:08:06 02/21/20 25 02/21/2025 CBC WITH DIFFE RENTI AL/PL ATELE T immature granulocytes 0 % not estab. Not Available [facility] ([facility]) [address] [facility], [place], [address], 02/23/2025 16:08:06 02/21/20 25 02/21/2025 CBC WITH DIFFE RENTI AL/PL ATELE T immature grans (abs) 0.0 x10e3 /uL 0.0-0. 1 Not Available [facility] ([facility]) [address] [facility], [place], [address], 02/23/2025 16:08:06 02/21/20 25 02/21/2025 CBC WITH DIFFE RENTI AL/PL ATELE T NRBC BOARD LAYER Not Available [facility] ([facility]) [address] [facility], [place], [address], 02/23/2025 16:08:06 02/21/20 25 02/21/2025 CBC WITH DIFFE RENTI AL/PL ATELE T hematology comments: BOARD LAYER Not Available [facility] ([facility]) [address] [facility], [place], [address], 02/23/2025 16:08:06 02/21/20 25 02/21/2025 COMP. METAB OLIC PANEL (14) glucose 85 mg/dL 70-99 normal Not Available [facility] ([facility]) [address] [facility], [place], [address], 02/23/2025 16:08:07 02/21/20 25 02/21/2025 COMP. METAB OLIC PANEL (14) BUN 18 mg/dL 6-24 normal Not Available [facility] ([facility]) [address] [facility], [place], [address], 02/23/2025 16:08:07 02/21/20 25 02/21/2025 COMP. METAB OLIC PANEL (14) creatinine 0.53 mg/dL 0.57-1 .00 below low normal Not Available [facility] ([facility]) [address] [place], [address], 02/23/2025 16:08:07 02/21/20 25 02/21/2025 COMP. METAB OLIC PANEL (14) eGFR 118 mL/mi n/1.7 3 >59 normal Not Available [facility] ([facility]) [address] [place], [address], 02/23/2025 16:08:07 02/21/20 25 02/21/2025 COMP. METAB OLIC PANEL (14) BUN/creatini ne ratio 34 9-23 above high normal Not Available [facility] ([facility]) [address] [place], [address], 02/23/2025 16:08:07 02/21/20 25 02/21/2025 COMP. METAB OLIC PANEL (14) sodium 142 mmol/ L 134-14 4 normal Not Available [facility] ([facility]) [address] [place], [address], 02/23/2025 16:08:07 02/21/20 25 02/21/2025 COMP. METAB OLIC PANEL (14) potassium 4.1 mmol/ L 3.5-5. 2 normal Not Available [facility] ([facility]) [address] [place], [address], 02/23/2025 16:08:07 02/21/20 25 02/21/2025 COMP. METAB OLIC PANEL (14) chloride 109 mmol/ L 96-106 above high normal Not Available [facility] ([facility]) [address] [place], [address], 02/23/2025 16:08:07 02/21/20 25 02/21/2025 COMP. METAB OLIC PANEL (14) carbon dioxide, total 19 mmol/ L 20-29 below low normal Not Available [facility] ([facility]) [address] [facility] [place], [address], 02/23/2025 16:08:07 02/21/20 25 02/21/2025 COMP. METAB OLIC PANEL (14) calcium 8.1 mg/dL 8.7-10 .2 below low normal Not Available [facility] ([facility]) [address] [facility] [place], [address], 02/23/2025 16:08:07 02/21/20 25 02/21/2025 COMP. METAB OLIC PANEL (14) protein, total 6.4 g/dL 6.0-8. 5 normal Not Available [facility] ([facility]) [address] [facility] [place], [address], 02/23/2025 16:08:07 02/21/20 25 02/21/2025 COMP. METAB OLIC PANEL (14) albumin 4.0 g/dL 3.9-4. 9 normal Not Available [facility] ([facility]) [address] [facility] [place], [address], 02/23/2025 16:08:07 02/21/20 25 02/21/2025 COMP. METAB OLIC PANEL (14) globulin, total 2.4 g/dL 1.5-4. 5 Not Available [facility] ([facility]) [address] [facility] [place], [address], 02/23/2025 16:08:07 02/21/20 25 02/21/2025 COMP. METAB OLIC PANEL (14) bilirubin, total 0.6 mg/dL 0.0-1. 2 normal Not Available [facility] ([facility]) [address] [facility] [place], [address], 02/23/2025 16:08:07 02/21/20 25 02/21/2025 COMP. METAB OLIC PANEL (14) alkaline phosphatase 86 IU/L 44-121 normal Not Available [facility] ([facility]) [address] [facility] [place], [address], 02/23/2025 16:08:07 02/21/20 25 02/21/2025 COMP. METAB OLIC PANEL (14) AST (SGOT) 18 IU/L 0-40 normal Not Available [facility] ([facility]) [address] [facility] [place], [address], 02/23/2025 16:08:07 02/21/20 25 02/21/2025 COMP. METAB OLIC PANEL (14) ALT (SGPT) 20 IU/L 0-32 normal Not Available [facility] ([facility]) [address] [place], [address], 02/23/2025 16:08:07 02/21/20 25 02/21/2025 IRON AND TIBC iron bind.cap.(TI BC) 385 ug/dL 250-45 0 normal Not Available [facility] ([facility]) [address] [place], [address], 02/23/2025 16:08:08 02/21/20 25 02/21/2025 IRON AND TIBC UIBC 352 ug/dL 131-42 5 normal Not Available [facility] ([facility]) [address] [place], [address], 02/23/2025 16:08:08 02/21/20 25 02/21/2025 IRON AND TIBC iron 33 ug/dL 27-159 normal Not Available [facility] ([facility]) [address] [place], [address], 02/23/2025 16:08:08 02/21/20 25 02/21/2025 IRON AND TIBC iron saturation 9 % 15-55 alert low Not Available [facility] ([facility]) [address] [place], [address], 02/23/2025 16:08:08 07/18/20 25 02/21/2025 VITAM IN B12 AND FOLAT E vitamin B12 388 pg/mL 232-12 45 normal Not Available [facility] ([facility]) [address] [facility], [place], [address], 02/23/2025 16:08:09 02/21/20 25 02/21/2025 VITAM IN B12 AND FOLAT E folate (folic acid), serum >20.0 NG/mL >3.0 A serum folat e luis angel ntrat ion of less than 3.1 ng/mL is consi dered to repre sent clini tres defic iency . Not Available [facility] ([facility]) [address] [facility], [place], [address], 02/23/2025 16:08:09 02/21/20 25 02/21/2025 VITAM IN D, 25-HY DROXY vitamin D, 25-hydroxy 34.3 NG/mL 30.0-1 00.0 Vitam in D defic iency has been defin ed by the Insti tute of Medic ine and an Endoc rine Socie ty pract ice guide line as a level of serum 25-OH vitam in D less than 20 ng/mL (1,2) . The Endoc rine Socie ty went on to furth er defin e vitam in D insuf ficie ncy as a level betwe en 21 and 29 ng/mL (2). 1. IOM (Inst itute of Medic ine). 2009. Dieta ry refer ence intmoe es for calci um and D. Ha newby [place]: The Natio nal [facility] Press . 2. Lisseth metzger [place], Sarah flores [place], Donny off-F errar i CARVALHO, et al. Evalu ation , treat ment, and preve ntion of vitam in D defic iency : an Endoc rine Socie ty clini tres pract ice guide line. JCEM. 2010; 96(7) :1911 -30. Not Available [facility] ([facility]) [address] [facility], [place], [address], 02/23/2025 16:08:09 02/21/20 25 02/23/2025 VITAM IN B1 (THIA MINE) , BLOOD vit. B1, whole blood COMMEN T nmol/ L Test not perfo rmed. No froze n whole blood recei barb. Test not perfo rmed. Attem pts to conta ct your facil ity were unsuc cessf ul. Not Available [facility] ([facility]) [address] [place], [address], 02/23/2025 16:08:10 02/21/20 25 02/23/[address] PROBL EM request problem COMMEN T Test not perfo rmed. No froze n whole blood recei barb. Test not perfo rmed. Attem pts to conta ct your facil ity were unsuc cessf ul. TEST: 26473 [id number] Vitam in B1 (Thia mine) , Blood RECEI BARB: Froze n PL EDTA Not Available [facility] ([facility]) [address] [facility], [place], [address], 02/23/2025 16:08:10 12/09/19 25 12/08/2024 XR, knee, 3 view No observ ation record ed. [address], [place], [address], 12/11/2024 13:52:03 12/09/19 25 12/08/2024 XR, knee, 3 view No observ ation record ed. [place] [id number], [place], [address], 12/11/2024 13:52:03 12/09/19 25 12/08/2024 XR, tibia + fibul a, 2 view No observ ation record ed. [address], [place], [address], 12/11/2024 13:52:04 12/09/19 25 12/08/2024 XR, ankle , 2 view No observ ation record ed. [facility] [address], [place], [address], 12/11/2024 13:52:04 12/13/19 25 12/12/2024 US, trans vagin al No observ ation record ed. [facility] [address], [place], [address], 12/15/2024 09:26:08 12/19/19 25 12/18/2024 XR, ankle , 2 view No observ ation record ed. [facility] [address], [place], [address], 12/18/2024 10:41:32 02/16/20 25 02/14/2025 XR, chest , 2 view No observ ation record ed. [facility] [address], [place], [address], 02/16/2025 08:21:21 02/16/20 25 02/14/2025 elect rocar diogr am No observ ation record ed. [facility] [address], [place], [address], 02/16/2025 08:20:48 03/05/20 25 03/05/2025 NM, myoca rdial perfu sj scan, w/ stres s No observ ation record ed. [facility] [address], [place], [address], 03/09/2025 16:19:31 03/05/20 25 03/05/2025 cardi ac stres s test No observ ation record ed. [facility] [address], [place], [address], 03/09/2025 16:19:31 Result Notes None recorded. Problems Name Problem SNOMED Code Status Onset Date Resolution Date Notes Provider Name and Address Organization Details Recorded Time Asthma 396776262 Active 2019 Nat Riley [employer] [address], [place], [address], [place] - [facility] 10:07:07 Degeneration of intervertebral disc 19564428 Active 2019 Nat Riley [employer] [address], [place], [address], [place] [facility] 10:07:10 Neuropathy 747325330 Active 2019 Nat Riley [employer] [address], [place], [address], [place] [facility] 10:07:22 Depressive disorder 56947304 Active 2019 Nat Riley [employer] [address], [place], [address], [place] [facility] 10:07:12 Arthritis 4376234 Active 2019 Nat Riley [employer] [address], [place], [address], [place] [facility] 10:07:05 Anxiety 71383884 Active 2019 Nat Riley [employer] [address], [place], [address], [place] [facility] 10:07:02 Migraine 35179555 Active 2021 Nat Riely [employer] [address], [place], [address], [place] [facility] 10:07:25 Insomnia 544113435 Active 2021 Nat Riley [employer] [address], [place], [address], [place] [facility] 10:07:16 Iron deficiency anemia 53832110 Active 2021 Nat Riley [employer] [address], [place], [address], [place] [facility] 10:07:18 Candidiasis of mouth 50540848 Active 2021 Lisa Marie, [employer] [address], [place], [address], [place] - [facility] 09:37:18 Contact dermatitis 14651992 Active 2023 Luther Walters, DO [address], [place], [address], [place] - [facility] 4 09:35:34 Vitamin D deficiency 64126677 Active 2024 Josie Stears null, [place] - [facility] 5 08:42:26 Gastroesophage al reflux disease without esophagitis 726320603 Active 2024 Josie Stears null, [place] - [...] Biopsy trunk, arms, or legs completed Lilliana Owens, [employer] [address], [place], [address], [place] [facility] 03/04/2020 17:13:58 03/04/20 20 Skin Tag Removal completed Lilliana Owens, [employer] [address], [place], [address], [place] [facility] 03/04/2020 17:14:20 12/18/19 20 Systolic B/P less than 130 mm Hg completed Daniela Acosta [place] - [facility] 12/18/2019 09:18:13 12/18/19 20 Diastolic B/P 80-89 mm Hg completed Daniela Acosta [place] - [facility] 12/18/2019 09:18:21 10/23/19 20 Systolic B/P less than 130 mm Hg completed [facility] - [facility] 10/23/2019 08:39:31 10/23/19 20 Diastolic B/P 80-89 mm Hg completed [facility] - [facility] 10/23/2019 08:39:34 05/08/20 19 Systolic B/P less than 130 mm Hg completed [facility] 05/08/2019 09:40:47 05/08/20 19 Diastolic B/P 80-89 mm Hg completed [facility] 05/08/2019 09:40:49 05/08/20 19 Medication Reconcilliation completed [facility] 05/08/2019 09:32:29 02/08/20 19 Systolic B/P less than 130 mm Hg completed [facility] 02/07/2019 15:31:13 02/08/20 19 Diastolic B/P less than 80 mm Hg completed [facility] 02/07/2019 15:31:16 10/25/19 19 Systolic B/P less than 130 mm Hg completed Daniela Dave [facility] 10/24/2018 12:59:01 10/25/19 19 Diastolic B/P less than 80 mm Hg completed Daniela Dave [facility] 10/24/2018 12:59:03 09/26/19 19 Systolic B/P less than 130 mm Hg completed Daniela Dave [facility] 09/26/2018 10:51:30 09/26/19 19 Diastolic B/P less than 80 mm Hg completed Danielajeffry Acosta [facility] 09/26/2018 10:51:32 08/23/19 19 Systolic B/P less than 130 mm Hg completed Daniela Dave [facility] 08/23/2018 13:32:22 08/23/19 19 Diastolic B/P 80-89 mm Hg completed Danielajeffry Acosta [facility] 08/23/2018 13:34:24 excision of excessive skin and subcutaneous tissue completed Danielajeffry Acosta [facility] 03/18/2021 11:46:20 Tonsillectomy completed [facility] 05/08/2019 09:36:32 Knee arthroscopy/[facility] [facility] 05/08/2019 09:36:43 delivery completed [facility] 05/08/2019 09:36:50 gastric sleeve completed [facility] [place] - [facility] 05/08/2019 09:37:10 Endometrial Ablation completed [facility] [place] [facility] 05/08/2019 09:37:28 Tubal Ligation completed [facility] [place] [facility] 05/08/2019 09:37:40 Imaging Results None recorded. Procedure Notes None recorded. Medical Equipment None Reported. Allergies Allergen ID Allergen Name Allergen Category Reaction Reaction Severity Criticality Documentation Date Start Date Code Code System Note Provider Name and Address Organization Details Recorded Time 79364 latex environme nt,medica tion Not available Not available Not available 05/12/20162013 37142 91 RxNorm Not Available [facility] 6 08:49:01 58927 Product containin g penicilli n (product) medicatio n hives Not available Not available 05/12/20162012 84494 8001 SNOMED React ion: HIVES ; Not Available [facility] 6 09:23:58 Medications Name Sig Start [...] oral tablet;R ecorded Status: Recorded on: 08/10/19 10:02AM; User: [email or web address] henry Not Available Not [...] 12/19 completed Ciprodex 0.3-0.1 % otic drops,bynum brice ;Tangelae d Status: Recorded on: 12/13/19 16 10:27AM; User: [email or web address];E st. Completi on: 12/20/19 16;Print ed: 12/13/19 16 Not Available Not Available Not Available topiramat e 50 mg tablet TAKE 1 TABLET BY MOUTH TWICE DAILY. 2024 active Not Available Not Available Not Avai [email or web address] Tolbert M-E 60 mg-100 mg capsule Take 2 [...] active Not Available Not Available Not Avai paula ginkgo biloba leaf extract 60 mg capsule [...] Not Available Not Available Not Available Fluvirin 3433-2809 (PF) 45 mcg (15 mcg x 3)/0.5 [...] Arterial blood by Pulse oximetry Respiratory rate Pain severity - 0-10 verbal numeric rating [Score] - Reported Systolic And Diastolic Provider Name and Address Organization Details Last Updated DateTime 5 167.64 cm 47.5 kg/m2 949531. 96 g 63 /min 99 % 99 % 18 /min 6 110/70 mm[Hg] Selin Mckeon [place] - [facility] 5 09:09:03 Date Recorded Body height Body mass index (BMI) Body weight Heart rate Oxygen saturation Oxygen saturation in Arterial blood by Pulse oximetry Respiratory rate Pain severity - 0-10 verbal numeric rating [Score] - Reported Systolic And Diastolic Provider Name and Address Organization Details Last Updated DateTime 5 167.64 cm 46.6 kg/m2 783687. 19 g 67 /min 97 % 97 % 18 /min 4 112/74 mm[Hg] Selin ESCALAN[place] - [facility] 5 08:36:30 Date Recorded Body height Body mass index (BMI) Body weight Heart rate Oxygen saturation Oxygen saturation in Arterial blood by Pulse oximetry Respiratory rate Pain severity - 0-10 verbal numeric rating [Score] - Reported Systolic And Diastolic Provider Name and Address Organization Details Last Updated DateTime 5 167.64 cm 49 kg/m2 059280. 29 g 82 /min 98 % 98 % 18 /min 0 112/78 mm[Hg] Selin Southler [place] - [facility] 5 13:35:39 Date Recorded Body height Respiratory rate Body mass index (BMI) Body weight Body temperature Heart rate Oxygen saturation Oxygen saturation in Arterial blood by Pulse oximetry Provider Name and Address Organization Details Last Updated DateTime 5 167.64 cm 18 /min 47.6 kg/m2 458818. 75 g 98.1 [degF] 58 /min 99 % 99 % Josie Lexie [place] - [facility] 5 09:10:06 Social History Question Answer Notes LastModified by Organizat ion Details LastModified Time Tobacco Smoking Status Never Smoker Marti Emma machado [place] - [facility] 05/08/2019 09:35:10 Able To Swim? Yes [email or web address] Information not available 05/08/2019 Do You Have An Advance Directive? No [email or web address] Information not available 05/08/2019 Do You Wear A Helmet When Biking? No [email or web address] Information not available 05/08/2019 Are You Blind Or Do You Have Difficulty Seeing? No [email or web address] Information not available 05/08/2019 What Is Your Level Of Caffeine Consumption? Moderate [email or web address] Information not available 05/08/2019 How Much Tobacco Do You Chew? None [email or web address] Information not available 05/08/2019 Are You Deaf Or Do You Have Serious Difficulty Hearing? No Information not available 05/08/2019 What Type Of Diet Are You Following? REGULAR Information not available 05/08/2019 Which Illicit Or Recreational Drugs Have You Used? Denies [email or web address] Information not available 05/08/2019 What Is The Highest Grade Or Level Of School You Have Completed Or The Highest Degree You Have Received? [id number] Information not available 11/03/2022 How Many Days Of Moderate To Strenuous Exercise, Like A Brisk Walk, Did You Do In The Last 7 Days? 1 [email or web address] Information not available 05/08/2019 On Those Days That You Engage In Moderate To Strenuous Exercise, How Many Minutes, On Average, Do You Exercise? 1 Information not available 05/08/2019 Swimming/diving Yes [email or web address] Informati on not available 05/08/2019 Have There Been Any Changes To Your Family Or Social Situation? No Information no t available 11/03/2022 How Hard Is It For You To Pay For The Very Basics Like Food, Housing, Medical Care, And Heating? 1 [email or web address] Information not available 05/08/2019 Hard Of Hearing Or Deaf In One Or Both Ears? No [email or web address] Information not available 05/08/2019 Legally Blind In One Or Both Eyes? No [email or web address] Information no t available 05/08/2019 Live Alone Or With Others? With Others Information not available 02/03/2020 Do You Have A Medical Power Of Supervisor Train Operations? No Information not available 11/03/2022 What Was The Date Of Your Most Recent Tobacco Screening? 12/05/2024 [email or web address] Information not available 12/05/2024 Do You Use Protection During Sex? Usually [email or web address] Information not available 05/08/2019 What Is Your Relationship Status? Information not available 11/03/2022 Seat Belts Used Routinely Yes Information not available 02/03/2020 Are You Sexually Active? Yes [email or web address] Information not available 05/08/2019 Smoke Alarm In Home Yes [email or web address] Information not available 05/08/2019 Do You Have Smoke And Carbon Monoxide Detectors In Your Home? Yes Information not available 11/03/2022 Are You Passively Exposed To Smoke? Yes Information no t available 05/08/2019 How Much Tobacco Do You Smoke? No Information not available 05/08/2019 General Stress Level Low Information not available 02/03/2020 Do You Use Sunscreen Routinely? Yes [email or web address] Information not available 05/08/2019 Has Tobacco Cessation Counseling Been Provided? No Information not available 12/04/2022 How Many Years Have You Smoked Tobacco? 0 [email or web address] Information not available 05/08/2019 Do You Have Difficulty Walking Or Climbing Stairs? No [email or web address] Information not available 05/08/2019 Sex: Female Functional Status Question Answer Note LastModified by Organizat ion Details LastModified Time Do you use any illicit or recreational drugs? No Information not available 11/03/2022 Do you or have you ever used any other forms of tobacco or nicotine? No Information not available 11/03/2022 What is your level of alcohol consumption? None [email or web address] Information not available 05/08/2019 Do you or have you ever used smokeless tobacco? Never used smokeless tobacco [email or web address] Information not available 05/08/2019 Are you currently employed? Yes Information not available 11/03/2022 Do you have transportation difficulties? No Information not available 11/03/2022 Are you able to walk independently without assistance or assistive devices? [email or web address] Information not available 05/08/2019 Do you have difficulty doing errands alone? No [email or web address] Information not available 05/08/2019 Are you able to care for yourself independently? Yes Information not available 05/08/2019 Do you have difficulty dressing, bathing, grooming, or toileting? No [email or web address] Information not available 05/08/2019 Do you or have you ever used e-cigarettes or vape? Never used electronic cigarettes [email or web address] Information not available 05/08/2019 What is your exercise level? None Information not available 02/03/2020 Mental Status Question Answer Note LastModified by Organization D etails LastModified Time Do you feel stressed (tense, restless, nervous, or anxious, or unable to sleep at night)? 1 [email or web address] Information not available 05/08/2019 Do you have difficulty concentrating, remembering or making decisions? No [email or web address] Information no t available 05/08/2019 Family History [...] virus, quadrivalent, preservative 6 completed Not Available [facility] 08/23/2019 03:54:17 Influenza, split virus, quadrivalent, preservative 0 completed Karuna Mills null, [place] - [facility] 07/08/2020 16:55:30 Influenza, split virus, quadrivalent, preservative 1 completed Bjorn Salazar MD [address], [place], [address], [place] [facility] 05/23/2021 11:39:53 Influenza, split virus, quadrivalent, preservative 7 completed Not Available [facility] 08/23/2019 03:54:42 Hep B, adult 2 completed Lisa Salazar APRN [address], [place], [address], [place] [facility] 05/24/2022 09:36:02 Hep B, adult 2 completed Lisa Salazar APRN [address], [place], [address], [place] [facility] 07/24/2022 09:44:07 Pneumococcal conjugate PCV 13 2 completed Selin Mckeon null, [place] [facility] 08/23/2023 08:22:59 influenza, unspecified formulation 2 completed Selin Mcke[place] [facility] 08/23/2023 08:22:59 influenza, unspecified formulation 4 completed Selin Mcke[place] [facility] 08/23/2023 08:22:59 Tdap 2 completed Not Available [facility] 05/16/2016 00:49:27 Influenza, split virus, quadrivalent, preservative 3 completed Josie Owen null, [place] - [facility] 05/17/2023 14:48:02 Influenza, split virus, trivalent, preservative 4 completed Nat Riley APRN [address], [place], [address], [place] [facility] 05/23/2024 09:05:47 Pneumococcal conjugate PCV20, polysaccharide [id number] conjugate, adjuvant, PF 4 completed Nat Riley APRN [address], [place], [address], [place] [facility] 05/23/2024 09:05:47 Influenza, split virus, trivalent, PF 5 completed Josie Owen null, [place] - [facility] 05/11/2025 09:41:13 Hep A, adult 8 completed Not Available [facility] 08/23/2019 03:55:12 Influenza, split virus, quadrivalent, preservative 8 completed Not Available [facility] 08/23/2019 03:55:25 Hep A, adult 9 completed Not Available [facility] 08/23/2019 03:55:39 influenza, split (incl. purified surface antigen) 2 completed Josie Owen [place], [place] - [facility] 11/03/2022 13:08:15 Influenza, split virus, quadrivalent, PF 2 completed Selin Mcke[place], [place] - [facility] 02/19/2023 16:13:30 Influenza, split virus, quadrivalent, PF 4 completed Selin Mckeon [place], [place] - [facility] 11/17/2022 16:25:17 Influenza, split virus, quadrivalent, PF 9 completed Not Available [facility] 08/23/2019 03:56:06 Past Encounters Encounter ID Performer Location Encounter Start Date Encounter Closed Date Diagnosis/Indication Diagnosis SNOMED-CT Code Diagnosis ICD10 Code Diagnosis IMO Codes Diagnosis Note [id number] [facility] [address] [place] [address] 08/27/2014 00:00:00 [id number] [facility] [address] [place] [address] 09/01/2014 00:00:00 [id number] [facility] [address] [place] [address] 09/28/2014 00:00:00 [id number] [facility] [address] [place] [address] 10/29/2014 00:00:00 [id number] [facility] [address] [place] [address] 11/26/2014 00:00:00 [id number] [facility] [address] [place] [address] 12/01/2014 00:00:00 [id number] [facility] [address] [place] [address] 12/25/2014 00:00:00 [id number] [facility] [address] [place] [address] 01/11/2015 00:00:00 [id number] [facility] [address] [place] [address] 02/12/2015 00:00:00 [id number] [facility] [address] [place] [address] 04/22/2015 00:00:00 [id number] [facility] [address] [place] [address] 01/04/2015 00:00:00 [id number] [facility] [address] [place] [address] 01/08/2015 00:00:00 [id number] [facility] [address] [place] [address] 05/14/2015 00:00:00 [id number] [facility] [address] [place] [address] 08/10/2015 00:00:00 [id number] [facility] [address] [place] [address] 08/23/2015 00:00:00 [id number] [facility] [address] [place] [address] 10/21/2015 00:00:00 [id number] [facility] [address] [place] [address] 12/02/2015 00:00:00 [id number] [facility] [address] [place] [address] 12/13/2015 00:00:00 [id number] [facility] [address] [place] [address] 12/31/2015 00:00:00 [id number] [facility] [address] [place] [address] 12/31/2015 00:00:00 [id number] [facility] [address] [place] [address] 12/05/2013 00:00:00 [id number] [facility] [address] [place] [address] 01/16/2014 00:00:00 [id number] [facility] [address] [place] [address] 05/01/2014 00:00:00 [id number] [facility] [address] [place] [address] 05/18/2014 00:00:00 [id number] [facility] [address] [place] [address] 06/11/2014 00:00:00 [id number] [facility] [address] [place] [address] 07/27/2014 00:00:00 [id number] [facility] [address] [place] [address] 08/27/2012 00:00:00 [id number] [facility] [address] [place] [address] 11/13/2013 00:00:00 [id number] [facility] [address] [place] [address] 11/24/2013 00:00:00 [id number] SHAINA García [facility] [address] [place] [address] 05/30/2016 07:57:11 05/30/2016 08:36:30 Administration of influenza vaccine 84300756 Z23 Candidiasis of skin 4988 3006 B37.2 [id number] Carmen Austin APRN [place] [address] [address] [facility] [place] [address] 07/07/2016 10:56:27 07/07/2016 11:34:26 Acute bronchitis 64852216 J20.9 [id number] Carmen Austin APRN [place] [address] [address] [facility] [place] [address] 07/13/2016 09:24:15 07/13/2016 10:19:57 Low back pain 924973005 M54.5 Lumbar radiculopathy 128 496476 M54.16 Pain of wrist region 566 50161 M25.531 Acute bronchitis 3101221 2 J20.9 [id number] Carmen Austin APRN [place] [address] [address] [facility] [place] [address] 08/31/2016 10:50:08 08/31/2016 11:27:04 Acute bronchitis 38959463 J20.9 [id number] Carmen Austin APRN [place] [address] [address] [facility] [place] [address] 03/26/2017 09:43:54 03/26/2017 10:08:13 Sinusitis 39137923 J32.9 [id number] Carmen Austin APRN [place] [address] [address] [facility] [place] [address] 05/10/2017 13:44:34 05/10/2017 14:26:01 Acute bronchitis 15285204 J20.9 Candidiasis of vagina 72 787373 B37.3 [id number] Carmen Austin APRN [place] [address] [address] [facility] [place] [address] 06/01/2017 11:59:08 06/01/2017 12:18:16 Administration of influenza vaccine 48110681 Z23 [id number] Carmen RodaseyMICHELLN [place] [address] [address] [facility] [place] [address] 08/13/2017 11:21:24 08/13/2017 12:44:19 Influenza caused by Influenza A virus 272811605 J09.X2 [id number] Carmen Austin APRN [place] [address] [facility] [place] [address] 10/18/2017 11:22:54 10/18/2017 11:56:13 Body mass index 40+ - severely obese 270109511 Z68.43 Sinusitis 74644568 J32.9 Chronic sinusitis 620532 00 J32.9 [id number] Carmen Austin APRN Supri[place] [address] [place] [address] 01/07/2018 10:53:20 01/07/2018 11:38:47 Fatigue 12257745 R53.83 Neuropathy 308566969 G62 .9 Long-term drug therapy 556945912 Z79.488 [id number] Carmen Austin APRN [address] [place] [address] 03/11/2018 12:46:38 03/11/2018 14:12:39 Long-term drug therapy 662841533 Z79.899 Neuropathy 482179595 G62 .9 [id number] Carmen Austin APRN [place] [address] [facility] [place] [address] 04/01/2018 09:07:33 04/01/2018 09:41:47 Bronchitis 85160550 J40 [id number] Ariadne Drew APRN [address] [place] [address] 04/24/2018 10:36:07 04/24/2018 11:05:02 Active or passive immunization 229267492 Z23 Herpes zoster 6483176 B0 2.9 [id number] Carmen Austin APRN [place] [address] [facility] [place] [address] 05/14/2018 10:34:31 05/14/2018 11:13:08 Herpes zoster 0234560 B02.9 [id number] Carmen Austin APRN [place] [address] [place] [address] 05/21/2018 13:04:56 05/21/2018 13:39:32 Acute bronchitis 30562184 J20.9 [id number] Carmen Austin APRN [place] [address] [address] [facility] [place] [address] 05/30/2018 10:41:54 05/30/2018 11:14:55 Acute bronchitis 79317260 J20.9 Otitis externa 7523744 H 60.93 Candidiasis of vagina 72 888839 B37.3 Excoriation of skin 2474 13947 T14.8XXA [id number] Carmen Austin APRN [place] [address] [facility] [address] [facility] [place] [address] 05/31/2018 11:09:00 05/31/2018 11:52:06 Bronchitis 87229263 J40 [id number] Carmen Austin APRN Supri[place] [address] [facility] [place] [address] 07/02/2018 12:45:09 07/02/2018 13:33:25 Administration of influenza vaccine 41894459 Z23 [id number] Carmen Austin APRN [place] [address] [facility] [address] [facility] [place] [address] 07/04/2018 11:24:55 07/04/2018 12:00:00 Peripheral neuropathic pain 444203549 M79.2 [id number] Carmen Austin APRN [place] [address] [facility] [address] [facility] [place] [address] 07/16/2018 11:00:53 07/16/2018 11:57:25 Neuropathy 904084156 G62.9 dcbs paperwork completed pending disability determinat ion [id number] Carmen Austin APRN [place] [address] [facility] [address] [facility] [place] [address] 08/12/2018 12:40:34 08/12/2018 13:42:14 Cough 29812992 R05 Acute bronchitis 7217395 2 J20.9 [id number] SHAINA García [place] [address] [place] [address] 08/23/2018 13:14:34 08/23/2018 14:20:31 Bronchitis 02765351 J40 Acute bronchitis 9150510 2 J20.9 [id number] Carmen Austin APRN [place] [address] [place] [address] 09/26/2018 10:26:08 09/26/2018 11:10:19 Peripheral neuropathic pain 353238797 M79.2 [id number] SHAINA García [place] [address] [place] [address] 10/24/2018 12:40:19 10/24/2018 13:46:23 Active or passive immunization 526103617 Z23 [id number] Carmen Austin APRN [place] [address] [place] [address] 12/27/2018 11:03:42 12/27/2018 12:01:32 Neuropathy 615746535 G62.9 order written for no driving 24 hours after procedures [id number] SHAINA García [place] [address] [place] [address] 01/02/2019 11:26:41 01/02/2019 12:13:59 General examination of patient 161682565 Z00.00 Screening for cardiovascular system disease 177004663 Z13.6 Endocrine/ metabolic screening 182268133 Z13.228 Screening mammography 24 133504 Z12.31 Exercises education, guidance, and counseling 105524002 Z71.82 Dietary ma nagement surveillance 522648704 Z71.3 [id number] Carmen RodaseyMICHELLN [place] [address] [place] [address] 01/16/2019 12:53:06 01/16/2019 13:58:41 Long-term drug therapy 189543855 Z79.899 Peripheral neuropathic pain 977176085 M79.2 [id number] Carmen Austin APRN [place] [address] [place] [address] 02/07/2019 15:02:21 02/07/2019 15:42:48 Pruritic rash 95053974 L28.2 [id number] Carmen Austin APRN [place] [address] [place] [address] 03/07/2019 09:39:27 03/07/2019 10:13:57 Pruritic rash 13534747 L28.2 Otitis media 86807927 H6 6.91 [id number] Carmen Austin APRN [place] [address] [place] [address] 04/08/2019 09:27:27 04/08/2019 10:03:52 Pruritic rash 73131238 L28.2 Upper resp iratory infection 19561574 J06.9 Bronchitis 59467396 J40 [id number] Carmen Geovanna SHAINA [place] [address] [place] [address] 05/08/2019 09:22:16 05/08/2019 10:11:27 Administration of influenza vaccine 66024052 Z23 Abrasion a nd/or friction burn of skin 889699222 T14.8XXA Excessive skin and subcutaneous tissue 251584285 L98.7 Sprain of knee 07412607 S83.92XA resolving [id number] Carmen Austin APRN [place] [address] [address] [facility] [place] [place] [address] 05/22/2019 08:46:24 05/22/2019 09:50:59 Anxiety 89832981 F41.9 paper work filled out for comfort dog to have at her apartment [id number] Carmen De Tour VillageSHAINA flores [place] [address] [address] [place] [address] 06/09/2019 09:33:44 06/09/2019 10:51:57 Pruritic rash 07768938 L28.2 [id number] SHAINA V[place] [address] [place] [address] 07/02/2019 16:06:02 07/02/2019 16:35:14 Otitis media 70150236 H66.92 [id number] SHIANA García [place] [address] [address] [facility] [place] [address] 07/17/2019 08:05:51 07/17/2019 08:49:31 Excessive skin and subcutaneous tissue 269942167 L98.7 Ganglion c yst of right wrist 6169358082 71289 M67.431 Fatigue 47357565 R53.83 [id number] SHAINA García [place] [address] [place] [address] 07/22/2019 10:04:21 07/22/2019 10:41:36 Otalgia 52827595 H92.02 [id number] SHAINA García [place] [address] [place] [address] 08/04/2019 17:46:37 08/04/2019 18:10:01 Pharyngitis 911239828 J02.9 Sinusitis 06467037 J32.9 rtc as needed [id number] SHAINA García [place] [address] [place] [address] 08/18/2019 07:45:22 08/18/2019 08:32:52 Candidiasis of vagina 69196826 B37.3 Excessive skin and subcutaneous tissue 224229218 L98.7 Upper resp iratory infection 69226776 J06.9 [id number] SHAINA [place] [address] [address] [facility] [place] [address] 09/02/2019 07:48:41 09/02/2019 09:50:00 Body mass index 40+ - severely obese 473652561 Z68.43 Long-term drug therapy 389395336 Z79.899 Neuropathy 312006577 G62 .9 [id number] Carmenrayne Rodassandra SHAINA [place] [address] [place] [address] 09/23/2019 07:57:36 09/23/2019 08:43:23 Candidiasis of skin 76010806 B37.2 [id number] Carmenrayne Austin SHAINA [place] [address] [address] [facility] [place] [address] 10/17/2019 08:13:30 10/17/2019 08:59:34 Anxiety 99783349 F41.9 paper work filled out for comfort dog to have at her apartment [id number] Carmen De Tour VillageSHAINA flores [place] [address] [address] And[address] SUPRIYA [facility] [place] [address] 10/23/2019 08:33:59 10/23/2019 09:22:09 Depressive disorder 39725284 F32.9 continue medication as prescribed [id number] Ariadne Drew APRN [place] [address] [address] SUPRIYA [facility] [place] [address] 11/06/2019 08:28:00 11/06/2019 08:54:16 Depressive disorder 09078430 F32.9 Anxiety 25901544 F41.9 Vaginitis 74821569 N76.0 [id number] Carmen Austin APRN Supriya [place] [address] [address] Andres WAYLONJackie [facility] [place] [address] 11/27/2019 16:03:18 11/27/2019 16:47:59 Neuropathy 932823562 G62.9 Knee pain 92545997 M25.5 69 [id number] Carmen Austin APRN [place] [address] [address] Andres WAYLONB [facility] [place] [address] 12/12/2019 16:19:29 12/12/2019 16:43:19 Administration of diphtheria, pertussis, and tetanus vaccine 761072869 Z23 [id number] Carmen Austin APRN [place] [address] [address] Andres WAYLONB [facility] [place] [address] 12/18/2019 08:50:43 12/18/2019 09:36:55 Candidiasis of skin 52534473 B37.2 Multiple skin tags 42643 7009 L91.8 [id number] Carmen Austin APRN Waylonjackie [facility] [address] [place] [address] 01/06/2020 08:01:24 01/06/2020 08:41:08 Arthritis 7436003 M19.90 [id number] Carmen Austin APRN Waylonjackie [facility] [address] [facility] [place] [address] 1 01/22/2020 07:56:57 01/22/2020 08:47:45 Pain of multiple joints 41442340 M25.50 Neuropathy 346848834 G62 .9 Candidiasis of skin 4988 3006 B37.2 Renewal of prescription 019102640 Z76.0 [id number] Carmen Austin APRN [place] [address] [address] Andres SUPRIYA [facility] [place] [address] 01/26/2020 08:27:37 01/26/2020 09:04:11 Nail bed infection 37095572 L60.8 [id number] SHAINA Roldan [address] [place] [address] 02/03/2020 11:44:45 02/03/2020 12:37:08 Skin tag 645075861 L91.8 return for removal right upper back - acrochordo nleft flank - pedunculat ed tag [id number] Carmen Austin APRN Way[place] [facility] [address] [facility] [place] [address] 02/26/2020 08:01:03 02/26/2020 08:51:45 Candidiasis of skin 36573323 B37.2 [id number] Carmen Austin APRN Way[place]ie [facility] [address] [place] [address] 03/04/2020 13:27:01 03/04/2020 13:41:38 Anxiety 03276834 F41.9 [id number] SHAINA Roldan [facility] [address] [facility] [place] [address] 03/04/2020 15:47:52 03/04/2020 17:13:27 Skin tag 878509021 L91.8 right upper back - acrochordo n , removed todayleft flank - pedunculat ed tag, removed today [id number] SHAINA García [facility] [address] [facility] [place] [address] 04/15/2020 17:21:44 04/15/2020 18:06:01 Generalized anxiety disorder 86313426 F41.1 Candidiasis of skin 4988 3006 B37.2 [id number] SHAINA García [facility] [address] HARPERKrishnaJackie [facility] [place] [address] 06/07/2020 10:41:37 06/07/2020 11:38:25 Neuropathy 521691589 G62.9 Generalize d anxiety disorder 43652157 F41.1 Candidiasis of skin 4988 3006 B37.2 Migraine 42245181 G43.90 9 Anxiety 27145771 F41.9 Long-term drug therapy 796705596 Z79.899 Otitis media 30548791 H6 6.91 At [facility] ed risk of medication side effect 381691285 Z91.89 [id number] SHAINA García [facility] [address] [facility] [place] [address] 07/06/2020 08:38:34 07/06/2020 09:28:53 Candidiasis of vagina 63594999 B37.3 Generalize d anxiety disorder 17433599 F41.1 Pain of mu ltiple joints 54312380 M25.50 Migraine 95527041 G43.90 9 Neuropathy 757944218 G62 .9 Renewal of prescription 013777874 Z76.0 Anxiety 05068555 F41.9 Arthritis 0422692 M19.90 Depressive disorder 3548 9007 F32.9 continue medication as prescribed [id number] SHAINA García [facility] [address] [facility] [place] [address] 07/08/2020 16:30:48 07/08/2020 16:43:07 Administration of influenza vaccine 30629758 Z23 [id number] SHAINA García [place] [address] [address] [place] [address] 07/23/2020 08:28:27 07/23/2020 09:35:30 Pain of right shoulder joint 7299966998 5791259 M25.511 At [facility] ed risk of medication side effect 777869879 Z91.89 Migraine 60831697 G43.90 9 Acute sinusitis 35825364 J01.90 [id number] Carmen Austin APRN [place] [address] [address] Andres SUPRIYA [facility] [place] [address] 08/05/2020 08:26:48 08/05/2020 08:57:11 Generalized anxiety disorder 67053065 F41.1 Sinusitis 97841527 J32.9 rtc as needed [id number] Carmen Austin APRN [place] [address] [address] Andres SUPRIYA [facility] [place] [address] 08/10/2020 10:34:12 08/10/2020 11:45:47 Sinusitis 77328303 J32.9 rtc as needed [id number] Ariadne Drew APRN [place] [address] [address] [place]res SUPRIYA [place], [place] [address] 09/03/2020 08:47:42 09/03/2020 09:08:48 Generalized anxiety disorder 41898718 F41.1 [facility] 05520904 M25.938 [id number] SHAINA Garcíayolyjackie [place] [address] [address] Andres SUPRIYA [facility] [place] [address] 09/27/2020 14:26:10 09/27/2020 15:45:03 Bilateral knee pain 6902648321 6426127 M25.561 Neck pain 71649674 M54.2 Pain of ri ght shoulder joint 1205562842 1772214 M25.511 Pain of right hand 93080 98860 30425 M79.808 [id number] Carmen Austin APRN Supriya [facility] [address] [place], [place] [address] 10/01/2020 08:02:47 10/01/2020 08:53:44 Anxiety 61822464 F41.9 [id number] Carmen Austin SHAINA Waylonjackie [facility] [address] [place], [place] [address] 11/01/2020 11:41:59 11/01/2020 12:03:47 Anxiety 42632495 F41.9 stable Excessive skin and subcutaneous tissue 096103024 L98.7 chronic/ worsening [id number] Carmen Austin APRN Supriya [facility] [address] [place], [place] [address] 11/26/2020 08:55:42 11/26/2020 09:55:44 Upper respiratory infection 15183573 J06.9 finish medication as ordered At [facility] risk of medication side effect 731035674 Z91.89 Anxiety 49252864 F41.9 stable Neuropathy 212906871 G62 .9 stable [id number] Carmen Austin SHAINA Supriya [place] [address] [address] [place], [place] [address] 12/10/2020 11:02:02 12/10/2020 11:52:44 Neuropathy 719119461 G62.9 controlled with medication Peripheral neuropathic pain 110974446 M79.2 controlled with medication [id number] Carmen Austin APRN Supriya [place] [address] [address] [place] [address] 01/14/2021 10:08:46 01/14/2021 10:42:19 Anxiety 79909919 F41.9 stable Arthritis 3941198 M19.90 stable [id number] Carmen Austin APRN Way[place] [facility] [address] [place], [place] [address] 01/20/2021 09:03:10 01/20/2021 09:37:29 Dysuria 48003197 R30.9 increase water intake, avoid caffeine, call office tomorrow for update/con dition, may need [facility] [id number] SHAINA García [facility] [address] [place] [address] 02/14/2021 08:38:24 02/14/2021 09:29:18 Anxiety 30724193 F41.9 stable Pain of le ft ankle joint 4389848525 5390330 M25.572 will call with results. advised to stay off as much as possible [id number] Carmen Austin APRN Way[place] [facility] [address] [place] [place] [address] 03/18/2021 11:24:39 03/18/2021 12:03:58 Neuropathy 643222446 G62.9 controlled with medication Anxiety 04118083 F41.9 stable [id number] Carmen Austin APRN [place] [address] [address] [place] [address] 04/18/2021 16:07:59 04/18/2021 17:28:57 Superficial injury of finger 274158715 S60.941A [id number] Bjorn Epps [place] [address] [address] [place] [address] 05/09/2021 16:11:20 05/09/2021 16:34:13 Administration of influenza vaccine 60394721 Z23 [id number] SHAINA Vigil [place] [address] [address] [place]Jackie [place] [address] 06/01/2021 17:05:36 06/01/2021 17:42:04 Neuropathy 646342516 G62.9 chronic stable Anxiety 46924988 F41.9 chronic stable Insomnia 284324147 G47.0 0 Depressive disorder 3548 9007 F32.9 chronic stable Rash of groin 6000766244 1332337 R21 heat rash, continue meds at home [id number] SHAINA Titus [place] [address] [address] And[place] CLARKELEVCRESCENCIO [place], [place] [address] 09/26/2021 08:17:47 09/26/2021 09:38:29 Arthritis 2005197 M19.90 Chronic Neuropathy 231245475 G62 .9 Chronic-st able Anxiety 51470294 F41.9 Chronic-st ableDiscus sed PRN nature of this medication and provided education on the addiction potential for this medication .SKINNY appropriat e Migraine 20362153 G43.90 9 Chronic Spasm of back muscles 20 7160936 M62.830 Chronic-in termittent Patient reports that she has intermitte nt back spasms and she utilizes this medication PRN. Insomnia 666502341 G47.0 0 ChronicPat ient reports that she utilizes Trazadone 2-3 times per week PRN for insomnia Endocrine/ metabolic screening 589184268 Z13.228 Hyperlipid emia screening 243478366 Z13.220 Long-term current use of drug therapy 049820475 Z79.749 [id number] SHAINA Titus [facility] [address] [place] [address] 09/30/2021 13:43:39 09/30/2021 14:21:44 Anemia 183126603 D64.9 Patient's H&H on 09/26/21: 10.7/35 MCV: 24.2 MCHC: 30.6Checki ng iron levels and will prescribe treatment as appropriat e based off those results. [id number] SHAINA Titus [facility] [address] [place] [place] [address] 10/24/2021 09:20:04 10/24/2021 10:04:14 Anxiety 77637688 F41.9 Chronic-st ableDiscus sed PRN nature of this medication and provided education on the addiction potential for this medication .YESSICASOHAIL wilderiat Justintiemila is currently seeing a therapist. Discussed the need for psychiatri st referral to discuss medication adjustment s due to patients reported increased need for her PRN anxiety meds. Dysuria 02914365 R30.9 Advised patient to increase oral non-caffei nated fluid intake as tolerated. Will prescribe antibiotic s as needed per culture results. [id number] SHAINA Titus [facility] Quin CLARKEYOLYJackie [place], [place] [address] 11/24/2021 14:25:17 11/24/2021 14:44:01 Spasm of back muscles 443048021 M62.830 Chronic-in termittent Patient reports that she has intermitte nt back spasms and she utilizes this medication PRN. Anxiety 46261112 F41.9 Chronic-st ableDiscus sed PRN nature of this medication and provided education on the addiction potential for this medication .YESSICATICOLORY franca Quirogamila is currently seeing a therapist. Patient has scheduled appointmen t with psychiatry this week. Neuropathy 922174716 G62 .9 Chronic-st able Iron defic iency anemia 93700942 D50.9 ChronicFol low up blood work in 1 month Insomnia 207626267 G47.0 0 ChronicPat iemila reports that she utilizes Trazadone 2-3 times per week PRN for insomnia [id number] SHAINA Titus [facility] [address] SUPRIYA [place], [place] [address] 12/22/2021 12:46:24 12/22/2021 13:35:17 Neuropathy 369601372 G62.9 Chronic-st able Anxiety 86099595 F41.9 Chronic-st ableDiscus sed PRN nature of this medication and provided education on the addiction potential for this medication .YESSICASOHAIL Quirogamila is currently seeing a therapist. Patient is also seeing psychiatry . Injury of lower leg 1256 52721 S89.91XA Patient fell 3 weeks ago and landed on her right leg. Patient reportsPat kemar is unable to bear full weight on her right leg due to pain.Patie nt reports knee instabilit y.Right knee and ankle are tender to palpation. Arthritis 7988450 M19.90 Chronic [id number] SHAINA Titus [facility] [address] CLARKEYOLYJackie [place], [place] [address] 01/20/2022 10:55:16 01/20/2022 11:22:53 Anxiety 93875352 F41.9 Chronic-st ableDiscus sed PRN nature of this medication and provided education on the addiction potential for this medication .YESSICASOHAIL Fontana is currently seeing a therapist. Patient is also seeing psychiatry . Advised patient that her psychiatri st will need to take over her clonazepam in the future. Choking sensation 732552 009 R09.89 Patient reports that she feels like she is choking on saliva every morning when she wakes up and requests a referral to ENT. Patient also reports that she has a chronic need clear her throat.Eli reinoso denies any reflux or heartburn. [id number] [facility] [address] [place] [address] 03/02/2022 10:32:47 03/02/2022 11:27:00 Arthritis 1935808 M19.90 Chronic-st able Insomnia 950486593 G47.0 0 Chronic-st ablePatien t reports that she utilizes Trazadone 2-3 times per week PRN for insomnia Vitamin D deficiency 347 07621 E55.9 Drawing Vitamin D level today: awaiting results Iron defic iency anemia 83405933 D50.9 ChronicAwa iting iron/TIBC and CBC results Candidiasis of vagina 72 470258 B37.3 Patient reports monthly yeast infections .Patient declined pelvic exam and reports she will see her ULTRASOUND TECHNOLOGIST SONOGRAPHER. [id number] Lisa Salazar APRN [facility] [address] [place] [address] 03/09/2022 12:57:20 03/09/2022 13:50:36 Anxiety 87818325 F41.9 Chronic-st ableDiscus sed PRN nature of this medication and provided education on the addiction potential for this medication .SKINNY appropriat eControlle d substance agreement signed 09/26/21UDS obtained today: awaiting resultsPat kemar is currently seeing a therapist. Patient is also seeing psychiatry . Advised patient that her psychiatri st will need to take over her clonazepam in the future. Long-term drug therapy 449252620 Z79.119 [id number] Nat Riley APRN [address] [address] 04/18/2022 15:50:54 04/18/2022 16:42:03 Acute maxillary sinusitis 37524190 J01.00 [id number] Lisa Salazar APRN Way[place] [facility] [address] Andres SUPRIYA [facility] [place] [address] 05/12/2022 13:48:15 05/12/2022 14:26:38 Neuropathy 858905263 G62.9 Chronic-st ableEKASPE R appropriat e 05/12/22Con trolled substance agreement signed 09/26/21UDS 05/12/22 Influenza vaccine needed 4158729138 106 Z23 Exposure t o Hepatitis B virus 799721297 Z20.5 Patient exposed 1 month agoPatient would like to be vaccinated once she is confirmed negative for Hep B.Follow up based on results. Long-term drug therapy 637044375 Z79.134 [id number] Lisa Salazar APRN Way[place]ie [facility] [address] Andres SUPRIYA [facility] [place] [address] 05/24/2022 09:07:32 05/24/2022 09:33:36 Active or passive immunization 199647458 Z23 Patient tolerated well Candidiasis of mouth 797 95172 B37.0 Patient reports knowing the source of infectionF ollow up as needed [id number] SHAINA Titusyolyjackie [facility] [address] Andres SUPRIYA [facility] [place] [address] 06/08/2022 13:01:31 06/08/2022 14:08:03 Degeneration of intervertebral disc 85245635 M51.9 Chronic-st able Migraine 91672950 G43.90 9 Chronic-st able Anxiety 02252721 F41.9 Chronic-st ablePatien t is currently seeing a therapist. Patient is also seeing psychiatry . Patient was getting clonazepam refilled through this office but this provider confirmed with patient's psychiatri st that they are able to write controlled substances now and should be taking over prescribin g this medication if deemed warranted. [id number] Lisa Salazar APRN Waylonjackie [facility] [address] Andres SUPRIYA [facility] [place] [address] 07/24/2022 09:27:34 07/24/2022 09:39:55 Active or passive immunization 559983628 Z23 Patient tolerated well [id number] Eughoang Riley [address] [address] 11/03/2022 12:52:58 11/03/2022 13:55:02 Pharyngitis 501012817 J02.9 Acute maxi llary sinusitis 36234942 J01.00 Wheezing 47324720 R06.2 [id number] Braydonhoang Riley [address] [address] 11/17/2022 16:14:30 11/17/2022 16:38:35 Arthritis 1890355 M19.90 Degenerati on of intervertebral disc 33229774 M51.9 Neuropathy 672955895 G62 .9 Pt compliant with plan of careKasper reviewed and appropriat emedicatio n compliance discussedL ast uds: 3Control substance agreement on filechart reviewed and meds sentgabape ntin order with 5 refills was cancelled and new order for 2 refills sent Migraine 64660978 G43.90 9 [id number] [facility] Jonesverito[address] [address] 12/04/2022 09:29:13 12/04/2022 10:48:22 Body mass index 30+ - obesity 489124085 Z68.39 39.5 Obesity 886068420 E66.9 Abdominal pain 07071357 R10.9 stop mobic risk explained Iron defic iency anemia 20064329 D50.9 Neuropathy 381442515 G62 .9 [id number] Braydonhoang verito [address] [address] 02/19/2023 16:09:08 02/19/2023 16:33:52 Neuropathy 972901960 G62.9 Pt compliant with plan of careKasper reviewed and appropriat emedicatio n compliance discussedL ast uds: 3Control substance agreement on file Acute righ t otitis media 214445554 H66.91 [id number] Nat Riley [employer]EST MANAGEMENT TEACHER[address] [address] 05/17/2023 13:51:30 05/17/2023 16:54:35 Influenza vaccine needed 8229315034 106 Z23 [id number] Nat Riley APRN [address] [address] 05/22/2023 08:04:41 05/22/2023 09:06:01 Arthritis 2171540 M19.90 Asthma 845903669 J45.90 9 Depressive disorder 3548 9007 F32.9 Neuropathy 846105473 G62 .9 Pt compliant with plan of careKasper reviewed and appropriat emedicatio n compliance discussed/ Last uds:/Contr ol substance agreement on file Degenerati on of intervertebral disc 29705848 M51.9 Migraine 91878424 G43.90 9 Gastroesop hageal reflux disease without esophagitis 561894297 K21.9 Allergic rhinitis 431682 04 J30.9 Long-term drug therapy 387120783 Z79.899 Insomnia 365878326 G47.0 0 Iron defic iency anemia 70691314 D50.9 Anxiety 35647570 F41.9 [id number] Nat Riley APR[address] [address] 06/19/2023 14:00:56 06/19/2023 15:00:36 COVID-19 518674595 U07.1 no sign of a bacterial infection. [...] improvemen t over the next 48-72 hours [id number] Nat Riley APRN [address] [address] 08/23/2023 08:13:05 08/23/2023 08:33:06 Neuropathy 735602874 G62.9 Pt compliant with plan of careKasper reviewed and appropriat emedicatio n compliance discussed/ Last uds: 4Control substance agreement on file Long-term drug therapy 205607993 Z79.899 Constipation 46939038 K5 9.00 encouraged high fiber foods and fluids [id number] Nat Riley [address] [address] 11/22/2023 08:20:06 11/22/2023 08:51:43 Arthritis 9065978 M19.90 Depressive disorder 3548 9007 F32.9 Asthma 355474599 J45.90 9 Insomnia 571691611 G47.0 0 Gastroesop hageal reflux disease without esophagitis 180870021 K21.9 Allergic rhinitis 578799 04 J30.9 Neuropathy 125161860 G62 .9 Pt compliant with plan of careKasper reviewed and appropriat emedicatio n compliance discussed/ Last uds: 4Control substance agreement on file Degenerati on of intervertebral disc 52079541 M51.9 Migraine 75564104 G43.90 9 Body mass index 40+ - severely obese 586180722 Z68.41 43.6 Morbid obesity 779872070 E66.01 [id number] Nat Riley APRN [address] [address] 02/21/2024 08:57:43 02/21/2024 09:45:20 Neuropathy 357263403 G62.9 Pt compliant with plan of careKasper reviewed and appropriat emedicatio n compliance discussed/ Last uds: 4Control substance agreement on file Gastroesop hageal reflux disease without esophagitis 730404600 K21.9 Right flank pain 4801749 09 R10.9 sent to ed for eval to r/o kidney stone [id number] Luther Walters DO [facility] [address] [address] 03/06/2024 09:03:48 03/06/2024 09:41:38 Body mass index 40+ - severely obese 539745371 Z68.41 Morbid obesity 189343714 E66.01 Contact dermatitis 41991 004 L25.9 Contact dermatitis , secondary to poison thom. Patient will be given a prednisone taper to take over the next 10 days. Patient will reappoint herself if symptoms or not controlled over the course. [id number] Nat Riley [place] [address] 04/22/2024 08:18:55 04/22/2024 08:59:43 Influenza caused by Influenza B virus 33232777 J10.1 Acute maxi llary sinusitis 80127762 J01.00 [id number] Nat iRley [place] [address] 1 05/23/2024 08:07:16 05/23/2024 09:15:03 Neuropathy 647480471 G62.9 Pt compliant with plan of careEstrellitalory reviewed and appropriat emedicatio n compliance discussed/ Last uds: 4Control substance agreement on file Constipation 58995958 K5 9.00 encouraged high fiber foods and fluids Depressive disorder 3548 9007 F32.9 Gastroesop hageal reflux disease without esophagitis 580945471 K21.9 Degenerati on of intervertebral disc 30989513 M51.9 Migraine 08746460 G43.90 9 Arthritis 0487019 M19.90 Anxiety 28796958 F41.9 Hepatitis C screening 41 2709450 Z11.59 HIV screening 326071133 Z11.4 Influenza vaccine needed 4405662903 106 Z23 Active or passive immunization 366655838 Z23 Allergic rhinitis 368483 04 J30.9 Asthma 202145996 J45.90 9 Iron defic iency anemia 31138147 D50.9 Insomnia 507805396 G47.0 0 [id number] Nat Riley [address] [address] 06/09/2024 09:10:17 06/09/2024 09:36:02 Hypoglycemia 047219282 E16.2 continue to keep log-discus sed hypoglycem ia s/sreturn for any concernsla bs in 2 weeks to check cmp/insuli n level [id number] Nat Riley APRN [address] [address] 06/23/2024 07:56:44 06/23/2024 08:30:09 Hypoglycemia 960075570 E16.2 continue to keep log-discus sed hypoglycem ia s/s teaching sheet given of s/s of hypoglycem iareturn for any concerns [id number] Nat Riley APRN [address] [address] 07/21/2024 09:01:59 07/21/2024 10:04:51 Acute maxillary sinusitis 48401964 J01.00 if symptoms worsen or no improvemen t return Acute righ t otitis media 731118274 H66.91 pt states she can take rocephin and cefdinir [id number] Nat Riley APR[address] [address] 09/11/2024 14:39:26 09/11/2024 15:12:19 Influenza-like illness 84315423 B34.9 no sign of a bacterial infection. [...] improvemen t over the next 48-72 hours [id number] Nat Riley APRN [address] [address] 10/02/2024 09:15:51 10/02/2024 11:21:53 Iron deficiency anemia 01486391 D50.9 labsif no improvment or worsening return or be seen in er Fatigue 62464371 R53.83 History of bariatric surgical procedure 015353639 Z98.84 [id number] Nat Osvaldo [address] [address] 11/07/2024 12:57:42 11/07/2024 13:48:40 Acute maxillary sinusitis 61955904 J01.00 [id number] if symptoms worsen or no improvemen t return [id number] Rosiclarita Riley [address] [address] 1 11/21/2024 08:30:32 11/21/2024 09:55:21 Depressive disorder 91778881 F32.9 Gastroesop hageal reflux disease without esophagitis 260197786 K21.9 Neuropathy 588543373 G62 .9 Pt compliant with plan of careKasper reviewed and appropriat emedicatio n compliance discussed/ Last uds: 5Control substance agreement on file Degenerati on of intervertebral disc 90474828 M51.9 Migraine 68816247 G43.90 9 Vitamin D deficiency 347 68205 E55.9 Constipation 72471344 K5 9.00 encouraged high fiber foods and fluids Arthritis 2101372 M19.90 Anxiety 99633999 F41.9 Morbid obesity 706269671 E66.01 Long-term current use of drug therapy 333860240 Z79.899 09072533 Missed period 91673954 N 92.6 8666542 Iron defic iency anemia 05824231 D50.9 labsif no improvment or worsening return or be seen [place] [id number] Braydonhoang Riley [address] [address] 12/05/2024 16:46:12 12/08/2024 08:21:21 Anterior tibial stress syndrome 504906383 S86.899A [id number] xraycreami f no improvment will refer to pt Pain of knee region 1003 472171 M25.561 M25.562 51445011 [id number] Braydonhoang Riley [address] [address] 12/23/2024 08:55:47 12/23/2024 09:30:59 Pain of knee region [id number] M25.562 G89.29 [id number] discussed risk of med with ptmake sure to take omeprazole if taking diclofenac [id number] Nat Riley [address] [address] 01/06/2025 08:27:07 01/06/2025 09:18:01 Bacterial conjunctivitis [id number] H10.9 74345 drops as orderedcoo l wash clothif worsen or no improvemen t return or see eye [id number] Nat Riley [address] [address] 02/02/2025 13:20:52 02/02/2025 13:54:52 Increased frequency of urination [id number] R35.0 84837 Edema of l ower extremity [id number] R60.0 36548 ECHOrecent ly had labs- wnlwill give 2 days of lasix - pt states she is off for 2 dayscompre ssion hoseif worsen or no improvemen t return [id number] Nat Riley [address] [address] 02/20/2025 08:54:07 02/20/2025 10:13:27 Constipation [id number] K59.00 encouraged high fiber foods and fluids Depressive disorder 3548 9007 F32.9 Edema of l ower extremity [id number] R60.0 compressio n hoseif worsen or no improvemen t return Pain of knee region 1003 920389 M25.562 G89.29 discussed risk of med with ptmake sure to take omeprazole if taking diclofenac Migraine 61718686 G43.90 9 Vitamin D deficiency 347 59604 E55.9 Arthritis 1019149 M19.90 Gastroesop hageal reflux disease without esophagitis [id number] K21.9 929617 History of bypass of stomach [id number] Z98.84 [id number] Nat Riley [address] [place] [address] 05/11/2025 09:21:51 05/11/2025 09:56:43 Influenza vaccine needed [id number] 106 Z23 Health Concerns Section Related Observation LastModified by Organization Detai ls LastModified Time None Recorded Concern Status LastModified by Organization Details LastModified Time None Recorded Advance Directives Directive N: Payers Insurance Date Sequence Insurance Name Policy Number Policy Aranda Covered Member ID Aranda Member ID Guarantor Name 05/12/2022 STATE FARM Cris Galdamez Cris Galdamez 05/12/2022 1 [employer] (MEDICAID REPLACEMENT - HMO) MEDICAID Cris Galdamez [id number] Cris Galdamez 09/30/2016 1 UNSPECIFIED REMIT PAYOR Cris Galdamez 05/12/2025 1 [employer] [place] (MEDICAID HMO) Cris Galdamez [id number] Cris Galdamez 05/11/2025 [place]ICAID) Cris Galdamez [id number] Cris Galdamez 05/12/2022 1 [employer] (MEDICAID REPLACEMENT - HMO) [id number] Cris Galdamez [id number] Cris Galdamez Notes Date Note Type Note Provider Name and Address Organization Details Recorded Time 12/23/2024 text/html 44 yr old female presents for a follow up on bilateral knee/lower leg pain. She seen ortho on 12/18 and got a steroid injection in right knee. Ortho discussed a switch from meloxicam to celebrex to see if it is more effective. Nat Riley APRN [address], [place], [address], [place] - [facility] 12/23/2024 09:33:30 01/06/2025 text/html 44 yr old female presents for left eye redness, pain and drainage since yesterday. Nat Riley APRN [address], [place], [address], [place] [facility] 01/06/2025 09:21:29 02/02/2025 text/html 44 yr old female presents for edema to bilateral lower extremities. She has has worked several shifts at work on her feet lately. She also has urinary frequency. Nat Riley APRN [address], [place], [address], [facility] - [facility] 02/02/2025 13:58:03 02/20/2025 text/html 44 year old female who presents to the office today for a follow up onvitamin d deficiency, gerd, knee pain, constipation, depressive disorder and lower extremity ocurp-NZQA-ty deniedsent to cardiology for evalneeds medication refillspt states she has been feeling tired all the time Nat Riley, FOREST MANAGEMENT TEACHER [address], [place], [address], [facility] - [facility] 02/20/2025 09:50:13 05/11/2025 text/html flu shot Josieclarita Owen [place], [place] - [facility] 05/11/2025 09:42:25 OBGyn Episode No OBEpisode recorded.
--- NOTE | 2025-05-16 01:26 | XR_ITS ---
PROCEDURE INFORMATION: Exam: XR Right Knee Exam date and time: 05/16/2025 1:49 AM Age: 44 years old Clinical indication: Injury or trauma; Fall; Swelling (edema); Knee; Right; Additional info: Fall, injury TECHNIQUE: Imaging protocol: Radiologic exam of the right knee. Views: 3 views. COMPARISON: CR XR KNEE RT 3V 12/08/2024 9:19 AM FINDINGS: Bones/joints: No acute fracture or dislocation identified. Severe tricompartmental osteoarthritis. No definite joint effusion appreciated. Soft tissues: Normal. IMPRESSION: 1. No acute fracture or dislocation identified. 2. Severe tricompartmental osteoarthritis. 3. If there is persistent clinical concern for occult fracture, consider further evaluation with cross-sectional imaging.
[2025-05-16 02:01] VITALS: BP 103/64; PULSE 55; RESP 17; O2SAT 100
[2025-05-16 02:30] VITALS: BP 114/54; PULSE 54; RESP 15; O2SAT 99
--- NOTE | 2025-05-16 02:51 | HMH.EDGENADL ---
Discharge Plan Disposition Patient Disposition: Home, Self-Care Condition: Good Prescriptions Prescriptions: No Action diclofenac sodium 75 mg tablet,delayed release (DR/EC) 75 mg PO BID ferrous sulfate 325 mg (65 mg iron) tablet 325 mg PO DAILY Qty: 90 3RF multivitamin capsule 1 cap PO DAILY gabapentin 600 mg tablet 600 mg PO TID duloxetine [Cymbalta] 60 mg capsule,delayed release(DR/EC) 60 mg PO DAILY topiramate 50 mg tablet 50 mg PO BID Patient Comments: TAKE 1 TABLET BY MOUTH TWICE DAILY. zinc sulfate 50 mg zinc (220 mg) capsule 100 mg PO DAILY cholecalciferol (vitamin D3) [Vitamin D3] 50 mcg (2,000 unit) tablet 50 mcg PO DAILY albuterol sulfate [Ventolin HFA] 90 mcg/actuation HFA aerosol inhaler 2 puff inhalation TID PRN (Reason: Wheezing) omega 2-nko-xwk-fish oil [Fish Oil] 300-1,000 mg capsule,delayed release(DR/EC) 1 cap PO DAILY docusate sodium 100 mg capsule 100 mg PO DAILY PRN (Reason: Constipation) fluticasone propionate 50 mcg/actuation spray,suspension 2 spray intranasal BID PRN (Reason: Allergy Symptoms) ergocalciferol (vitamin D2) [Vitamin D2] 1,250 mcg (50,000 unit) capsule 1,250 mcg PO WEEKLY Vraylar 1.5 mg capsule 1.5 mg PO DAILY omeprazole 20 mg capsule,delayed release(DR/EC) 20 mg PO DAILY spironolactone [Aldactone] 25 mg tablet 25 mg PO DAILY Qty: 90 2RF Referrals Follow up/Referrals: Nat Riley APRN [Primary Care Provider, Medical] - See instructions Activity Restrictions/Add. Instructions Additional Instructions/Restrictions: You were evaluated in the ER and are believed to be appropriate for discharge at this time. Take Tylenol ibuprofen if needed for pain, do not exceed the recommended dose on the bottle. Drink water and eat a small snack each time take these medications to avoid side effects. Wear the knee brace as directed anytime you are going to be on your feet. Use the crutches to help you get around. If you start having improvement you can bear weight on the right leg as tolerated. Call your orthopedic doctor first thing Sunday morning and make an appointment for outpatient follow-up and reevaluation. Follow-up with your primary care doctor for reevaluation in a few days as well. Return to the ER with any new, worsening, or otherwise concerning symptoms as discussed. Clinical Impressions Clinical Impression: Knee pain, right, Arthritis Stand Alone Forms Stand Alone Forms: Work/School Release Print Language Print Language: Cymraes Discharge ED Provider: Kellie Cervantes General Adult HPI General Chief complaint: Extremity Injury, Lower Stated complaint: R knee pain Time Seen by Provider: 05/16/25 01:40 Mode of Arrival: Wheelchair Source of Information: Patient Description of Symptoms (Recalled from ER Triage Doc. by RN): Tripped over a cat about 1700, twisting right knee. 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 History of Present Illness HPI narrative: 44-year-old female presents to the ER complaining of right knee pain. Patient reports she tripped over a kitten around 5 PM approximately 8 hours prior to arrival. Patient reports when she tripped she landed directly on the front of the right knee and that is where she is primarily having pain. She states she has extensive arthritis in her joints. Additional chronic medical problems include hyperlipidemia, HFpEF, obesity. Patient reports she took ibuprofen prior to arrival. She states she has significant discomfort with bearing weight on the right knee. Related Data Home Medications ?Medication ?Instructions ?Recorded ?Confirmed multivitamin 1 cap PO DAILY 03/26/18 05/16/25 gabapentin 600 mg tablet 600 mg PO TID 01/21/19 05/16/25 duloxetine 60 mg capsule,delayed 60 mg PO DAILY 05/12/20 05/16/25 release (Cymbalta) topiramate 50 mg tablet 50 mg PO BID 06/13/21 05/16/25 cholecalciferol (vitamin D3) 50 50 mcg PO DAILY 01/04/23 05/16/25 mcg (2,000 unit) tablet (Vitamin D3) zinc sulfate 50 mg zinc (220 mg) 100 mg PO DAILY 01/04/23 05/16/25 capsule albuterol sulfate 90 mcg/actuation 2 puff inhalation TID PRN Wheezing 08/16/23 05/16/25 aerosol inhaler (Ventolin HFA) omega 5-izo-xsm-fish oil 300 1 cap PO DAILY 08/16/23 05/16/25 mg-1,000 mg capsule,delayed release (Fish Oil) docusate sodium 100 mg capsule 100 mg PO DAILY PRN Constipation 02/14/24 05/16/25 fluticasone propionate 50 2 spray intranasal BID PRN Allergy 02/14/24 05/16/25 mcg/actuation nasal Symptoms spray,suspension cariprazine 1.5 mg capsule 1.5 mg PO DAILY 12/08/24 05/16/25 (Vraylar) ergocalciferol (vitamin D2) 1,250 1,250 mcg PO WEEKLY 12/08/24 05/16/25 mcg (50,000 unit) capsule (Vitamin D2) diclofenac sodium 75 mg 75 mg PO BID 02/16/25 05/16/25 tablet,delayed release omeprazole 20 mg capsule,delayed 20 mg PO DAILY 02/17/25 05/16/25 release Previous Rx's ?Medication ?Instructions ?Recorded ferrous sulfate 325 mg (65 mg 325 mg PO DAILY #90 tabs 03/11/25 iron) tablet spironolactone 25 mg tablet 25 mg PO DAILY #90 tabs 04/07/25 (Aldactone) Allergies Allergy/AdvReac Type Severity Reaction Status Date / Time penicillin G Allergy Mild Hives Verified 04/20/25 10:24 [facility] Disclaimer: The information contained in this section may have been updated after the patient was seen, as this information can be updated by other users. Medical History Hyperlipidemia (HFpEF) heart failure with preserved ejection fraction Other chest pain Obesity Abnormal findings on diagnostic imaging of heart and coronary circulation Swelling Fatigue Bipolar 2 disorder GERD (gastroesophageal reflux disease) Surgical History History of salpingectomy History of endometrial ablation History of gastric surgery History of delivery History of arthroplasty of left knee History of tonsillectomy Family History Other Diabetes Hypertension Social History Smoking Status: Never smoker alcohol intake: never substance use type: denies use current occupational status: employed Travel in the last 8 weeks?: None household members: spouse and children housing: house current occupational exposures/hazards: No caffeine: No Have you lived/traveled outside US in past 30 days?: No Contact w/someone who lives/traveled outside US past 30 days?: No Exposure to someone with infectious disease in past 14 days?: No Do you have a fever (greater than 100.4 F or 38 C)?: No Have you tested positive for COVID-19?: No Exposed to someone with COVID-19 in past 14 days?: No Do you have a sore throat?: No Do you have a cough?: No Do you have any weakness?: No Do you have any diarrhea?: No Are you experiencing any unusual bleeding?: No Do you have any muscle aches/pain?: Yes Do you have any abdominal pain?: No Are you experiencing loss of taste or smell?: No Other Medical History Have you received the Flu Vaccine for this season: No Have you received the Pneumonia Vaccine: No ROS Obtained: Yes Systems reviewed as appropriate & no additional complaints except as documented per HPI Physical Exam General General appearance: alert, in no apparent distress and obese Head Head exam: atraumatic and normocephalic Eye Eye exam: Present PERRL and EOMI ENT ENT exam: Present mucous membranes moist Neck Neck exam: Present normal inspection and full ROM Chest Chest inspection: Present symmetric chest wall rise Respiratory Respiratory exam: Absent respiratory distress or stridor Cardiovascular Cardiovascular exam: Present regular rate and normal rhythm Extremities Exam Extremities exam: Present full ROM (Patient has full range of motion of the right knee though it is painful at the extremes of the range), tenderness (Anterior knee tenderness overlying the patella which appears to be well-seated and in appropriate position), normal capillary refill and other (No ligamentous laxity of the ACL, PCL, MCL, or LCL appreciated, negative Lou testing, extensor mechanism intact, neurovascularly intact); Absent edema or joint swelling Neurological Exam Neurological exam: Present alert and oriented X3; Absent motor sensory deficit Psychiatric Psychiatric exam: Present normal affect and normal mood Skin Skin exam: Present warm and dry Medical Decision Making Medical Records Medical records reviewed: Yes I reviewed the patient's medical records. Screening: Per USPSTF and CDC recommendations, given the prevalence of disease in our region, it is our hospital?s policy to screen for HIV and viral Hepatitis for all patients aged 18 and over and those with ongoing risk factors. Jamie Inquiry Pt receiving controlled substance: No Vital Signs: 05/16/25 01:08 05/16/25 02:01 05/16/25 02:30 Temperature 97.7 F Temperature Source Oral Pulse Rate 55 L 54 L Pulse Rate [Radial] 60 Respiratory Rate 16 17 15 Blood Pressure 103/64 L 114/54 L Blood Pressure [Right Arm] 134/71 Blood Pressure Mean 77 76 Blood Pressure Mean [Right Arm] 92 02 Sat by Pulse Oximetry 100 100 99 Oxygen Delivery Method Room Air 05/16/25 03:00 Temperature Temperature Source Pulse Rate 54 L Pulse Rate [Radial] Respiratory Rate 15 Blood Pressure 113/59 L Blood Pressure [Right Arm] Blood Pressure Mean 81 Blood Pressure Mean [Right Arm] 02 Sat by Pulse Oximetry 100 Oxygen Delivery Method Orders (Tests/Meds): ED MEDICATIONS Discontinued Medications Generic Name Dose Route Start Last Admin Trade Name Freq PRN Reason Stop Dose Admin Acetaminophen 1,000 mg 05/16/25 03:20 05/16/25 03:35 Acetaminophen 500mg Tab PO 05/16/25 03:21 1,000 mg ONCE ONE Administration ORDERS Category Date Time Status CT knee RT wo con Stat Cat Scan 05/16/25 02:54 Completed XR knee RT 3V Stat Exams 05/16/25 01:26 Completed Medical Decision Narrative: In summary, this 44-year-old female with comorbidities described in the HPI presents to the emergency department today with right knee pain. On initial evaluation patient is hemodynamically stable, afebrile, patient has tenderness in the anterior knee though the patella Feels to be in appropriate position. I do not appreciate large effusion, no ligamentous laxity, no pain or clicking with meniscus testing, extensor mechanism intact, neurovascularly intact. Differential diagnosis includes but is not limited to patellar fracture or subluxation though I have low suspicion for subluxation since it is well aligned and patient has good range of motion of the knee, I considered the possibility of other osseous injury, also considered soft tissue injury, ligamentous injury. Based on these concerns, I ordered x-ray right knee. Patient took ibuprofen prior to arrival. Tylenol administered in the ER. X-ray personally interpreted does not demonstrate obvious osseous injury on my personal interpretation. Since patient is having difficulty with weightbearing despite not having osseous injury, I sent her for CT without contrast to evaluate for possible occult fracture. Patient reports history of tubal ligation. No test indicated. CT knee personally interpreted demonstrates significant arthritis but no obvious osseous injury. See radiology read for final interpretation. Patient is appropriate for discharge at this time. Since she has pain with weightbearing and I cannot fully evaluate for soft tissue injury such as ligamentous injury I put the patient in a hinged knee brace, I did not lock the brace as I do not want to increase her risk of blood clot, and provided her with crutches to help with ambulation. She was also provided a work note. She states she has an orthopedist through and I instructed her to call them Sunday morning to make an appointment for follow-up and reevaluation. Patient was given instructions on symptomatic monitoring and management, follow up instructions, and return precautions for the emergency department. Patient indicated understanding and was discharged in stable condition. Critical Care Critical Care Time Critical Care Time: No
--- NOTE | 2025-05-16 02:54 | CT_ITS ---
PROCEDURE INFORMATION: Exam: CT Right Lower Extremity Without Contrast, Knee Exam date and time: 05/16/2025 3:21 AM Age: 44 years old Clinical indication: Pain and injury or trauma; Fall; Swelling (edema); Knee; Right; Additional info: Fell directly onto knee, pain anteriorly TECHNIQUE: Imaging protocol: CT of the right lower extremity without contrast was performed. Exam focused on the knee. Radiation optimization: All CT scans at this facility use at least one of these dose optimization techniques: automated exposure control; mA and/or kV adjustment per patient size (includes targeted exams where dose is matched to clinical indication); or iterative reconstruction. COMPARISON: CR XR KNEE RT 3V 05/16/2025 1:49 AM FINDINGS: Bones/joints: No acute fracture or dislocation. Severe tricompartmental osteoarthritis. Trace joint effusion. Soft tissues: No acute abnormality. IMPRESSION: 1. No acute fracture or dislocation. 2. Severe tricompartmental osteoarthritis. 3. Trace joint effusion.
[2025-05-16 03:00] VITALS: BP 113/59; PULSE 54; RESP 15; O2SAT 100
[2025-05-16 03:30] VITALS: BP 115/74
[2025-05-16] MEDS: ACETAMINOPHEN 500MG TAB 1000 MG PO (03:35)
[2025-05-16 03:51] VITALS: BP 115/74; PULSE 52; RESP 16; TEMP 36.6; O2SAT 100
== END 2025-05-16 03:57 | disposition home or self-care (01) ==
PROVIDERS: Emergency Provider Emergency Medicine; PCP Nurse Practitioner Family
DX: M25.561 Pain in right knee (principal); M17.11 Unilateral primary osteoarthritis, right knee
CPT/HCPCS: 73562; 73700; 99284

== ENCOUNTER 2025-06-17 12:12 | Outpatient (CLI) | payer MEDICAID, SELFPAY ==
--- OUTSIDE RECORDS SUMMARY | 2025-06-17 12:14 | XMS_ITS | Clinical Summary ---
Author Organization [facility] Address [address] 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 06/01/2022 Active nystatin (Mycostatin) 384939 UNIT/ML suspension TAKE 5 ML BY MOUTH [...] 3 - 19+ 3-dose series) 06/21/2022 05/24/2022 [id number] Vaccine (1 - season) 2025 [facility]-Influenza Vaccine (#1) 04/06/202505/12, 05/09/2021, 07/08/2020, Additional history exists [facility]-DTaP,Tdap,and Td Vaccines (3 - Td or Tdap) 12/11/2029 12/12/2019, 07/23/2012 [facility]-Zoster Vaccines (1 of 2) 2031 [facility]-Hepatitis A Vaccines Aged Out 10/24/2018, 04/06 No longer eligible based on patient's age to complete this topic [facility]-HIB Vaccines Aged Out No longer e [...] this topic Medical Devices Implanted Type Area Gun Repair Clerk Device Identifier Shelf Expiration Date Model / Serial / Lot Screw Screw Left: Knee Staple Staple N/A: Stomach Insurance [employer]ICA[employer] Advance Directives * Full Code (Latest Code Status on File) Date Activated Date Inactivated Comments 03/09/2021 11:13 AM 03/10/2021 4:47 PM Question Answer Comments Patient has decision-making capacity? 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
--- OUTSIDE RECORDS SUMMARY | 2025-06-17 12:15 | XMS_ITS | Data Portability ---
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 Plan of Treatment Reminders Order Date Submit Date Provider Last Modified By Organization Details Last Modified Time Details Appointments Follow Up 2025 08:20A Sharon Riley APRN Not available Not available Not available Lab drug screen, urine 2024 025 [facility], [address], [place], [address], 06/01/2025 09:34:38 cobalamin and folate panel, serum 2024 025 [facility], [address], [place], [address], 02/23/2025 16:08:09 thiamine, QN, blood 2024 025 [facility], [address], [place], [address], 02/23/2025 16:08:10 CBC w/ auto diff 2024 025 [facility], [address], [address], [place], [address], 02/23/2025 16:08:07 CMP, serum or plasma 2024 025 [facility], [address], [address], [place], [address], 02/23/2025 16:08:07 iron + total iron-bind ing capacity (TIBC), serum 2024 025 [facility], [address], [address], [place], [address], 02/23/2025 16:08:08 vitamin D, 25-hydrox y, total, serum 2024 025 [facility], [address], [address], [place], [address], 02/23/2025 16:08:09 TSH + free T4, serum 2024 025 [facility], [address], [address], [place], [address], 02/23/2025 16:08:06 urinalysi s, dipstick 2024 025 [facility], [address] [place] [address], [address], 02/02/2025 13:56:24 test, urine 2024 025 [facility], [address] [place] [address], [address], 02/02/2025 13:56:24 culture, urine 2024 025 [facility], [address], [address], [place], [address], 02/04/2025 05:06:31 Referral None recorded. Procedures None recorded. Surgeries None recorded. Imaging None recorded. Medication Orders diclofena c sodium 75 mg tablet,de layed release 2024 025 [facility], [address] [place] [address], [id number], 06/01/2025 09:27:43 omeprazol e 20 mg capsule,d elayed release 2024 [facility], [address] [place] [address], [id number], 06/01/2025 09:28:05 mupirocin 2 % topical ointment 2024 [facility], [address] [place] [address], [id number], 06/01/2025 09:29:38 duloxetin e 60 mg capsule,d elayed release 2024 [facility], [address] [place] [address], [id number], 06/01/2025 09:27:56 fluticaso ne propionat e 50 mcg/actua tion nasal spray,ruth pension 2024 [facility], [address] [place] [address], [id number], 06/01/2025 09:27:38 omega-3 acid ethyl esters 1 gram capsule 2024 [facility], [address] [place] [address], [id number], 06/01/2025 09:27:53 diclofena c 1 % topical gel 2024 [facility], [address] [place] [address], [id number], 06/01/2025 09:27:46 docusate sodium 100 mg capsule 2024 [facility], [address] [place] [address], [id number], 06/01/2025 09:27:35 Vitamin D2 1,250 mcg (50,000 unit) capsule 2024 025 [facility], [address] [place] [address], [id number], 06/01/2025 09:27:50 topiramat e 50 mg tablet 2024 025 [facility], [address] [place] [address], [id number], 06/01/2025 09:27:41 gabapenti n 600 mg tablet 2024 025 [facility], [address] [place] [address], [id number], 06/01/2025 09:28:09 ferrous sulfate 325 mg (65 mg iron) tablet 2024 025 [facility], [address] [place] [address], [id number], 06/01/2025 09:28:04 omeprazol e 20 mg capsule,d elayed release 2024 025 [facility], [address] [place] [address], [id number], 02/20/2025 11:06:41 docusate sodium 100 mg capsule 2024 025 [facility], [address] [place] [address], [id number], 02/20/2025 11:06:51 Lasix 20 mg tablet 2024 025 [facility], [address] [place] [address], [id number], 06/01/2025 09:10:39 Vitamin D2 1,250 mcg (50,000 unit) capsule 2024 025 [facility], [address] [place] [address], [id number], 02/20/2025 11:06:47 topiramat e 50 mg tablet 2024 025 [facility], [address] [place] [address], [id number], 02/20/2025 11:06:39 duloxetin e 60 mg capsule,d elayed release 2024 025 [facility], [address] [place] [address], [id number], 02/20/2025 11:06:44 Lasix 20 mg tablet 2024 025 [facility], [address] [place] [address], [id number], 06/01/2025 08:58:27 sulfaceta mide sodium 10 % eye drops 2024 025 [facility], [address] [place] [address], [id number], 02/02/2025 13:38:53 Patient TargetsNo targets recorded. Patient Instructions Encounter Date Encounter Id Patient Instructions Last Modified By Organization Details Last Modified Time 06/01/2025 [id number] learning about healthy weight efryman Not available 06/01/2025 09:25:21 body mass index: care instructions efryman Not available 06/01/2025 09:25:21 Reason for Referral None Reported. Results Created Date Observation Date Name Description Value Unit Range Abnormal Flag Note LastModifiedBy Organization Detail LastModifiedTime 02/03/2002/04/2025 URINE CULTU REMAURO urine culture, routine Final report Not Available [facility] ([facility] [place] [place] [facility] [address] [facility], [place], [address], 02/04/2025 05:06:31 02/03/20 25 02/04/2025 URINE CULTU REMAURO NE result 1 COMMEN T Mixed uroge nital sophie 10,00 0-25, 000 colon y formi ng units per mL Not Available [facility] ([facility] [place] [place] [facility] [address] [facility], [place], [address], 02/04/2025 05:06:31 02/03/20 25 02/02/2025 urina lysis , dipst ick Leukocytes Negati ve Not Available [address], [address], 02/02/2025 13:36:24 02/03/20 25 02/02/2025 urina lysis , dipst ick Nitrite negati ve Not Available [address], [address], 02/02/2025 13:36:24 02/03/20 25 02/02/2025 urina lysis , dipst ick Urobilinogen 1 Not Available James [address], [address], 02/02/2025 13:36:24 02/03/20 25 02/02/2025 urina lysis , dipst ick Protein 30 Not Available [address], [address], 02/02/2025 13:36:24 02/03/20 25 02/02/2025 urina lysis , dipst ick pH 7.0 Not Available [address], [address], 02/02/2025 13:36:24 02/03/20 25 02/02/2025 urina lysis , dipst ick Blood Negati ve Not Available [address], [address], 02/02/2025 13:36:24 02/03/20 25 02/02/2025 urina lysis , dipst ick Specific [place] 1.025 Not Available [address], [address], 02/02/2025 13:36:24 02/03/20 25 02/02/2025 urina lysis , dipst ick Ketone Negati ve Not Available [address], [address], 02/02/2025 13:36:24 02/03/20 25 02/02/2025 urina lysis , dipst ick Bilirubin Negati ve Not Available [address], [address], 02/02/2025 13:36:24 02/03/20 25 02/02/2025 urina lysis , dipst ick Glucose Negati ve Not Available [address], [address], 02/02/2025 13:36:24 02/03/20 25 02/02/2025 urina lysis , dipst ick Appearance Slight ly Cloudy Not Available [address], [address], 02/02/2025 13:36:24 02/03/20 25 02/02/2025 urina lysis , dipst ick Color Dark Yellow Not Available [address], [address], 02/02/2025 13:36:24 02/03/20 25 02/02/2025 pregn ollie test, urine HCG negati ve Not Available [address], [address], 02/02/2025 13:50:20 02/21/20 25 02/21/2025 TSH+F REE T4 TSH 4.250 uIU/m L 0.450- 4.500 normal Not Available [facility] ([facility] [place] [place] [facility] [address] [place], [address], 02/23/2025 16:08:06 02/21/20 25 02/21/2025 TSH+F REE T4 T4,free(dire ct) 1.05 NG/dL 0.82-1 .77 normal Not Available [facility] ([facility] [place] [place] [facility] [address] [place], [address], 02/23/2025 16:08:06 02/21/20 25 02/21/2025 CBC WITH DIFFE RENTI AL/PL ATELE T WBC 6.5 x10e3 /uL 3.4-10 .8 normal Not Available [facility] ([facility] [place] [place] [facility] [address] [facility], [place], [address], 02/23/2025 16:08:06 02/21/20 25 02/21/2025 CBC WITH DIFFE RENTI AL/PL ATELE T RBC 4.81 x10e6 /uL 3.77-5 .28 normal Not Available [facility] ([facility] [place] [place] [facility] [address] [place], [address], 02/23/2025 16:08:06 02/21/20 25 02/21/2025 CBC WITH DIFFE RENTI AL/PL ATELE T hemoglobin 13.0 g/dL 11.1-1 5.9 normal Not Available [facility] ([facility] [place] [place] [facility] [address] [place], [address], 02/23/2025 16:08:06 02/21/20 25 02/21/2025 CBC WITH DIFFE RENTI AL/PL ATELE T hematocrit 41.4 % 34.0-4 6.6 normal Not Available [facility] ([facility] [place] [place] [facility] [address] [place], [address], 02/23/2025 16:08:06 02/21/20 25 02/21/2025 CBC WITH DIFFE RENTI AL/PL ATELE T MCV 86 fL 79-97 normal Not Available [facility] ([facility] [place] [place] [facility] [address] [place], [address], 02/23/2025 16:08:06 02/21/20 25 02/21/2025 CBC WITH DIFFE RENTI AL/PL ATELE T MCH 27.0 pg 26.6-3 3.0 normal Not Available [facility] ([facility] [place] [place] [facility] [address] [place], [address], 02/23/2025 16:08:06 02/21/20 25 02/21/2025 CBC WITH DIFFE RENTI AL/PL ATELE T MCHC 31.4 g/dL 31.5-3 5.7 below low normal Not Available [facility] ([facility] [place] [place] [facility] [address] [place], [address], 02/23/2025 16:08:06 02/21/20 25 02/21/2025 CBC WITH DIFFE RENTI AL/PL ATELE T RDW 12.8 % 11.7-1 5.4 Not Available [facility] ([facility] [place] [place] [facility] [address] [place], [address], 02/23/2025 16:08:06 02/21/20 25 02/21/2025 CBC WITH DIFFE RENTI AL/PL ATELE T platelets 278 x10e3 /uL 150-45 0 normal Not Available [facility] ([facility] [place] [place] [facility] [address] [place], [address], 02/23/2025 16:08:06 02/21/20 25 02/21/2025 CBC WITH DIFFE RENTI AL/PL ATELE T neutrophils 59 % not estab. normal Not Available [facility] ([facility] [place] [place] [facility] [address] [place], [address], 02/23/2025 16:08:06 02/21/20 25 02/21/2025 CBC WITH DIFFE RENTI AL/PL ATELE T lymphs 29 % not estab. normal Not Available [facility] ([facility] [place] [place] [facility] [address] [facility], [place], [address], 02/23/2025 16:08:06 02/21/20 25 02/21/2025 CBC WITH DIFFE RENTI AL/PL ATELE T monocytes 8 % not estab. normal Not Available [facility] ([facility] [place] [place] [facility] [address] [facility], [place], [address], 02/23/2025 16:08:06 02/21/20 25 02/21/2025 CBC WITH DIFFE RENTI AL/PL ATELE T eos 3 % not estab. normal Not Available [facility] ([facility] [place] [place] [facility] [address] [facility], [place], [address], 02/23/2025 16:08:06 02/21/20 25 02/21/2025 CBC WITH DIFFE RENTI AL/PL ATELE T basos 1 % not estab. normal Not Available [facility] ([facility] [place] [place] [facility] [address] [facility], [place], [address], 02/23/2025 16:08:06 02/21/20 25 02/21/2025 CBC WITH DIFFE RENTI AL/PL ATELE T immature cells FAST FOOD COOK Not Available [facility] ([facility] [place] [place] [facility] [address] [place], [address], 02/23/2025 16:08:06 02/21/20 25 02/21/2025 CBC WITH DIFFE RENTI AL/PL ATELE T neutrophils (absolute) 3.9 x10e3 /uL 1.4-7. 0 normal Not Available [facility] ([facility] [place] [place] [facility] [address] [place], [address], 02/23/2025 16:08:06 02/21/20 25 02/21/2025 CBC WITH DIFFE RENTI AL/PL ATELE T lymphs (absolute) 1.9 x10e3 /uL 0.7-3. 1 normal Not Available [facility] ([facility] [place] [place] [facility] [address] [facility], [place], [address], 02/23/2025 16:08:06 02/21/20 25 02/21/2025 CBC WITH DIFFE RENTI AL/PL ATELE T monocytes(ab solute) 0.5 x10e3 /uL 0.1-0. 9 normal Not Available [facility] ([facility] [place] [place] [facility] [address] [facility], [place], [address], 02/23/2025 16:08:06 02/21/20 25 02/21/2025 CBC WITH DIFFE RENTI AL/PL ATELE T eos (absolute) 0.2 x10e3 /uL 0.0-0. 4 normal Not Available [facility] ([facility] [place] [place] [facility] [address] [facility], [place], [address], 02/23/2025 16:08:06 02/21/20 25 02/21/2025 CBC WITH DIFFE RENTI AL/PL ATELE T baso (absolute) 0.1 x10e3 /uL 0.0-0. 2 normal Not Available [facility] ([facility] [place] [place] [facility] [address] [facility], [place], [address], 02/23/2025 16:08:06 02/21/20 25 02/21/2025 CBC WITH DIFFE RENTI AL/PL ATELE T immature granulocytes 0 % not estab. Not Available [facility] ([facility] [place] [place] [facility] [address] [facility], [place], [address], 02/23/2025 16:08:06 02/21/20 25 02/21/2025 CBC WITH DIFFE RENTI AL/PL ATELE T immature grans (abs) 0.0 x10e3 /uL 0.0-0. 1 Not Available [facility] ([facility] [place] [place] [facility] [address] [facility], [place], [address], 02/23/2025 16:08:06 02/21/20 25 02/21/2025 CBC WITH DIFFE RENTI AL/PL ATELE T NRBC FAST FOOD COOK Not Available [facility] ([facility] [place] [place] [facility] [address] [facility], [place], [address], 02/23/2025 16:08:06 02/21/20 25 02/21/2025 CBC WITH DIFFE RENKIYA AL/PL ATELE T hematology comments: FAST FOOD COOK Not Available [facility] ([facility] [place] [place] [facility] [address] [facility], [place], [address], 02/23/2025 16:08:06 02/21/20 25 02/21/2025 COMP. METAB OLIC PANEL (14) glucose 85 mg/dL 70-99 normal Not Available [facility] ([facility] [place] [place] [facility] [address] [facility], [place], [address], 02/23/2025 16:08:07 02/21/20 25 02/21/2025 COMP. METAB OLIC PANEL (14) BUN 18 mg/dL 6-24 normal Not Available [facility] ([facility] [place] [place] [facility] [address] [facility], [place], [address], 02/23/2025 16:08:07 02/21/20 25 02/21/2025 COMP. METAB OLIC PANEL (14) creatinine 0.53 mg/dL 0.57-1 .00 below low normal Not Available [facility] ([facility] [place] [place] [facility] [address] [facility], [place], [address], 02/23/2025 16:08:07 02/21/20 25 02/21/2025 COMP. METAB OLIC PANEL (14) eGFR 118 mL/mi n/1.7 3 >59 normal Not Available [facility] ([facility] [place] [place] [facility] [address] [facility] [place], [address], 02/23/2025 16:08:07 02/21/20 25 02/21/2025 COMP. METAB OLIC PANEL (14) BUN/creatini ne ratio 34 9-23 above high normal Not Available [facility] ([facility] [place] [place] [facility] [address] [place], [address], 02/23/2025 16:08:07 02/21/20 25 02/21/2025 COMP. METAB OLIC PANEL (14) sodium 142 mmol/ L 134-14 4 normal Not Available [facility] ([facility] [place] [place] [facility] [address] [facility] [place], [address], 02/23/2025 16:08:07 02/21/20 25 02/21/2025 COMP. METAB OLIC PANEL (14) potassium 4.1 mmol/ L 3.5-5. 2 normal Not Available [facility] ([facility] [place] [place] [facility] [address] [facility] [place], [address], 02/23/2025 16:08:07 02/21/20 25 02/21/2025 COMP. METAB OLIC PANEL (14) chloride 109 mmol/ L 96-106 above high normal Not Available [facility] ([facility] [place] [place] [facility] [address] [facility] [place], [address], 02/23/2025 16:08:07 02/21/20 25 02/21/2025 COMP. METAB OLIC PANEL (14) carbon dioxide, total 19 mmol/ L 20-29 below low normal Not Available [facility] ([facility] [place] [place] [facility] [address] [facility] [place], [address], 02/23/2025 16:08:07 02/21/20 25 02/21/2025 COMP. METAB OLIC PANEL (14) calcium 8.1 mg/dL 8.7-10 .2 below low normal Not Available [facility] ([facility] [place] [place] [facility] [address] [facility] [place], [address], 02/23/2025 16:08:07 02/21/20 25 02/21/2025 COMP. METAB OLIC PANEL (14) protein, total 6.4 g/dL 6.0-8. 5 normal Not Available [facility] ([facility] [place] [place] [facility] [address] [facility] [place], [address], 02/23/2025 16:08:07 02/21/20 25 02/21/2025 COMP. METAB OLIC PANEL (14) albumin 4.0 g/dL 3.9-4. 9 normal Not Available [facility] ([facility] [place] [place] [facility] [address] [facility] [place], [address], 02/23/2025 16:08:07 02/21/20 25 02/21/2025 COMP. METAB OLIC PANEL (14) globulin, total 2.4 g/dL 1.5-4. 5 Not Available [facility] ([facility] [place] [place] [facility] [address] [facility] [place], [address], 02/23/2025 16:08:07 02/21/20 25 02/21/2025 COMP. METAB OLIC PANEL (14) bilirubin, total 0.6 mg/dL 0.0-1. 2 normal Not Available [facility] ([facility] [place] [place] [facility] [address] [facility] [place], [address], 02/23/2025 16:08:07 02/21/20 25 02/21/2025 COMP. METAB OLIC PANEL (14) alkaline phosphatase 86 IU/L 44-121 normal Not Available [facility] [place] [place] [facility] [address] [facility] [place], [address], 02/23/2025 16:08:07 02/21/20 25 02/21/2025 COMP. METAB OLIC PANEL (14) AST (SGOT) 18 IU/L 0-40 normal Not Available [facility] ([facility] [place] [place] [facility] [address] [facility] [place], [address], 02/23/2025 16:08:07 02/21/20 25 02/21/2025 COMP. METAB OLIC PANEL (14) ALT (SGPT) 20 IU/L 0-32 normal Not Available [facility] ([facility] [place] [place] [facility] [address] [facility] [place], [address], 02/23/2025 16:08:07 02/21/20 25 02/21/2025 IRON AND TIBC iron bind.cap.(TI BC) 385 ug/dL 250-45 0 normal Not Available [facility] ([facility] [place] [place] [facility] [address] [place], [address], 02/23/2025 16:08:08 02/21/20 25 02/21/2025 IRON AND TIBC UIBC 352 ug/dL 131-42 5 normal Not Available [facility] ([facility] [place] [place] [facility] [address] [place], [address], 02/23/2025 16:08:08 02/21/20 25 02/21/2025 IRON AND TIBC iron 33 ug/dL 27-159 normal Not Available [facility] ([facility] [place] [place] [facility] [address] [place], [address], 02/23/2025 16:08:08 02/21/20 25 02/21/2025 IRON AND TIBC iron saturation 9 % 15-55 alert low Not Available [facility] ([facility] [place] [place] [facility] [address] [place], [address], 02/23/2025 16:08:08 02/21/20 25 02/21/2025 VITAM IN B12 AND FOLAT E vitamin B12 388 pg/mL 232-12 45 normal Not Available [facility] ([facility] [place] [place] [facility] [address] [place], [address], 02/23/2025 16:08:09 02/21/20 25 02/21/2025 VITAM IN B12 AND FOLAT E folate (folic acid), serum >20.0 NG/mL >3.0 A serum folat e luis angel ntrat ion of less than 3.1 ng/mL is consi dered to repre sent clini tres defic iency . Not Available [facility] ([facility] [place] [place] [facility] [address] [place], [address], 02/23/2025 16:08:09 02/21/20 25 02/21/2025 VITAM IN [...] IOM (Inst itute of Medic ine). 2010. Dieta ry refer ence intak es for calci um and D. Ha newby [place]: [facility] [employer] . 2. Lisseth metzger [place], Sarah flores [place], Donny off-F jeannie i CARVALHO, et al. Evalu ation , treat ment, and preve ntion of vitam in D defic iency : an Endoc rine Socie ty clini tres pract ice guide line. JCEM. 2010; 96(7) :1911 -30. Not Available [facility] ([facility] [place] [place] [facility] [address] [facility], [place], [address], 02/23/2025 16:08:09 02/21/20 25 02/23/2025 VITAM IN B1 (THIA MINE) , BLOOD vit. B1, whole blood COMMEN T nmol/ L Test not perfo rmed. No froze n whole blood recei barb. Test not perfo rmed. Attem pts to conta ct your facil ity were unsuc cessf ul. Not Available [facility] ([facility] [place] [place] [facility] [address] [facility], [place], [address], 02/23/2025 16:08:10 02/21/20 25 02/23/[address] PROBL EM request problem COMMEN T Test not perfo rmed. No froze n whole blood recei barb. Test not perfo rmed. Attem pts to conta ct your facil ity were unsuc cessf ul. TEST: 53620 6 Vitam in B1 (Thia mine) , Blood RECEI BARB: Froze n PL EDTA Not Available [facility] ([facility] [place] [place] [facility] [address] [facility], [place], [address], 02/23/2025 16:08:10 06/01/2006/01/2025 drug scree n, urine AMP negati ve Not Available [address], [address], 06/01/2025 09:20:44 06/01/2006/01/2025 drug scree n, urine BAR negati ve Not Available [address], [address], 06/01/2025 09:20:44 06/01/2006/01/2025 drug scree n, urine BUP negati ve Not Available [address], [address], 06/01/2025 09:20:44 06/01/2006/01/2025 drug scree n, urine BZO negati ve Not Available [address], [address], 06/01/2025 09:20:44 06/01/2006/01/2025 drug scree n, urine SARIAH negati ve Not Available [address], [address], 06/01/2025 09:20:44 06/01/2006/01/2025 drug scree n, urine FTY negati ve Not Available [address], [address], 06/01/2025 09:20:44 06/01/2006/01/2025 drug scree n, urine MDMA negati ve Not Available [address], [address], 06/01/2025 09:20:44 06/01/2006/01/2025 drug scree n, urine MET negati ve Not Available [address], [address], 06/01/2025 09:20:44 06/01/2006/01/2025 drug scree n, urine MOP negati ve Not Available [address], [address], 06/01/2025 09:20:44 06/01/2006/01/2025 drug scree n, urine MTD negati ve Not Available [address], [address], 06/01/2025 09:20:44 06/01/2006/01/2025 drug scree n, urine OXY negati ve Not Available [address], [address], 06/01/2025 09:20:44 06/01/2006/01/2025 drug scree n, urine PCP negati ve Not Available [address], [address], 06/01/2025 09:20:44 06/01/2006/01/2025 drug scree n, urine TCA negati ve Not Available [address], [address], 06/01/2025 09:20:44 06/01/2006/01/2025 drug scree n, urine THC negati ve Not Available [address], [address], 06/01/2025 09:20:44 12/09/19 25 12/08/2024 XR, knee, 3 view No observ ation record ed. [facility] [address], [place], [address], 12/11/2024 13:52:03 12/09/19 25 12/08/2024 XR, knee, 3 view No observ ation record ed. [facility] [address], [place], [place], [address], 12/11/2024 13:52:03 12/09/19 25 12/08/2024 XR, tibia + fibul a, 2 view No observ ation record ed. [facility] [address], [place], [place], [address], 12/11/2024 13:52:04 12/09/19 25 12/08/2024 XR, ankle , 2 view No observ ation record ed. [facility] [address], [place], [place], [id number], 12/11/2024 13:52:04 12/13/19 25 12/12/2024 US, trans vagin al No observ ation record ed. [facility] [id number], [place], [place], [id number], 12/15/2024 09:26:08 12/19/1912/18/2024 XR, ankle , 2 view No observ ation record ed. [facility] [address], [place], [place], [id number], 12/18/2024 10:41:32 02/16/20 25 02/14/2025 XR, chest , 2 view No observ ation record ed. [facility] [id number], [place], [place], [id number], 02/16/2025 08:21:21 02/16/20 25 02/14/2025 elect baricodi mayragr am No observ ation record ed. [facility] [address], [place], [id number], 02/16/2025 08:20:48 03/05/20 25 03/05/2025 NM, myoca rdial perfu sj scan, w/ stres s No observ ation record ed. [facility] [address], [place], [place], [id number], 03/09/2025 16:19:31 03/05/20 25 03/05/2025 cardi ac stres s test No observ ation record ed. [facility] [address], [place], [place], [address], 03/09/2025 16:19:31 05/16/20 25 05/16/2025 XR, knee, 3 view No observ ation record ed. [facility] [address], [place], [place], [address], 05/18/2025 10:24:08 05/16/20 25 05/16/2025 CT, knee, w/o contr ast No observ ation record ed. [facility] [address], [place], [place], [address], 05/18/2025 10:24:08 Result Notes None recorded. Problems Name Problem SNOMED Code Status Onset Date Resolution Date Notes Provider Name and Address Organization Details Recorded Time Asthma 265792825 Active 2019 Nat Riley, [employer] [address], [place], [address], [place] [facility] 3 10:07:07 Degeneration of intervertebral disc 92160572 Active 2019 Nat Riley, [employer] [address], [place], [address], [place] [facility] 3 10:07:10 Neuropathy 385203737 Active 2019 Nat Riley, [employer] [address], [place], [address], [place] [facility] 3 10:07:22 Depressive disorder 19328839 Active 2019 Nat Riley, [employer] [address], [place], [address] [facility] 3 10:07:12 Arthritis 2837502 Active 2019 Nat Riley, [employer] [address], [place], [address] [facility] 3 10:07:05 Anxiety 33942883 Active 2019 Nat Riley, [employer] [address], [place], [address] [facility] 3 10:07:02 Migraine 04006353 Active 2021 Nat Riley, [employer] [address], [place], [address] [facility] 3 10:07:25 Insomnia 578922923 Active 2021 Nat Riley, [employer] [address], [place], [address] [facility] 3 10:07:16 Iron deficiency anemia 14790046 Active 2021 Nat Riley, [employer] [address], [place], [address] [facility] 3 10:07:18 Candidiasis of mouth 47667540 Active 2021 Lisa Salazar, [employer] [address], [place], [address] [facility] 2 09:37:18 Contact dermatitis 53853963 Active 2023 Luther Walters, DO [address], [place], [address] [facility] 4 09:35:34 Vitamin D deficiency 74233769 Active 2024 Josie [place] null, [place] - [facility] 5 08:42:26 Gastroesophage al reflux disease without esophagitis 274951370 Active 2024 Josie Reneecyril null[place] - [facility] 5 08:42:58 Problem [...] completed Lilliana Owens APRN [address], [place], [address], [place] [facility] 03/04/2020 17:13:58 03/04/20 20 Skin Tag Removal completed Lilliana Owens APRN [address], [place], [address], [place] [facility] 03/04/2020 17:14:20 12/18/19 20 [...] 09:40:49 05/08/20 19 Medication Reconcilliation completed Marti [facility] 05/08/2019 09:32:29 02/08/20 19 Systolic B/P less than 130 mm Hg completed [facility] 02/07/2019 15:31:13 02/08/20 19 Diastolic B/P less than 80 mm [facility] 15:31:16 10/25/19 19 Systolic B/P less than 130 mm Hg completed Daniela [facility] 10/24/2018 12:59:01 10/25/19 19 Diastolic B/P less than 80 mm Hg completed Daniela [facility] 10/24/2018 12:59:03 09/26/19 19 Systolic B/P less than 130 mm Hg completed Daniela [facility] 09/26/2018 10:51:30 09/26/19 19 Diastolic B/P less than 80 mm Hg completed Daniela [facility] 09/26/2018 10:51:32 08/23/19 19 Systolic B/P less than 130 mm Hg completed Danielajeffry Acosta [facility] 08/23/2018 13:32:22 08/23/19 19 Diastolic B/P 80-89 mm Hg completed Daniela [facility] 08/23/2018 13:34:24 excision of excessive skin and subcutaneous tissue completed Danielajeffry Acosta [facility] 03/18/2021 11:46:20 Tonsillectomy completed Marti [facility] 05/08/2019 09:36:32 Knee arthroscopy/surgery completed Marti [facility] 05/08/2019 09:36:43 delivery completed Marti [facility] 05/08/2019 09:36:50 gastric sleeve completed Marti [facility] 05/08/2019 09:37:10 Endometrial Ablation completed Marti [facility] 05/08/2019 09:37:28 Tubal Ligation completed Marti [facility] 05/08/2019 09:37:40 Imaging Results None recorded. Procedure Notes None recorded. Medical Equipment None Reported. Allergies Allergen ID Allergen Name Allergen Category Reaction Reaction Severity Criticality Documentation Date Start Date Code Code System Note Provider Name and Address Organization Details Recorded Time 03083 latex environme nt,medica tion Not available Not available Not available 05/12/20162013 76016 91 RxNorm Not Available [facility] 6 08:49:01 32488 Product containin g penicilli n (product) medicatio n hives Not available Not available 05/12/20162012 28936 8001 SNOMED React ion: HIVES ; Not Available [facility] 6 09:23:58 Medications Name Sig Start Date [...] hours by oral route for 7 days. 05/19 completed Not Available Not Available Not Available trazodone [...] TABLET BY MOUTH TWICE DAILY DIRECTED . active Not Available Not Available No t Available triamcino lone acetonide 0.1 % topical [...] by topical route 3 times per day active Not Available Not Available No t Available Vistaril 25 mg capsule take 1 [...] 1 tablet every day by oral route. 06/01 completed Not Available Not Available Not Available [...] release TAKE 1 CAPSULE BY MOUTH DAILY. 06/01 completed Not Available Not Available Not Available neomycin- polymyxin -hydrocor t 3.5 mg-10,000 unit/mL-1 [...] TAKE 1 TABLET BY MOUTH TWICE DAILY. active Not Available Not Available No t Available Ginkoba M-E 60 mg-100 mg capsule Take [...] release TAKE 1 CAPSULE BY MOUTH DAILY active Not Available Not Available No t Available ginkgo biloba leaf extract 60 mg capsule 11/21 completed Not Available Not Available Not Available omega-3 acid ethyl esters 1 gram capsule Take 2 capsules twice a day by oral route for 30 days. active Not Available Not Available No t [...] Recorded on: 08/27/19 13 1:53PM;U ser: [email or web address]; Curry on: - (-5) Not Available Not Available [...] TAKE 1 CAPSULE BY MOUTH ONCE DAILY AT NIGHT DIRECTED active Not Available Not Available No [...] Updated DateTime 5 167.64 cm 46.6 kg/m2 878240. 19 g 67 /min 97 % 97 % 18 /min 4 112/74 mm[Hg] Selin Mckeon [facility] 5 08:36:30 Date Recorded Body height Body mass index (BMI) Body weight Heart rate Oxygen saturation Oxygen saturation in Arterial blood by Pulse oximetry Respiratory rate Pain severity - 0-10 verbal numeric rating [Score] - Reported Systolic And Diastolic Provider Name and Address Organization Details Last Updated DateTime 5 167.64 cm 49 kg/m2 227955. 29 g 82 /min 98 % 98 % 18 /min 0 112/78 mm[Hg] Selin Mckeon [facility] 5 13:35:39 Date Recorded Body height Respiratory rate Body mass index (BMI) Body weight Body temperature Heart rate Oxygen saturation Oxygen saturation in Arterial blood by Pulse oximetry Provider Name and Address Organization Details Last Updated DateTime 5 167.64 cm 18 /min 47.6 kg/m2 181354. 75 g 98.1 [degF] 58 /min 99 % 99 % Josie Owen [place] - [facility] 5 09:10:06 Date Recorded Body height Body mass index (BMI) Body weight Heart rate Oxygen saturation Oxygen saturation in Arterial blood by Pulse oximetry Respiratory rate Pain severity - 0-10 verbal numeric rating [Score] - Reported Body temperature Systolic And Diastolic Provider Name and Address Organization Details Last Updated DateTime 5 167.64 cm 47.6 kg/m2 706325. 75 g 64 /min 96 % 96 % 18 /min 0 98 [degF] 122/78 mm[Hg] Selin Mckeon [place] - [facility] 5 09:03:02 Social History Question Answer Notes LastModified by Organizat ion Details LastModified Time Tobacco Smoking Status Never Smoker Marti machado [place] - [facility] 05/08/2019 09:35:10 Able To Swim? Yes [email or web address] Information not available 05/08/2019 Do You Have An Advance Directive? No [email or web address] Information not available 05/08/2019 Do You Wear A Helmet When Biking? No [email or web address] Information not available 05/08/2019 Are You Blind Or Do You Have Difficulty Seeing? No [email or web address] Information not available 05/08/2019 What Is Your Level Of Caffeine Consumption? Moderate [email or web address] Information not available 05/08/2019 How Much Tobacco Do You Chew? None [email or web address] Information not available 05/08/2019 Are You Deaf Or Do You Have Serious Difficulty Hearing? No [email or web address] Information not available 05/08/2019 What Type Of Diet Are You Following? REGULAR [email or web address] Information not available 05/08/2019 Which Illicit Or Recreational Drugs Have You Used? Denies [email or web address] Information not available 05/08/2019 What Is The Highest Grade Or Level Of School You Have Completed Or The Highest Degree You Have Received? [id number] Information not available 11/03/2022 How Many Days Of Moderate To Strenuous Exercise, Like A Brisk Walk, Did You Do In The Last 7 Days? 1 [email or web address] Information not available 05/08/2019 On Those Days That You Engage In Moderate To Strenuous Exercise, How Many Minutes, On Average, Do You Exercise? 1 Information not available 05/08/2019 Swimming/diving Yes [email or web address] Informati on not available 05/08/2019 Have There Been Any Changes To Your Family Or Social Situation? No Information no t available 11/03/2022 How Hard Is It For You To Pay For The Very Basics Like Food, Housing, Medical Care, And Heating? 1 [email or web address] Information not available 05/08/2019 Hard Of Hearing Or Deaf In One Or Both Ears? No [email or web address] Information not available 05/08/2019 Legally Blind In One Or Both Eyes? No Information no t available 05/08/2019 Live Alone Or With Others? With Others Information not available 02/03/2020 Do You Have A Medical Power Of Dj Instructor? No Information not available 11/03/2022 What Was The Date Of Your Most Recent Tobacco Screening? 12/05/2024 [email or web address] Information not available 12/05/2024 Do You Use Protection During Sex? Usually [email or web address] Information not available 05/08/2019 What Is Your Relationship Status? Information not available 11/03/2022 Seat Belts Used Routinely Yes Information not available 02/03/2020 Are You Sexually Active? Yes [email or web address] Information not available 05/08/2019 Smoke Alarm In Home Yes [email or web address] Information not available 05/08/2019 Do You Have Smoke And Carbon Monoxide Detectors In Your Home? Yes Information not available 11/03/2022 Are You Passively Exposed To Smoke? Yes [email or web address] Information no t available 05/08/2019 How Much Tobacco Do You Smoke? No Information not available 05/08/2019 General Stress Level Low Information not available 02/03/2020 Do You Use Sunscreen Routinely? Yes [email or web address] Information not available 05/08/2019 Has Tobacco Cessation Counseling Been Provided? No Information not available 12/04/2022 How Many Years Have You Smoked Tobacco? 0 [email or web address] Information not available 05/08/2019 Do You Have Difficulty Walking Or Climbing Stairs? No [email or web address] Information not available 05/08/2019 Sex: Female Functional Status Question Answer Note LastModified by Organizat ion Details LastModified Time Do you use any illicit or recreational drugs? No Information not available 11/03/2022 Do you or have you ever used any other forms of tobacco or nicotine? No Information not available 11/03/2022 What is your level of alcohol consumption? None [email or web address] Information not available 05/08/2019 Do you or have you ever used smokeless tobacco? Never used smokeless tobacco [email or web address] Information not available 05/08/2019 Are you currently employed? Yes Information not available 11/03/2022 Do you have transportation difficulties? No Information not available 11/03/2022 Are you able to walk independently without assistance or assistive devices? [email or web address] Information not available 05/08/2019 Do you have difficulty doing errands alone? No Information not available 05/08/2019 Are you able to care for yourself independently? Yes [email or web address] Information not available 05/08/2019 Do you have difficulty dressing, bathing, grooming, or toileting? No [email or web address] Information not available 05/08/2019 Do you or have you ever used e-cigarettes or vape? Never used electronic cigarettes [email or web address] Information not available 05/08/2019 What is your exercise level? None Information not available 02/03/2020 Mental Status Question Answer Note LastModified by Organization D etails LastModified Time Do you feel stressed (tense, restless, nervous, or anxious, or unable to sleep at night)? 1 Information not available 05/08/2019 Do you have difficulty concentrating, remembering or making decisions? No [email or web address] Information no t available 05/08/2019 Family History [...] Details Recorded Time Tdap 0 completed Karuna machado [place] - [facility] 12/12/2019 16:41:48 Influenza, split virus, quadrivalent, preservative 6 completed Not Available [facility] 08/23/2019 03:54:17 Influenza, split virus, quadrivalent, preservative 0 completed [place] Mcqueen - [facility] 07/08/2020 16:55:30 Influenza, split virus, quadrivalent, preservative 1 completed Bjorn Salazar MD [address], [place], [address], [place] [facility] 05/23/2021 11:39:53 Influenza, split virus, quadrivalent, preservative 7 completed Not Available [facility] 08/23/2019 03:54:42 Hep B, adult 2 completed Lisa Salazar, [employer] [address], [place], [address], [place] [facility] 05/24/2022 09:36:02 Hep B, adult 2 completed Lisa Salazar, [employer] [address], [place], [address], [place] [facility] 07/24/2022 09:44:07 Pneumococcal conjugate PCV 13 2 completed Selin Mcke[place] null[place] [facility] 08/23/2023 08:22:59 influenza, unspecified formulation 2 completed Sel[place] [facility] 08/23/2023 08:22:59 influenza, unspecified formulation 4 completed Sel[place] [facility] 08/23/2023 08:22:59 Tdap 2 completed Not Available [facility] 05/16/2016 00:49:27 Influenza, split virus, quadrivalent, preservative 3 completed Josie [place] [facility] 05/17/2023 14:48:02 Influenza, split virus, trivalent, preservative 4 completed Nat Riley, [employer] [address], [place], [address], [place] [facility] 05/23/2024 09:05:47 Pneumococcal conjugate PCV20, polysaccharide [id number] conjugate, adjuvant, PF 4 completed Nat Riley, [employer] [address], [place], [address], [place] [facility] 05/23/2024 09:05:47 Influenza, split virus, trivalent, PF 5 completed Josie [place] [facility] 05/11/2025 09:41:13 Hep A, adult 8 completed Not Available [facility] 08/23/2019 03:55:12 Influenza, split virus, quadrivalent, preservative 8 completed Not Available [facility] 08/23/2019 03:55:25 Hep A, adult 9 completed Not Available [facility] 08/23/2019 03:55:39 influenza, split (incl. purified surface antigen) 2 completed Josie [place] [facility] 11/03/2022 13:08:15 Influenza, split virus, quadrivalent, PF 2 completed Selin Mike [place] [facility] 02/19/2023 16:13:30 Influenza, split virus, quadrivalent, PF 4 completed Selin [place] [facility] 11/17/2022 16:25:17 Influenza, split virus, quadrivalent, PF 9 completed Not Available [facility] 08/23/2019 03:56:06 Past Encounters Encounter ID Performer Location Encounter Start Date Encounter Closed Date Diagnosis/Indication Diagnosis SNOMED-CT Code Diagnosis ICD10 Code Diagnosis IMO Codes Diagnosis Note [id number] [facility] [address] [place] [address] 08/27/2014 00:00:00 [id number] [facility] [address] [place] [address] 09/01/2014 00:00:00 [id number] [facility] [address] [place] [address] 09/28/2014 00:00:00 [id number] [facility] [address] [place] [address] 10/29/2014 00:00:00 [id number] [facility] [address] [place] [address] 11/26/2014 00:00:00 [id number] [facility] [address] [place] [address] 12/01/2014 00:00:00 [id number] [facility] [address] [place] [address] 12/25/2014 00:00:00 [id number] [facility] [address] [place] [address] 01/11/2015 00:00:00 [id number] [facility] [address] [place] [address] 02/12/2015 00:00:00 [id number] [facility] [address] [place] [address] 04/22/2015 00:00:00 [id number] [facility] [address] [place] [address] 01/04/2015 00:00:00 [id number] [facility] [address] [place] [address] 01/08/2015 00:00:00 [id number] [facility] [address] [place] [address] 05/14/2015 00:00:00 [id number] [facility] [address] [place] [address] 08/10/2015 00:00:00 [id number] [facility] [address] [place] [address] 08/23/2015 00:00:00 [id number] [facility] [address] [place] [address] 10/21/2015 00:00:00 [id number] [facility] [address] [place] [address] 12/02/2015 00:00:00 [id number] [facility] [address] [place] [address] 12/13/2015 00:00:00 [id number] [facility] [address] [place] [address] 12/31/2015 00:00:00 [id number] [facility] [address] [place] [address] 12/31/2015 00:00:00 [id number] [facility] [address] [place] [address] 12/05/2013 00:00:00 [id number] [facility] [address] [place] [address] 01/16/2014 00:00:00 [id number] [facility] [address] [place] [address] 05/01/2014 00:00:00 [id number] [facility] [address] [place] [address] 05/18/2014 00:00:00 [id number] [facility] [address] [place] [address] 06/11/2014 00:00:00 [id number] [facility] [address] [place] [address] 07/27/2014 00:00:00 [id number] [facility] [address] [place] [address] 08/27/2012 00:00:00 [id number] [facility] [address] [place] [address] 11/13/2013 00:00:00 [id number] [facility] [address] [place] [address] 11/24/2013 00:00:00 [id number] SHAINA García [address] [place] [address] 05/30/2016 07:57:11 05/30/2016 08:36:30 Administration of influenza vaccine 79230921 Z23 Candidiasis of skin 4988 3006 B37.2 [id number] SHAINA García [address] [place] [address] 07/07/2016 10:56:27 07/07/2016 11:34:26 Acute bronchitis 29645104 J20.9 [id number] SHAINA García [address] [place] [address] 07/13/2016 09:24:15 07/13/2016 10:19:57 Low back pain 009617621 M54.5 Lumbar radiculopathy 128 985063 M54.16 Pain of wrist region 566 39253 M25.531 Acute bronchitis 2742711 2 J20.9 [id number] Carmen Austin APRN [address] [address] [place] [address] 08/31/2016 10:50:08 08/31/2016 11:27:04 Acute bronchitis 05461245 J20.9 [id number] Carmen Austin APRN [address] [place] [address] 03/26/2017 09:43:54 03/26/2017 10:08:13 Sinusitis 38990795 J32.9 [id number] Carmen Austin APRN [address] [place] [address] 05/10/2017 13:44:34 05/10/2017 14:26:01 Acute bronchitis 99482739 J20.9 Candidiasis of [facility] 72 715134 B37.3 [id number] Carmen Austin APRN [address] [place] [place] [address] 06/01/2017 11:59:08 06/01/2017 12:18:16 Administration of influenza vaccine 18090502 Z23 [id number] Carmen Rodasey SHAINA [place] [address] [place] [address] 08/13/2017 11:21:24 08/13/2017 12:44:19 Influenza caused by Influenza A virus 741554063 J09.X2 [id number] Carmen GeovannaSHAINA flores [place] [address] [place] [address] [facility] [place] [address] 10/18/2017 11:22:54 10/18/2017 11:56:13 Body mass index 40+ - severely obese 864164291 Z68.43 Sinusitis 08185927 J32.9 Chronic sinusitis 799157 00 J32.9 [id number] Carmenrayne Austin APRN [address] [place] [address] 01/07/2018 10:53:20 01/07/2018 11:38:47 Fatigue 05362100 R53.83 Neuropathy 939097537 G62 .9 Long-term drug therapy 268767235 Z79.740 [id number] Carmen Austin APRN [address] [place] [address] 03/11/2018 12:46:38 03/11/2018 14:12:39 Long-term drug therapy 244042733 Z79.899 Neuropathy 941832752 G62 .9 [id number] Carmen Austin APRN [address] [address] [address] [facility] [place] [address] 04/01/2018 09:07:33 04/01/2018 09:41:47 Bronchitis 97519032 J40 [id number] Ariadne Drew APRN [place] [address] [facility] [place] [address] 04/24/2018 10:36:07 04/24/2018 11:05:02 Active or passive immunization 211956126 Z23 Herpes zoster 6123481 B0 2.9 [id number] Carmen Austin SHAINA [address] [address] [address] [facility] [place] [address] 05/14/2018 10:34:31 05/14/2018 11:13:08 Herpes zoster 1078986 B02.9 [id number] Carmen Austin APRN [address] [address] [facility] [place] [address] 05/21/2018 13:04:56 05/21/2018 13:39:32 Acute bronchitis 01235093 J20.9 [id number] Carmen Austin APRN [address] [place] [place] [address] 05/30/2018 10:41:54 05/30/2018 11:14:55 Acute bronchitis 99454349 J20.9 Otitis externa 1433545 H 60.93 Candidiasis of vagina 72 573103 B37.3 Excoriation of skin 2474 43346 T14.8XXA [id number] Carmen Austin APRN [address] [place] [facility] [place] [address] 05/31/2018 11:09:00 05/31/2018 11:52:06 Bronchitis 34683833 J40 [id number] Carmen Austin APRN [address] [address] [facility] [place] [facility] [facility] [place] [address] 07/02/2018 12:45:09 07/02/2018 13:33:25 Administration of influenza vaccine 54426766 Z23 [id number] Carmen Rodasey SHAINA [address] [place] [address] [facility] [place] [facility] [facility] [place] [address] 07/04/2018 11:24:55 07/04/2018 12:00:00 Peripheral neuropathic pain 150696537 M79.2 [id number] Carmen Westport[place]HELLN [place] [address] [facility] [place] [facility] [place] [address] 07/16/2018 11:00:53 07/16/2018 11:57:25 Neuropathy 330929412 G62.9 dcbs paperwork completed pending disability determinat ion [id number] Carmen Austin APRN [facility] [place] [address] [place], [place] [address] 08/12/2018 12:40:34 08/12/2018 13:42:14 Cough 39411932 R05 Acute bronchitis 8895751 2 J20.9 [id number] Carmen Geovanna SHAINA Supriya [place] [address] [address] [facility] [place] [place] [address] 08/23/2018 13:14:34 08/23/2018 14:20:31 Bronchitis 90400582 J40 Acute bronchitis 5230704 2 J20.9 [id number] Carmen Geovanna SHAINA Supriya [address] [place] [address] [address] [facility] [place] [address] 1 09/26/2018 10:26:08 09/26/2018 11:10:19 Peripheral neuropathic pain 110747606 M79.2 [id number] Carmen Austin APRN [facility] [address] [place] [address] 1 10/24/2018 12:40:19 10/24/2018 13:46:23 Active or passive immunization 984322594 Z23 [id number] Carmen Austin APRN [facility] [address] [facility] [place] [address] 12/27/2018 11:03:42 12/27/2018 12:01:32 Neuropathy 489435019 G62.9 order written for no driving 24 hours after procedures [id number] Carmen Austin APRN [facility] [place] [address] [facility] [place] [address] 01/02/2019 11:26:41 01/02/2019 12:13:59 General examination of patient 711398205 Z00.00 Screening for cardiovascular system disease 988613690 Z13.6 Endocrine/ metabolic screening 861599314 Z13.228 Screening mammography 24 242598 Z12.31 Exercises education, guidance, and counseling 028904215 Z71.82 Dietary ma nagement surveillance 060059956 Z71.3 [id number] Carmen Austin APRN [facility] [place] [address] SUPRIYA [facility] [place] [address] 01/16/2019 12:53:06 01/16/2019 13:58:41 Long-term drug therapy 394615478 Z79.899 Peripheral neuropathic pain 026814532 M79.2 [id number] Carmen Austin APRN [facility] [address] [place] [address] 02/07/2019 15:02:21 02/07/2019 15:42:48 Pruritic rash 65317348 L28.2 [id number] Carmen Austin APRN [facility] [address] [place] [address] 1 03/07/2019 09:39:27 03/07/2019 10:13:57 Pruritic rash 09774953 L28.2 Otitis media 33910077 H6 6.91 [id number] Carmen Austin APRN [facility] [address] [place] [address] 1 04/08/2019 09:27:27 04/08/2019 10:03:52 Pruritic rash 69772850 L28.2 Upper resp iratory infection 91588070 J06.9 Bronchitis 99467670 J40 [id number] Carmen Rodasey SHAINA [facility] [address] [place] [address] 05/08/2019 09:22:16 05/08/2019 10:11:27 Administration of influenza vaccine 06135423 Z23 Abrasion a nd/or friction burn of skin 608173275 T14.8XXA Excessive skin and subcutaneous tissue 682637736 L98.7 Sprain of knee 06178049 S83.92XA resolving [id number] Carmen WestportMICHELLN Supriya [address] [place] [address] 05/22/2019 08:46:24 05/22/2019 09:50:59 Anxiety 11788456 F41.9 paper work filled out for comfort dog to have at her apartment [id number] Carmen Austin APRN [facility] [address] [place] [address] 06/09/2019 09:33:44 06/09/2019 10:51:57 Pruritic rash 91285520 L28.2 [id number] Ariadne Drew APRN [facility] [address] [place] [address] 07/02/2019 16:06:02 07/02/2019 16:35:14 Otitis media 04207652 H66.92 [id number] Carmen WestportSHAINA flores Sup[facility] [address] [place] [address] 1 07/17/2019 08:05:51 07/17/2019 08:49:31 Excessive skin and subcutaneous tissue 687304507 L98.7 Ganglion c yst of right wrist 4002987883 24606 M67.431 Fatigue 63267974 R53.83 [id number] Carmen Austin APRN [address] [place] [address] [address] [place] [address] 07/22/2019 10:04:21 07/22/2019 10:41:36 Otalgia 75770098 H92.02 [id number] Carmen Austin APRN [facility] [address] [address] [place] [address] 1 08/04/2019 17:46:37 08/04/2019 18:10:01 Pharyngitis 655827427 J02.9 Sinusitis 94840014 J32.9 rtc as needed [id number] Carmen Austin APRN [facility] [place] [address] [place] [address] 1 08/18/2019 07:45:22 08/18/2019 08:32:52 Candidiasis of vagina 56160001 B37.3 Excessive skin and subcutaneous tissue 800820907 L98.7 Upper resp iratory infection 33857889 J06.9 [id number] Carmen Austin APRN [facility] [address] [place] [place] [address] 1 09/02/2019 07:48:41 09/02/2019 09:50:00 Body mass index 40+ - severely obese 460567041 Z68.43 Long-term drug therapy 079263643 Z79.899 Neuropathy 176325427 G62 .9 [id number] Carmen MICHELL AustinN Sup[place] [place] [address] [place] [address] 1 09/23/2019 07:57:36 09/23/2019 08:43:23 Candidiasis of skin 92743475 B37.2 [id number] Carmen GeovannaMICHELLN Supriya [address] [address] [place] [address] 1 10/17/2019 08:13:30 10/17/2019 08:59:34 Anxiety 72193105 F41.9 paper work filled out for comfort dog to have at her apartment [id number] Carmen Austin APRN [facility] [place] [address] SUPRIYA [facility] [place] [address] 1 10/23/2019 08:33:59 10/23/2019 09:22:09 Depressive disorder 49608725 F32.9 continue medication as prescribed [id number] Ariadne IzquierdoSHAINA guzmanyolyjackie [place] [address] SUPR[facility] [place] [address] 1 11/06/2019 08:28:00 11/06/2019 08:54:16 Depressive disorder 57082561 F32.9 Anxiety 45548184 F41.9 Vaginitis 02758311 N76.0 [id number] Carmen Austin APRN [place] [place] SUPRIYA [facility] [place] [address] 1 11/27/2019 16:03:18 11/27/2019 16:47:59 Neuropathy 181056427 G62.9 Knee pain 29750237 M25.5 69 [id number] Carmen Austin APRN [facility] [address] [place] AWYLONJackie [facility] [place] [address] 12/12/2019 16:19:29 12/12/2019 16:43:19 Administration of diphtheria, pertussis, and tetanus vaccine 338273489 Z23 [id number] Carmen Austin APRN [place] [place] [address] WAYLONJackie [facility] [place] [address] 12/18/2019 08:50:43 12/18/2019 09:36:55 Candidiasis of skin 52933228 B37.2 Multiple skin tags 94594 7009 L91.8 [id number] Carmen Austin APRN [facility] [place] WAYLONJackie [facility] [place] [address] 01/06/2020 08:01:24 01/06/2020 08:41:08 Arthritis 7149861 M19.90 [id number] Carmen Austin APRN [place] [address] [place] [address] 01/22/2020 07:56:57 01/22/2020 08:47:45 Pain of multiple joints 78605004 M25.50 Neuropathy 689420255 G62 .9 Candidiasis of skin 4988 3006 B37.2 Renewal of prescription 364516259 Z76.0 [id number] SHAINA [facility] [address] CLARKEYOLYJackie [facility] [place] [address] 1 01/26/2020 08:27:37 01/26/2020 09:04:11 Nail bed infection 96872321 L60.8 [id number] Lilliana Owens APRN [address] [place] [address] 02/03/2020 11:44:45 02/03/2020 12:37:08 Skin tag 202778227 L91.8 return for removal right upper back - acrochordo nleft flank - pedunculat ed tag [id number] SHAINA [facility] [address] WAYLONJackie [facility] [place] [address] 02/26/2020 08:01:03 02/26/2020 08:51:45 Candidiasis of skin 67931686 B37.2 [id number] SHAINA [facility] [address] CLARKEYOLYJackie [facility] [place] [address] 1 03/04/2020 13:27:01 03/04/2020 13:41:38 Anxiety 36655433 F41.9 [id number] SHAINA [place] [address] [place] [address] 03/04/2020 15:47:52 03/04/2020 17:13:27 Skin tag 336382677 L91.8 right upper back - acrochordo n , removed todayleft flank - pedunculat ed tag, removed today [id number] SHAINA [facility] [address] CLARKEYOLYJackie [facility] [place] [address] 04/15/2020 17:21:44 04/15/2020 18:06:01 Generalized anxiety disorder 51917721 F41.1 Candidiasis of skin 4988 3006 B37.2 [id number] SHAINA García [address] [place] [address] 1 06/07/2020 10:41:37 06/07/2020 11:38:25 Neuropathy 401589967 G62.9 Generalize d anxiety disorder 23640222 F41.1 Candidiasis of skin 4988 3006 B37.2 Migraine 05892387 G43.90 9 Anxiety 28430229 F41.9 Long-term drug therapy 829080352 Z79.899 Otitis media 15674070 H6 6.[facility] side effect 046226322 Z91.89 [id number] SHAINA García [place] CLARKEYOLYJackie [facility] [place] [address] 07/06/2020 08:38:34 07/06/2020 09:28:53 Candidiasis of vagina 02921110 B37.3 Generalize d anxiety disorder 02363619 F41.1 Pain of mu ltiple joints 61920707 M25.50 Migraine 03812549 G43.90 9 Neuropathy 199472291 G62 .9 Renewal of prescription 332351199 Z76.0 Anxiety 33794227 F41.9 Arthritis 3413309 M19.90 Depressive disorder 3548 9007 F32.9 continue medication as prescribed [id number] SHAINA García [address] [place] [place] [address] 07/08/2020 16:30:48 07/08/2020 16:43:07 Administration of influenza vaccine 03526909 Z23 [id number] SHAINA García [address] [place] [place] [address] 1 07/23/2020 08:28:27 07/23/2020 09:35:30 Pain of right shoulder joint 4736186771 5426360 M25.511 At increas ed risk of medication side effect 565129705 Z91.89 Migraine 04899038 G43.90 9 Acute sinusitis 00878458 J01.90 [id number] Carmen Austin APRN [facility] [place] [address] [address] [place] [address] 08/05/2020 08:26:48 08/05/2020 08:57:11 Generalized anxiety disorder 07359502 F41.1 Sinusitis 69046232 J32.9 rtc as needed [id number] Carmen GeovannaMICHELLN [place]ya [place] [address] [address] [address] [place] [address] 08/10/2020 10:34:12 08/10/2020 11:45:47 Sinusitis 62293956 J32.9 rtc as needed [id number] Ariadne DrewMICHELLN [facility] [place] [address] [address] [place] [address] 09/03/2020 08:47:42 09/03/2020 09:08:48 Generalized anxiety disorder 18587695 F41.1 Pain of sh lder region 80922432 M25.186 [id number] Carmen AustinMICHELLN Sup[facility]ya [address] [place] [place] [address] 09/27/2020 14:26:10 09/27/2020 15:45:03 Bilateral knee pain 6346514365 3329277 M25.561 Neck pain 77094283 M54.2 Pain of ri ght shoulder joint 3967825794 0529901 M25.511 Pain of right hand 35799 88906 60396 M79.109 [id number] Carmen Austin APRN [facility] [address] [place] [place] [address] 10/01/2020 08:02:47 10/01/2020 08:53:44 Anxiety 16299375 F41.9 [id number] Carmen Austin APRN [facility] [address] [place] [place] [address] 11/01/2020 11:41:59 11/01/2020 12:03:47 Anxiety 85925660 F41.9 stable Excessive skin and subcutaneous tissue 235022586 L98.7 chronic/ worsening [id number] SHAINA Garcíasamrafelicita [address] [place] [place] [address] 11/26/2020 08:55:42 11/26/2020 09:55:44 Upper respiratory infection 30466262 J06.9 finish medication as ordered [facility] risk of medication side effect 078681431 Z91.89 Anxiety 34725772 F41.9 stable Neuropathy 199020417 G62 .9 stable [id number] Carmen Austin APRN [place] [address] [place] [address] 12/10/2020 11:02:02 12/10/2020 11:52:44 Neuropathy 956147905 G62.9 controlled with medication Peripheral neuropathic pain 284301043 M79.2 controlled with medication [id number] SHAINA Garcíasamrafelicita [place] [place] [address] 01/14/2021 10:08:46 01/14/2021 10:42:19 Anxiety 12584874 F41.9 stable Arthritis 3130436 M19.90 stable [id number] SHAINA Garcíayolyjackie [place] [place] [address] 01/20/2021 09:03:10 01/20/2021 09:37:29 Dysuria 69679842 R30.9 increase water intake, avoid caffeine, call office tomorrow for update/con dition, may need [facility] [id number] SHAINA García [address] [place] [place] [address] 02/14/2021 08:38:24 02/14/2021 09:29:18 Anxiety 55991482 F41.9 stable Pain of le ft ankle joint 8719946454 3243178 M25.572 will call with results. advised to stay off as much as possible [id number] SHAINA García [address] [place] [place] [address] 03/18/2021 11:24:39 03/18/2021 12:03:58 Neuropathy 458300713 G62.9 controlled with medication Anxiety 77688606 F41.9 stable [id number] Carmen Austin APRN [facility] [address] [place] [address] 04/18/2021 16:07:59 04/18/2021 17:28:57 Superficial injury of finger 947106934 S60.941A [id number] [facility] [address] [place] [address] 05/09/2021 16:11:20 05/09/2021 16:34:13 Administration of influenza vaccine 22296823 Z23 [id number] Ariadne Drew [facility] [address] [facility] [place] [address] 06/01/2021 17:05:36 06/01/2021 17:42:04 Neuropathy 090921488 G62.9 chronic stable Anxiety 50480866 F41.9 chronic stable Insomnia 374876013 G47.0 0 Depressive disorder 3548 9007 F32.9 chronic stable Rash of groin 5452202311 8630194 R21 heat rash, continue meds at home [id number] Lisa [facility] [address] SUPRIYA [facility] [place] [address] 09/26/2021 08:17:47 09/26/2021 09:38:29 Arthritis 9498777 M19.90 Chronic Neuropathy 449972182 G62 .9 Chronic-st able Anxiety 38378340 F41.9 Chronic-st ableDiscus sed PRN nature of this medication and provided education on the addiction potential for this medication .EKASPER appropriat e Migraine 62714624 G43.90 9 Chronic Spasm of back muscles 20 1232501 M62.830 Chronic-in termittent Patient reports that she has intermitte nt back spasms and she utilizes this medication PRN. Insomnia 877111825 G47.0 0 ChronicPat ient reports that she utilizes Trazadone 2-3 times per week PRN for insomnia Endocrine/ metabolic screening 409815997 Z13.228 Hyperlipid emia screening 257005985 Z13.220 Long-term current use of drug therapy 174617403 Z79.935 [id number] Lisa Salazar APRN [facility] [address] [place], [place] [address] 09/30/2021 13:43:39 09/30/2021 14:21:44 Anemia 314620160 D64.9 Patient's H&H on 09/26/21: 10.7/35 MCV: 24.2 MCHC: 30.6Checki ng iron levels and will prescribe treatment as appropriat e based off those results. [id number] Lisa Salazar APRN [facility] [address] [place] [address] 10/24/2021 09:20:04 10/24/2021 10:04:14 Anxiety 66600761 F41.9 Chronic-st ableDiscus sed PRN nature of this medication and provided education on the addiction potential for this medication .SKINNY Fontana is currently seeing a therapist. Discussed the need for psychiatri st referral to discuss medication adjustment s due to patients reported increased need for her PRN anxiety meds. Dysuria 50132591 R30.9 Advised patient to increase oral non-caffei nated fluid intake as tolerated. Will prescribe antibiotic s as needed per culture results. [id number] Lisa Salazar APRN [facility] [address] [place] [address] 11/24/2021 14:25:17 11/24/2021 14:44:01 Spasm of back muscles 040429202 M62.830 Chronic-in termittent Patient reports that she has intermitte nt back spasms and she utilizes this medication PRN. Anxiety 85303250 F41.9 Chronic-st ableDiscus sed PRN nature of this medication and provided education on the addiction potential for this medication .SKINNY Fontana is currently seeing a therapist. Patient has scheduled appointmen t with psychiatry this week. Neuropathy 511073674 G62 .9 Chronic-st able Iron defic iency anemia 25009115 D50.9 ChronicFol low up blood work in 1 month Insomnia 178643139 G47.0 0 ChronicPamac reinoso reports that she utilizes Trazadone 2-3 times per week PRN for insomnia [id number] SHAINA Titussamrafelicita [employer] [facility] [address] [place] [address] 12/22/2021 12:46:24 12/22/2021 13:35:17 Neuropathy 704847559 G62.9 Chronic-st able Anxiety 89672542 F41.9 Chronic-st ableDiscus sed PRN nature of this medication and provided education on the addiction potential for this medication .SKINNY Fontana is currently seeing a therapist. Patient is also seeing psychiatry . Injury of lower leg 1256 21048 S89.91XA Patient fell 3 weeks ago and landed on her right leg. Patient reportsEli reinoso is unable to bear full weight on her right leg due to pain.Roman nt reports knee instabilit y.Right knee and ankle are tender to palpation. Arthritis 3521443 M19.90 Chronic [id number] SHAINA Titusyolyjackie [employer] [facility] [address] [place] [address] 01/20/2022 10:55:16 01/20/2022 11:22:53 Anxiety 45117736 F41.9 Chronic-st ableDiscus sed PRN nature of this medication and provided education on the addiction potential for this medication .SKINNY Fontana is currently seeing a therapist. Patient is also seeing psychiatry . Advised patient that her psychiatri st will need to take over her clonazepam in the future. Choking sensation 247093 009 R09.89 Patient reports that she feels like she is choking on saliva every morning when she wakes up and requests a referral to ENT. Patient also reports that she has a chronic need clear her throat.Eli reinoso denies any reflux or heartburn. 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 [id number] SHAINA [facility] [address] [facility] [place] [address] 03/09/2022 12:57:20 03/09/2022 13:50:36 Anxiety 61001169 F41.9 Chronic-st ableDiscus sed PRN nature of this medication and provided education on the addiction potential for this medication .EKASPER appropriat eControlle d substance agreement signed 09/26/21UDS obtained today: awaiting resultsPat ient is currently seeing a therapist. Patient is also seeing psychiatry . Advised patient that her psychiatri st will need to take over her clonazepam in the future. Long-term drug therapy 004701687 Z79.855 [id number] Nat Riley APRN [address] [address] 04/18/2022 15:50:54 04/18/2022 16:42:03 Acute maxillary sinusitis 57753413 J01.00 [id number] SHAINA [facility] [address] [facility] [place] [address] 05/12/2022 13:48:15 05/12/2022 14:26:38 Neuropathy 600271641 G62.9 Chronic-st ableEKASPE R appropriat e 05/12/22Con trolled substance agreement signed 09/26/21UDS 05/12/22 Influenza vaccine needed 0292927432 106 Z23 Exposure t o Hepatitis B virus 899767582 Z20.5 Patient exposed 1 month agoPatient would like to be vaccinated once she is confirmed negative for Hep B.Follow up based on results. Long-term drug therapy 518895803 Z79.817 [id number] Lisa Marie SHAINA [facility] [address] [place] [address] 05/24/2022 09:07:32 05/24/2022 09:33:36 Active or passive immunization 968801392 Z23 Patient tolerated well Candidiasis of mouth 797 60200 B37.0 Patient reports knowing the source of infectionF ollow up as needed [id number] Lisa Chandaway SHAINA [facility] [address] [place] [address] 06/08/2022 13:01:31 06/08/2022 14:08:03 Degeneration of intervertebral disc 19758127 M51.9 Chronic-st able Migraine 42123328 G43.90 9 Chronic-st able Anxiety 20178120 F41.9 Chronic-st ablePatien t is currently seeing a therapist. Patient is also seeing psychiatry . Patient was getting clonazepam refilled through this office but this provider confirmed with patient's psychiatri st that they are able to write controlled substances now and should be taking over prescribin g this medication if deemed warranted. [id number] Lisa SHAINA Salazar [facility] [address] [place] [address] 07/24/2022 09:27:34 07/24/2022 09:39:55 Active or passive immunization 105015152 Z23 Patient tolerated well [id number] Nat Riley APRN [address] [address] 11/03/2022 12:52:58 11/03/2022 13:55:02 Pharyngitis 367718861 J02.9 Acute maxi llary sinusitis 50754936 J01.00 Wheezing 74592794 R06.2 [id number] Nat Riley [address] [address] 11/17/2022 16:14:30 11/17/2022 16:38:35 Arthritis 8270701 M19.90 Degenerati on of intervertebral disc 10920223 M51.9 Neuropathy 456997421 G62 .9 Pt compliant with plan of careKasper reviewed and appropriat emedicatio n compliance discussedL ast uds: 3Control substance agreement on filechart reviewed and meds sentgabape ntin order with 5 refills was cancelled and new order for 2 refills sent Migraine 13785822 G43.90 9 [id number] Nat Riley [address] [address] 12/04/2022 09:29:13 12/04/2022 10:48:22 Body mass index 30+ - obesity 738561583 Z68.39 39.5 Obesity 955051639 E66.9 Abdominal pain 54044808 R10.9 stop mobic risk explained Iron defic iency anemia 41905217 D50.9 Neuropathy 154549942 G62 .9 [id number] [facility] Rilye [address] [address] 02/19/2023 16:09:08 02/19/2023 16:33:52 Neuropathy 202990138 G62.9 Pt compliant with plan of careKasper reviewed and appropriat emedicatio n compliance discussedL ast uds: 3Control substance agreement on file Acute righ t otitis media 724341511 H66.91 [id number] Nat Riley [address] [address] 05/17/2023 13:51:30 05/17/2023 16:54:35 Influenza vaccine needed 2461311640 106 Z23 [id number] Nat Riley [address] [address] 05/22/2023 08:04:41 05/22/2023 09:06:01 Arthritis 1974267 M19.90 Asthma 375223531 J45.90 9 Depressive disorder 3548 9007 F32.9 Neuropathy 473558325 G62 .9 Pt compliant with plan of careKasper reviewed and appropriat emedicatio n compliance discussed/ Last uds:/Contr ol substance agreement on file Degenerati on of intervertebral disc 66688591 M51.9 Migraine 83702709 G43.90 9 Gastroesop hageal reflux disease without esophagitis 193785316 K21.9 Allergic rhinitis 738500 04 J30.9 Long-term drug therapy 709225724 Z79.899 Insomnia 333769417 G47.0 0 Iron defic iency anemia 13165809 D50.9 Anxiety 44112418 F41.9 [id number] Nat Riley [address] [address] 06/19/2023 14:00:56 06/19/2023 15:00:36 COVID-19 673920961 U07.1 no sign of a bacterial infection. [...] improvemen t over the next 48-72 hours [id number] Nat Riley [address] [address] 08/23/2023 08:13:05 08/23/2023 08:33:06 Neuropathy 137869519 G62.9 Pt compliant with plan of careKasper reviewed and appropriat emedicatio n compliance discussed/ Last uds: 4Control substance agreement on file Long-term drug therapy 239280481 Z79.899 Constipation 27550884 K5 9.00 encouraged high fiber foods and fluids [id number] Nat Riley [address] [address] 11/22/2023 08:20:06 11/22/2023 08:51:43 Arthritis 9422158 M19.90 Depressive disorder 3548 9007 F32.9 Asthma 045600425 J45.90 9 Insomnia 796336130 G47.0 0 Gastroesop hageal reflux disease without esophagitis 965615052 K21.9 Allergic rhinitis 056540 04 J30.9 Neuropathy 379464971 G62 .9 Pt compliant with plan of careKasper reviewed and appropriat emedicatio n compliance discussed/ Last uds: 4Control substance agreement on file Degenerati on of intervertebral disc 93264809 M51.9 Migraine 22556610 G43.90 9 Body mass index 40+ - severely obese 748040096 Z68.41 43.6 Morbid obesity 422429668 E66.01 [id number] Nat Riley APRN [address] [address] 02/21/2024 08:57:43 02/21/2024 09:45:20 Neuropathy 526110881 G62.9 Pt compliant with plan of careKasper reviewed and appropriat emedicatio n compliance discussed/ Last uds: 4Control substance agreement on file Gastroesop hageal reflux disease without esophagitis 029960650 K21.9 Right flank pain 9022149 09 R10.9 sent to ed for eval to r/o kidney stone [id number] Luther Walters[address] [place] [address] 03/06/2024 09:03:48 03/06/2024 09:41:38 Body mass index 40+ - severely obese 178374265 Z68.41 Morbid obesity 933724226 E66.01 Contact dermatitis 40114 004 L25.9 Contact dermatitis , secondary to poison thom. Patient will be given a prednisone taper to take over the next 10 days. Patient will reappoint herself if symptoms or not controlled over the course. [id number] Nat Riley APRN [address] [address] 04/22/2024 08:18:55 04/22/2024 08:59:43 Influenza caused by Influenza B virus 95752502 J10.1 Acute maxi llary sinusitis 88496610 J01.00 [id number] Nat Riley APRN [address] [address] 05/23/2024 08:07:16 05/23/2024 09:15:03 Neuropathy 841144988 G62.9 Pt compliant with plan of careKasper reviewed and appropriat emedicatio n compliance discussed/ Last uds: 4Control substance agreement on file Constipation 89959249 K5 9.00 encouraged high fiber foods and fluids Depressive disorder 3548 9007 F32.9 Gastroesop hageal reflux disease without esophagitis 892626856 K21.9 Degenerati on of intervertebral disc 25063203 M51.9 Migraine 66592554 G43.90 9 Arthritis 8960956 M19.90 Anxiety 83790659 F41.9 Hepatitis C screening 41 5820259 Z11.59 HIV screening 774592720 Z11.4 Influenza vaccine needed 9271692252 106 Z23 Active or passive immunization 921230899 Z23 Allergic rhinitis 133960 04 J30.9 Asthma 925602229 J45.90 9 Iron defic iency anemia 48168253 D50.9 Insomnia 888096622 G47.0 0 [id number] Nat Rliey APRN [address] [address] 06/09/2024 09:10:17 06/09/2024 09:36:02 Hypoglycemia 332344012 E16.2 continue to keep log-discus sed hypoglycem ia s/sreturn for any concernsla bs in 2 weeks to check cmp/insuli n level [id number] Nat Riley APRN [address] [address] 06/23/2024 07:56:44 06/23/2024 08:30:09 Hypoglycemia 093249541 E16.2 continue to keep log-discus sed hypoglycem ia s/s teaching sheet given of s/s of hypoglycem iareturn for any concerns [id number] Nat Riley APRN [address] [place] [address] 07/21/2024 09:01:59 07/21/2024 10:04:51 Acute maxillary sinusitis 11490975 J01.00 if symptoms worsen or no improvemen t return Acute righ t otitis media 599623229 H66.91 pt states she can take rocephin and cefdinir [id number] Nat Riley APRN [address] [address] 09/11/2024 14:39:26 09/11/2024 15:12:19 Influenza-like illness 55027184 B34.9 no sign of a bacterial infection. [...] improvemen t over the next 48-72 hours [id number] Nat Riley APRN [address] [address] 10/02/2024 09:15:51 10/02/2024 11:21:53 Iron deficiency anemia 44181359 D50.9 labsif no improvment or worsening return or be seen in er Fatigue 88168147 R53.83 History of bariatric surgical procedure 602341544 Z98.84 [id number] Nat Riley APRN [address] [address] 11/07/2024 12:57:42 11/07/2024 13:48:40 Acute maxillary sinusitis 77603188 J01.00 [id number] if symptoms worsen or no improvemen t return [id number] Nat Riley [address] [address] 11/21/2024 08:30:32 11/21/2024 09:55:21 Depressive disorder 87167437 F32.9 Gastroesop hageal reflux disease without esophagitis 331524654 K21.9 Neuropathy 039581768 G62 .9 Pt compliant with plan of careJamie reviewed and appropriat emedicatio n compliance discussed/ Last uds: 5Control substance agreement on file Degenerati on of intervertebral disc 61453009 M51.9 Migraine 86660991 G43.90 9 Vitamin D deficiency 347 08901 E55.9 Constipation 84641922 K5 9.00 encouraged high fiber foods and fluids Arthritis 7698888 M19.90 Anxiety 06518082 F41.9 Morbid obesity 503545866 E66.01 Long-term current use of drug therapy 583504347 Z79.899 77807713 Missed period 41749194 N 92.6 6151722 Iron defic iency anemia 35478130 D50.9 labsif no improvment or worsening return or be seen in er [id number] Nat Riley [address] [address] 12/05/2024 16:46:12 12/08/2024 08:21:21 Anterior tibial stress syndrome 109887668 S86.899A 1087310 xraycreami f no improvment will refer to pt Pain of knee region 1003 012536 M25.561 M25.562 69647711 [id number] [facility] [address] [address] 12/23/2024 08:55:47 12/23/2024 09:30:59 Pain of knee region 3396990166 M25.562 G89.29 86774149 discussed risk of med with ptmake sure to take omeprazole if taking diclofenac [id number] [facility] [address] [address] 01/06/2025 08:27:07 01/06/2025 09:18:01 Bacterial conjunctivitis 833046598 H10.9 15037 drops as orderedcoo l wash clothif worsen or no improvemen t return or see eye [id number] Nat Riley APRN [address] [address] 02/02/2025 13:20:52 02/02/2025 13:54:52 Increased frequency of urination 621853376 R35.0 76318 Edema of l ower extremity 432864092 R60.0 34539 ECHOrecent ly had labs- wnlwill give 2 days of lasix - pt states she is off for 2 dayscompre ssion hoseif worsen or no improvemen t return [id number] Nat Riley [address] [address] 02/20/2025 08:54:07 02/20/2025 10:13:27 Constipation 92800710 K59.00 encouraged high fiber foods and fluids Depressive disorder 3548 9007 F32.9 Edema of l ower extremity 542671766 R60.0 compressio n hoseif worsen or no improvemen t return Pain of knee region 1003 463332 M25.562 G89.29 discussed risk of med with ptmake sure to take omeprazole if taking diclofenac Migraine 33484526 G43.90 9 Vitamin D deficiency 347 73222 E55.9 Arthritis 7957077 M19.90 Gastroesop hageal reflux disease without esophagitis 689106198 K21.9 169231 History of bypass of stomach 953021923 Z98.84 2436062 [id number] Nat Riley APRN [address] [address] 05/11/2025 09:21:51 05/11/2025 09:56:43 Influenza vaccine needed 0398587428 106 Z23 [id number] Nat Riley [address] [address] 06/01/2025 08:49:47 06/01/2025 09:30:05 Neuropathy 936307129 G62.9 Pt compliant with plan of careKasper reviewed and appropriat emedicatio n compliance discussedL ast uds:Control substance agreement on file Gastroesop hageal reflux disease without esophagitis 552542469 K21.9 173575 Vitamin D deficiency 347 48528 E55.9 81608 Depressive disorder 3548 9007 F32.9 Arthritis 5561177 M19.90 Insomnia 227208646 G47.0 0 Asthma 402318131 J45.90 9 Anterior t ibial stress syndrome 432268286 S86.899A Pain of knee region 1003 097207 M25.562 G89.29 discussed risk of med with ptmake sure to take omeprazole if taking diclofenac Constipation 42952176 K5 9.00 encouraged high fiber foods and fluids Iron defic iency anemia 61254013 D50.9 labsif no improvemen t or worsening return or be seen in er Acute maxi llary sinusitis 41986196 J01.00 if symptoms worsen or no improvemen t return Migraine 71829853 G43.90 9 Body mass index 40+ - severely obese 296090337 E66.813 Z68.42 5286905 141105 47.6 Long-term current use of drug therapy 438810186 Z79.899 34723653 Mixed hyperlipidemia 267 012895 E78.2 89789 Abrasion o f skin of cheek 4619699409 S00.81XA 2738525084 if no improvemen t or worsening return Health Concerns Section Related Observation LastModified by Organization Detai ls LastModified Time None Recorded Concern Status LastModified by Organization Details LastModified Time None Recorded Advance Directives Directive N: Payers Encounter Date Sequence Insurance Name Policy Number Policy Aranda Covered Member ID Aranda Member ID Guarantor Name 01/06/2025 1 [employer] [place] ([place]ICA[place] Cris Galdamez [id number] Cris Galdamez 02/02/2025 1 [employer] [place] Cris Galdamez [id number] Cris Galdamez 02/20/2025 1 [employer] [place] Cris Galdamez [id number] Cris Galdamez 05/11/2025 1 [employer] [place] Cris Galdamez [id number] Cris Galdamez 06/01/2025 1 [employer] [place] Cris Galdamez [id number] Cris Galdamez Notes Date Note Type Note Provider Name and Address Organization Details Recorded Time 01/06/2025 text/html 44 yr old female presents for left eye redness, pain and drainage since yesterday. Nat Riley APRN [address], [place], [address], [facility] 01/06/2025 09:21:29 02/02/2025 text/html 44 yr old female presents for edema to bilateral lower extremities. She has has worked several shifts at work on her feet lately. She also has urinary frequency. Nat Riley APRN [address], [place], [address], [facility] 02/02/2025 13:58:03 02/20/2025 text/html 44 year old female who presents to the office today for a follow up onvitamin d deficiency, gerd, knee pain, constipation, depressive disorder and lower extremity [id number] deniedsent to cardiology for evalneeds medication refillspt states she has been feeling tired all the time Nat RileySHAINA [address], [place], [address], [facility] 02/20/2025 09:50:13 05/11/2025 text/html flu shot Josieclarita Durancyril [place], [place] - [facility] 05/11/2025 09:42:25 06/01/2025 text/html 44 yr old female presents for a follow up on chronic conditions and refill medications. pt states gabapentin helps with her neuropathy.abrasi ons to face from scrubbing to hard to remove temp tattoos.pt states other gonzalez she is feeling well no c/o Nat Riley SHAINA [address], [place], [address], [facility] - [facility] 06/01/2025 09:28:29 OBGyn Episode No OBEpisode recorded.
--- OUTSIDE RECORDS SUMMARY | 2025-06-17 12:15 | XMS_ITS | Continuity of Care Document ---
Author Organization [facility] Michelle Riddle [facility] Address [address] [facility] [place] [address] Care Team Providers Care Boiler Riveter Name Role Phone WILLTWYLA [facility] ROLY IQBAL Sweatband Perforator Assessment No assessment recorded. Plan of Treatment Reminders Order Date Submit Date Provider Last Modified By Organization Details Last Modified Time Details Appointments Follow Up 2025 08:20A M Nat Riley APRN Not available [...] Abnormal Flag Note LastModifiedBy Organization Detail LastModifiedTime 05/16/2005/16/2025 XR, knee, 3 view No observ ation record ed. [facility] [address], [place], [address], 05/18/2025 10:24:08 05/16/20 25 05/16/2025 CT, knee, w/o contr ast No observ ation record ed. [facility] [address], [place], [address], 05/18/2025 10:24:08 Result Notes None recorded. Problems Name Problem SNOMED Code Status Onset Date Resolution Date Notes Provider Name and Address Organization Details Recorded Time Asthma 029098917 Active 2019 Eugonda Fryman, FOUNDRY WORKER APPRENTICE [address], [place], [address], [place] - [facility] 3 10:07:07 Degeneration of intervertebral disc 41121529 Active 2019 Nat Riley, FOUNDRY WORKER APPRENTICE [address], [place], [address], [place] [facility] 3 10:07:10 Neuropathy 290539040 Active 2019 Nat Riley, FOUNDRY WORKER APPRENTICE [address], [place], [address], [place] [facility] 3 10:07:22 Depressive disorder 15029543 Active 2019 Nat Riley FOUNDRY WORKER APPRENTICE [address], [place], [address], [place] [facility] 3 10:07:12 Arthritis 3012961 Active 2019 Nat Riley FOUNDRY WORKER APPRENTICE [address], [place], [address], [place] [facility] 3 10:07:05 Anxiety 03926512 Active 2019 Nat Riley, FOUNDRY WORKER APPRENTICE [address], [place], [address], [place] [facility] 3 10:07:02 Migraine 91410976 Active 2021 Nat Riley, FOUNDRY WORKER APPRENTICE [address], [place], [address], [place] [facility] 3 10:07:25 Insomnia 126141603 Active 2021 Nat Riley, FOUNDRY WORKER APPRENTICE [address], [place], [address], [place] [facility] 3 10:07:16 Iron deficiency anemia 25776014 Active 2021 Nat Riley, FOUNDRY WORKER APPRENTICE [address], [place], [address], [place] [facility] 3 10:07:18 Candidiasis of mouth 03397141 Active 2021 Lisa Salazar, FOUNDRY WORKER APPRENTICE [address], [place], [address], [place] [facility] 2 09:37:18 Contact dermatitis 18077993 Active 2023 Luther Walters DO [address], [place], [address], [place] [facility] 4 09:35:34 Vitamin D deficiency 98424066 Active 2024 Josie Renees null, [place] - [facility] 5 08:42:26 Gastroesophage al reflux disease without esophagitis 314353273 Active 2024 Josie Stears null, [place] - [...] completed Twyla Owens APRN [address], [place], [address], [place] [facility] 03/04/2020 17:13:58 03/04/20 20 Skin Tag Removal completed Twyla Owens APRN [address], [place], [address], [place] [facility] 03/04/2020 17:14:20 12/18/19 20 [...] B/P 80-89 mm Hg completed Marti Carter [place] - [facility] 10/23/2019 08:39:34 05/08/20 19 Systolic B/P less than 130 mm Hg completed [facility] 05/08/2019 09:40:47 05/08/20 19 Diastolic B/P 80-89 mm Hg completed [facility] 05/08/2019 09:40:49 05/08/20 19 Medication Reconcilliation completed [facility] 05/08/2019 09:32:29 02/08/20 19 Systolic B/P less than 130 mm Hg completed [facility] 02/07/2019 15:31:13 02/08/20 19 Diastolic B/P less than 80 mm Hg completed [facility] 02/07/2019 15:31:16 10/25/19 19 Systolic B/P less than 130 mm Hg completed Daniela Acosta [facility] 10/24/2018 12:59:01 10/25/19 19 Diastolic B/P less than 80 mm Hg completed Daniela Acosta [facility] 10/24/2018 12:59:03 09/26/19 19 Systolic B/P less than 130 mm Hg completed Daniela Dave [facility] 09/26/2018 10:51:30 09/26/19 19 Diastolic B/P less than 80 mm Hg completed Daniela Dave [facility] 09/26/2018 10:51:32 08/23/19 19 Systolic B/P less than 130 mm Hg completed Daniela Dave [facility] 08/23/2018 13:32:22 08/23/19 19 Diastolic B/P 80-89 mm Hg completed Daniela Dave [facility] 08/23/2018 13:34:24 excision of excessive skin and subcutaneous tissue completed Daniela Dave [facility] 03/18/2021 11:46:20 Tonsillectomy completed [facility] 05/08/2019 09:36:32 Knee arthroscopy/surgery completed [facility] 05/08/2019 09:36:43 delivery completed [facility] 05/08/2019 09:36:50 gastric sleeve completed [facility] 05/08/2019 09:37:10 Endometrial Ablation completed [facility] 05/08/2019 09:37:28 Tubal Ligation completed [facility] 05/08/2019 09:37:40 Imaging Results None recorded. Procedure Notes None recorded. Medical Equipment None Reported. Allergies Allergen ID Allergen Name Allergen Category Reaction Reaction Severity Criticality Documentation Date Start Date Code Code System Note Provider Name and Address Organization Details Recorded Time 88386 latex environme nt,medica tion Not available Not available Not available 05/12/20162013 54125 91 RxNorm Not Available [facility] 6 08:49:01 48227 Product containin g penicilli n (product) medicatio n hives Not available Not available 05/12/20162012 86605 8001 SNOMED React ion: HIVES ; Not Available [facility] 6 09:23:58 Medications Name Sig Start [...] Disconti nued on: 08/10/19 16 10:01AM; User: [email or web address] rinted: 05/14/20 15 Not Available Not Available [...] days 12/19 completed Ciprodex 0.3-0.1 % otic drops,misa narvaez ;Recorde d Status: Recorded on: 12/13/19 16 [...] Disconti nued on: 08/10/19 16 10:01AM; User: [email or web address];I ndicatio n: - (-5) Not Available Not Available [...] Take 1 strip twice a day by [employer]. route as needed, for hypoglyc emia. 2023 active Not Available Not Available Not Avai lable Pennsaid 20 mg/gram/a ctuation (2 %) topical soln in metered-d ose pump 07/06 completed Not Available Not Available Not Available Fluvirin 9771-4417 (PF) 45 mcg (15 mcg x 3)/0.5 [...] Tobacco Smoking Status Never Smoker Marti Carter null, [place] - [facility] 05/08/2019 09:35:10 Able To Swim? Yes Information not available 05/08/2019 Do You Have An Advance Directive? No [email or web address] Information not available 05/08/2019 Do You Wear A Helmet When Biking? No [email or web address] Information not available 05/08/2019 Are You Blind Or Do You Have Difficulty Seeing? No Information not available 05/08/2019 What Is Your Level Of Caffeine Consumption? Moderate [email or web address] Information not available 05/08/2019 How Much Tobacco Do You Chew? None [email or web address] Information not available 05/08/2019 Are You Deaf Or Do You Have Serious Difficulty Hearing? No [email or web address] Information not available 05/08/2019 What Type Of Diet Are You Following? REGULAR Information not available 05/08/2019 Which Illicit Or Recreational Drugs Have You Used? Denies Information not available 05/08/2019 What Is The Highest Grade Or Level Of School You Have Completed Or The Highest Degree You Have Received? [id number] Information not available 11/03/2022 How Many Days Of Moderate To Strenuous Exercise, Like A Brisk Walk, Did You Do In The Last 7 Days? 1 [email or web address] Information not available 05/08/2019 On Those Days That You Engage In Moderate To Strenuous Exercise, How Many Minutes, On Average, Do You Exercise? 1 [email or web address] Information not available 05/08/2019 Swimming/diving Yes [email or web address] Informati on not available 05/08/2019 Have There Been Any Changes To Your Family Or Social Situation? No Information no t available 11/03/2022 How Hard Is It For You To Pay For The Very Basics Like Food, Housing, Medical Care, And Heating? 1 [email or web address] Information not available 05/08/2019 Hard Of Hearing Or Deaf In One Or Both Ears? No Information not available 05/08/2019 Legally Blind In One Or Both Eyes? No [email or web address] Information no t available 05/08/2019 Live Alone Or With Others? With Others Information not available 02/03/2020 Do You Have A Medical Power Of Motorboat Mechanic Inboard/Outboard? No Information not available 11/03/2022 What Was The Date Of Your Most Recent Tobacco Screening? 12/05/2024 [email or web address] Information not available 12/05/2024 Do You Use Protection During Sex? Usually [email or web address] Information not available 05/08/2019 What Is Your Relationship Status? Information not available 11/03/2022 Seat Belts Used Routinely Yes Information not available 02/03/2020 Are You Sexually Active? Yes [email or web address] Information not available 05/08/2019 Smoke Alarm In Home Yes [email or web address] Information not available 05/08/2019 Do You Have Smoke And Carbon Monoxide Detectors In Your Home? Yes Information not available 11/03/2022 Are You Passively Exposed To Smoke? Yes [email or web address] Information no t available 05/08/2019 How Much Tobacco Do You Smoke? No [email or web address] Information not available 05/08/2019 General Stress Level Low Information not available 02/03/2020 Do You Use Sunscreen Routinely? Yes [email or web address] Information not available 05/08/2019 Has Tobacco Cessation Counseling Been Provided? No Information not available 12/04/2022 How Many Years Have You Smoked Tobacco? 0 [email or web address] Information not available 05/08/2019 Do You Have Difficulty Walking Or Climbing Stairs? No [email or web address] Information not available 05/08/2019 Sex: Female Functional Status Question Answer Note LastModified by Organizat ion Details LastModified Time Do you use any illicit or recreational drugs? No Information not available 11/03/2022 Do you or have you ever used any other forms of tobacco or nicotine? No Information not available 11/03/2022 What is your level of alcohol consumption? None [email or web address] Information not available 05/08/2019 Do you or have you ever used smokeless tobacco? Never used smokeless tobacco [email or web address] Information not available 05/08/2019 Are you currently employed? Yes Information not available 11/03/2022 Do you have transportation difficulties? No Information not available 11/03/2022 Are you able to walk independently without assistance or assistive devices? YESWOREST [email or web address] Information not available 05/08/2019 Do you have difficulty doing errands alone? No [email or web address] Information not available 05/08/2019 Are you able to care for yourself independently? Yes Information not available 05/08/2019 Do you have difficulty dressing, bathing, grooming, or toileting? No [email or web address] Information not available 05/08/2019 Do you or have you ever used e-cigarettes or vape? Never used electronic cigarettes Information not available 05/08/2019 What is your exercise level? None Information not available 02/03/2020 Mental Status Question Answer Note LastModified by Organization D etails LastModified Time Do you feel stressed (tense, restless, nervous, or anxious, or unable to sleep at night)? 1 [email or web address] Information not available 05/08/2019 Do you have difficulty concentrating, remembering or making decisions? No [email or web address] Information no t available 05/08/2019 Family History [...] virus, quadrivalent, preservative 6 completed Not Available [facility] 08/23/2019 03:54:17 Influenza, split virus, quadrivalent, preservative 0 completed Karuna Mills null, [place] [facility] 07/08/2020 16:55:30 Influenza, split virus, quadrivalent, preservative 1 completed Bjorn Salazar MD [address], [place], [address], [place] [facility] 05/23/2021 11:39:53 Influenza, split virus, quadrivalent, preservative 7 completed Not Available [facility] 08/23/2019 03:54:42 Hep B, adult 2 completed Lisa Salazar APRN [address], [place], [address], [place] [facility] 05/24/2022 09:36:02 Hep B, adult 2 completed Lisa Salazar APRN [address], [place], [address], [place] [facility] 07/24/2022 09:44:07 Pneumococcal conjugate PCV 13 2 completed Selin Mckeon null, [place] - [facility] 08/23/2023 08:22:59 influenza, unspecified formulation 2 completed Selin Mcke[place] [facility] 08/23/2023 08:22:59 influenza, unspecified formulation 4 completed Selin Mckeon null[place] [facility] 08/23/2023 08:22:59 Tdap 2 completed Not Available [facility] 05/16/2016 00:49:27 Influenza, split virus, quadrivalent, preservative 3 completed Josie [place] null[place] [facility] 05/17/2023 14:48:02 Influenza, split virus, trivalent, preservative 4 completed Nat Riley APRN [address], [place], [address], [place] [facility] 05/23/2024 09:05:47 Pneumococcal conjugate PCV20, polysaccharide [id number] conjugate, adjuvant, PF 4 completed Nat Riley APRN [address], [place], [address], [place] [facility] 05/23/2024 09:05:47 Influenza, split virus, trivalent, PF 5 completed Josie [place] [facility] 05/11/2025 09:41:13 Hep A, adult 8 completed Not Available [facility] 08/23/2019 03:55:12 Influenza, split virus, quadrivalent, preservative 8 completed Not Available [facility] 08/23/2019 03:55:25 Hep A, adult 9 completed Not Available [facility] 08/23/2019 03:55:39 influenza, split (incl. purified surface antigen) 2 completed Josie [place] null[place] [facility] 11/03/2022 13:08:15 Influenza, split virus, quadrivalent, PF 2 completed Selin Mckeon null[place] [facility] 02/19/2023 16:13:30 Influenza, split virus, quadrivalent, PF 4 completed Selin Mcke[place] null, [place] [facility] 11/17/2022 16:25:17 Influenza, split virus, quadrivalent, PF 9 completed Not Available [facility] 08/23/2019 03:56:06 Past Encounters Encounter ID Performer Location Encounter Start Date Encounter Closed Date Diagnosis/Indication Diagnosis SNOMED-CT Code Diagnosis ICD10 Code Diagnosis IMO Codes Diagnosis Note [id number] Nat Riley APRN [address] [address] 05/11/2025 09:21:51 05/11/2025 09:56:43 Influenza vaccine needed [id number] 106 Z23 Health Concerns Section Related Observation LastModified by Organization Detai ls LastModified Time None Recorded Concern Status LastModified by Organization Details LastModified Time None Recorded Payers Encounter Date Sequence Insurance Name Policy Number Policy Aranda Covered Member ID Aranda Member ID Guarantor Name 05/11/2025 [facility] ([facility]ICA[facility]) Cris Galdamez [id number] Cris Galdamez Notes Date Note Type Note Provider Name a nd Address Organization Details Recorded Time 05/11/2025 text/html flu shot Josie Owen null, [place] - [facility] 05/11/2025 09:42:25 OBGyn Episode No OBEpisode recorded.
--- OUTSIDE RECORDS SUMMARY | 2025-06-17 12:15 | XMS_ITS | Clinical Summary ---
Author Organization [employer] ([place], [place], [place], [place], [place]) Address [address] [place] [address] Care Team Providers Care Oven Technician Name Role Phone Tyshawn Darnell MD Unavailable [...] Description 03/19/2025 9:15 AM EDT Office Visit [facility] Orth[facility] - [facility] [address] [place] [address] Tyshawn Darnell MD Chronic pain of both knees (Primary Dx); Bilateral primary osteoarthritis of knee; Neuritis of left lower extremity; Neuritis of right lower extremity; History of repair of ACL, left from Last 3 Months Social History Tobacco [...] on patient's age to complete this topic [place] [address] [facility] Care Teams Oven Technician Relationship Specialty Start Date End Date Tyshawn Darnell MD [address] [place] [address] Sports Medicine 04/02/25
--- OUTSIDE RECORDS SUMMARY | 2025-06-17 12:15 | XMS_ITS | Referral Summary ---
Author Organization [employer] ([place], [place], [place], [place], [place]) Address [address] [place] [address] Care Team Providers Care Projection Technician Name Role Phone Tyshawn Darnell MD Unavailable Encounters Date Type Department Care Team Description 03/19/2025 9:15 AM EDT Office Visit [facility] Orthopedics - [address] [place] [address] Tyshawn Darnell MD Chronic pain of both knees (Primary Dx); Bilateral primary osteoarthritis of knee; Neuritis of left lower extremity; Neuritis of right lower extremity; History of repair of ACL, left from Last 3 Months Allergies Active Allergy [...] EDT Plan of Treatment Not on file Insurance * Guarantor: Cris Galdamez Account Type Relation to Patient Date of Phone Billing Address Personal/Family Self 1980 [phone] (Home) [address] [facility] [facility] [place] [address] [facility] Care Teams Projection Technician Relationship Specialty Start Date End Date Tyshawn Darnell MD [address] [place] [address] Sports Medicine 04/02/25
--- OUTSIDE RECORDS SUMMARY | 2025-06-17 12:15 | XMS_ITS | Encounter Summary ---
Author Organization Healthcare Address [address] [place] [address] Care Team Providers Care Indoor Landscaper/Gardener Name Role Phone Bjorn Salazar MD Primary Care Provider [phone] Encounter Details Date Type Department Care Team (Late st Contact Info) Description 03/09/2021 Lab Requisition [facility] [address] [place] [address] Marciano Reilly MD Encounter for general adult [...] ORDERABLES Rubi l Result Performing Organization Address City/[facility] Co de Phone Number HEALTHCARE LAB [address] [place] [address] * Hepatitis B surface antigen (03/09/2021 11:00 AM EDT) Hepatitis B Surf Antigen Negative Negative 03/09/2021 12:56 PM [address] [facility] Blood Venous blood specimen / Unknown 03/09/2021 11:00 AM EDT 03/09/2021 11:35 AM EDT Marciano Reilly MD LAB BLOOD ORDERABLES Rubi l Result Performing Organization Address [facility] Co de Phone Number HEALTHCARE LAB [address] [place] [address] * HIV 1 & 2 Antibody/Antigen Screen (03/09/2021 11:00 AM EDT) HIV 1 & 2 Antibody/Anti gen Screen Nonreactive Nonreactive 03/09/2021 12:56 PM EDT HEALTHCARE LAB Blood Venous blood specimen / Unknown 03/09/2021 11:00 AM EDT 03/09/2021 11:35 AM EDT us Marciano Reilly MD LAB BLOOD ORDERABLES Rubi ford Result Performing Organization Address City/State/[facility] Co de Phone Number HEALTHCARE LAB [address] [place] [address] documented in this encounter Visit Diagnoses Diagnosis Encounter for general adult medical examination without abnormal findings documented in this encounter Care Teams Indoor Landscaper/Gardener Relationship Specialty Start Date End Date Bjorn Salazar MD [address] [place] [address] PCP - General 03/07/21 documented as of this encounter
--- OUTSIDE RECORDS SUMMARY | 2025-06-17 12:16 | XMS_ITS | Continuity of Care Document ---
Author Organization [facility] Michelle Riddle [facility] Address [address] [place] [address] Care Team Providers Care Paster Hat Lining Name Role Phone TWYLA OWENS Family Medicine ROLY IQBAL Computer Equipment Repairer [phone] Assessment No assessment recorded. Plan of Treatment Reminders Order Date Submit Date Provider Last Modified By Organization Details Last Modified Time Details Appointments Follow Up 2025 08:20A Sharon Riley APRN Not available Not available Not available Lab drug screen, urine 2024 [facility], [address] [facility], [place], [address], 06/01/2025 09:34:38 Referral None recorded. Procedures None recorded. Surgeries None recorded. Imaging None recorded. Medication Orders diclofena c sodium 75 mg tablet,de layed release 2024 025 [facility], [address] [place] [address], [id number], 06/01/2025 09:27:43 omeprazol e 20 mg capsule,d elayed release 2024 025 [facility], [address] [place] [address], [id number], 06/01/2025 09:28:05 mupirocin 2 % topical ointment 2024 025 [facility], [address] [place] [address], [id number], 06/01/2025 09:29:38 duloxetin e 60 mg capsule,d elayed release 2024 [facility], [address] [place] [address], [id number], 06/01/2025 09:27:56 fluticaso ne propionat e 50 mcg/actua tion nasal spray,ruth pension 2024 [facility], [address] [place] [address], [id number], 06/01/2025 09:27:38 omega-3 acid ethyl esters 1 gram capsule 2024 [facility], [address] [place] [address], [id number], 06/01/2025 09:27:53 diclofena c 1 % topical gel 2024 [facility], [address] [place] [address], [id number], 06/01/2025 09:27:46 docusate sodium 100 mg capsule 2024 [facility], [address] [place] [address], [id number], 06/01/2025 09:27:35 Vitamin D2 1,250 mcg (50,000 unit) capsule 2024 [facility], [address] [place] [address], [id number], 06/01/2025 09:27:50 topiramat e 50 mg tablet 2024 [facility], [address] [place] [address], [id number], 06/01/2025 09:27:41 gabapenti n 600 mg tablet 2024 025 [facility], [address] [place] [address], [id number], 06/01/2025 09:28:09 ferrous sulfate 325 mg (65 mg iron) tablet 2024 025 [facility], [address] [place] [address], [id number], 06/01/2025 09:28:04 Patient TargetsNo targets recorded. Patient Instructions Encounter Date Encounter Id Patient Instructions Last Modified By Organization Details Last Modified Time 06/01/2025 [id number] learning about healthy weight efryman Not available 06/01/2025 09:25:21 body mass index: care instructions efryman Not available 06/01/2025 09:25:21 Reason for Referral None Reported. Results Created Date Observation Date Name Description Value Unit Range Abnormal Flag Note LastModifiedBy Organization Detail LastModifiedTime 06/01/2006/01/2025 drug scree n, urine AMP negati ve Not Available [address], [address], 06/01/2025 09:20:44 06/01/2006/01/2025 drug scree n, urine BAR negati ve Not Available [address], [address], 06/01/2025 09:20:44 06/01/2006/01/2025 drug scree n, urine BUP negati ve Not Available [address], [address], 06/01/2025 09:20:44 06/01/2006/01/2025 drug scree n, urine BZO negati ve Not Available [address], [address], 06/01/2025 09:20:44 06/01/2006/01/2025 drug scree n, urine SARIAH negati ve Not Available [address], [address], 06/01/2025 09:20:44 06/01/2006/01/2025 drug scree n, urine FTY negati ve Not Available [address], [address], 06/01/2025 09:20:44 06/01/2006/01/2025 drug scree n, urine MDMA negati ve Not Available [address], [address], 06/01/2025 09:20:44 06/01/2006/01/2025 drug scree n, urine MET negati ve Not Available [address], [address], 06/01/2025 09:20:44 06/01/2006/01/2025 drug scree n, urine MOP negati ve Not Available [address], [address], 06/01/2025 09:20:44 06/01/2006/01/2025 drug scree n, urine MTD negati ve Not Available [address], [address], 06/01/2025 09:20:44 06/01/2006/01/2025 drug scree n, urine OXY negati ve Not Available [address], [address], 06/01/2025 09:20:44 06/01/2006/01/2025 drug scree n, urine PCP negati ve Not Available [address], [address], 06/01/2025 09:20:44 06/01/2006/01/2025 drug scree n, urine TCA negati ve Not Available [address], [address], 06/01/2025 09:20:44 06/01/2006/01/2025 drug scree n, urine THC negati ve Not Available [address], [address], 06/01/2025 09:20:44 05/16/2005/16/2025 XR, knee, 3 view No observ ation record ed. [facility] [address], [place], [address], 05/18/2025 10:24:08 05/16/2005/16/2025 CT, knee, w/o contr ast No observ ation record ed. [facility] [address], [place], [address], 05/18/2025 10:24:08 Result Notes None recorded. Problems Name Problem SNOMED Code Status Onset Date Resolution Date Notes Provider Name and Address Organization Details Recorded Time Asthma 960942905 Active 2019 Nat Riley, TELEVISION CAMERA OPERATOR [address], [place], [address], [place] - [facility] 3 10:07:07 Degeneration of intervertebral disc 04640798 Active 2019 Nat Riley, TELEVISION CAMERA OPERATOR [address], [place], [address], [place] [facility] 3 10:07:10 Neuropathy 996190633 Active 2019 Nat Riley TELEVISION CAMERA OPERATOR [address], [place], [address], [place] [facility] 3 10:07:22 Depressive disorder 39826546 Active 2019 Nat Riley, TELEVISION CAMERA OPERATOR [address], [place], [address], [place] [facility] 3 10:07:12 Arthritis 9282959 Active 2019 Nat Riley, TELEVISION CAMERA OPERATOR [address], [place], [address], [place] [facility] 3 10:07:05 Anxiety 79418640 Active 2019 Nat Riley, TELEVISION CAMERA OPERATOR [address], [place], [address], [place] [facility] 3 10:07:02 Migraine 37358787 Active 2021 Nat Riley, TELEVISION CAMERA OPERATOR [address], [place], [address], [place] [facility] 3 10:07:25 Insomnia 247358959 Active 2021 Nat Riley, TELEVISION CAMERA OPERATOR [address], [place], [address], [place] [facility] 3 10:07:16 Iron deficiency anemia 70927790 Active 2021 Nat Riley, TELEVISION CAMERA OPERATOR [address], [place], [address], [place] [facility] 3 10:07:18 Candidiasis of mouth 31344904 Active 2021 Lisa Salazar, TELEVISION CAMERA OPERATOR [address], [place], [address], [place] [facility] 2 09:37:18 Contact dermatitis 16404966 Active 2023 Luther Walters, DO [address], [place], [address], [place] [facility] 4 09:35:34 Vitamin D deficiency 57542762 Active 2024 Josie machado, [place] - [facility] 5 08:42:26 Gastroesophage al reflux disease without esophagitis 282990196 Active 2024 Josie machado [place] - [facility] 08:42:58 Problem Notes None recorded. Procedures Surgical [...] completed Twyla Owens APRN [address], [place], [address], [place] - [facility] 03/04/2020 17:13:58 03/04/20 20 Skin Tag Removal completed Twyla Owens APRN [address], [place], [address], [place] - [facility] 03/04/2020 17:14:20 12/18/19 20 [...] less than 130 mm Hg completed Marti ESCALANTE [facility] 02/07/2019 15:31:13 02/08/20 19 Diastolic B/P less than 80 mm Hg completed Marti ESCALANTE [facility] 02/07/2019 15:31:16 10/25/19 19 Systolic B/P less than 130 mm Hg completed Daniela ESCALANTE [facility] 10/24/2018 12:59:01 10/25/19 19 Diastolic B/P less than 80 mm Hg completed Daniela Acosta [facility] 10/24/2018 12:59:03 09/26/19 19 Systolic B/P less than 130 mm Hg completed Daniela ESCALANTE [facility] 09/26/2018 10:51:30 09/26/19 19 Diastolic B/P less than 80 mm Hg completed Daniela Acosta [facility] 09/26/2018 10:51:32 08/23/19 19 Systolic B/P less than 130 mm Hg completed Daniela ESCALANTE [facility] 08/23/2018 13:32:22 08/23/19 19 Diastolic B/P 80-89 mm Hg completed Daniela ESCALANTE [facility] 08/23/2018 13:34:24 excision of excessive skin and subcutaneous tissue completed Daniela ESCALANTE [facility] 03/18/2021 11:46:20 Tonsillectomy completed Marti ESCALANTE [facility] 05/08/2019 09:36:32 Knee arthroscopy/surgery completed Marti ESCALANTE [facility] 05/08/2019 09:36:43 delivery completed Marti ESCALANTE [facility] 05/08/2019 09:36:50 gastric sleeve completed Marti ESCALANTE [facility] 05/08/2019 09:37:10 Endometrial Ablation completed Marticlarita ESCALANTE [facility] 05/08/2019 09:37:28 Tubal Ligation completed Marti ESCALANTE [facility] 05/08/2019 09:37:40 Imaging Results None recorded. Procedure Notes None recorded. Medical Equipment None Reported. Allergies Allergen ID Allergen Name Allergen Category Reaction Reaction Severity Criticality Documentation Date Start Date Code Code System Note Provider Name and Address Organization Details Recorded Time 51362 latex environme nt,medica tion Not available Not available Not available 05/12/20162013 73128 91 RxNorm Not Available [facility] 6 08:49:01 12237 Product containin g penicilli n (product) medicatio n hives Not available Not available 05/12/20162012 84628 8001 SNOMED React ion: HIVES ; Not Available [facility] 6 09:23:58 Medications Name Sig Start Date [...] Not Available Not Available Not Available Fluvirin 3853-6571 (PF) 45 mcg (15 mcg x 3)/0.5 [...] Updated DateTime 5 167.64 cm 47.6 kg/m2 690271. 75 g 64 /min 96 % 96 % 18 /min 0 98 [degF] 122/78 mm[Hg] Selin Mckeon [place] - [facility] 5 09:03:02 Social History Question Answer Notes LastModified by Organizat ion Details LastModified Time Tobacco Smoking Status Never Smoker Marti Emma machado [place] - [facility] 05/08/2019 09:35:10 Able To Swim? Yes [email or web address] Information not available 05/08/2019 Do You Have An Advance Directive? No [email or web address] Information not available 05/08/2019 Do You Wear A Helmet When Biking? No Information not available 05/08/2019 Are You Blind Or Do You Have Difficulty Seeing? No [email or web address] Information not available 05/08/2019 What Is Your Level Of Caffeine Consumption? Moderate [email or web address] Information not available 05/08/2019 How Much Tobacco Do You Chew? None [email or web address] Information not available 05/08/2019 Are You Deaf Or Do You Have Serious Difficulty Hearing? No Information not available 05/08/2019 What Type Of Diet Are You Following? REGULAR [email or web address] Information not available 05/08/2019 Which Illicit Or Recreational Drugs Have You Used? Denies [email or web address] Information not available 05/08/2019 What Is The Highest Grade Or Level Of School You Have Completed Or The Highest Degree You Have Received? [id number] Information not available 11/03/2022 How Many Days Of Moderate To Strenuous Exercise, Like A Brisk Walk, Did You Do In The Last 7 Days? 1 [email or web address] Information not available 05/08/2019 On Those Days That You Engage In Moderate To Strenuous Exercise, How Many Minutes, On Average, Do You Exercise? 1 [email or web address] Information not available 05/08/2019 Swimming/diving Yes Informati on not available 05/08/2019 Have There Been Any Changes To Your Family Or Social Situation? No Information no t available 11/03/2022 How Hard Is It For You To Pay For The Very Basics Like Food, Housing, Medical Care, And Heating? 1 [email or web address] Information not available 05/08/2019 Hard Of Hearing Or Deaf In One Or Both Ears? No [email or web address] Information not available 05/08/2019 Legally Blind In One Or Both Eyes? No [email or web address] Information no t available 05/08/2019 Live Alone Or With Others? With Others Information not available 02/03/2020 Do You Have A Medical Power Of [place] Seamer? No Information not available 11/03/2022 What Was The Date Of Your Most Recent Tobacco Screening? 12/05/2024 [email or web address] Information not available 12/05/2024 Do You Use Protection During Sex? Usually [email or web address] Information not available 05/08/2019 What Is Your Relationship Status? Information not available 11/03/2022 Seat Belts Used Routinely Yes Information not available 02/03/2020 Are You Sexually Active? Yes [email or web address] Information not available 05/08/2019 Smoke Alarm In Home Yes [email or web address] Information not available 05/08/2019 Do You Have Smoke And Carbon Monoxide Detectors In Your Home? Yes Information not available 11/03/2022 Are You Passively Exposed To Smoke? Yes [email or web address] Information no t available 05/08/2019 How Much Tobacco Do You Smoke? No Information not available 05/08/2019 General Stress Level Low Information not available 02/03/2020 Do You Use Sunscreen Routinely? Yes [email or web address] Information not available 05/08/2019 Has Tobacco Cessation Counseling Been Provided? No Information not available 12/04/2022 How Many Years Have You Smoked Tobacco? 0 [email or web address] Information not available 05/08/2019 Do You Have Difficulty Walking Or Climbing Stairs? No [email or web address] Information not available 05/08/2019 Sex: Female Functional Status Question Answer Note LastModified by Organizat ion Details LastModified Time Do you use any illicit or recreational drugs? No Information not available 11/03/2022 Do you or have you ever used any other forms of tobacco or nicotine? No Information not available 11/03/2022 What is your level of alcohol consumption? None [email or web address] Information not available 05/08/2019 Do you or have you ever used smokeless tobacco? Never used smokeless tobacco [email or web address] Information not available 05/08/2019 Are you currently employed? Yes Information not available 11/03/2022 Do you have transportation difficulties? No Information not available 11/03/2022 Are you able to walk independently without assistance or assistive devices? [email or web address] Information not available 05/08/2019 Do you have difficulty doing errands alone? No [email or web address] Information not available 05/08/2019 Are you able to care for yourself independently? Yes [email or web address] Information not available 05/08/2019 Do you have difficulty dressing, bathing, grooming, or toileting? No [email or web address] Information not available 05/08/2019 Do you or have you ever used e-cigarettes or vape? Never used electronic cigarettes [email or web address] Information not available 05/08/2019 What is your exercise level? None Information not available 02/03/2020 Mental Status Question Answer Note LastModified by Organization D etails LastModified Time Do you feel stressed (tense, restless, nervous, or anxious, or unable to sleep at night)? 1 [email or web address] Information not available 05/08/2019 Do you have difficulty concentrating, remembering or making decisions? No [email or web address] Information no t available 05/08/2019 Family History [...] virus, quadrivalent, preservative 6 completed Not Available [facility] 08/23/2019 03:54:17 Influenza, split virus, quadrivalent, preservative 0 completed Karuna Mills null, [place] - [facility] 07/08/2020 16:55:30 Influenza, split virus, quadrivalent, preservative 1 completed Bjorn Salazar MD [address], [place], [address], [place] - [facility] 05/23/2021 11:39:53 Influenza, split virus, quadrivalent, preservative 7 completed Not Available [facility] 08/23/2019 03:54:42 Hep B, adult 2 completed Lisa Salazar APRN [address], [place], [address], [place] [facility] 05/24/2022 09:36:02 Hep B, adult 2 completed Lisa Salazar APRN [address], [place], [address], [place] [facility] 07/24/2022 09:44:07 Pneumococcal conjugate PCV 13 2 completed Selin Mckeon null, [place] - [facility] 08/23/2023 08:22:59 influenza, unspecified formulation 2 completed Selin Mckeon null, [place] - [facility] 08/23/2023 08:22:59 influenza, unspecified formulation 4 completed Selin Mckeon null, [place] - [facility] 08/23/2023 08:22:59 Tdap 2 completed Not Available [facility] 05/16/2016 00:49:27 Influenza, split virus, quadrivalent, preservative 3 completed Josie Owen null, [place] - [facility] 05/17/2023 14:48:02 Influenza, split virus, trivalent, preservative 4 completed Nat Riley APRN [address], [place], [address], [place] [facility] 05/23/2024 09:05:47 Pneumococcal conjugate PCV20, polysaccharide MAF092 conjugate, adjuvant, PF 4 completed Nat Riley APRN [address], [place], [address], [place] [facility] 05/23/2024 09:05:47 Influenza, split virus, trivalent, PF 5 completed Josie Owen null, [place] - [facility] 05/11/2025 09:41:13 Hep A, adult 8 completed Not Available [facility] 08/23/2019 03:55:12 Influenza, split virus, quadrivalent, preservative 8 completed Not Available [facility] 08/23/2019 03:55:25 Hep A, adult 9 completed Not Available [facility] 08/23/2019 03:55:39 influenza, split (incl. purified surface antigen) 2 completed Josie Owen null, [place] - [facility] 11/03/2022 13:08:15 Influenza, split virus, quadrivalent, PF 2 completed Selin Mcke[place] null, [place] - [facility] 02/19/2023 16:13:30 Influenza, split virus, quadrivalent, PF 4 completed Selin Mckeon null, [place] - [facility] 11/17/2022 16:25:17 Influenza, split virus, quadrivalent, PF 9 completed Not Available [facility] 08/23/2019 03:56:06 Past Encounters Encounter ID Performer Location Encounter Start Date Encounter Closed Date Diagnosis/Indication Diagnosis SNOMED-CT Code Diagnosis ICD10 Code Diagnosis IMO Codes Diagnosis Note [id number] Nat Riley APRN [address] [address] 05/11/2025 09:21:51 05/11/2025 09:56:43 Influenza vaccine needed 9970598593 106 Z23 [id number] Nat Riley APRN [address] [address] 06/01/2025 08:49:47 06/01/2025 09:30:05 Neuropathy 373857363 G62.9 Pt compliant with plan of careKasper reviewed and appropriat emedicatio n compliance discussedL ast uds:Control substance agreement on file Gastroesop hageal reflux disease without esophagitis 540308332 K21.9 941227 Vitamin D deficiency 347 10239 E55.9 17359 Depressive disorder 3548 9007 F32.9 Arthritis 6890456 M19.90 Insomnia 231537827 G47.0 0 Asthma 801823437 J45.90 9 Anterior t ibial stress syndrome 807311299 S86.899A Pain of knee region 1003 219397 M25.562 G89.29 discussed risk of med with ptmake sure to take omeprazole if taking diclofenac Constipation 89472737 K5 9.00 encouraged high fiber foods and fluids Iron defic iency anemia 79609512 D50.9 labsif no improvemen t or worsening return or be seen in er Acute maxi llary sinusitis 72099761 J01.00 if symptoms worsen or no improvemen t return Migraine 85359849 G43.90 9 Body mass index 40+ - severely obese 745902172 E66.813 Z68.42 2881885 105839 47.6 Long-term current use of drug therapy 209591502 Z79.899 46901382 Mixed hyperlipidemia 267 663750 E78.2 13483 Abrasion o f skin of cheek 3531417847 S00.81XA 6959200699 if no improvemen t or worsening return Health Concerns Section Related Observation LastModified by Organization Detai ls LastModified Time None Recorded Concern Status LastModified by Organization Details LastModified Time None Recorded Payers Encounter Date Sequence Insurance Name Policy Number Policy Aranda Covered Member ID Aranda Member ID Guarantor Name 06/01/2025 1 [facility] (MEDICAID HMO) Cris Galdamez [id number] Cris Galdamez Notes Date Note Type Note Provider Name and Address Organization Details Recorded Time 06/01/2025 text/html 44 yr old female presents for a follow up on chronic conditions and refill medications. pt states gabapentin helps with her neuropathy.abrasi ons to face from scrubbing to hard to remove temp tattoos.pt states other gonzalez she is feeling well no c/o Eughoang Riley, TELEVISION CAMERA OPERATOR [address], [place], [address], [facility] - [facility] 06/01/2025 09:28:29 OBGyn Episode No OBEpisode recorded.
[2025-06-17 12:57] LABS: Hematocrit 43.4 % (37.0-47.0); Hemoglobin 14.2 g/dL (12.2-16.2); Immature Granulocytes % 0.2 %; Mean Corpuscular HGB Conc 32.7 g/dL (31.8-35.4); Mean Corpuscular Hemoglobin 28.6 pg (27.0-31.2); Mean Corpuscular Volume 87.5 fl (81-99); Nucleated Red Blood Cells % 0 %; Platelet Count 263 K/mm3 (142-424); Red Blood Count 4.96 M/mm3 (4.20-5.40); Red Cell Distribution Width-SD 42.5 fL; White Blood Count 8.0 K/mm3 (4.8-10.8)
[2025-06-17 13:20] LABS: Iron 146 ug/dL (37-170)
[2025-06-17 13:29] LABS: Total Iron Binding Capacity 252 ug/dL (265-497)
[2025-06-17 13:57] LABS: Ferritin 37.9 ng/ml (6.24-137)
== END 2025-06-17 23:59 | disposition home or self-care (01) ==
LOC: LAB 12:12
PROVIDERS: PCP Nurse Practitioner Family; Visit Provider Internal Medicine Medical Oncology
DX: D64.9 Anemia, unspecified (principal)
CPT/HCPCS: 36415; 82728; 83540; 83550; 85025